=== PATIENT | female | born 1955 | race Caucasian/White ===

== ENCOUNTER 2020-08-16 12:58 | Inpatient (IN) | payer MEDICARE, OTHER ==
[2020-08-16] VITALS (11 sets, daily range): BP systolic 84–94; BP diastolic 47–60
[~2020-08-16] VITALS: Ht 170.2 cm; Wt 53.1 kg
[2020-08-16 13:50] LABS: MEAN CORPUSCULAR HEMOGLOBIN 15.7 pg (27.0-33.0); MEAN CORPUSCULAR HGB CONC 26.4 g/dl (32.0-36.5); MEAN CORPUSCULAR VOLUME 59.7 fl (80.0-96.0); PLATELET COUNT, AUTOMATED 729 10^3/uL (150-450); RED BLOOD COUNT 2.48 10^6/uL (4.00-5.40)
[2020-08-16 14:02] LABS: INR 1.55; PROTHROMBIN TIME 18.9 SECONDS (12.5-14.3)
[2020-08-16 14:03] LABS: PARTIAL THROMBOPLASTIN TIME 38.5 SECONDS (24.2-38.5)
[2020-08-16 14:12] LABS: HEMATOCRIT 14.8 % (36.0-47.0); HEMOGLOBIN 3.9 g/dl (12.0-15.5); WHITE BLOOD COUNT 47.7 10^3/uL (4.0-10.0)
[2020-08-16 14:22] LABS: ABG BASE EXCESS 8.8 (-2.0-2.0); ABG HCO3 31.6 MEQ/L (22.0-26.0); ABG O2 SATURATION 89.9 % (95.0-99.0); ABG PARTIAL PRESSURE CO2 33.9 mmHg (35.0-45.0); ABG PARTIAL PRESSURE O2 55.1 mmHg (75.0-100.0); ABG STANDARD HCO3 32.5 MEQ/L (22.0-26.0); ABG TOTAL CO2 32.7 MEQ/L (23.0-31.0); ABG pH (ARTERIAL) 7.588 UNITS (7.350-7.450)
[2020-08-16 14:27] LABS: ALBUMIN 1.5 GM/DL (3.2-5.2); ALT/SGPT 6 U/L (12-78); BILIRUBIN,DIRECT 0.4 MG/DL (0.0-0.2); BILIRUBIN,TOTAL 0.6 MG/DL (0.2-1.0); BLOOD UREA NITROGEN 11 MG/DL (7-18); CALCIUM LEVEL 7.6 MG/DL (8.8-10.2); CARBON DIOXIDE LEVEL 29 MEQ/L (21-32); CHLORIDE LEVEL 92 MEQ/L (98-107); CPK CREATINE PHOSPHOKINASE 38 U/L (26-192); CREATININE FOR GFR 0.88 MG/DL (0.55-1.30); GLOMERULAR FILTRATION RATE > 60.0 (>45); GLUCOSE, FASTING 90 MG/DL (70-100); MB/CK RELATIVE INDEX 5.26 (< OR =4); NT-PRO BNP 6956 PG/ML (<125); POTASSIUM SERUM 2.5 MEQ/L (3.5-5.1); SODIUM LEVEL 134 MEQ/L (136-145); TROPONIN I 0.16 NG/ML (< 0.10)
[2020-08-16] MEDS ORDERED: POTASSIUM CHLORIDE 10 MEQ SR TABLET PO ONE ×2 (14:30→21:00)
[2020-08-16] MEDS ORDERED: KCL 10MEQ/100ML SWI (KRUN) 10 MEQ in IV 1 EA IV ONE ×2 (14:30→19:00)
[2020-08-16] MEDS ORDERED: ISOVUE-370 76% 100ML VIAL As Ordered ONE (14:36)
[2020-08-16 14:42] LABS: D-DIMER QUANT > 4000 ng/ml (<500)
[2020-08-16 14:47] LABS: LYMPHOCYTES 2 % (16-44); MONOCYTES 1 % (0-5); NEUTROPHILS 95 % (28-66); PLATELET ESTIMATE INCREASED (NORMAL)
[2020-08-16 14:48] LABS: HYPOCHROMASIA 4+
[2020-08-16 14:49] LABS: TARGET CELLS 2+
[2020-08-16 14:50] LABS: ANISOCYTOSIS 3+; POLYCHROMASIA 2+
[2020-08-16 14:51] LABS: MICROCYTOSIS 3+; PLATELET CLUMPS SMALL AMT
[2020-08-16 14:52] LABS: POIKILOCYTOSIS 2+
--- NOTE | 2020-08-16 14:53 | REPVR ---
PROCEDURE INFORMATION: Exam: XR Chest, 1 View Exam date and time: 08/16/2020 2:04 PM Age: 65 years old Clinical indication: Other: Cough; Additional info: Dyspnea/cough TECHNIQUE: Imaging protocol: XR of the chest Views: 1 view. COMPARISON: No relevant prior studies available. FINDINGS: Lungs: There is a large amount of infiltrate and consolidation involving the inferior 2/3 of the right lung. The left lung is clear. Pleural space: Unremarkable. No pleural effusion. No pneumothorax. Heart/Mediastinum: Unremarkable. No cardiomegaly. Bones/joints: Unremarkable. Other findings: There is a small to moderate right effusion. IMPRESSION: Right infiltrate and effusion. Electronically signed by: Fei Abrams On 08/16/2020 14:52:45 PM
--- NOTE | 2020-08-16 15:26 | REPVR ---
PROCEDURE INFORMATION: Exam: CT Angiography Chest With Contrast Exam date and time: 08/16/2020 2:53 PM Age: 65 years old Clinical indication: Shortness of breath; Additional info: SOB, hypoxia TECHNIQUE: Imaging protocol: Computed tomographic angiography of the chest with intravenous contrast. 3D rendering (Not supervised by radiologist): MIP and/or 3D reconstructed images were created by the technologist. Radiation optimization: All CT scans at this facility use at least one of these dose optimization techniques: automated exposure control; mA and/or kV adjustment per patient size (includes targeted exams where dose is matched to clinical indication); or iterative reconstruction. Contrast material: ISOVUE 370; Contrast volume: 75 ml; Contrast route: INTRAVENOUS (IV); COMPARISON: CR PORTABLE CHEST X-RAY 08/16/2020 2:00 PM FINDINGS: Pulmonary arteries: Normal. No pulmonary emboli. Aorta: There is an ectatic ascending aorta 35 mm. Lungs: There is extensive infiltrate noted with atelectasis involving the right lung. There is a suspected mass lesion noted measuring 92 x 67 involving the middle lobe and right upper lobe extending to the hilum. This does have low-density in could be a large loculated area of fluid or partially cystic mass. There is moderate right effusion with basilar atelectasis. Pleural space: Unremarkable. No pneumothorax. No pleural effusion. Heart: Unremarkable. No cardiomegaly. No pericardial effusion. Lymph nodes: There is a 20 x 18 mm right hilar lymph node. There is an enlarged 13 x 12 mm pretracheal lymph node. Bones/joints: Unremarkable. No acute fracture. Soft tissues: Unremarkable. Other findings: There is artifact from the patient's arms scanned by her side. IMPRESSION: 1. Atelectasis involving the right upper lobe as well as the right base with a pleural effusion but there is suspected large right lung mass extending from the chest wall to the hilum. There is abnormal adenopathy. 2. No PE. 3. Patient's arms gives rise to artifact. Electronically signed by: Fei Abrams On 08/16/2020 15:26:09 PM
--- NOTE | 2020-08-16 18:01 | HPEPDOC ---
General Date of Admission 08/16/20 Date of Service: Aug 16, 2020 Chief Complaint The patient is a 65-year-old female admitted with a reason for visit of Medical Complaint. Source: Patient Exam Limitations: No limitations Timing/Duration: Week(s) Severity: Severe History of Present Illness Patient is 65 years old female with past medical history of chronic neck pain, active smoker presented to the hospital with increased shortness of breath. Patient stated that she haven't seen doctors for years. Patient stated that for past 4-5 weeks she has been having increased shortness of breath, cough, lack of appetite and low energy. She states that she lost many pounds, but she doesn't know exactly how many. In ER patient was found to have on CTA Atelectasis involving the right upper lobe as well as the right base with a pleural effusion but there is suspected large right lung mass extending from the chest wall to the hilum. There is abnormal adenopathy. Also patient has elevated white blood count of 47.7, hemoglobin 3.9, lactic acid 3.8, potassium 2.5, BNP 6956, troponin 0.1 Home Medications No Active Prescriptions or Reported Meds Allergies Coded Allergies: No Known Allergies (Unverified , 08/16/20) Past Medical History Medical History Chronic neck pain Family History I personally reviewed family history and found not pertinent Social History * Smoker: current smoker Alcohol: Denies Drugs: denies A-FIB/CHADSVASC A-FIB History Current/History of A-Fib/PAF?: No Current PO Anticoag Therapy: No Review of Systems Constitutional: Reports: Malaise, Weakness, Fatigue, Weight Loss Eyes: Denies: Pain, Vision change Skin: Denies: Rash, Lesions Pulmonary: Reports: Dyspnea, Cough Cardiovascular: Denies: Chest Pain, Palpitations Gastrointestinal: Denies: Nausea, Vomiting Genitourinary: Denies: Dysuria, Frequency Hematologic: Denies: Bruising Endocrine: Denies: Polydipsia, Polyphagia Musculoskeletal: Reports: Neck Pain Neurological: Denies: Weakness, Numbness Psych: Reports: Mood Normal Physical Examination General Exam: Positive: Alert, Cooperative Eye Exam: Positive: PERRLA ENT Exam: Positive: Atraumatic Neck Exam: Positive: Supple, JVD Chest Exam: Positive: Rales, Rhonchi, Diminished (right base); Negative: Clear to auscultation Heart Exam: Positive: Rate Normal Telemetry: Positive: No significant arrhythmia Abdomen Exam: Positive: Normal bowel sounds Extremity Exam: Positive: Clubbing; Negative: Cyanosis Skin Exam: Positive: Nl turgor and temperature Neuro Exam: Positive: Strength at 5/5 X4 ext, Cranial Nerves 3-12 NL Psych Exam: Positive: Mental status NL, Oriented x 3 Vital Signs Vital Signs Date Time Temp Pulse Resp B/P (MAP) Pulse Ox O2 Delivery O2 Flow Rate FiO2 08/16/20 17:30 84 88/51 (63) 94 Nasal Cannula 2.0 08/16/20 16:55 98.0 16 Laboratory Data Labs 24H Laboratory Tests 2 08/16/20 13:24: Neutrophils (%) (Auto) , Nucleated Red Blood Cells % (auto) 0.1H, Neutrophils 95H, Band Neutrophils 2, Lymphocytes (Manual) 2L, Monocytes (Manual) 1, Polychromasia 2+, Hypochromasia 4+, Poikilocytosis 2+, Anisocytosis 3+, Microcytosis 3+, Macrocytosis 1+, Target Cells 2+, Platelet Estimate INCREASED, Clumped Platelets SMALL AMT, Prothrombin Time 18.9H, Prothromb Time International Ratio 1.55, Activated Partial Thromboplast Time 38.5H, D-Dimer, Quantitative > 4000H, Anion Gap 13, Glomerular Filtration Rate > 60.0, Calcium Level 7.6L, Total Bilirubin 0.6, Direct Bilirubin 0.4H, Aspartate Amino Transf (AST/SGOT) 16, Alanine Aminotransferase (ALT/SGPT) 6L, Alkaline Phosphatase 164H, Total Creatine Kinase 38, Creatine Kinase MB 2.0, Creatine Kinase MB Relative Index 5.26H, Troponin I 0.16H, PA-Kbw-O-Type Natriuretic Peptide 6956H, Total Protein 6.0L, Albumin 1.5L, Albumin/Globulin Ratio 0.3L, Thyroid Stimulating Hormone (TSH) 3.940H 08/16/20 14:05: Blood Gas Bicarbonate Standard 32.5H, Arterial Blood pH 7.588H, Arterial Blood Partial Pressure CO2 33.9L, Arterial Blood Partial Pressure O2 55.1L, Arterial Blood Total CO2 32.7H, Arterial Blood HCO3 31.6H, Arterial Blood Base Excess 8.8H, Arterial Blood Oxygen Saturation 89.9L 08/16/20 14:46: Lactic Acid Level 3.8*H CBC/BMP Laboratory Tests 08/16/20 13:24 Microbiology Microbiology 08/16/20 Blood Culture, Received Pending 08/16/20 Respiratory Virus Panel (PCR) (JEFRY) - Final, Complete Assessment/Plan Patient is 65 years old female with past medical history of chronic neck pain, active smoker presented to the hospital with increased shortness of breath. Ale ent stated that she haven't seen doctors for years. Patient stated that for past 4-5 weeks she has been having increased shortness of breath, cough, lack of appetite and low energy. She states that she lost many pounds, but she doesn't know exactly how many. In ER patient was found to have on CTA Atelectasis involving the right upper lobe as well as the right base with a pleural effusion but there is suspected large right lung mass extending from the chest wall to the hilum. There is abnormal adenopathy. Also patient has elevated white blood count of 47.7, hemoglobin 3.9, lactic acid 3.8, potassium 2.5, BNP 6956, troponin 0.1 Problems (1) Sepsis Status: Acute Problem Text: Most likely secondary to obstructive pneumonia due to advanced lung malignancy Await blood culture, await sputum culture Ceftriaxone IV, doxycycline IV Patient has significantly elevated BNP, I will hold fluid for now (2) Lung mass Status: Acute Problem Text: Patient is active smoker CT scan showed Atelectasis involving the right upper lobe as well as the right base with a pleural effusion but there is suspected large right lung mass extending from the chest wall to the hilum. There is abnormal adenopathy. Most likely patient developed lung malignancy Placed order for IR for lung biopsy Appreciate/agree with enrollment manager consult (3) Leukocytosis Status: Acute Problem Text: Most likely associated with advanced malignancy secondary to lung cancer However there is possibility for obstructive pneumonia Ceftriaxone IV, doxycycline IV (4) Anemia Status: Acute Problem Text: Patient has microcytic anemia There is concern for GI loss anemia, patient has never had colonoscopy Stool for occult blood Blood transfusion 2 units H&H every [address] scan of abdomen and pelvis (5) Hypokalemia Status: Acute Problem Text: Replaced BMP every 6 hours (6) Acute hypoxemic respiratory failure Problem Text: Secondary to advanced lung malignancy, postobstructive pneumonia and pleural effusion Continue oxygen therapy Inhalers Continue antibiotics (7) Congestive heart failure (CHF) Status: Acute Problem Text: BNP significantly elevated Plus JVD, orthopnea Echo Cardiac diet I's and O's Lasix Plan / VTE VTE Prophylaxis Ordered?: Yes ELIE SCHMITZ DO Aug 16, 2020 18:01
[2020-08-16] MEDS: ACETAMINOPHEN TAB 650MG DOSE (2X325MG) PO PRN (18:23)
--- NOTE | 2020-08-16 18:59 | REPVR ---
PROCEDURE INFORMATION: Exam: CT Abdomen And Pelvis Without Contrast Exam date and time: 08/16/2020 6:16 PM Age: 65 years old Clinical indication: Other: Gi bleed TECHNIQUE: Imaging protocol: Computed tomography of the abdomen and pelvis without contrast. Radiation optimization: All CT scans at this facility use at least one of these dose optimization techniques: automated exposure control; mA and/or kV adjustment per patient size (includes targeted exams where dose is matched to clinical indication); or iterative reconstruction. COMPARISON: No relevant prior studies available. FINDINGS: Lungs: Lung base abnormalities were described on the CT angiogram chest report earlier today. Liver: Noncontrast liver shows no obvious lesion. Gallbladder and bile ducts: Gallbladder is present and shows no evidence of gallstone. Pancreas: Noncontrast pancreas shows no obvious mass or adjacent fluid. Spleen: Noncontrast spleen shows no obvious focal deformity. Adrenals: Adrenal glands are normal in appearance. Kidneys and ureters: Kidneys show no stone or hydronephrosis. Stomach and bowel: No evidence of small bowel obstruction. No evidence of acute diverticulitis. Hyperdense material within small bowel lumen in the midline pelvis which could be ingested material. It could potentially be intraluminal blood since the patient recently had IV contrast. This is seen on axial image [id number] Appendix: Normal caliber appendix is identified, with no adjacent inflammation. Intraperitoneal space: No pneumoperitoneum. Vasculature: Atherosclerotic change present in the aorta, without aneurysm. Lymph nodes: No enlarged lymph nodes. Bladder: Urinary bladder appears normal. Reproductive: Female reproductive organs appear unremarkable. Bones/joints: Bony structures show no acute fracture or destructive process. Soft tissues: Unremarkable. IMPRESSION: 1. Hyperdense intraluminal material within lower abdominal small bowel. This could be intraluminal hemorrhage with recent IV contrast administration, or could represent ingested material. 2. No other acute or concerning focal abnormality on noncontrast CT. Electronically signed by: Triston Garrison On 08/16/2020 18:59:42 PM
[2020-08-16 19:54] LABS: HEMATOCRIT 19.1 % (36.0-47.0); HEMOGLOBIN 5.4 g/dl (12.0-15.5)
[2020-08-16] MEDS: IPRATROPIUM 0.5MG/ALBUTEROL 2.5MG INH SOL UD 3ML (DUONEB) INH SCH (20:04)
[2020-08-16 20:13] LABS: INR 1.45; PROTHROMBIN TIME 17.9 SECONDS (12.5-14.3)
[2020-08-16 20:18] LABS: BLOOD UREA NITROGEN 10 MG/DL (7-18); CALCIUM LEVEL 7.6 MG/DL (8.8-10.2); CARBON DIOXIDE LEVEL 32 MEQ/L (21-32); CHLORIDE LEVEL 94 MEQ/L (98-107); CREATININE FOR GFR 0.62 MG/DL (0.55-1.30); GLOMERULAR FILTRATION RATE > 60.0 (>45); GLUCOSE, FASTING 99 MG/DL (70-100); MAGNESIUM LEVEL 1.6 MG/DL (1.8-2.4); POTASSIUM SERUM 2.2 MEQ/L (3.5-5.1); SODIUM LEVEL 134 MEQ/L (136-145)
[2020-08-16] MEDS: FUROSEMIDE 40MG/4ML VIAL (J1940) IV SCH (22:23)
[2020-08-16] MEDS: cefTRIAXone SOD 1 GM in D5W MINI-BAG PLUS 50 ML IV SCH (23:06)
[2020-08-16] MEDS: DOXYCYCLINE HYCLATE 100 MG in D5W MINI-BAG PLUS 100 ML IV SCH (23:53)
[2020-08-17] VITALS (9 sets, daily range): BP systolic 94–109; BP diastolic 52–62
[2020-08-17] MEDS: ACETAMINOPHEN TAB 650MG DOSE (2X325MG) PO PRN (00:02)
[2020-08-17] MEDS: IPRATROPIUM 0.5MG/ALBUTEROL 2.5MG INH SOL UD 3ML (DUONEB) INH SCH ×7 (01:49→23:58)
[2020-08-17 05:15] LABS: HEMATOCRIT 32.4 % (36.0-47.0); HEMOGLOBIN 10.1 g/dl (12.0-15.5); MEAN CORPUSCULAR HEMOGLOBIN 23.3 pg (27.0-33.0); MEAN CORPUSCULAR HGB CONC 31.2 g/dl (32.0-36.5); MEAN CORPUSCULAR VOLUME 74.7 fl (80.0-96.0); RED BLOOD COUNT 4.34 10^6/uL (4.00-5.40)
[2020-08-17 05:17] LABS: WHITE BLOOD COUNT 45.4 10^3/uL (4.0-10.0)
[2020-08-17 05:18] LABS: PLATELET COUNT, AUTOMATED 508 10^3/uL (150-450)
[2020-08-17 05:44] LABS: ALBUMIN 1.4 GM/DL (3.2-5.2); ALT/SGPT 7 U/L (12-78); BILIRUBIN,TOTAL 2.3 MG/DL (0.2-1.0); BLOOD UREA NITROGEN 10 MG/DL (7-18); CALCIUM LEVEL 7.8 MG/DL (8.8-10.2); CARBON DIOXIDE LEVEL 30 MEQ/L (21-32); CHLORIDE LEVEL 98 MEQ/L (98-107); CREATININE FOR GFR 0.57 MG/DL (0.55-1.30); GLOMERULAR FILTRATION RATE > 60.0 (>45); GLUCOSE, FASTING 119 MG/DL (70-100); MAGNESIUM LEVEL 1.5 MG/DL (1.8-2.4); SODIUM LEVEL 134 MEQ/L (136-145); TOTAL PROTEIN 5.5 GM/DL (6.4-8.2)
[2020-08-17] MEDS ORDERED: MAG SULF 1GM/100ML (MAG RUN) 1 GM in IV 1 EA IV ONE (07:00)
[2020-08-17] MEDS: KCL 10MEQ/100ML SWI (KRUN) 10 MEQ in IV 1 EA IV SCH ×4 (07:34→11:53)
[2020-08-17] MEDS: FUROSEMIDE 40MG/4ML VIAL (J1940) IV SCH (08:41)
[2020-08-17] MEDS: ENOXAPARIN 40MG/0.4ML SYRINGE (J1650 PER 10MG) SC SCH (08:42)
[2020-08-17] MEDS: DOXYCYCLINE HYCLATE 100 MG in D5W MINI-BAG PLUS 100 ML IV SCH (08:42)
[2020-08-17] MEDS ORDERED: FLUBLOK(EGG FREE)(QUAD)INFLUENZA VACC 0.5ML SYRINGE 18YRS & OLDER IM ONE (09:00)
[2020-08-17] MEDS: PERCOCET 5MG/325MG TAB PO PRN ×2 (09:08→20:49)
--- NOTE | 2020-08-17 10:11 | REPVR ---
PROCEDURE INFORMATION: Exam: CT Cervical Spine Without Contrast Exam date and time: 08/17/2020 9:41 AM Age: 65 years old Clinical indication: Neck pain and other: Mets? TECHNIQUE: Imaging protocol: Computed tomography images of the cervical spine without contrast. Radiation optimization: All CT scans at this facility use at least one of these dose optimization techniques: automated exposure control; mA and/or kV adjustment per patient size (includes targeted exams where dose is matched to clinical indication); or iterative reconstruction. COMPARISON: No relevant prior studies available. FINDINGS: Vertebrae: No acute fracture. Normal alignment. Mild posterior articular facet joint degenerative arthropathy is present at levels C3 through C7. Discs/Spinal canal/Neural foramina: No significant disc protrusion. No severe spinal canal stenosis. No significant neural foraminal narrowing. Soft tissues: Unremarkable prevertebral and posterior paraspinal soft tissues. Lungs: A layering pleural effusion is seen posterior to the right lung apex. IMPRESSION: 1. Normal cervical spine, except for mild posterior facet joint degenerative arthropathy at levels C3 through C7. No significant spinal canal or neuroforaminal stenosis. 2. A layering pleural effusion is seen posterior to the right lung apex. Electronically signed by: Artemio Mulligan On 08/17/2020 10:10:42 AM
[2020-08-17] MEDS: VANCOMYCIN HCL 1,000 MG, VIAL MATE ADAPTER 1 EACH in D5W 250 ML IV SCH ×2 (10:29→20:39)
--- NOTE | 2020-08-17 10:46 | IPNPDOC ---
Text Note Date of Service The patient was seen on 08/17/20. NOTE Subjective: Patient stated that her breathing improved. She complaints of cough and poor appetite. She denies fever, chills, chest pain, palpitations, diarrhea or dysuria Objective: GENERAL APPEARANCE: Cachectic female HEENT: no scleral icterus, no JVD, EOMI CARDIOVASCULAR: S1S2 LUNGS: Bilateral rhonchi, diminished lung sounds at the right base ABDOMEN: soft & not tender w palpitation MUSCULOSKELETAL: no cyanosis, no swelling INTEGUMENT: no generalized palor NEUROLOGICAL: cranial nerve function from 2-12 intact intact, follows commands, speech not dysarthric Assessment/Plan Patient is 65 years old female with past medical history of chronic neck pain, active smoker presented to the hospital with increased shortness of breath. Patient stated that she haven't seen doctors for years. Patient stated that for past 4-5 weeks she has been having increased shortness of breath, cough, lack of appetite and low energy. She states that she lost many pounds, but she doesn't know exactly how many. In ER patient was found to have on CTA Atelectasis involving the right upper lobe as well as the right base with a pleural effusion but there is suspected large right lung mass extending from the chest wall to the hilum. There is abnormal adenopathy. Also patient has elevated white blood count of 47.7, hemoglobin 3.9, lactic acid 3.8, potassium 2.5, BNP 6956, t roponin 0.1 Problems (1) Sepsis Most likely secondary to obstructive pneumonia due to advanced lung malignancy blood culture gram-positive cocci in clusters, await sputum culture Ceftriaxone IV, DC doxycycline IV, added vancomycin (2) Lung mass Patient is active smoker CT scan showed Atelectasis involving the right upper lobe as well as the right base with a pleural effusion but there is suspected large right lung mass extending from the chest wall to the hilum. There is abnormal adenopathy. Most likely patient developed lung malignancy Placed order for IR for lung biopsy Appreciate/agree with technical solutions engineer consult (3) Leukocytosis Most likely associated with advanced malignancy secondary to lung cancer However there is possibility for obstructive pneumonia Continue antibiotic therapy (4) Anemia Patient has microcytic anemia There is concern for GI loss anemia, patient has never had colonoscopy Stool for occult blood Blood transfusion 2 units H&H every 6 hours On 08/17/20 in stable (5) Hypokalemia Replaced BMP every 6 hours (6) Acute hypoxemic respiratory failure Secondary to advanced lung malignancy, postobstructive pneumonia and pleural effusion Continue oxygen therapy Inhalers Continue antibiotics (7) Congestive heart failure (CHF) Improved BNP significantly elevated Plus JVD, orthopnea Echo Cardiac diet I's and O's DC Lasix due to sepsis Postobstructive pneumonia Secondary to malignancy See above VS,Fishbone, I+O VS, Fishbone, I+O Laboratory Tests 08/16/20 13:24 08/16/20 19:26 08/17/20 04:37 Vital Signs Date Time Temp Pulse Resp B/P (MAP) Pulse Ox O2 Delivery O2 Flow Rate FiO2 08/17/20 09:38 20 Room Air 08/17/20 03:45 98.2 81 101/55 91 08/17/20 01:35 2.0 I&O- Last 24 Hours up to 6 AM 08/17/20 05:59 Intake Total 2060 ml Output Total 200 ml Balance 1860 ml ELIE SCHMITZ DO Aug 17, 2020 10:46
[2020-08-17 12:26] LABS: HEMOGLOBIN 10.1 g/dl (12.0-15.5)
[2020-08-17 12:50] LABS: BLOOD UREA NITROGEN 9 MG/DL (7-18); CALCIUM LEVEL 7.8 MG/DL (8.8-10.2); CARBON DIOXIDE LEVEL 31 MEQ/L (21-32); CHLORIDE LEVEL 96 MEQ/L (98-107); CREATININE FOR GFR 0.68 MG/DL (0.55-1.30); GLOMERULAR FILTRATION RATE > 60.0 (>45); GLUCOSE, FASTING 189 MG/DL (70-100); POTASSIUM SERUM 3.2 MEQ/L (3.5-5.1); SODIUM LEVEL 132 MEQ/L (136-145)
--- NOTE | 2020-08-17 13:18 | ECGEPIP ---
[facility] - ED Test Date: 2020-08-16 Pat Name: CHON ZUÑIGA Department: Room: - Gender: Female Cloud Systems Architect: MICHELE : 1955 Requested By: TIGRE Erickson Order Number: [id number] Reading MD: Yesy Thompson Measurements Intervals [place] Rate: 96 P: 52 TX: 152 QRS: -35 QRSD: 87 T: 62 QT: 368 QTc: 466 Interpretive Statements SINUS RHYTHM WITH OCCASIONAL VENTRICULAR PREMATURE COMPLEXES WITH OCCASIONAL SUP SUPRAVENTRICULAR PREMATURE COMPLEXES MARKED LEFT AXIS DEVIATION MODERATE ST DEPRESSION NSTTW abnormalities POSSIBLE PRIOR INFERIOR INFARCT NO PRIOR Electronically Signed on 08-17-2020 13:18:20 EDT by Yesy Thompson
[2020-08-17] MEDS: cefTRIAXone SOD 1 GM in D5W MINI-BAG PLUS 50 ML IV SCH (17:20)
[2020-08-17 18:04] LABS: HEMOGLOBIN 10.3 g/dl (12.0-15.5)
[2020-08-17 18:31] LABS: BLOOD UREA NITROGEN 9 MG/DL (7-18); CALCIUM LEVEL 7.7 MG/DL (8.8-10.2); CARBON DIOXIDE LEVEL 32 MEQ/L (21-32); CHLORIDE LEVEL 95 MEQ/L (98-107); CREATININE FOR GFR 0.54 MG/DL (0.55-1.30); GLOMERULAR FILTRATION RATE > 60.0 (>45); GLUCOSE, FASTING 100 MG/DL (70-100); POTASSIUM SERUM 3.2 MEQ/L (3.5-5.1); SODIUM LEVEL 133 MEQ/L (136-145)
[2020-08-17] MEDS ORDERED: KCL 10MEQ/100ML SWI (KRUN) 10 MEQ in IV 1 EA IV ONE (19:00)
[2020-08-17] MEDS ORDERED: POTASSIUM CHLORIDE 10 MEQ SR TABLET PO ONE (19:00)
[2020-08-18] VITALS: BP 114/55
[2020-08-18 00:45] LABS: BLOOD UREA NITROGEN 8 MG/DL (7-18); CALCIUM LEVEL 8.1 MG/DL (8.8-10.2); CARBON DIOXIDE LEVEL 32 MEQ/L (21-32); CHLORIDE LEVEL 95 MEQ/L (98-107); CREATININE FOR GFR 0.53 MG/DL (0.55-1.30); GLOMERULAR FILTRATION RATE > 60.0 (>45); GLUCOSE, FASTING 88 MG/DL (70-100); POTASSIUM SERUM 3.5 MEQ/L (3.5-5.1); SODIUM LEVEL 131 MEQ/L (136-145)
[2020-08-18 00:56] LABS: HEMATOCRIT 34.4 % (36.0-47.0); HEMOGLOBIN 10.6 g/dl (12.0-15.5)
[2020-08-18] MEDS: IPRATROPIUM 0.5MG/ALBUTEROL 2.5MG INH SOL UD 3ML (DUONEB) INH SCH ×5 (03:54→20:12)
[2020-08-18 04:00] VITALS: BP 115/59
[2020-08-18] MEDS: PERCOCET 5MG/325MG TAB PO PRN ×3 (04:11→17:44)
[2020-08-18 04:16] LABS: HEMATOCRIT 34.1 % (36.0-47.0); HEMOGLOBIN 10.6 g/dl (12.0-15.5)
[2020-08-18 04:41] LABS: BLOOD UREA NITROGEN 8 MG/DL (7-18); CARBON DIOXIDE LEVEL 32 MEQ/L (21-32); CHLORIDE LEVEL 97 MEQ/L (98-107); CREATININE FOR GFR 0.46 MG/DL (0.55-1.30); GLOMERULAR FILTRATION RATE > 60.0 (>45); GLUCOSE, FASTING 73 MG/DL (70-100); POTASSIUM SERUM 3.4 MEQ/L (3.5-5.1); SODIUM LEVEL 132 MEQ/L (136-145)
[2020-08-18 07:26] LABS: MAGNESIUM LEVEL 1.6 MG/DL (1.8-2.4)
[2020-08-18] MEDS ORDERED: MAG SULF 1GM/100ML (MAG RUN) 1 GM in IV 1 EA IV ONE (07:45)
[2020-08-18] MEDS ORDERED: POTASSIUM CHLORIDE 10 MEQ SR TABLET PO ONE (07:45)
[2020-08-18] MEDS: ENOXAPARIN 40MG/0.4ML SYRINGE (J1650 PER 10MG) SC SCH (07:47)
[2020-08-18 08:00] VITALS: BP 97/51
[2020-08-18] MEDS: VANCOMYCIN HCL 1,000 MG, VIAL MATE ADAPTER 1 EACH in D5W 250 ML IV SCH ×2 (09:21→21:38)
--- NOTE | 2020-08-18 09:57 | IPNPDOC ---
Text Note Date of Service The patient was seen on 08/18/20. NOTE Subjective: Pt continue to complaint of cough, neck pain and poor appetite. She denies fever, chills, chest pain, palpitations, diarrhea or dysuria Objective: GENERAL APPEARANCE: Cachectic female HEENT: no scleral icterus, no JVD, EOMI CARDIOVASCULAR: S1S2 LUNGS: Bilateral rhonchi, diminished lung sounds at the right base ABDOMEN: soft & not tender w palpitation MUSCULOSKELETAL: no cyanosis, no swelling INTEGUMENT: no generalized palor NEUROLOGICAL: cranial nerve function from 2-12 intact intact, follows commands, speech not dysarthric Assessment/Plan Patient is 65 years old female with past medical history of chronic neck pain, active smoker presented to the hospital with increased shortness of breath. Patient stated that she haven't seen doctors for years. Patient stated that for past 4-5 weeks she has been having increased shortness of breath, cough, lack of appetite and low energy. She states that she lost many pounds, but she doesn't know exactly how many. In ER patient was found to have on CTA Atelectasis involving the right upper lobe as well as the right base with a pleural effusion but there is suspected large right lung mass extending from the chest wall to the hilum. There is abnormal adenopathy. Also patient has elevated white blood count of 47.7, hemoglobin 3.9, lactic acid 3.8, potassium 2.5, BNP 6956, troponin 0.1 Problems (1) Sepsis Most likely secondary to obstructive pneumonia due to advanced lung malignancy blood culture Staphylococcus aureus, await sputum culture Ceftriaxone IV, vancomycin IV Appreciate/agree with ID consult (2) Lung mass Patient is active smoker CT scan showed Atelectasis involving the right upper lobe as well as the right base with a pleural effusion but there is suspected large right lung mass extending from the chest wall to the hilum. There is abnormal adenopathy. Most likely patient developed lung malignancy Placed order for IR for lung biopsy (3) Leukocytosis Most likely associated with advanced malignancy secondary to lung cancer However there is possibility for obstructive pneumonia Continue antibiotic therapy (4) Anemia Patient has microcytic anemia There is concern for GI loss anemia, patient has never had colonoscopy Stool for occult blood s/p blood transfusion 2 units H&H every 6 hours Hb stable (5) Hypokalemia Replaced BMP every 6 hours (6) Acute hypoxemic respiratory failure resolved Secondary to advanced lung malignancy, postobstructive pneumonia and pleural effusion Continue oxygen therapy Inhalers Continue antibiotics (7) Congestive heart failure (CHF) Improved BNP significantly elevated Plus JVD, orthopnea Echo Cardiac diet I's and O's DC Lasix due to sepsis Postobstructive pneumonia Secondary to malignancy See above Neck pain CT shows Normal cervical spine, except for mild posterior facet joint degenerative arthropathy at levels C3 through C7. No significant spinal canal or neuroforaminal stenosis. Pain management Severe protein calorie malnutrition BMI 16.9 Recent significant loss of weight Albumin 1.5 Muscle wasting VS,Fishbone, I+O VS, Fishbone, I+O Laboratory Tests 08/17/20 12:15 08/17/20 17:56 08/18/20 00:10 08/18/20 03:53 Vital Signs Date Time Temp Pulse Resp B/P (MAP) Pulse Ox O2 Delivery O2 Flow Rate FiO2 08/18/20 08:52 18 Room Air 08/18/20 08:00 98.2 86 97/51 (66) 90 08/17/20 01:35 2.0 I&O- Last 24 Hours up to 6 AM 08/18/20 05:59 Intake Total 1540 ml Output Total 1550 ml Balance -10 ml ELIE SCHMITZ DO Aug 18, 2020 09:57
[2020-08-18 12:00] VITALS: BP 106/54
[2020-08-18 13:14] LABS: HEMATOCRIT 34.5 % (36.0-47.0); HEMOGLOBIN 10.6 g/dl (12.0-15.5); MEAN CORPUSCULAR HEMOGLOBIN 23.3 pg (27.0-33.0); MEAN CORPUSCULAR HGB CONC 30.7 g/dl (32.0-36.5); PLATELET COUNT, AUTOMATED 373 10^3/uL (150-450); RED BLOOD COUNT 4.54 10^6/uL (4.00-5.40)
[2020-08-18 13:20] LABS: WHITE BLOOD COUNT 34.5 10^3/uL (4.0-10.0)
[2020-08-18 13:48] LABS: BLOOD UREA NITROGEN 8 MG/DL (7-18); CARBON DIOXIDE LEVEL 30 MEQ/L (21-32); CHLORIDE LEVEL 96 MEQ/L (98-107); CREATININE FOR GFR 0.45 MG/DL (0.55-1.30); GLOMERULAR FILTRATION RATE > 60.0 (>45); GLUCOSE, FASTING 85 MG/DL (70-100); POTASSIUM SERUM 4.2 MEQ/L (3.5-5.1); SODIUM LEVEL 131 MEQ/L (136-145)
[2020-08-18 13:49] LABS: CALCIUM LEVEL 8.1 MG/DL (8.8-10.2)
[2020-08-18 13:53] LABS: HYPOCHROMASIA 2+; LYMPHOCYTES 5 % (16-44); MONOCYTES 1 % (0-5); NEUTROPHILS 89 % (28-66)
[2020-08-18 13:55] LABS: ANISOCYTOSIS 1+; MICROCYTOSIS 1+; PLATELET ESTIMATE NORMAL (NORMAL); POIKILOCYTOSIS 1+
[2020-08-18 14:00] VITALS: BP 102/60
[2020-08-18] MEDS: NAFCILLIN SOD 2 GM in D5W MINI-BAG PLUS 50 ML IV SCH ×2 (17:44→22:50)
[2020-08-18 20:00] VITALS: BP 94/53
[2020-08-19] VITALS (8 sets, daily range): BP systolic 96–113; BP diastolic 48–56
[2020-08-19] MEDS: PERCOCET 5MG/325MG TAB PO PRN ×3 (00:15→20:50)
[2020-08-19] MEDS: NAFCILLIN SOD 2 GM in D5W MINI-BAG PLUS 50 ML IV SCH ×2 (01:27→06:01)
[2020-08-19] MEDS: IPRATROPIUM 0.5MG/ALBUTEROL 2.5MG INH SOL UD 3ML (DUONEB) INH SCH ×6 (04:00→19:39)
[2020-08-19 08:18] LABS: BASO # 0.1 10^3/uL (0.0-0.2); BASO % 0.2 % (0.0-1.0); EOS # 0.1 10^3/uL (0.0-0.5); EOS % 0.3 % (0.0-3.0); HEMATOCRIT 36.4 % (36.0-47.0); HEMOGLOBIN 11.1 g/dl (12.0-15.5); LYMPH # 3.3 10^3/uL (1.5-5.0); LYMPH % 10.8 % (24.0-44.0); MEAN CORPUSCULAR HEMOGLOBIN 23.2 pg (27.0-33.0); MEAN CORPUSCULAR HGB CONC 30.5 g/dl (32.0-36.5); MONO % 6.5 % (0.0-5.0); NEUTROPHILS # 24.4 10^3/uL (1.5-8.5); PLATELET COUNT, AUTOMATED 355 10^3/uL (150-450); RED BLOOD COUNT 4.79 10^6/uL (4.00-5.40)
[2020-08-19 08:21] LABS: WHITE BLOOD COUNT 30.1 10^3/uL (4.0-10.0)
[2020-08-19 08:40] LABS: ABG BASE EXCESS 5.1 (-2.0-2.0); ABG O2 SATURATION 86.6 % (95.0-99.0); ABG PARTIAL PRESSURE CO2 39.8 mmHg (35.0-45.0); ABG STANDARD HCO3 28.9 MEQ/L (22.0-26.0); ABG TOTAL CO2 30.2 MEQ/L (23.0-31.0)
[2020-08-19 08:45] LABS: ABG PARTIAL PRESSURE O2 47.5 mmHg (75.0-100.0)
[2020-08-19] MEDS ORDERED: cefTRIAXone SOD 1 GM in D5W MINI-BAG PLUS 50 ML IV SCH (08:45)
[2020-08-19] MEDS: ENOXAPARIN 40MG/0.4ML SYRINGE (J1650 PER 10MG) SC SCH (08:51)
[2020-08-19 09:08] LABS: ALBUMIN 1.3 GM/DL (3.2-5.2); ALT/SGPT 38 U/L (12-78); BILIRUBIN,TOTAL 4.4 MG/DL (0.2-1.0); BLOOD UREA NITROGEN 9 MG/DL (7-18); CALCIUM LEVEL 8.1 MG/DL (8.8-10.2); CARBON DIOXIDE LEVEL 29 MEQ/L (21-32); CHLORIDE LEVEL 97 MEQ/L (98-107); CREATININE FOR GFR 0.56 MG/DL (0.55-1.30); GLOMERULAR FILTRATION RATE > 60.0 (>45); GLUCOSE, FASTING 67 MG/DL (70-100); MAGNESIUM LEVEL 1.9 MG/DL (1.8-2.4); POTASSIUM SERUM 4.7 MEQ/L (3.5-5.1); SODIUM LEVEL 133 MEQ/L (136-145); TOTAL PROTEIN 5.8 GM/DL (6.4-8.2); VANCOMYCIN LEVEL TROUGH 15.7 UG/ML (10.0-20.0)
[2020-08-19] MEDS: ceFAZolin SOD 2 GM in IV 1 EA IV SCH ×2 (10:15→18:02)
--- NOTE | 2020-08-19 11:06 | IPNPDOC ---
Text Note Date of Service The patient was seen on 08/19/20. NOTE Subjective Patient was seen and examined this morning. Feeling better, sitting up in bed. Trying to eat more. Has some itching. Plan for biopsy today. Objective Constitutional: Awake and alert, in no apparent distress ENT: Sclera are clear. Mucosa is moist. Respiratory: Lungs CTA bilaterally. No respiratory distress. No use of accessory muscles. Cardiovascular: RRR S1 and S2 are normal, no murmur Gastrointestinal: Abdomen is soft, non distended, non tender, BS present. Musculoskeletal: Trace pedal edema. RUE 5/5, LUE 5/5, BLE 5/5 Neurologic: No focal neurological deficit. Mental Status: A&O x3, normal affect Skin: Warm, dry A/p 65 yo F presents with worsening SOB, cough, weight loss, fatigue. CT showing large right lung mass from chest wall to helium. Found to have postobstructive PNA. Also patient has on admission elevated white blood count of 47.7, hemoglobin 3.9, lactic acid 3.8, potassium 2.5, BNP 6956, troponin 0.1. # Sepsis: likely 2/2 post obstructive PNA. BCx+ S. Aureus (08/07). Repeat BCx 08/18 pending. UCx. Sputum Cx. IV Cefazolin. ID consult for length of tx. [place] criteria low suspicion for endocarditis. No clincial signs. Source likely PNA. If second BCx negative will not pursue echo at this time. # Lung mass: CT shows large right lung mass extending from the chest wall to the hilum. High likelihood of malignancy. Pulm recs. IR prefers bronchoscopy for biopsy. Dr Jarvis aware. Can be discahrged home after biopsy, does not need to wait for results which can take 4-5 days. OP followup with PCP and pulm for results. # PNA: post obstructive 2/2 lung mass. IV Cefazolin. ID recs. # Leukocytosis: PNA, sepsis. Can also be significantly elevated due to lung mass. IV abx. Downtrending. # Microcytic anemia: s/p 4U pRBC. Trend HH q8h. Hgb 3.9 on admit now improved and stable. FOBT negative. No active bleeding. Colonoscopy OP. # Hypokalemia: replace. Monitor BMP. Check mag replace. # Dyspnea on exertion: suspect CHF. BNP elevated. JVD, orthopnea. Echo f/u. fluid restriction. I&Os. Lasix on hold currently due to sepsis. Repeat CXR. Rep eat BNP. # Neck pain: CT shows joint degenerative arthropathy. Tylenol PRN. # Severe protein calorie malnutrition: BMI 16.9. likely due to underlying malignancy. Nutrition consult. # Acute hypoxemix respiratory failure: resolved. Pulm on board. O2 as needed. Repeat ABG. # Likely underlying COPD: deunebs PRN. Active smoker. # DVT prophylaxis: Lovenox A [facility] Hospitalist VS,Fishbone, I+O VS, Fishbone, I+O Laboratory Tests 08/18/20 12:38 Vital Signs Date Time Temp Pulse Resp B/P (MAP) Pulse Ox O2 Delivery O2 Flow Rate FiO2 08/19/20 04:00 98.5 80 18 97/48 (64) 93 Room Air 08/17/20 01:35 2.0 I&O- Last 24 Hours up to 6 AM 08/19/20 06:00 Intake Total 420 ml Output Total 200 ml Balance 220 ml ONEAL JOINER MD Aug 19, 2020 07:21
[2020-08-19] MEDS: SENOKOT S TAB PO SCH (12:28)
[2020-08-19] MEDS ORDERED: LIDOCAINE 1% MDV 20ML VIAL As Ordered ONE (12:57)
[2020-08-19 15:23] LABS: BILIRUBIN,DIRECT 3.2 MG/DL (0.0-0.2)
--- NOTE | 2020-08-19 18:05 | REPVR ---
PROCEDURE INFORMATION: Exam: US Abdomen, Limited; Right Upper Quadrant Exam date and time: 08/19/2020 5:24 PM Age: 65 years old Clinical indication: Abdominal pain; Acute; Additional info: Increasing bilirubin TECHNIQUE: Imaging protocol: US abdomen. Real time ultrasound with image documentation. Limited exam focused on the right upper quadrant. COMPARISON: No relevant prior studies available. FINDINGS: Pleural space: There is a right pleural effusion. Liver: Normal. No masses. Gallbladder: There is sludge within the gallbladder. Gallbladder wall thickness is 3 mm. No echogenic shadowing gallstones Common bile duct: The common bile duct is minimally dilated at 7 mm. Pancreas: Pancreas is poorly visualized because of shadowing bowel gas. Right kidney: The right kidney measures 11.5 by 4.7 x 5.3 cm. There is no hydronephrosis. Intraperitoneal space: No free fluid. IMPRESSION: 1. Gallbladder sludge. No cholelithiasis or definite findings to indicate cholecystitis. 2. Right pleural effusion. 3. Minimally dilated common bile duct at 7 mm. Electronically signed by: Esther Horn On 08/19/2020 18:05:35 PM
[2020-08-19] MEDS: MORPHINE 2 MG/ML 1ML VIAL (J2270) IV PRN (23:46)
[2020-08-19] MEDS: hydrOXYzine 10MG/5ML SYRUP PO PRN (23:51)
[2020-08-20] VITALS: BP 96/50
[2020-08-20] MEDS: ceFAZolin SOD 2 GM in IV 1 EA IV SCH ×3 (02:58→17:28)
[2020-08-20 04:00] VITALS: BP 101/54
[2020-08-20] MEDS: IPRATROPIUM 0.5MG/ALBUTEROL 2.5MG INH SOL UD 3ML (DUONEB) INH SCH ×6 (04:00→20:41)
[2020-08-20 05:41] LABS: BASO % 0.2 % (0.0-1.0); EOS # 0.1 10^3/uL (0.0-0.5); EOS % 0.4 % (0.0-3.0); HEMOGLOBIN 9.2 g/dl (12.0-15.5); LYMPH # 2.5 10^3/uL (1.5-5.0); MEAN CORPUSCULAR HEMOGLOBIN 23.2 pg (27.0-33.0); MEAN CORPUSCULAR HGB CONC 30.7 g/dl (32.0-36.5); MEAN CORPUSCULAR VOLUME 75.8 fl (80.0-96.0); MONO # 1.4 10^3/uL (0.0-0.8); NEUTROPHILS # 15.2 10^3/uL (1.5-8.5); NEUTROPHILS % 78.4 % (36.0-66.0); PLATELET COUNT, AUTOMATED 266 10^3/uL (150-450); RED BLOOD COUNT 3.96 10^6/uL (4.00-5.40); WHITE BLOOD COUNT 19.3 10^3/uL (4.0-10.0)
[2020-08-20 05:54] LABS: ALBUMIN 1.2 GM/DL (3.2-5.2); ALT/SGPT 18 U/L (12-78); BILIRUBIN,DIRECT 1.1 MG/DL (0.0-0.2); BILIRUBIN,TOTAL 1.5 MG/DL (0.2-1.0); BLOOD UREA NITROGEN 10 MG/DL (7-18); CALCIUM LEVEL 7.9 MG/DL (8.8-10.2); CARBON DIOXIDE LEVEL 32 MEQ/L (21-32); CHLORIDE LEVEL 96 MEQ/L (98-107); CREATININE FOR GFR 0.47 MG/DL (0.55-1.30); GLOMERULAR FILTRATION RATE > 60.0 (>45); GLUCOSE, FASTING 80 MG/DL (70-100); MAGNESIUM LEVEL 1.9 MG/DL (1.8-2.4); POTASSIUM SERUM 3.5 MEQ/L (3.5-5.1); SODIUM LEVEL 133 MEQ/L (136-145); TOTAL PROTEIN 5.5 GM/DL (6.4-8.2)
--- NOTE | 2020-08-20 07:43 | ECHO ---
DATE OF PROCEDURE: 08/16/2020 Height: 168 cm Weight: 50 kg REFERRING PHYSICIAN: Amol Newman INDICATION: Sepsis MEASUREMENTS: IV 0.9 LV 4.8 LVPW 0.9 LA 3.3 Aorta 2.8 IVC 2.2 Mitral E wave velocity 97, a wave 112 E prime septal 7.6 E prime lateral 13.5 FINDINGS: The study is of adequate technical quality. The patient is in sinus rhythm. Left ventricle is normal size and systolic function, estimated left ventricular ejection fraction (LVEF) 55 to 60%. No segmental wall motion abnormalities are appreciated. Right ventricle does not appear grossly enlarged and is normally contractile. Both atria appear normal. Aortic, mitral and tricuspid valves appear normal. Pulmonic valve was poorly visualized. No pericardial effusion is noted. Inferior vena cava is mildly dilated, but appropriately collapses in inspiration indicative of likely mildly elevated central venous pressure. Aortic root, aortic arch and abdominal aorta appear normal. Doppler interrogation of aortic valve reveals no aortic stenosis or insufficiency. Same applies for mitral valve. There is trace tricuspid insufficiency. Calculated pulmonary artery pressure is in high 30s corresponding to mild pulmonary hypertension. Mitral inflow pattern and tissue Doppler imaging of mitral annulus reveals grade 1 diastolic dysfunction. CONCLUSIONS: 1. Study is of acceptable technical quality. The patient is in sinus rhythm. 2. Normal Left ventricle (LV) with preserved LV systolic function and grade 1 diastolic dysfunction. 3. No hemodynamically significant valvular disease. 4. Likely mildly elevated central venous pressure and mild pulmonary hypertension. COMMENTS: No vegetations were visualized. [facility]
--- NOTE | 2020-08-20 07:49 | ECHO ---
DATE OF PROCEDURE: 08/18/2020 Age: 65 Gender: Female Height: 67 inches Weight: 108 pounds Body surface area: 1.56 m2 PATIENT LOCATION: Inpatient progressive care unit (PCU), Room 3211. REFERRING PHYSICIAN: Amol Newman DO INDICATION: Sepsis. MEASUREMENTS: 2D Measurements: RV 4.2 cm LV 4.6 cm Septum 0.9 cm Posterior wall 0.9 cm Aortic Root 3.0 cm LA 3.2 cm LVEF 60% Doppler Measurements: AV 1.65 m/s LVOT 1.2 m/s LVOT diameter 1.9 cm MV-E 64, A 84, E/A ratio 0.8 Early mitral deceleration time 270 m/s E prime medial 4.8, A prime medial 11, E prime lateral 10 Average E/E prime ratio 8.6/PCWP 12.6 mmHg PV 0.875 m/s Pulmonary artery acceleration time 100 m/s RVSP 37 mmHg IVC 1.2 cm COMMENTS: Normal sinus rhythm without intraventricular conduction disturbance. M-mode and two-dimensional echocardiography was performed with pulsed, continuous wave, color flow, and tissue Doppler studies. Normal left ventricular size, wall thickness, and wall motion. Normal left atrial size with Doppler evidence of grade 1 left ventricular (LV) diastolic dysfunction, but currently normal estimated mean left atrial pressure. Mildly dilated right heart chambers with normal wall motion and Doppler evidence of mild pulmonary hypertension. Normal inferior vena cava (IVC) size and collapse against an elevated central venous pressure. Normal aortic dimensions. Normal appearing aortic valve with trace to very mild aortic insufficiency. Normal appearing mitral valve and leaflet motion with no posterior systolic buckling and only trace insufficiency. Normal appearing tricuspid valve with very mild insufficiency. No apparent intracardiac mass. Meniscal posterior pericardial effusion measuring 0.45 cm. A previous echocardiographic study was apparently performed, but not currently available. MTDD
[2020-08-20 08:00] VITALS: BP 117/53
[2020-08-20 08:18] LABS: PLATELET ESTIMATE NORMAL (NORMAL)
[2020-08-20] MEDS: SENOKOT S TAB PO SCH (09:00)
[2020-08-20] MEDS: ENOXAPARIN 40MG/0.4ML SYRINGE (J1650 PER 10MG) SC SCH (09:08)
[2020-08-20] MEDS: MORPHINE 2 MG/ML 1ML VIAL (J2270) IV PRN ×2 (09:09→20:28)
[2020-08-20 11:36] VITALS: BP 114/56
[2020-08-20] MEDS ORDERED: POTASSIUM CHLORIDE 10 MEQ SR TABLET PO ONE (15:00)
[2020-08-20 15:41] VITALS: BP 98/55
--- NOTE | 2020-08-20 16:55 | IPNPDOC ---
Text Note Date of Service The patient was seen on 08/20/20. NOTE S Patient seen and examined this morning sitting at bedside doing well. No ov ernight events. O Constitutional: Awake and alert, in no apparent distress ENT: Sclera are clear. Mucosa is moist. Respiratory: Lungs CTA bilaterally. No respiratory distress. No use of accessory muscles. Cardiovascular: RRR S1 and S2 are normal, no murmur Gastrointestinal: Abdomen is soft, non distended, non tender, BS present. Musculoskeletal: Trace pedal edema Neurologic: No focal neurological deficit. Mental Status: A&O x3, normal affect Skin: Warm, dry Vital Signs Date Time Temp Pulse Resp B/P (MAP) Pulse Ox O2 Delivery O2 Flow Rate FiO2 08/20/20 15:41 99.0 80 18 98/55 (69) 95 Room Air 08/20/20 11:51 100.4 08/20/20 11:36 99.1 89 18 114/56 (75) 92 Room Air 08/20/20 09:35 17 08/20/20 09:09 18 Room Air 08/20/20 08:00 99.2 88 18 117/53 (74) 90 Room Air 08/20/20 04:00 98.7 78 18 101/54 (70) 94 Room Air 08/20/20 00:00 98.8 84 16 96/50 (65) 94 Room Air 08/19/20 23:56 18 94 Room Air 08/19/20 23:46 18 94 Room Air 08/19/20 21:20 18 95 Room Air 08/19/20 20:50 18 95 Room Air 08/19/20 20:00 98.2 101 18 96/52 (67) 93 Room Air Intake & Output 08/20/20 06:00 Intake Total 400 ml Output Total 0 ml Balance 400 ml Laboratory Tests 08/19/20 23:53: Bedside Glucose (Misc Panel) 168H 08/20/20 04:37: White Blood Count 19.3H, Red Blood Count 3.96L, Hemoglobin 9.2L, Hematocrit 30.0L, Mean Corpuscular Volume 75.8L, Mean Corpuscular Hemoglobin 23.2L, Mean Corpuscular Hemoglobin Concent 30.7L, Red Cell Distribution Width , Platelet Count 266, Immature Granulocyte % (Auto) 1.0, Neutrophils (%) (Auto) 78.4H, Lymphocytes (%) (Auto) 13.0L, Monocytes (%) (Auto) 7.0H, Eosinophils (%) (Auto) 0.4, Basophils (%) (Auto) 0.2, Neutrophils # (Auto) 15.2H, Lymphocytes # (Auto) 2.5, Monocytes # (Auto) 1.4H, Eosinophils # (Auto) 0.1, Basophils # (Auto) 0.0, Nucleated Red Blood Cells % (auto) 0.1H, Platelet Estimate NORMAL, Red Blood Cell Morphology NORMAL, Sodium Level 133L, Potassium Level 3.5#, Chloride Level 96L, Carbon Dioxide Level 32, Anion Gap 5L, Blood Urea Nitrogen 10, Creatinine 0.47L, Glomerular Filtration Rate > 60.0, Fasting Glucose 80, Calcium Level 7.9L, Magnesium Level 1.9, Total Bilirubin 1.5#H, Direct Bilirubin 1.1H, Aspartate Amino Transf (AST/SGOT) 51H, Alanine Aminotransferase (ALT/SGPT) 18, Alkaline Phosphatase 182H, Total Protein 5.5L, Albumin 1.2L, Albumin/Globulin Ra martha 0.3L Microbiology 08/16/20 Gram Stain - Final, Complete 08/16/20 Sputum Culture - Final, Complete Klebsiella Oxytoca 08/16/20 Stool Occult Blood (JEFRY) - Final, Complete 08/16/20 Blood Culture - Final, Complete Staphylococcus Aureus 08/16/20 Blood Culture - Final, Complete Staphylococcus Aureus 08/16/20 Blood Culture - Final, Complete Staphylococcus Aureus 08/16/20 Respiratory Virus Panel (PCR) (JEFRY) - Final, Complete Current Medications Medications (Trade) Dose Ordered Sig/Chanelle Route PRN Reason Start Time Stop Time Status Last Admin Dose Admin Acetaminophen (Tylenol Tab) 650 mg Q4H PRN PO PAIN OR FEVER 08/16/20 17:45 08/17/20 00:02 650 MG Albuterol/ Ipratropium (Duoneb (Ipr 0.5mg/Alb 2.5mg)) 3 ml RQ4H INH 08/16/20 20:00 08/20/20 15:39 3 ML Cefazolin Sodium/ Dextrose 2 gm/IV Miscellaneous Supplies 50 ml @ 75 mls/hr Q8H IV 08/19/20 10:00 08/20/20 09:07 75 MLS/HR Enoxaparin Sodium (Lovenox) 40 mg DAILY SC 08/17/20 09:00 08/20/20 09:08 40 MG Hydroxyzine HCl (Atarax Syrup) 10 mg QHS PRN PO ITCHING 08/19/20 21:00 08/19/20 23:51 10 MG Morphine Sulfate (Morphine Sulfate Inj) 2 mg Q6H PRN IV MODERATE PAIN (PS 5-7) 08/19/20 23:30 08/20/20 09:09 2 MG Senna/Docusate Sodium (Senokot S) 1 tab DAILY PO 08/19/20 09:00 08/19/20 12:28 1 TAB A/P 65 yo F presents with worsening SOB, cough, weight loss, fatigue. CT showing large right lung mass from chest wall to helium. Found to have postobstructive PNA. Also patient has on admission elevated white blood count of 47.7, hemoglobin 3.9, lactic acid 3.8, potassium 2.5, BNP 6956, troponin 0.1. # Sepsis: likely 2/2 post obstructive PNA. BCx+ S. Aureus (08/07). Repeat BCx 08/18 negative. UCx. Sputum Cx. IV Cefazolin. ID consult. 14 days length of treatment from last negative BCx if no vegetations. TTE negative for vegetations. Will obtain PHOEBE. # Lung mass: CT shows large right lung mass extending from the chest wall to the hilum. High likelihood of malignancy. Pulm recs. Biopsy done 08/19. Pathology pending. # PNA: post obstructive 2/2 lung mass. IV Cefazolin. ID recs. # Leukocytosis: PNA, sepsis. Can also be significantly elevated due to lung mass. IV abx. Downtrending. # Microcytic anemia: s/p 4U pRBC. Trend HH q8h. Hgb 3.9 on admit now improved and stable. FOBT negative. No active bleeding. Colonoscopy OP. # Transaminitis: live US. Trend CMP # Hypokalemia: replace. Monitor BMP. Check mag replace. # Acute diastolic CHF: BNP elevated, downtrended. JVD, orthopnea. Echo grade 1 DD 60% EF 07/2020. fluid restriction. I&Os. Lasix 20 PO daily. # Neck pain: CT shows joint degenerative arthropathy. Tylenol PRN. # Severe protein calorie malnutrition: BMI 16.9. likely due to underlying malignancy. Nutrition consult. # Acute hypoxemix respiratory failure: resolved. Pulm on board. O2 as needed. # Likely underlying COPD: deunebs PRN. Active smoker. # DVT prophylaxis: Lovenox A Sharron Hospitalist VS,Shaynebonmercedes, I+O VS, Fishbone, I+O Laboratory Tests 08/20/20 04:37 Vital Signs Date Time Temp Pulse Resp B/P (MAP) Pulse Ox O2 Delivery O2 Flow Rate FiO2 08/20/20 15:41 99.0 80 18 98/55 (69) 95 Room Air 08/17/20 01:35 2.0 I&O- Last 24 Hours up to 6 AM 08/20/20 06:00 Intake Total 400 ml Output Total 0 ml Balance 400 ml ONEAL JOINER MD Aug 20, 2020 16:55
[2020-08-20] MEDS: LIDOCAINE 5% (LIDODERM) PATCH TD SCH (17:29)
[2020-08-20 20:00] VITALS: BP 102/51
[2020-08-20] MEDS: **NOTE PATIENT COMMENT** MISC XX SCH (20:29)
[2020-08-21] VITALS (12 sets, daily range): BP systolic 88–130; BP diastolic 50–63
[2020-08-21] MEDS: ceFAZolin SOD 2 GM in IV 1 EA IV SCH ×3 (01:06→18:00)
[2020-08-21] MEDS: SIMETHICONE 80 MG CHEW TAB PO PRN (05:17)
[2020-08-21] MEDS: MORPHINE 2 MG/ML 1ML VIAL (J2270) IV PRN ×2 (05:17→21:34)
[2020-08-21 05:45] LABS: BASO % 0.2 % (0.0-1.0); EOS % 0.2 % (0.0-3.0); HEMATOCRIT 31.4 % (36.0-47.0); HEMOGLOBIN 9.5 g/dl (12.0-15.5); LYMPH # 1.9 10^3/uL (1.5-5.0); LYMPH % 11.9 % (24.0-44.0); MEAN CORPUSCULAR HEMOGLOBIN 23.1 pg (27.0-33.0); MEAN CORPUSCULAR HGB CONC 30.3 g/dl (32.0-36.5); MEAN CORPUSCULAR VOLUME 76.4 fl (80.0-96.0); MONO # 1.3 10^3/uL (0.0-0.8); MONO % 8.2 % (0.0-5.0); NEUTROPHILS # 12.8 10^3/uL (1.5-8.5); NEUTROPHILS % 78.5 % (36.0-66.0); PLATELET COUNT, AUTOMATED 241 10^3/uL (150-450); RED BLOOD COUNT 4.11 10^6/uL (4.00-5.40); WHITE BLOOD COUNT 16.3 10^3/uL (4.0-10.0)
[2020-08-21 06:07] LABS: POLYCHROMASIA 1+
[2020-08-21 06:08] LABS: ALBUMIN 1.2 GM/DL (3.2-5.2); ALT/SGPT 10 U/L (12-78); ANISOCYTOSIS 1+; BILIRUBIN,TOTAL 1.2 MG/DL (0.2-1.0); BLOOD UREA NITROGEN 7 MG/DL (7-18); CALCIUM LEVEL 7.2 MG/DL (8.8-10.2); CARBON DIOXIDE LEVEL 32 MEQ/L (21-32); CHLORIDE LEVEL 97 MEQ/L (98-107); CREATININE FOR GFR 0.36 MG/DL (0.55-1.30); GLOMERULAR FILTRATION RATE > 60.0 (>45); GLUCOSE, FASTING 87 MG/DL (70-100); HYPOCHROMASIA 2+; MAGNESIUM LEVEL 1.7 MG/DL (1.8-2.4); MICROCYTOSIS 1+; PLATELET ESTIMATE NORMAL (NORMAL); POIKILOCYTOSIS 1+; POTASSIUM SERUM 3.1 MEQ/L (3.5-5.1); SODIUM LEVEL 134 MEQ/L (136-145); TOTAL PROTEIN 5.4 GM/DL (6.4-8.2)
[2020-08-21] MEDS: IPRATROPIUM 0.5MG/ALBUTEROL 2.5MG INH SOL UD 3ML (DUONEB) INH SCH ×5 (07:11→20:00)
[2020-08-21] MEDS ORDERED: POTASSIUM CHLORIDE 10% LIQ 20 MEQ/15 ML UDC PO ONE ×2 (08:00→13:00)
[2020-08-21] MEDS: KCL 10MEQ/100ML SWI (KRUN) 10 MEQ in IV 1 EA IV SCH ×4 (08:42→11:00)
[2020-08-21] MEDS: ENOXAPARIN 40MG/0.4ML SYRINGE (J1650 PER 10MG) SC SCH (10:22)
[2020-08-21] MEDS: FUROSEMIDE 20 MG TAB PO SCH (10:23)
[2020-08-21] MEDS: SENOKOT S TAB PO SCH (10:23)
[2020-08-21] MEDS: ACETAMINOPHEN TAB 650MG DOSE (2X325MG) PO PRN (10:23)
[2020-08-21] MEDS: LIDOCAINE 5% (LIDODERM) PATCH TD SCH (10:24)
[2020-08-21] MEDS ORDERED: MAG SULF 1GM/100ML (MAG RUN) 1 GM in IV 1 EA IV ONE (12:00)
--- NOTE | 2020-08-21 13:41 | REPVR ---
PROCEDURE INFORMATION: Exam: XR Bilateral Hips with Pelvis when Performed Exam date and time: 08/21/2020 1:36 PM Age: 65 years old Clinical indication: Hip pain; Bilateral; Additional info: Possible fall/ C/O hip pain TECHNIQUE: Imaging protocol: XR bilateral hips with pelvis when performed. Views: 2 views. COMPARISON: No relevant prior studies available. FINDINGS: Bones/joints: No acute fracture or dislocation is identified. The femoral head articular contours are maintained, and the femoral heads appear to be of normal density. There are minor productive changes along the greater trochanters. Soft tissues: The soft tissues appear grossly unremarkable. Vasculature: Atherosclerotic vascular calcifications are noted. IMPRESSION: No acute fracture or dislocation identified. MRI would be more sensitive to hip fracture as clinically appropriate. Electronically signed by: Cade Ackerman On 08/21/2020 13:41:01 PM
[2020-08-21] MEDS: NYSTATIN 500,000 U/5 ML SUSP UDC SS SCH ×3 (15:41→19:53)
[2020-08-21] MEDS ORDERED: CETACAINE SPRAY 5GM As Ordered ONE (17:26)
[2020-08-21] MEDS ORDERED: LIDOCAINE VISCOUS 2% SOLN 15ML UDC As Ordered ONE (17:26)
--- NOTE | 2020-08-21 18:12 | IPNPDOC ---
Text Note Date of Service The patient was seen on 08/21/20. NOTE S Patient seen and examined this morning sitting at bedside doing well. No ov ernight events. Getting PHOEBE today evening. Tells me she might have fell on her buttocks in the early hours of the morning. Difficult to know if this is true or she is confused however she does point to her left hip and so I will get a hip x-ray. O Constitutional: Awake and alert, in no apparent distress ENT: Sclera are clear. Mucosa is moist. Respiratory: Lungs CTA bilaterally. No respiratory distress. No use of accessory muscles. Cardiovascular: RRR S1 and S2 are normal, no murmur Gastrointestinal: Abdomen is soft, non distended, non tender, BS present. Musculoskeletal: Trace pedal edema. Examination of hip shows mild tenderness on the left buttocks but no bony tenderness. Good range of motion of her lower extremities at the hip joint with no discomfort. Neurologic: No focal neurological deficit. Mental Status: A&O x3, normal affect Skin: Warm, dry 65 yo F presents with worsening SOB, cough, weight loss, fatigue. CT showing large right lung mass from chest wall to helium. Found to have postobstructive PNA. Below minus appears to be a large abscess which was biopsied and grew Bacillus. She was also found to have staph aureus bacteremia for which she is getting IV antibiotics. TTE showed no vegetations a follow-up PHOEBE was done. For her lung abscess pulmonology was consulted and she will require 4-6 weeks of IV antibiotics. PICC line was placed to receive antibiotic to home. For the presumed endocarditis she will receive 4 weeks of IV antibiotics. # Sepsis: likely 2/2 post obstructive PNA. BCx+ S. Aureus (08/07). Repeat BCx 08/18 S. Aures. Repeat 08/21 pending. UCx. Sputum Cx. IV Cefazolin. ID consult. 4 weeks length of treatment from last negative BCx TTE shows no vegetations. PHOEBE today. # Lung mass: CT shows large right lung mass extending from the chest wall to the hilum. Biopsy done 08/19 found to be an abscess which grew Bacillus. Pulmonology consulted, patient will require 46 weeks of IV antibiotics. PICC line. # PNA: post obstructive 2/2 lung abscess. IV Cefazolin. ID agrees with plan for 4-6 weeks of IV antibiotics. No need for anaerobic coverage at this time it is suspected all to be due to S. aureus. Leukocytosis downtrending patient a febrile. # Microcytic anemia: s/p 4U pRBC. Trend HH q8h. Hgb 3.9 on admit now improved and stable. FOBT negative. No active bleeding. Colonoscopy OP. # Transaminitis: live US. Trend CMP # Hypokalemia: replace. Monitor BMP. Check mag replace. # Acute diastolic CHF: BNP elevated, downtrended. JVD, orthopnea. Echo grade 1 DD 60% EF 07/2020. fluid restriction. I&Os. Lasix 20 PO daily. # Neck pain: CT shows joint degenerative arthropathy. Tylenol PRN. Lidocaine patch. # Severe protein calorie malnutrition: BMI 16.9. likely due to underlying malignancy. Nutrition consult. # Acute hypoxemix respiratory failure: resolved. Pulm on board. O2 as needed. # Likely underlying COPD: deunebs PRN. Active smoker. # DVT prophylaxis: Ayaka Joiner Hospitalist VSEleonora, I+O VSEleonora I+O Laboratory Tests 08/21/20 05:15 Vital Signs Date Time Temp Pulse Resp B/P (MAP) Pulse Ox O2 Delivery O2 Flow Rate FiO2 08/21/20 05:17 16 08/21/20 04:00 99.3 75 130/61 (84) 93 Room Air 08/17/20 01:35 2.0 I&O- Last 24 Hours up to 6 AM 08/21/20 06:00 Intake Total 860 ml Output Total 600 ml Balance 260 ml ONEAL JOINER MD Aug 21, 2020 07:35
[2020-08-21] MEDS ORDERED: MIDAZOLAM INJ 2MG/2ML VIAL (J2250 PER 1MG) As Ordered ONE (18:35)
[2020-08-21] MEDS ORDERED: propofoL 200 MG/20 ML VIAL As Ordered ONE (18:35)
[2020-08-21] MEDS ORDERED: LIDOCAINE 2% 100MG/5ML SDV (FOR ANES.) As Ordered ONE (18:35)
[2020-08-21] MEDS ORDERED: fentaNYL 100 MCG/2 ML INJECTION (J3010) As Ordered ONE (18:35)
[2020-08-21] MEDS ORDERED: ONDANSETRON 4MG/2ML VIAL IV PRN (19:45)
[2020-08-21] MEDS ORDERED: LR 1,000 ML IV SCH (19:45)
[2020-08-21] MEDS: **NOTE PATIENT COMMENT** MISC XX SCH (20:37)
[2020-08-22 00:50] VITALS: BP 113/56
[2020-08-22] MEDS: ceFAZolin SOD 2 GM in IV 1 EA IV SCH ×3 (01:37→18:00)
[2020-08-22] MEDS: MORPHINE 2 MG/ML 1ML VIAL (J2270) IV PRN (03:39)
[2020-08-22 04:00] VITALS: BP 119/55
[2020-08-22] MEDS: IPRATROPIUM 0.5MG/ALBUTEROL 2.5MG INH SOL UD 3ML (DUONEB) INH SCH ×6 (04:00→17:57)
[2020-08-22 05:47] LABS: BASO % 0.1 % (0.0-1.0); EOS # 0.1 10^3/uL (0.0-0.5); EOS % 0.3 % (0.0-3.0); HEMATOCRIT 28.9 % (36.0-47.0); HEMOGLOBIN 8.6 g/dl (12.0-15.5); LYMPH # 2.1 10^3/uL (1.5-5.0); LYMPH % 14.3 % (24.0-44.0); MEAN CORPUSCULAR HEMOGLOBIN 23.1 pg (27.0-33.0); MEAN CORPUSCULAR HGB CONC 29.8 g/dl (32.0-36.5); MEAN CORPUSCULAR VOLUME 77.7 fl (80.0-96.0); MONO # 1.2 10^3/uL (0.0-0.8); NEUTROPHILS % 76.5 % (36.0-66.0); PLATELET COUNT, AUTOMATED 281 10^3/uL (150-450); RED BLOOD COUNT 3.72 10^6/uL (4.00-5.40); WHITE BLOOD COUNT 14.5 10^3/uL (4.0-10.0)
[2020-08-22 06:14] LABS: ERYTHROCYTE SEDIMENTATION RATE 52 mm/hr (0-30)
[2020-08-22 06:19] LABS: HYPOCHROMASIA 2+
[2020-08-22 06:20] LABS: ANISOCYTOSIS 1+; MICROCYTOSIS 1+; PLATELET ESTIMATE NORMAL (NORMAL); POIKILOCYTOSIS 1+; TARGET CELLS 1+
[2020-08-22 06:26] LABS: ALBUMIN 1.2 GM/DL (3.2-5.2); ALT/SGPT 12 U/L (12-78); BILIRUBIN,DIRECT 0.8 MG/DL (0.0-0.2); BILIRUBIN,TOTAL 1.1 MG/DL (0.2-1.0); BLOOD UREA NITROGEN 8 MG/DL (7-18); CALCIUM LEVEL 7.5 MG/DL (8.8-10.2); CARBON DIOXIDE LEVEL 31 MEQ/L (21-32); CHLORIDE LEVEL 100 MEQ/L (98-107); CREATININE FOR GFR 0.29 MG/DL (0.55-1.30); GLOMERULAR FILTRATION RATE > 60.0 (>45); GLUCOSE, FASTING 79 MG/DL (70-100); MAGNESIUM LEVEL 1.8 MG/DL (1.8-2.4); POTASSIUM SERUM 3.6 MEQ/L (3.5-5.1); SODIUM LEVEL 138 MEQ/L (136-145); TOTAL PROTEIN 5.4 GM/DL (6.4-8.2)
[2020-08-22] MEDS: ACETAMINOPHEN TAB 650MG DOSE (2X325MG) PO PRN ×2 (07:52→18:01)
[2020-08-22 08:00] VITALS: BP 124/80
[2020-08-22 08:29] LABS: TROPONIN I 0.03 NG/ML (< 0.10)
[2020-08-22] MEDS: LIDOCAINE 5% (LIDODERM) PATCH TD SCH (09:42)
[2020-08-22] MEDS: NYSTATIN 500,000 U/5 ML SUSP UDC SS SCH ×4 (09:42→20:53)
[2020-08-22] MEDS: FUROSEMIDE 20 MG TAB PO SCH (09:42)
[2020-08-22] MEDS: ENOXAPARIN 40MG/0.4ML SYRINGE (J1650 PER 10MG) SC SCH (09:42)
[2020-08-22] MEDS: SENOKOT S TAB PO SCH (09:42)
[2020-08-22 12:00] VITALS: BP 114/56
--- NOTE | 2020-08-22 13:09 | IPNPDOC ---
Text Note Date of Service The patient was seen on 08/22/20. NOTE S Patient seen and examined this morning sitting at bedside doing well. No ov ernight events. Neck Pain a little better with lidocaine patch. Febrile overnight. O Constitutional: Awake and alert, in no apparent distress ENT: Sclera are clear. Mucosa is moist. Respiratory: Lungs CTA bilaterally. No respiratory distress. No use of accessory muscles. Cardiovascular: RRR S1 and S2 are normal, no murmur Gastrointestinal: Abdomen is soft, non distended, non tender, BS present. Musculoskeletal: Trace pedal edema. Examination of hip shows no tenderness on the left buttocks from yesterday resolved. Neurologic: No focal neurological deficit. Mental Status: A&O x3, normal affect Skin: Warm, dry 65 yo F presents with worsening SOB, cough, weight loss, fatigue. CT showing large right lung mass from chest wall to helium. Found to have postobstructive PNA. Below minus appears to be a large abscess which was biopsied and grew Bacillus. She was also found to have staph aureus bacteremia for which she is getting IV antibiotics. TTE showed no vegetations a follow-up PHOEBE was done. For her lung abscess pulmonology was consulted and she will require 4-6 weeks of IV antibiotics. PICC line was placed to receive antibiotic to home. For the staph aureus bacteremia she will receive 4 weeks of IV antibiotics. # Sepsis: likely 2/2 post obstructive PNA. BCx+ S. Aureus (08/07). Repeat BCx 08/18 S. Aures. Repeat 08/21 pending. UCx. Sputum Cx. IV Cefazolin. ID consult. 4 weeks length of treatment from last negative BCx TTE shows no vegetations. PHOEBE 08/21 shows no vegetations # Right lung abscess: Biopsy done 08/19 found to be an abscess which grew Bacillus. Pulmonology consulted, patient will require 4-6 weeks of IV antibiotics. PICC line 08/22. # PNA: post obstructive 2/2 lung abscess. IV Cefazolin. ID agrees with plan for 4-6 weeks of IV antibiotics. No need for anaerobic coverage at this time it is suspected all to be due to S. aureus. Leukocytosis downtrending patient afebrile. # Microcytic anemia: s/p 4U pRBC. Trend HH q8h. Hgb 3.9 on admit now improved and stable. FOBT negative. No active bleeding. Colonoscopy OP. # Transaminitis: live US. Trend CMP # Hypokalemia: replace. Monitor BMP. Check mag replace. # Acute diastolic CHF: BNP elevated, downtrended. JVD, orthopnea. Echo grade 1 DD 60% EF 07/2020. fluid restriction. I&Os. Lasix 20 PO daily. # Neck pain: CT shows joint degenerative arthropathy. Tylenol PRN. Lidocaine patch. # Severe protein calorie malnutrition: BMI 16.9. likely due to underlying malignancy. Nutrition consult. # Acute hypoxemix respiratory failure: resolved. Pulm on board. O2 as needed. # Likely underlying COPD: deunebs PRN. Active smoker. # DVT prophylaxis: Ayaka Joiner Hospitalist VS,Eleonora, I+O VS, Eleonora, I+O Laboratory Tests 08/22/20 05:00 Vital Signs Date Time Temp Pulse Resp B/P (MAP) Pulse Ox O2 Delivery O2 Flow Rate FiO2 08/22/20 04:00 99.1 87 18 119/55 (76) 92 Room Air 08/21/20 19:15 12 I&O- Last 24 Hours up to 6 AM 08/22/20 05:59 Intake Total 250 ml Output Total 1100 ml Balance -850 ml ONEAL JOINER MD Aug 22, 2020 07:18
[2020-08-22] MEDS: D5W/0.9% SODIUM CHLORIDE 1,000 ML IV SCH (15:45)
[2020-08-22] MEDS ORDERED: NS 1,000 ML IV ONE (16:00)
[2020-08-22] MEDS: metroNIDAZOLE (FLAGYL) 500MG TABLET PO SCH ×2 (17:00→20:53)
[2020-08-22 20:00] VITALS: BP 108/53
[2020-08-22] MEDS: **NOTE PATIENT COMMENT** MISC XX SCH (20:56)
[2020-08-22] MEDS: hydrOXYzine 10MG/5ML SYRUP PO PRN (23:46)
[2020-08-23] VITALS (8 sets, daily range): BP systolic 100–129; BP diastolic 50–67
[2020-08-23] MEDS: ACETAMINOPHEN TAB 650MG DOSE (2X325MG) PO PRN ×4 (00:27→22:51)
[2020-08-23] MEDS: ceFAZolin SOD 2 GM in IV 1 EA IV SCH ×3 (02:45→16:56)
[2020-08-23] MEDS: IPRATROPIUM 0.5MG/ALBUTEROL 2.5MG INH SOL UD 3ML (DUONEB) INH SCH ×7 (04:00→23:33)
[2020-08-23] MEDS: D5W/0.9% SODIUM CHLORIDE 1,000 ML IV SCH ×3 (04:15→22:59)
[2020-08-23 05:06] LABS: BASO % 0.1 % (0.0-1.0); EOS # 0.2 10^3/uL (0.0-0.5); EOS % 1.6 % (0.0-3.0); HEMATOCRIT 26.8 % (36.0-47.0); LYMPH # 1.5 10^3/uL (1.5-5.0); LYMPH % 13.5 % (24.0-44.0); MEAN CORPUSCULAR HEMOGLOBIN 23.3 pg (27.0-33.0); MEAN CORPUSCULAR HGB CONC 29.9 g/dl (32.0-36.5); MEAN CORPUSCULAR VOLUME 78.1 fl (80.0-96.0); MONO # 0.8 10^3/uL (0.0-0.8); MONO % 7.4 % (0.0-5.0); NEUTROPHILS # 8.4 10^3/uL (1.5-8.5); NEUTROPHILS % 76.7 % (36.0-66.0); PLATELET COUNT, AUTOMATED 333 10^3/uL (150-450); RED BLOOD COUNT 3.43 10^6/uL (4.00-5.40); WHITE BLOOD COUNT 10.9 10^3/uL (4.0-10.0)
[2020-08-23 05:28] LABS: HYPOCHROMASIA 2+
[2020-08-23 05:29] LABS: PLATELET ESTIMATE NORMAL (NORMAL); TARGET CELLS 1+
[2020-08-23 05:30] LABS: ANISOCYTOSIS 2+
[2020-08-23 05:57] LABS: ALT/SGPT 11 U/L (12-78); BILIRUBIN,DIRECT 0.3 MG/DL (0.0-0.2); BILIRUBIN,TOTAL 0.5 MG/DL (0.2-1.0); BLOOD UREA NITROGEN 8 MG/DL (7-18); CALCIUM LEVEL 7.1 MG/DL (8.8-10.2); CARBON DIOXIDE LEVEL 31 MEQ/L (21-32); CHLORIDE LEVEL 102 MEQ/L (98-107); CREATININE FOR GFR 0.33 MG/DL (0.55-1.30); GLOMERULAR FILTRATION RATE > 60.0 (>45); GLUCOSE, FASTING 89 MG/DL (70-100); MAGNESIUM LEVEL 1.7 MG/DL (1.8-2.4); POTASSIUM SERUM 2.8 MEQ/L (3.5-5.1); SODIUM LEVEL 138 MEQ/L (136-145); TOTAL PROTEIN 5.3 GM/DL (6.4-8.2)
[2020-08-23] MEDS ORDERED: POTASSIUM CHLORIDE 10 MEQ SR TABLET PO ONE (06:15)
[2020-08-23] MEDS: KCL 10MEQ/100ML SWI (KRUN) 10 MEQ in IV 1 EA IV SCH ×4 (06:18→09:15)
[2020-08-23] MEDS ORDERED: POTASSIUM CHLORIDE 10% LIQ 20 MEQ/15 ML UDC PO ONE (08:00)
[2020-08-23] MEDS: metroNIDAZOLE (FLAGYL) 500MG TABLET PO SCH ×4 (08:13→20:08)
[2020-08-23] MEDS: SENOKOT S TAB PO SCH (08:13)
[2020-08-23] MEDS: ENOXAPARIN 40MG/0.4ML SYRINGE (J1650 PER 10MG) SC SCH (08:14)
[2020-08-23] MEDS: NYSTATIN 500,000 U/5 ML SUSP UDC SS SCH ×4 (08:14→20:08)
[2020-08-23] MEDS: LIDOCAINE 5% (LIDODERM) PATCH TD SCH (08:14)
[2020-08-23] MEDS: FUROSEMIDE 20 MG TAB PO SCH (08:15)
[2020-08-23] MEDS ORDERED: KCL 10MEQ/100ML SWI (KRUN) 10 MEQ in IV 1 EA IV SCH (10:15)
[2020-08-23 13:02] LABS: BLOOD UREA NITROGEN 8 MG/DL (7-18); CALCIUM LEVEL 7.1 MG/DL (8.8-10.2); CARBON DIOXIDE LEVEL 30 MEQ/L (21-32); CHLORIDE LEVEL 102 MEQ/L (98-107); CREATININE FOR GFR 0.28 MG/DL (0.55-1.30); GLOMERULAR FILTRATION RATE > 60.0 (>45); GLUCOSE, FASTING 82 MG/DL (70-100); POTASSIUM SERUM 4.3 MEQ/L (3.5-5.1); SODIUM LEVEL 138 MEQ/L (136-145)
--- NOTE | 2020-08-23 16:37 | IPNPDOC ---
Text Note Date of Service The patient was seen on 08/23/20. NOTE S Patient seen and examined this morning sitting at bedside doing well. No ov ernight events. Not febrile past 24 hours. We'll be getting PICC line on Tuesday. O Constitutional: Awake and alert, in no apparent distress ENT: Sclera are clear. Mucosa is moist. Respiratory: Lungs CTA bilaterally. No respiratory distress. No use of accessory muscles. Cardiovascular: RRR S1 and S2 are normal, no murmur Gastrointestinal: Abdomen is soft, non distended, non tender, BS present. Musculoskeletal: Trace pedal edema. Neurologic: No focal neurological deficit. Mental Status: A&O x3, normal affect Skin: Warm, dry 65 yo F presents with worsening SOB, cough, weight loss, fatigue. CT showing large right lung mass from chest wall to helium. Found to have postobstructive PNA. Below minus appears to be a large abscess which was biopsied and grew Bacillus. She was also found to have staph aureus bacteremia for which she is getting IV antibiotics. TTE showed no vegetations a follow-up PHOEBE was done. For her lung abscess pulmonology was consulted and she will require 4-6 weeks of IV antibiotics. PICC line for antibiotic to home. For the staph aureus bacteremia she will receive 4 weeks of IV antibiotics. # Sepsis: likely 2/2 post obstructive PNA. BCx+ S. Aureus (08/07). Repeat BCx 08/18 S. Aures. Repeat 08/21 pending. UCx. Sputum Cx. IV Cefazolin. ID consult. 4 weeks length of treatment from last negative BCx TTE shows no vegetations. PHOEBE 08/21 shows no vegetations # Right lung abscess: Biopsy done 08/19 found to be an abscess which grew Bacillus. Pulmonology consulted, patient will require 4-6 weeks of IV antibiotics. PICC line 08/25. # PNA: post obstructive 2/2 lung abscess. IV Cefazolin. ID and pulmonary agree with plan for 4-6 weeks of IV antibiotics. Added anaerobic coverage. Leukocytosis downtrending patient afebrile. # Microcytic anemia: s/p 4U pRBC. Trend HH q8h. Hgb 3.9 on admit initially improved, downtrendingcould be due to acute illness. Monitor. FOBT negative. No active bleeding. Colonoscopy OP. Transfuse for hemoglobin less than 7. # Transaminitis: live US. Trend CMP # Hypokalemia: replace. Monitor BMP. Check mag replace. # Acute diastolic CHF: BNP elevated, downtrended. JVD, orthopnea. Echo grade 1 DD 60% EF 07/2020. fluid restriction. I&Os. Lasix 20 PO daily. # Neck pain: CT shows joint degenerative arthropathy. Tylenol PRN. Lidocaine patch. # Severe protein calorie malnutrition: BMI 16.9. likely due to underlying malignancy. Nutrition consult. # Acute hypoxemix respiratory failure: resolved. Pulm on board. O2 as needed. # Likely underlying COPD: deunebs PRN. Active smoker. # DVT prophylaxis: Taylorx David Joiner Hospitalist VSEleonora, I+O VSEleonora I+O Laboratory Tests 08/23/20 04:39 08/23/20 11:47 Vital Signs Date Time Temp Pulse Resp B/P (MAP) Pulse Ox O2 Delivery O2 Flow Rate FiO2 08/23/20 16:00 98.4 87 20 100/50 (67) 93 Room Air 08/21/20 19:15 12 I&O- Last 24 Hours up to 6 AM 08/23/20 06:00 Intake Total 1510 ml Output Total 206 ml Balance 1304 ml ONEAL JOINER MD Aug 23, 2020 16:37
[2020-08-23] MEDS: **NOTE PATIENT COMMENT** MISC XX SCH (20:04)
[2020-08-23] MEDS: SIMETHICONE 80 MG CHEW TAB PO PRN (20:08)
[2020-08-23] MEDS ORDERED: PANTOPRAZOLE 40MG VIAL (C9113 PER 1) IV ONE (22:45)
[2020-08-23 23:09] LABS: CK-MB VALUE MASS < 1.0 NG/ML (<3.6); CPK CREATINE PHOSPHOKINASE 15 U/L (26-192); MB/CK RELATIVE INDEX 6.67 (< OR =4); TROPONIN I 0.02 NG/ML (< 0.10)
[2020-08-24] MEDS: ceFAZolin SOD 2 GM in IV 1 EA IV SCH ×3 (01:16→18:32)
[2020-08-24] MEDS: IPRATROPIUM 0.5MG/ALBUTEROL 2.5MG INH SOL UD 3ML (DUONEB) INH SCH ×5 (04:00→19:36)
[2020-08-24] MEDS: SIMETHICONE 80 MG CHEW TAB PO PRN ×2 (05:37→23:02)
[2020-08-24] MEDS: ACETAMINOPHEN TAB 650MG DOSE (2X325MG) PO PRN ×4 (05:39→23:02)
[2020-08-24 06:16] VITALS: BP 122/63
[2020-08-24 06:52] LABS: BASO % 0.2 % (0.0-1.0); EOS # 0.2 10^3/uL (0.0-0.5); EOS % 1.3 % (0.0-3.0); HEMATOCRIT 26.8 % (36.0-47.0); HEMOGLOBIN 7.9 g/dl (12.0-15.5); LYMPH # 1.5 10^3/uL (1.5-5.0); LYMPH % 12.4 % (24.0-44.0); MEAN CORPUSCULAR HEMOGLOBIN 23.2 pg (27.0-33.0); MEAN CORPUSCULAR HGB CONC 29.5 g/dl (32.0-36.5); MEAN CORPUSCULAR VOLUME 78.8 fl (80.0-96.0); MONO # 0.8 10^3/uL (0.0-0.8); MONO % 6.6 % (0.0-5.0); NEUTROPHILS # 9.4 10^3/uL (1.5-8.5); NEUTROPHILS % 78.8 % (36.0-66.0); PLATELET COUNT, AUTOMATED 434 10^3/uL (150-450)
[2020-08-24 07:11] LABS: ALT/SGPT < 6 U/L (12-78); BILIRUBIN,DIRECT 0.4 MG/DL (0.0-0.2); BILIRUBIN,TOTAL 0.5 MG/DL (0.2-1.0); BLOOD UREA NITROGEN 7 MG/DL (7-18); CALCIUM LEVEL 6.8 MG/DL (8.8-10.2); CARBON DIOXIDE LEVEL 28 MEQ/L (21-32); CHLORIDE LEVEL 105 MEQ/L (98-107); CK-MB VALUE MASS < 1.0 NG/ML (<3.6); CPK CREATINE PHOSPHOKINASE 20 U/L (26-192); CREATININE FOR GFR 0.26 MG/DL (0.55-1.30); GLOMERULAR FILTRATION RATE > 60.0 (>45); GLUCOSE, FASTING 90 MG/DL (70-100); MAGNESIUM LEVEL 1.6 MG/DL (1.8-2.4); POTASSIUM SERUM 3.4 MEQ/L (3.5-5.1); SODIUM LEVEL 139 MEQ/L (136-145); TOTAL PROTEIN 4.9 GM/DL (6.4-8.2); TROPONIN I < 0.02 NG/ML (< 0.10)
[2020-08-24 07:46] LABS: HYPOCHROMASIA 2+; PLATELET ESTIMATE NORMAL (NORMAL)
[2020-08-24 07:47] LABS: MICROCYTOSIS 1+; TARGET CELLS 2+
[2020-08-24 07:48] LABS: ANISOCYTOSIS 1+
[2020-08-24] MEDS: SENOKOT S TAB PO SCH (08:18)
[2020-08-24] MEDS: metroNIDAZOLE (FLAGYL) 500MG TABLET PO SCH ×4 (08:18→22:29)
[2020-08-24] MEDS: FUROSEMIDE 20 MG TAB PO SCH (08:18)
[2020-08-24] MEDS: NYSTATIN 500,000 U/5 ML SUSP UDC SS SCH ×4 (08:18→22:29)
[2020-08-24] MEDS: LIDOCAINE 5% (LIDODERM) PATCH TD SCH (08:19)
[2020-08-24] MEDS: ENOXAPARIN 40MG/0.4ML SYRINGE (J1650 PER 10MG) SC SCH (08:19)
[2020-08-24] MEDS ORDERED: POTASSIUM CHLORIDE 10 MEQ SR TABLET PO SCH (09:00)
[2020-08-24] MEDS: POTASSIUM CHLORIDE 10 MEQ SR TABLET PO SCH (09:26)
[2020-08-24] MEDS: KCL 10MEQ/100ML SWI (KRUN) 10 MEQ in IV 1 EA IV SCH ×4 (09:27→16:57)
[2020-08-24] MEDS ORDERED: POTASSIUM CHLORIDE 10% LIQ 20 MEQ/15 ML UDC PO ONE (09:30)
--- NOTE | 2020-08-24 11:52 | IPNPDOC ---
Text Note Date of Service The patient was seen on 08/24/20. NOTE S Patient seen and examined this morning sitting at bedside doing well. No ov ernight events. Not febrile past 48 hours. Will be getting PICC line on Tuesday. Seems in a good mood today motivated to PT once with a shower. Complaining of GERD symptoms after meals. He tells me after eating something she feels burning sensation in her throat. Denies any chest pain or shortness of breath. O Constitutional: Awake and alert, in no apparent distress ENT: Sclera are clear. Mucosa is moist. Respiratory: Lungs CTA bilaterally. No respiratory distress. No use of acces wilbert muscles. Cardiovascular: RRR S1 and S2 are normal, no murmur Gastrointestinal: Abdomen is soft, non distended, non tender, BS present. Musculoskeletal: Trace pedal edema. Neurologic: No focal neurological deficit. Mental Status: A&O x3, normal affect Skin: Warm, dry 65 yo F presents with worsening SOB, cough, weight loss, fatigue. CT showing large right lung mass from chest wall to helium. Found to have postobstructive PNA. Below minus appears to be a large abscess which was biopsied and grew Bacillus. She was also found to have staph aureus bacteremia for which she is getting IV antibiotics. TTE showed no vegetations a follow-up PHOEBE was done. For her lung abscess pulmonology was consulted and she will require 4-6 weeks of IV antibiotics. PICC line for antibiotic to home. For the staph aureus bacteremia she will receive 4 weeks of IV antibiotics. # Sepsis: likely 2/2 post obstructive PNA. BCx+ S. Aureus (08/07). Repeat BCx 08/18 S. Aures. Repeat 08/21 pending. UCx. Sputum Cx. IV Cefazolin. ID consult. 4 weeks length of treatment from last negative BCx TTE shows no vegetations. PHOEBE 08/21 shows no vegetations # Right lung abscess: Biopsy done 08/19 found to be an abscess which grew Bacillus. Pulmonology consulted, patient will require 4-6 weeks of IV antibiotics. PICC line 08/25. # PNA: post obstructive 2/2 lung abscess. IV Cefazolin. ID and pulmonary agree with plan for 4-6 weeks of IV antibiotics. Added anaerobic coverage. Leukocytosis downtrending patient afebrile. # Microcytic anemia: s/p 4U pRBC. Trend HH q8h. Hgb 3.9 on admit initially improved, downtrendingcould be due to acute illness. Monitor. FOBT negative. No obvious source of bleeding. Colonoscopy OP, FOBT negative. Transfuse for hemoglobin <7. Her hemoglobin has continued to drop and although I think this is most likely due to acute illness given the constant daily drop will consult hematology. In the meantime ordered haptoglobin, LDH, TSH and free T4, reticulocyte site count, iron studies, coags, urinalysis. # Transaminitis: live US. Trend CMP # Hypokalemia: replace. Monitor BMP. Check mag replace. K PO daily. # Acute diastolic CHF: BNP elevated, downtrended. JVD, orthopnea. Echo grade 1 D D 60% EF 07/2020. fluid restriction. I&Os. Lasix 20 PO daily. # Neck pain: CT shows joint degenerative arthropathy. Tylenol PRN. Lidocaine patch. # Severe protein calorie malnutrition: BMI 16.9. likely due to underlying malignancy. Nutrition consult. # Acute hypoxemix respiratory failure: resolved. Pulm on board. O2 as needed. # GERD: famotidine # Likely underlying COPD: deunebs PRN. Active smoker. # DVT prophylaxis: Ayaka Joiner Hospitalist Eleonora LARA, I+O VSEleonora I+O Laboratory Tests 08/23/20 11:47 08/24/20 06:08 Vital Signs Date Time Temp Pulse Resp B/P (MAP) Pulse Ox O2 Delivery O2 Flow Rate FiO2 08/24/20 06:16 97.3 78 16 122/63 (82) 96 Room Air 08/21/20 19:15 12 I&O- Last 24 Hours up to 6 AM 08/24/20 06:00 Intake Total 2000 ml Output Total 650 ml Balance 1350 ml ONEAL JOINER MD Aug 24, 2020 11:31
[2020-08-24] MEDS ORDERED: MAG SULF 1GM/100ML (MAG RUN) 1 GM in IV 1 EA IV ONE (12:00)
[2020-08-24] MEDS: FAMOTIDINE 20 MG TAB PO SCH ×2 (12:31→22:29)
[2020-08-24 12:50] LABS: INR 1.27; PROTHROMBIN TIME 16.1 SECONDS (12.5-14.3)
[2020-08-24 13:09] LABS: BLOOD UREA NITROGEN 6 MG/DL (7-18); CALCIUM LEVEL 7.3 MG/DL (8.8-10.2); CARBON DIOXIDE LEVEL 30 MEQ/L (21-32); CHLORIDE LEVEL 103 MEQ/L (98-107); CREATININE FOR GFR 0.39 MG/DL (0.55-1.30); FERRITIN 121 NG/ML (8-252); FREE T4 0.81 NG/DL (0.76-1.46); GLOMERULAR FILTRATION RATE > 60.0 (>45); GLUCOSE, FASTING 71 MG/DL (70-100); IRON (FE) 17 UG/DL (50-170); PERCENT SATURATION 11.6 % (13.2-45.0); POTASSIUM SERUM 3.7 MEQ/L (3.5-5.1); SODIUM LEVEL 139 MEQ/L (136-145); TOTAL IRON BINDING CAPACITY 146 UG/DL (250-450)
[2020-08-24 14:00] VITALS: BP 104/53
[2020-08-24] MEDS: D5W/0.9% SODIUM CHLORIDE 1,000 ML IV SCH (17:45)
--- NOTE | 2020-08-24 19:48 | ECGEPIP ---
[facility] Test Date: 2020-08-23 Pat Name: CHON GREEN Department: Room: [place] [address] Gender: Female Twister Operator: ROBBIE : 1955 Requested By: CED GROSSMAN Order Number: [id number] Reading MD: Elie Aguilar Measurements Intervals [place] Rate: 75 P: 13 LA: 125 QRS: -24 QRSD: 77 T: 3 QT: 382 QTc: 429 Interpretive Statements Normal sinus rhythm Low QRS complex voltage in the limb leads Left axis deviation Delayed anterior R wave progression Nonspecific T wave abnormality When compared to prior tracing of 08/16/2020, there is now anterior T wave i inversion in V3 Electronically Signed on 08-24-2020 19:48:22 EDT by Elie Aguilar
--- NOTE | 2020-08-24 19:52 | ECGEPIP ---
[facility] Test Date: 2020-08-24 Pat Name: CHON GREEN Department: Room: [place] [address] Gender: Female Banking Pin Adjuster: : 1955 Requested By: CED GROSSMAN Order Number: [id number] Reading MD: Elie Aguilar Measurements Intervals [place] Rate: 81 P: 44 DC: 140 QRS: -25 QRSD: 80 T: 3 QT: 391 QTc: 455 Interpretive Statements Normal sinus rhythm Low QRS complex voltage in the limb leads Left axis deviation Delayed anterior R wave progression Nonspecific T wave abnormality No significant change when compared to prior tracing of 08/23/2020 Electronically Signed on 08-24-2020 19:52:05 EDT by Elie Aguilar
[2020-08-24 22:00] VITALS: BP 106/54
[2020-08-24] MEDS: **NOTE PATIENT COMMENT** MISC XX SCH (22:26)
[2020-08-25] MEDS: ceFAZolin SOD 2 GM in IV 1 EA IV SCH ×3 (02:08→17:51)
[2020-08-25] MEDS: ACETAMINOPHEN TAB 650MG DOSE (2X325MG) PO PRN ×2 (03:22→11:16)
[2020-08-25] MEDS: IPRATROPIUM 0.5MG/ALBUTEROL 2.5MG INH SOL UD 3ML (DUONEB) INH SCH ×7 (05:24→23:09)
[2020-08-25] MEDS: D5W/0.9% SODIUM CHLORIDE 1,000 ML IV SCH ×2 (05:26→11:15)
[2020-08-25 06:00] VITALS: BP 105/53
[2020-08-25 06:08] LABS: BASO % 0.3 % (0.0-1.0); EOS # 0.2 10^3/uL (0.0-0.5); EOS % 1.3 % (0.0-3.0); HEMATOCRIT 25.4 % (36.0-47.0); HEMOGLOBIN 7.7 g/dl (12.0-15.5); LYMPH # 1.8 10^3/uL (1.5-5.0); LYMPH % 14.2 % (24.0-44.0); MEAN CORPUSCULAR HEMOGLOBIN 23.6 pg (27.0-33.0); MEAN CORPUSCULAR HGB CONC 30.3 g/dl (32.0-36.5); MEAN CORPUSCULAR VOLUME 77.9 fl (80.0-96.0); MONO # 0.8 10^3/uL (0.0-0.8); MONO % 6.3 % (0.0-5.0); NEUTROPHILS # 9.6 10^3/uL (1.5-8.5); NEUTROPHILS % 77.3 % (36.0-66.0); PLATELET COUNT, AUTOMATED 521 10^3/uL (150-450); RED BLOOD COUNT 3.26 10^6/uL (4.00-5.40); WHITE BLOOD COUNT 12.4 10^3/uL (4.0-10.0)
[2020-08-25 06:39] LABS: ALT/SGPT < 6 U/L (12-78); BILIRUBIN,DIRECT 0.4 MG/DL (0.0-0.2); BILIRUBIN,TOTAL 0.6 MG/DL (0.2-1.0); BLOOD UREA NITROGEN 6 MG/DL (7-18); CALCIUM LEVEL 6.8 MG/DL (8.8-10.2); CARBON DIOXIDE LEVEL 26 MEQ/L (21-32); CHLORIDE LEVEL 105 MEQ/L (98-107); CREATININE FOR GFR 0.23 MG/DL (0.55-1.30); GLOMERULAR FILTRATION RATE > 60.0 (>45); GLUCOSE, FASTING 79 MG/DL (70-100); MAGNESIUM LEVEL 1.8 MG/DL (1.8-2.4); POTASSIUM SERUM 3.3 MEQ/L (3.5-5.1); SODIUM LEVEL 137 MEQ/L (136-145); TOTAL PROTEIN 4.9 GM/DL (6.4-8.2)
[2020-08-25 06:44] LABS: ANISOCYTOSIS 1+; HYPOCHROMASIA 2+; MICROCYTOSIS 1+; PLATELET ESTIMATE NORMAL (NORMAL)
[2020-08-25 06:45] LABS: TARGET CELLS 1+
[2020-08-25] MEDS ORDERED: LIDOCAINE 1% MDV 20ML VIAL As Ordered ONE (08:54)
[2020-08-25] MEDS: LIDOCAINE 5% (LIDODERM) PATCH TD SCH (11:15)
[2020-08-25] MEDS: NYSTATIN 500,000 U/5 ML SUSP UDC SS SCH ×4 (11:15→20:25)
[2020-08-25] MEDS: FAMOTIDINE 20 MG TAB PO SCH ×2 (11:15→20:25)
[2020-08-25] MEDS: metroNIDAZOLE (FLAGYL) 500MG TABLET PO SCH ×4 (11:16→20:25)
[2020-08-25] MEDS: FUROSEMIDE 20 MG TAB PO SCH (11:17)
[2020-08-25] MEDS: SENOKOT S TAB PO SCH (11:17)
[2020-08-25] MEDS: POTASSIUM CHLORIDE 10 MEQ SR TABLET PO SCH (11:18)
[2020-08-25] MEDS: ENOXAPARIN 40MG/0.4ML SYRINGE (J1650 PER 10MG) SC SCH (11:19)
[2020-08-25 11:20] VITALS: BP 107/54
--- NOTE | 2020-08-25 13:55 | IPNPDOC ---
Text Note Date of Service The patient was seen on 08/25/20. NOTE S Patient seen and examined this morning sitting at bedside doing well. No ov ernight events. Not febrile since 08/22. Will be getting PICC today. Took a shower this morning. Sees her GERD symptoms have improved. Denies any chest pain or shortness of breath. O Constitutional: Awake and alert, in no apparent distress ENT: Sclera are clear. Mucosa is moist. Respiratory: Lungs CTA bilaterally. No respiratory distress. No use of accessory muscles. Cardiovascular: RRR S1 and S2 are normal, no murmur Gastrointestinal: Abdomen is soft, non distended, non tender, BS present. Musculoskeletal: Trace pedal edema. Neurologic: No focal neurological deficit. Mental Status: A&O x3, normal affect Skin: Warm, dry 65 yo F presents with worsening SOB, cough, weight loss, fatigue. CT showing large right lung mass from chest wall to helium. Found to have postobstructive PNA. Below minus appears to be a large abscess which was biopsied and grew Bacillus. She was also found to have staph aureus bacteremia for which she is getting IV antibiotics. TTE showed no vegetations a follow-up PHOEBE was done. For her lung abscess pulmonology was consulted and she will require 4-6 weeks of IV antibiotics. PICC line for antibiotic to home. For the staph aureus bacteremia she will receive 4 weeks of IV antibiotics. # Sepsis: likely 2/2 post obstructive PNA. BCx+ S. Aureus (08/07). Repeat BCx 08/18 S. Aures. Repeat 08/21 negative after 72hrs. UCx. Sputum Cx. IV Cefazolin. I D consult. 4 weeks length of treatment from last negative BCx TTE shows no vegetations. PHOEBE 08/21 shows no vegetations # Right lung abscess: Biopsy done 08/19 found to be an abscess which grew Bacillus. Pulmonology consulted, patient will require 4-6 weeks of IV antibiotics. PICC line 08/25. # PNA: post obstructive 2/2 lung abscess. IV Cefazolin. ID and pulmonary agree with plan for 4-6 weeks of IV antibiotics. Added anaerobic coverage PO Flagyl on 08/22. Leukocytosis downtrending patient afebrile since 08/22. # Microcytic anemia: s/p 4U pRBC. Trend CBC. Hgb 3.9 on admit initially improved, downtrendingcould be due to acute illness. Monitor. FOBT negative. No obvious source of bleeding. Colonoscopy OP, FOBT negative. Transfuse for hemoglobin <7. Her hemoglobin has continued to drop and although I think this is most likely due to acute illness given the constant daily drop will consult barby tology. In the meantime ordered haptoglobin, LDH, TSH and free T4, reticulocyte site count, iron studies, coags, urinalysis. I consulted Dr. Arvizu hematology 08/25 for the persistently dropping hemoglobin. # Transaminitis: live US. Trend CMP # persistent Hypokalemia: replace. Monitor BMP. Check mag replace. K PO 20 meq daily. # Acute diastolic CHF: BNP elevated, downtrended. JVD, orthopnea. Echo grade 1 DD 60% EF 07/2020. fluid restriction. I&Os. Lasix 20 PO daily. # Neck pain: CT shows joint degenerative arthropathy. Tylenol PRN. Lidocaine patch. # Severe protein calorie malnutrition: BMI 16.9. likely due to underlying malignancy. Nutrition consult. # Hypoalbuminemia: 2/2 protein calorie malnutirtion above. # Elevated TSH: normal T4. follow up with PCP for repeat TSH 4-6 weeks. # Acute hypoxemix respiratory failure: resolved. Pulm on board. O2 as needed. # GERD: famotidine # Likely underlying COPD: deunebs PRN. Active smoker. # DVT prophylaxis: Lovenox Disposition: Physical therapy recommends working with her for one to 2 more days after which she should be clear for discharge to home with rolling walker which she really has a home. She has a PICC line in place now and we'll needs social work to help with arranging for IV antibiotics at home. She will need to follow up with pulmonology outpatient as well as infectious disease. A Yousef Hospitalist Eleonora LARA, I+O Eleonora LARA I+O Laboratory Tests 08/25/20 05:35 Vital Signs Date Time Temp Pulse Resp B/P (MAP) Pulse Ox O2 Delivery O2 Flow Rate FiO2 08/25/20 10:04 85 18 97 Room Air 08/25/20 09:05 98.5 08/25/20 06:00 105/53 (70) 08/21/20 19:15 12 I&O- Last 24 Hours up to 6 AM 08/25/20 06:00 Intake Total 3793 ml Output Total 1150 ml Balance 2643 ml ONEAL JOINER MD Aug 25, 2020 13:55
[2020-08-25 14:16] VITALS: BP 104/54
[2020-08-25] MEDS ORDERED: hydrOXYzine 10MG/5ML SYRUP PO PRN (16:00)
[2020-08-25] MEDS ORDERED: VANICREAM MOISTURIZING SKIN CREAM 113GM TUBE TOP PRN (17:00)
--- NOTE | 2020-08-25 17:33 | CR.PDOC ---
General Date of Consultation: Aug 25, 2020 Referring Provider: ONEAL JOINER MD Primary Care Physician: Ashely Myers Attending Physician: ONEAL JOINER MD Consultation REASON FOR CONSULTATION/CHIEF COMPLAINT: Microcytic Anemia. HISTORY OF PRESENT ILLNESS: Ms. Ivett Xavier is a 65-year-old woman admitted for increasing shortness of breath and is currently on treatment for sepsis, right lung abscess, pneumonia. On admission noted to have significantly low hemoglobin level of 3.9, G/DL. She has so for received a total of 4 units packed red cells. Hemoglobin level went up to as high as 11.1 G/DL and now trending downwards. Iron indices obtained yesterday showed findings consistent with anemia of chronic disease. However, ferritin level only 121 NG/ML despite recent blood transfusion. Patient reports no bleeding problems aside from mild easy bruising. Peripheral smear review showed increased poikilocytosis as per pathology. Hematology consulted for anemia. ALLERGIES: Please see below. HOME MEDICATIONS: Please see below. PAST MEDICAL HISTORY: Neck arthritis. FAMILY HISTORY: No history of cancer or blood problems SOCIAL HISTORY: Smoking since her teens. Stopped smoking 9 months ago. Denies drinking alcohol. REVIEW OF SYSTEMS: CONSTITUTIONAL: Reports weakness, fatigue, weight loss, poor appetite. HEENT: Denies changes in eyesight. CARDIOVASCULAR: Denies chest pain, palpitations. RESPIRATORY: Reports cough, shortness of breath. GENITOURINARY: No urinary problems. MUSCULOSKELETAL: Reports Neck pain and back pain. GASTROINTESTINAL: Reports constipation. SKIN: Reports mild bruising. NEUROLOGICAL: Reports mild headache. PSYCHIATRIC: Denies anxiety. HEMATOLOGIC/LYMPHATIC: No bleeding issues aside from mild easy bruising PHYSICAL EXAMINATION: VITAL SIGNS: Please see below. GENERAL APPEARANCE: Alert, lying in bed, comfortable, not in distress. Communicative. HEENT: Pinkish conjunctiva, anicteric sclerae, moist oral mucosa. RESPIRATORY: Fair air entry. Positive rales, rhonchi, and decreased breath sounds right base. CARDIOVASCULAR: S1, S2 regular. No murmur. No gallop ABDOMEN: Soft, positive bowel sounds, nontender, no guarding. EXTREMITIES: No clubbing, no cyanosis, no pedal edema. NEUROLOGICAL: Alert, oriented 3. Moves all extremities spontaneously. PSYCHIATRIC: No anxiety. LABORATORY DATA: Please see below. ASSESSMENT/PLAN: Anemia with iron indices consistent with anemia of chronic disease likely related to inflammation/infection. Also suspect iron deficiency anemia as ferritin level only 121 NG/ML, and iron saturation decreased at 11.6% despite recent blood transfusion of 4 units. Reticulocyte count also increased and MCV decreased. The patient is to have a GI workup for anemia as an outpatient as per hospitalist notes. Will check soluble transferrin receptor. We will also check hemoglobin electrophoresis, as patient has microcytic anemia. Haptoglobin level and LDH pending at this time. In the meantime, packed red cell transfusion for hemoglobin less than or equal to 7. May use higher cut off for symptomatic anemia. Will arrange follow-up appointment with me once patient is discharged. Thank you for referring . Ivett Xavier. Vital Signs/I&O Vital Signs Date Time Temp Pulse Resp B/P (MAP) Pulse Ox O2 Delivery O2 Flow Rate FiO2 08/25/20 14:16 98.5 76 18 104/54 (71) 96 Room Air 08/21/20 19:15 12 I&O- Last 24 Hours up to 6 AM 08/25/20 06:00 Intake Total 3793 ml Output Total 1150 ml Balance 2643 ml Laboratory Data Labs 24H Laboratory Tests 2 08/24/20 18:54: Urine Color YELLOW, Urine Appearance CLEAR, Urine pH 6.0, Urine Specific [place] 1.010, Urine Protein NEGATIVE, Urine Glucose (UA) NEGATIVE, Urine Ketones NEGATIVE, Urine Blood NEGATIVE, Urine Nitrite NEGATIVE, Urine Bilirubin NEGATIVE, Urine Urobilinogen 0.2, Urine Leukocyte Esterase NEGATIVE, Urine WBC (Auto) 1, Urine RBC (Auto) 2, Urine Hyaline Casts (Auto) 0, Urine Bacteria (Au to) NEGATIVE, Urine Squamous Epithelial Cells 1, Urine Sperm (Auto) 08/25/20 05:35: Immature Granulocyte % (Auto) 0.6, Neutrophils (%) (Auto) 77.3H, Lymphocytes (%) (Auto) 14.2L, Monocytes (%) (Auto) 6.3H, Eosinophils (%) (Auto) 1.3, Basophils (%) (Auto) 0.3, Neutrophils # (Auto) 9.6H, Lymphocytes # (Auto) 1.8, Monocytes # (Auto) 0.8, Eosinophils # (Auto) 0.2, Basophils # (Auto) 0.0, Nucleated Red Blood Cells % (auto) 0.0, Platelet Estimate NORMAL, Hypochromasia 2+, Anisocy tosis 1+, Microcytosis 1+, Target Cells 1+, Anion Gap 6L, Glomerular Filtration Rate > 60.0, Calcium Level 6.8L, Magnesium Level 1.8, Total Bilirubin 0.6, Direct Bilirubin 0.4H, Aspartate Amino Transf (AST/SGOT) 16, Alanine Aminotransferase (ALT/SGPT) < 6L, Alkaline Phosphatase 138H, Total Protein 4.9L, Albumin 1.0L, Albumin/Globulin Ratio 0.3L CBC/BMP Laboratory Tests 08/25/20 05:35 Microbiology Microbiology 08/22/20 Blood Culture - Preliminary, Resulted No Growth after 72 hours. All specime... 08/21/20 Blood Culture - Preliminary, Resulted No Growth after 72 hours. All specime... 08/19/20 Gram Stain - Final, Complete 08/19/20 Body Fluid Culture - Final, Complete Bacillus Sp., Not Anthracis 08/19/20 Anaerobic Culture - Final, Complete 08/18/20 Blood Culture - Final, Complete Streptococcus Intermedius 08/18/20 Blood Culture - Final, Complete NO GROWTH AFTER 5 DAYS 08/16/20 Gram Stain - Final, Complete 08/16/20 Sputum Culture - Final, Complete Klebsiella Oxytoca 08/16/20 Stool Occult Blood (JEFRY) - Final, Complete 08/16/20 Blood Culture - Final, Complete Staphylococcus Aureus 08/16/20 Blood Culture - Final, Complete Staphylococcus Aureus 08/16/20 Blood Culture - Final, Complete Staphylococcus Aureus 08/16/20 Respiratory Virus Panel (PCR) (JEFRY) - Final, Complete Allergies Coded Allergies: No Known Allergies (Unverified , 08/16/20) Home Medications No Active Prescriptions or Reported Meds WILTON BRIDGES MD Aug 25, 2020 17:33
[2020-08-25] MEDS: SODIUM CHLORIDE 0.9% INJ 10 ML SYR IV SCH (17:51)
[2020-08-25] MEDS: **NOTE PATIENT COMMENT** MISC XX SCH (20:25)
[2020-08-25] MEDS: guaiFENesin SYRUP 200 MG/10 ML UDC PO PRN (20:30)
[2020-08-25 22:00] VITALS: BP 127/61
[2020-08-26] MEDS: ceFAZolin SOD 2 GM in IV 1 EA IV SCH ×3 (01:03→18:07)
[2020-08-26] MEDS: D5W/0.9% SODIUM CHLORIDE 1,000 ML IV SCH (01:04)
[2020-08-26] MEDS: guaiFENesin SYRUP 200 MG/10 ML UDC PO PRN ×2 (03:21→13:10)
[2020-08-26] MEDS: CEPACOL LOZENGE PO PRN ×2 (03:30→16:31)
[2020-08-26] MEDS: IPRATROPIUM 0.5MG/ALBUTEROL 2.5MG INH SOL UD 3ML (DUONEB) INH SCH ×6 (03:52→23:12)
[2020-08-26] MEDS: SODIUM CHLORIDE 0.9% INJ 10 ML SYR IV SCH ×2 (05:39→18:07)
[2020-08-26 06:00] VITALS: BP 124/62
[2020-08-26 06:43] LABS: HEMATOCRIT 24.3 % (36.0-47.0); HEMOGLOBIN 7.4 g/dl (12.0-15.5); MEAN CORPUSCULAR HEMOGLOBIN 23.6 pg (27.0-33.0); MEAN CORPUSCULAR HGB CONC 30.5 g/dl (32.0-36.5); MEAN CORPUSCULAR VOLUME 77.4 fl (80.0-96.0); PLATELET COUNT, AUTOMATED 565 10^3/uL (150-450); RED BLOOD COUNT 3.14 10^6/uL (4.00-5.40); WHITE BLOOD COUNT 12.3 10^3/uL (4.0-10.0)
[2020-08-26 07:04] LABS: BLOOD UREA NITROGEN 6 MG/DL (7-18); CALCIUM LEVEL 6.8 MG/DL (8.8-10.2); CARBON DIOXIDE LEVEL 28 MEQ/L (21-32); CHLORIDE LEVEL 106 MEQ/L (98-107); CREATININE FOR GFR 0.32 MG/DL (0.55-1.30); GLOMERULAR FILTRATION RATE > 60.0 (>45); GLUCOSE, FASTING 84 MG/DL (70-100); MAGNESIUM LEVEL 1.5 MG/DL (1.8-2.4); POTASSIUM SERUM 3.3 MEQ/L (3.5-5.1); SODIUM LEVEL 139 MEQ/L (136-145)
[2020-08-26] MEDS ORDERED: POTASSIUM CHLORIDE 10 MEQ SR TABLET PO ONE (07:15)
[2020-08-26] MEDS: NYSTATIN 500,000 U/5 ML SUSP UDC SS SCH ×6 (09:00→20:06)
[2020-08-26] MEDS: LIDOCAINE 5% (LIDODERM) PATCH TD SCH (09:37)
[2020-08-26] MEDS: ENOXAPARIN 40MG/0.4ML SYRINGE (J1650 PER 10MG) SC SCH (09:38)
[2020-08-26] MEDS: SENOKOT S TAB PO SCH (09:39)
[2020-08-26] MEDS: FAMOTIDINE 20 MG TAB PO SCH ×2 (09:39→20:02)
[2020-08-26] MEDS: FUROSEMIDE 20 MG TAB PO SCH (09:39)
[2020-08-26] MEDS: metroNIDAZOLE (FLAGYL) 500MG TABLET PO SCH ×4 (09:39→20:02)
[2020-08-26] MEDS: POTASSIUM CHLORIDE 10% LIQ 20 MEQ/15 ML UDC PO SCH (09:40)
--- NOTE | 2020-08-26 10:27 | T-ECHO ---
DATE OF PROCEDURE: 08/21/2020 REFERRING PHYSICIAN: Dangelo Mcdermott M.D. PREPROCEDURE DIAGNOSIS: Staphylococcus aureus bacteremia. POSTOPERATIVE DIAGNOSIS: Staphylococcus aureus bacteremia. FINDINGS: No vegetations. See conclusions below. PROCEDURE PERFORMED: Transesophageal echocardiogram with saline bubble study x2. PROCEDURE PERFORMED BY: Ebenezer Arnold M.D. PROFESSOR OF ARCHITECTURE: None. IV SEDATION: Propofol IV per AUTO MECHANIC SUPERVISOR. COMPLICATIONS: None. PROCEDURE DESCRIPTION: The patient received topical Cetacaine spray to the back of the pharynx. A bite block was placed in the mouth. After receiving adequate IV sedation, esophageal intubation was accomplished by Dr. Arnold without difficulty using a Kemp 3-dimensional transesophageal echocardiogram probe. Rhythm was sinus. The atrial septum was intact anatomically and by color flow Doppler. The right and left ventricles appeared normal in size and systolic function. No regional wall motion abnormalities of the left ventricle. LVF was 65% by visual estimate. No pericardial effusion. The distal aortic arch and descending thoracic aorta appeared normal. The aortic valve was 3-cuspid with very mild aortic valve sclerosis. Mild central aortic regurgitation was present. No vegetations were seen on any of the cardiac valves. The mitral valve was structurally and functionally normal with very mild mitral regurgitation within normal limits. Trace pulmonic regurgitation was present. Very mild tricuspid regurgitation was present. CONCLUSIONS: 1. No vegetations. 2. Very mild aortic valve sclerosis of the 3-cuspid aortic valve. Mild aortic regurgitation. 3. Normal left ventricle size and systolic function. LVF 65% by visual estimate. 4. Otherwise normal-appearing transesophageal echocardiogram findings. [facility]
--- NOTE | 2020-08-26 10:37 | IPN ---
INFECTIOUS DISEASE PROGRESS NOTE This is in conjunction with Dr. Joss Carrera DATE: 08/22/2020 SUBJECTIVE: No acute events overnight. The patient is overall doing well. She continues to cough up productive sputum. Her main complaint today is a pruritus that she continues to experience on a nearly daily basis on her arms that has caused areas of ecchymosis along her forearms. She otherwise denies any further fevers, chills, chest pain, shortness of breath, difficulty breathing, abdominal pain, nausea, vomiting, constipation or diarrhea. OBJECTIVE: PHYSICAL EXAMINATION: VITAL SIGNS: I.s and O.s 3,643 mL in and 1,200 mL out. Afebrile overnight. Temperature 98.5, pulse 76 and regular, respiratory rate of 18, blood pressure 104/54, sating 96% on room air. GENERAL APPEARANCE: A well appearing female sitting upright in bed in no acute distress. HEENT: Head is normocephalic and atraumatic. EOMI. No scleral icterus. Mucous membranes are moist. Poor dentition. CARDIOVASCULAR: Regular rate and rhythm, normal S1 and S2. No murmurs, rubs or gallops. RESPIRATORY: Lungs are clear to auscultation bilaterally with diminished breath sounds and decreased expiratory phase, however no wheezes, crackles, rhonchi. GI: Abdomen is soft, nontender, nondistended. Bowel sounds present. NEUROLOGICAL: The patient is alert and oriented x3. SKIN: Warm, dry, focal areas of ecchymosis overlying right medial elbow and dorsal surface of the left forearm. Skin does not have a jaundiced appearance. LABORATORY STUDIES: White blood cell count of 12.4, hemoglobin of 7.7, hematocrit 25.4, platelet count of 521. Sodium 137, potassium 3.3, chloride 105, bicarbonate 26, BUN 6, creatinine 0.23, glucose 79, calcium 6.8, magnesium 1.8, total bilirubin 0.6, direct bilirubin 0.4, AST 16, ALT less than 6, alkaline phosphatase 138, total protein 4.9, albumin of 1.0. ASSESSMENT AND PLAN: 1. Postobstructive pneumonia secondary to lung abscess - continue with IV Cefazolin. The patient has had a PICC line put in today. Will require IV Cefazolin for 4 weeks with a stop date of 09/15/2020. The patient should continue oral Flagyl for at least the next 2 weeks until she is reevaluated by Infectious Disease on an outpatient basis. She should follow up with me outpatient in the next 2 weeks at a minimum, and we can decide then whether to continue the Flagyl and follow the patient clinically. 2. Pruritus - The patient has a history of transaminitis, elevated bilirubin, pruritic skin, and fairly severe anemia with an elevated INR on admission. While some of this could be due to the sepsis picture she presented with, we will also be checking a DU fibrosure score to see if she has any elements of underlying cirrhosis. This should be followed up on an outpatient basis. SHYANNE
[2020-08-26] MEDS ORDERED: hydrOXYzine 10 MG TAB PO PRN (10:45)
[2020-08-26 14:00] VITALS: BP 109/58
--- NOTE | 2020-08-26 18:41 | IPNPDOC ---
Date Seen The patient was seen on 08/26/20. Progress Note SUBJECTIVE: Patient seen and examined at bedside this morning. Received PICC line on 08/25. Complaining of mild neck pain. Denies chest pain, shortness of breath, nausea, vomiting, diarrhea. Otherwise doing well. OBJECTIVE PHYSICAL EXAMINATION: VITAL SIGNS: please see below General: NAD, comfortable HEENT: PERRLA, EOMI, sclerae clear Neck: supple, normal ROM, no JVD Respiratory: lungs CTAB, no wheeze, no rales, no crackles CVS: RRR, normal S1, S2, no murmurs Abdo: soft, no masses, no hepatosplenomegaly, BS+, no rebound tenderness Extremities: no edema, pulses 2+ MSK: no joint deformities, normal ROM Neuro: no focal neuro deficits, moving all 4 extremities, CN2-12 intact. Strength 5/5 in all 4 extremities. No nystagmus. Psych: calm, cooperative, AAO x 3 LABORATORY DATA, IMAGING STUDIES, MICROBIOLOGY: Please see below. DVT prophylaxis ordered?: Y 65 yo F presents with worsening SOB, cough, weight loss, fatigue. CT showing large right lung mass from chest wall to helium. Found to have postobstructive PNA. Below minus appears to be a large abscess which was biopsied and grew Baci llus. She was also found to have staph aureus bacteremia for which she is getting IV antibiotics. TTE showed no vegetations a follow-up PHOEBE was done. For her lung abscess pulmonology was consulted and she will require 4-6 weeks of IV antibiotics. PICC line for antibiotic to home. For the staph aureus bacteremia she will receive 4 weeks of IV antibiotics. # Sepsis: likely 2/2 post obstructive PNA. BCx+ S. Aureus (08/07). Repeat BCx 08/18 S. Aures. Repeat 08/21 negative after 72hrs. UCx. Sputum Cx. IV Cefazolin. ID consult. 4 weeks length of treatment from last negative BCx TTE shows no vegetations. PHOEBE 08/21 shows no vegetations # Right lung abscess: Biopsy done 08/19 found to be an abscess which grew Bacillus. Pulmonology consulted, patient will require 4-6 weeks of IV antibiotics. PICC line 08/25. # PNA: post obstructive 2/2 lung abscess. IV Cefazolin. ID and pulmonary agree with plan for 4-6 weeks of IV antibiotics. Added anaerobic coverage PO Flagyl on 08/22. Leukocytosis downtrending patient afebrile since 08/22. # Microcytic anemia: s/p 4U pRBC. Trend CBC. Hgb 3.9 on admit initially improved, downtrendingcould be due to acute illness. Monitor. FOBT negative. No obvious source of bleeding. Colonoscopy OP, FOBT negative. Transfuse for hemoglobin <7. Dr. Arvizu consulted. Suspects AOCD 2/2 inflammation/infection. Pending soluble transferring receptor, hgb electophoresis. Will f/u outpatient. Stopped IVF. # Transaminitis: resolved. Liver US CBD 7 mm. Sludge. # persistent Hypokalemia: replace. Monitor BMP. Check mag replace. K PO 20 meq daily. # Acute diastolic CHF: BNP elevated, downtrended. JVD, orthopnea. Echo grade 1 DD 60% EF 07/2020. fluid restriction. I&Os. Lasix 20 PO daily. # Neck pain: CT shows joint degenerative arthropathy. Tylenol PRN. Lidocaine patch. # Severe protein calorie malnutrition: BMI 16.9. likely due to underlying malignancy. Nutrition consult. # Hypoalbuminemia: 2/2 protein calorie malnutirtion above. # Elevated TSH: normal T4. follow up with PCP for repeat TSH 4-6 weeks. # Acute hypoxemix respiratory failure: resolved. Pulm on board. O2 as needed. # GERD: famotidine # Likely underlying COPD: deunebs PRN. Active smoker. # DVT prophylaxis: Lovenox Disposition: Physical therapy recommends working with her for one to 2 more days after which she should be clear for discharge to home with rolling walker which she really has a home. She has a PICC line in place now and we'll needs social work to help with arranging for IV antibiotics at home. She will need to follow up with pulmonology outpatient as well as infectious disease. VS, I&O, 24H, Fishbone Vital Signs/I&O Vital Signs Date Time Temp Pulse Resp B/P (MAP) Pulse Ox O2 Delivery O2 Flow Rate FiO2 08/26/20 14:00 99.3 78 18 109/58 (75) 96 Room Air 08/21/20 19:15 12 I&O- Last 24 Hours up to 6 AM 08/26/20 06:00 Intake Total 2890 ml Output Total 2600 ml Balance 290 ml Laboratory Data 24H LABS Laboratory Tests 2 08/26/20 05:57: Nucleated Red Blood Cells % (auto) 0.0, Anion Gap 5L, Glomerular Filtration Rate > 60.0, Calcium Level 6.8L, Magnesium Level 1.5L CBC/BMP Laboratory Tests 08/26/20 05:57 Microbiology Microbiology 08/22/20 Blood Culture - Preliminary, Resulted No Growth after 72 hours. All specime... 08/21/20 Blood Culture - Final, Complete NO GROWTH AFTER 5 DAYS 08/19/20 Gram Stain - Final, Complete 08/19/20 Body Fluid Culture - Final, Complete Bacillus Sp., Not Anthracis 08/19/20 Anaerobic Culture - Final, Complete 08/18/20 Blood Culture - Final, Complete Streptococcus Intermedius 08/18/20 Blood Culture - Final, Complete NO GROWTH AFTER 5 DAYS 08/16/20 Gram Stain - Final, Complete 08/16/20 Sputum Culture - Final, Complete Klebsiella Oxytoca 08/16/20 Stool Occult Blood (JEFRY) - Final, Complete 08/16/20 Blood Culture - Final, Complete Staphylococcus Aureus 08/16/20 Blood Culture - Final, Complete Staphylococcus Aureus 08/16/20 Blood Culture - Final, Complete Staphylococcus Aureus 08/16/20 Respiratory Virus Panel (PCR) (JEFRY) - Final, Complete HANNAH CABELLO MD Aug 26, 2020 18:41
[2020-08-26] MEDS: SODIUM CHLORIDE 0.9% INJ 10 ML SYR IV PRN (20:03)
[2020-08-26] MEDS: **NOTE PATIENT COMMENT** MISC XX SCH (20:03)
[2020-08-26 22:00] VITALS: BP 112/61
[2020-08-27] MEDS: ceFAZolin SOD 2 GM in IV 1 EA IV SCH ×2 (01:57→11:01)
[2020-08-27] MEDS: SODIUM CHLORIDE 0.9% INJ 10 ML SYR IV PRN ×2 (03:09→12:16)
[2020-08-27] MEDS: SIMETHICONE 80 MG CHEW TAB PO PRN (03:17)
[2020-08-27] MEDS: IPRATROPIUM 0.5MG/ALBUTEROL 2.5MG INH SOL UD 3ML (DUONEB) INH SCH ×4 (03:32→15:34)
[2020-08-27] MEDS: SODIUM CHLORIDE 0.9% INJ 10 ML SYR IV SCH (05:17)
[2020-08-27] MEDS: ACETAMINOPHEN TAB 650MG DOSE (2X325MG) PO PRN (05:32)
[2020-08-27 06:00] VITALS: BP 114/64
[2020-08-27] MEDS: ENOXAPARIN 40MG/0.4ML SYRINGE (J1650 PER 10MG) SC SCH (08:46)
[2020-08-27] MEDS: FAMOTIDINE 20 MG TAB PO SCH (08:47)
[2020-08-27] MEDS: FUROSEMIDE 20 MG TAB PO SCH (08:47)
[2020-08-27] MEDS: SENOKOT S TAB PO SCH (08:47)
[2020-08-27] MEDS: metroNIDAZOLE (FLAGYL) 500MG TABLET PO SCH ×2 (08:47→12:58)
[2020-08-27] MEDS: POTASSIUM CHLORIDE 10% LIQ 20 MEQ/15 ML UDC PO SCH (08:48)
[2020-08-27] MEDS: guaiFENesin SYRUP 200 MG/10 ML UDC PO PRN (08:48)
[2020-08-27] MEDS: LIDOCAINE 5% (LIDODERM) PATCH TD SCH (08:49)
[2020-08-27] MEDS: NYSTATIN 500,000 U/5 ML SUSP UDC SS SCH ×2 (08:49→12:55)
--- NOTE | 2020-08-27 09:33 | CR ---
DATE OF CONSULTATION: 08/17/2020 CHIEF COMPLAINT: Shortness of breath. HISTORY OF PRESENT ILLNESS: Ms. Xavier is a 65-year-old female with a past medical history of chronic neck pain and nicotine dependence who presented with complaints of worsening shortness of breath. The patient does not follow with a physician and has not for many years and she states she has never been seen by a physician and she states she has never been seen by a steam conditioning operator as well. The patient reported worsening shortness of breath for the past three or four weeks. She was also noted to have an increasing cough and mucus production with yellow sputum. She also reported decreased appetite and some fatigue and had some unintentional weight loss noted of almost ten pounds in the past four weeks. The patient denied having any chest pain. She denied noticing any fevers or chills and no night sweats. She did notice some wheezing which she states had also been worsening in the past few weeks. In the past she does have occasional coughing and wheezing she states when she has episodes of bronchitis or from her seasonal allergies. She will usually have these episodes in the fall and winter time. She is not on any inhalers at home and has never been on any inhalers. The patient denies noticing any abdominal pain, denies any nausea. She did have some episodes of vomiting she states with very heavy coughing fits. She has not noticed any diarrhea and no blood in her stool. She has had some increased ankle edema although that has improved since her hospitalization. Since being admitted she does feel her breathing has improved in terms of her dyspnea. PAST MEDICAL AND SURGICAL HISTORY: 1. Chronic neck pain. 2. Nicotine dependence. HOME MEDICATIONS: No reported home medications. ALLERGIES: No known drug allergies. SOCIAL HISTORY: The patient recently quit smoking about four weeks ago. States she was half a pack a day since her teens. Denies any history of alcohol use and denies any other illicit drug use. 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 Does not have any pets at home and denies any other toxin exposure. FAMILY HISTORY: No reported history of lung disease and no family history of cancer. PHYSICAL EXAM: Vital signs: Temperature 98.2, pulse 81, respirations 18, blood pressure 101/55, O2 saturation 91-94% on room air. Input 1.2 liters, output 200 mL. General: The patient is a thin female sitting in bed. Does not appear to be in acute distress. She is able to converse and complete sentences and is not using any accessory muscles for respiration. HEENT is normocephalic, atraumatic. Pupils are reactive to light bilaterally. There are somewhat dry mucous membranes noted. Mallampati class IV. Neck is supple. No palpable cervical adenopathy. Cardiovascular: Regular rate and rhythm, normal S1, S2. Questionable faint murmur auscultated on the left sternal border. Pulmonary: Generalized diminished breath sounds bilaterally with decreased breath sounds at the right base. No wheezes noted or rhonchi. Abdomen is soft, nontender, nondistended, no palpable mass. Extremities: There is +1 pitting ankle edema in the bilateral lower extremities although reportedly improved as per the patient. Peripheral pulses are palpable. LABORATORY DATA: WBC 45.4, hemoglobin 10.1 from an initial 3.9 on admission, platelets 508. Chemistry: Sodium 134, potassium 3.0, chloride 98, bicarb 30, BUN 10, creatinine 0.57, glucose 119, lactic acid was 1.9, magnesium is 1.5, calcium is 7.8, albumin 1.4, AST and ALT 25 and 7. T bilirubin 2.3, alkaline phosphatase is 223. BNP yesterday 6956. ABG yesterday: A pH 7.588, pCO2 33.9, pO2 55.1. Microbiology: Respiratory virus panel negative including negative for COVID-19. One blood culture preliminary gram-positive cocci in clusters. Repeat blood culture is pending. Sputum gram stain was positive for gram-positive cocci and gram-positive rods. Final results pending. IMAGING DATA: CT angio 08/16/2020: There is no evidence of pulmonary emboli. There is a suspected mass in the right middle lobe extending into the hilar region and into the right upper lobe with some heterogeneity within the mass with some low density areas. There is a consolidation in the right upper lobe with air bronchograms likely post-obstructive. There is a small to moderate right pleural effusion with some associated compressive atelectasis in the right lower lobe. There is mild left pleural thickening posteriorly. There is right hilar and peritracheal adenopathy. ASSESSMENT AND PLAN: Ms. Xavier is a 65-year-old female with a past medical history of nicotine dependence who presented with complaints of worsening shortness of breath and dyspnea on exertion as well as with cough and fatigue and unintentional weight loss for the past three to four weeks. The patient was found to have anemia on admission with a hemoglobin of 3.9. The patient's shortness of breath in part was likely due to her symptomatic anemia as after 4 units of packed red blood cells (PRBCs) she has had improvement in her dyspnea with appropriate response in her hemoglobin. The patient was also noted to have evidence of an infiltrate in the right lung with likely a mass in the right middle lobe extending to the right upper lobe. There is likely postobstructive consolidation, particularly in the right upper lobe and with her leukocytosis, it is suspicious for pneumonia. Given the findings and the adenopathy, there is also suspicion for malignancy as well, particularly given her smoking history. The patient was started on broad spectrum antibiotics in the ED. - Continue broad spectrum antibiotics with Ceftriaxone and Vancomycin. Her preliminary blood cultures have grown gram-positive cocci so we will keep the Vancomycin on for now pending the results of her blood cultures. Would discontinue doxycycline as she is less likely to have an atypical infection and more likely to have a post-obstructive process. - The patient was initially given Lasix for her elevated BNP with some evidence of lower extremity edema likely secondary to third spacing with her hypoalbuminemia. The patient's blood pressures are borderline and she does have significant hypokalemia so would hold her Lasix for now. She also likely has a component of sepsis so would hold off on diuretics for now. - Can follow up results of her echo which was ordered. - We will continue repletion of her potassium and magnesium as per primary team. - The patient has been ordered for a CT-guided lung biopsy of the suspected lung mass. We will follow up results of the biopsy. - Continue with nebulized bronchodilators. - The patient was initially hypoxemic prior to her transfusion. She has since been weaned off nasal cannula oxygen and is satting above 90% on room air. We will continue to monitor and would give oxygen supplementation as needed to maintain O2 saturation above 90%. - The patients right pleural effusion may be in the setting of a possible malignancy as well as possibly from a peripneumonic process. She does not appear to be in acute distress at this time so would continue to monitor. She also is afebrile. Her leukocytosis partially is likely in the setting of her malignancy as well as likely an acute component possibly from her pneumonia. - DVT prophylaxis, Lovenox. - Code status: Full code. MTDD
--- NOTE | 2020-08-27 09:37 | CR ---
DATE OF CONSULTATION: 08/18/2020 REASON FOR CONSULTATION: Staph aureus bacteremia. HISTORY OF PRESENT ILLNESS: The patient is a 65-year-old female presenting with 5 week history of cough productive of yellow sputum, progressively worsening shortness of breath, poor appetite and worsening dyspnea on exertion to the point that she is unable to take a couple of steps without becoming short of breath. She was found in the emergency department to have a right-sided pneumonia as well as suspected mass lesion involving the right middle and right upper lobe extending all the way to the hilum. The patient states she was in her usual state of health prior to this occurring and her , who is present in the room, notes no abnormalities or symptoms prior to the past 5 weeks. She states that she is not followed for any medical conditions by a physician as she states she has never been sick. MEDICAL HISTORY: 1. Nicotine use disorder. 2. Possible congestive heart failure. 3. Acute blood loss anemia. 4. Chronic neck pain. SURGICAL HISTORY: As a child she was bit by a dog on her left cheek requiring plastic surgery. FAMILY HISTORY: Her mother apparently in a coma. Her father of prostate cancer. She has two children who are alive and healthy. SOCIAL HISTORY: She is a current smoker with 50 pack year history; drinks two beers a day. Denies any illicit drug use and lives with her . REVIEW OF SYSTEMS: Constitutional: Denies any constitutional symptoms including fevers, chills, night sweats, recent in the last 2-3 months denied any unintentional weight loss, admits to poor appetite. HEENT: Denies any headache, dizziness, vision changes, yellowing of her eyes, blood nose, stuffy nose, runny nose, ear problems, difficulty swallowing, dry mouth, mouth lesions. Cardiovascular: Denies any chest pain, palpitations, admits to recent dyspnea on exertion. Respiratory: Admits to productive cough and shortness of breath. Denies any wheezing or hemoptysis. Abdomen: Denies nausea, vomiting, abdominal pain, constipation, diarrhea, hematochezia, melena. : Denies any difficulty urinating, blood in her urine, urinary frequency. Extremities: Denies any swelling in her arms or legs. Skin: Denies any new rashes or skin lesions. Neurologic: Denies any numbness or tingling in her arms or legs or sudden onset weakness. OBJECTIVE: VITALS: Temperature 99.1, pulse 90, respiratory rate 16, blood pressure 102/60, satting 91% on room air without the use of accessory muscles of respiration. GENERAL: The patient is a slightly cachectic appearing female who appears older than stated age, laying comfortable in bed in no acute distress, coughing productive sputum occasionally. HEENT: Head is normocephalic, atraumatic. EOMI. No scleral icterus. Mucous membranes moist. Poor dentition. Nares patent. NECK: Trachea midline, no cervical or supraclavicular lymphadenopathy. No thyromegaly. No cervical tenderness or tenderness to palpation along cervical, thoracic or lumbar spine. CARDIOVASCULAR: Regular rate and rhythm, normal S1, S2. Soft systolic murmur best heard left upper sternal border, no gallops or rubs. RESPIRATORY: Clear to auscultation on the left, severely diminished to auscultation on the right with no wheezes, crackles or rhonchi. Dullness to percussion on the right, more pronounced in right upper lobe. ABDOMEN: Bowel sounds present, soft, nontender, non-distended, no hepatosplenomegaly. No masses or ecchymosis. EXTREMITIES: No swelling or edema. Nailbeds showing clubbing but no splinter hemorrhages. There is an area of ecchymosis along her right elbow, left forearm and plaque-like lesion on the dorsal surface of her left 1st index finger. NEUROLOGIC: AAO x3, cranial nerves II-XII grossly intact. Good strength in bilateral upper extremities. MEDICATONS: * Tylenol. * DuoNeb. * Simethicone. * Percocet. * IV Vancomycin. * Prophylactic Lovenox. LABS: White blood cell count of 34.5, hemoglobin 10.6, hematocrit 34.5, platelet count 373. Sodium 131, potassium 4.2, chloride 96, bicarb 30, BUN 8, creatinine 0.45, glucose 85, calcium 8.1. 08/16/2020 MRSA not detected. Three blood cultures on 08/16/2020 were positive for Staph aureus gram positive cocci in clusters. Stool occult blood negative. Sputum culture and gram stain showing good quality, many white blood cells, few epithelial cells, few gram positive cocci in chains, few gram positive rods. Two blood cultures from 08/18 are currently pending. Initial viral PCR negative on 08/16. IMAGING: Chest x-ray from 08/16/2020 showing a right infiltrate and effusion. CT angiogram of the chest on 08/16/2020 showin. Atelectasis involving the right upper lobe as well as the right base with a pleural effusion but there is suspected large right lung mass extending from the chest wall of the hilum. There is abnormal adenopathy. 2. No PE. 3. The patients arm gives rise to artifact. CT abdomen and pelvis on 08/16/2020 shows hyperdense intraluminal material within lower abdominal small bowel, this could be intraluminal hemorrhage with recent IV contrast administration or could represent ingested material. No other acute or concerning focal abnormality on noncontrast CT. Cervical spine CT on 08/17/2020 showin. Normal cervical spine except for mild posterior facet joint degenerative arthropathy levels C3 through C7, no significant spinal canal or neuroforaminal stenosis. 2. Layering pleural effusion is seen posterior to the right lung apex. ASSESSMENT: The patient is a 65-year-old female with a limited medical history due to never seeing any healthcare providers, who presents with 5 week history of worsening upper respiratory symptoms and dyspnea on exertion, found to have a right-sided lung mass as well as right-sided pneumonia with gram positive bacteremia. PLAN: The patient was initially treated with IV Rocephin and IV Vancomycin. We have discontinued the Rocephin and will start the patient on IV Nafcillin which should appropriately cover for the Staph aureus. We will continue the Vancomycin for the time being pending culture, sensitivities from the initial cultures and discontinue the Vancomycin if it is MRSA negative. To determine duration of her treatment we still need to await results of the pending cultures to see if the infection is cleared prior to 72 hours. She has no evidence of indwelling devices and we have no current evidence of metastatic Staphylococcal infection on physical examination. An echocardiogram has been ordered. However, this would not rule out infectious endocarditis as it is not a PHOEBE. However, she is not showing any signs or symptoms on physical exam or by history consistent with endocarditis. In the event that the patient does not have complicated gram positive bacteremia we will treat the patient for 2 weeks with IV antibiotics. In the event that the patient has complicated gram positive bacteremia she will require 4 weeks of IV antibiotics from the date of the first negative blood culture. We will continue to await the results of the echocardiogram ordered by the primary team. Eduardo Law, DO performing dictation in conjunction with Dr. Joss Carrera. SHYANNE
[2020-08-27 10:46] LABS: BASO # 0.1 10^3/uL (0.0-0.2); BASO % 0.5 % (0.0-1.0); EOS % 0.4 % (0.0-3.0); HEMOGLOBIN 7.9 g/dl (12.0-15.5); LYMPH # 1.9 10^3/uL (1.5-5.0); LYMPH % 17.6 % (24.0-44.0); MEAN CORPUSCULAR HEMOGLOBIN 23.7 pg (27.0-33.0); MEAN CORPUSCULAR HGB CONC 30.4 g/dl (32.0-36.5); MEAN CORPUSCULAR VOLUME 78.1 fl (80.0-96.0); MONO # 0.8 10^3/uL (0.0-0.8); MONO % 7.5 % (0.0-5.0); NEUTROPHILS # 7.7 10^3/uL (1.5-8.5); NEUTROPHILS % 73.5 % (36.0-66.0); PLATELET COUNT, AUTOMATED 664 10^3/uL (150-450); RED BLOOD COUNT 3.33 10^6/uL (4.00-5.40); WHITE BLOOD COUNT 10.5 10^3/uL (4.0-10.0)
[2020-08-27 11:17] LABS: ALBUMIN 1.2 GM/DL (3.2-5.2); ALT/SGPT < 6 U/L (12-78); BILIRUBIN,TOTAL 0.4 MG/DL (0.2-1.0); BLOOD UREA NITROGEN 5 MG/DL (7-18); CALCIUM LEVEL 7.6 MG/DL (8.8-10.2); CARBON DIOXIDE LEVEL 27 MEQ/L (21-32); CHLORIDE LEVEL 104 MEQ/L (98-107); CREATININE FOR GFR 0.48 MG/DL (0.55-1.30); GLOMERULAR FILTRATION RATE > 60.0 (>45); GLUCOSE, FASTING 117 MG/DL (70-100); POTASSIUM SERUM 3.8 MEQ/L (3.5-5.1); SODIUM LEVEL 137 MEQ/L (136-145)
[2020-08-27 11:18] LABS: MAGNESIUM LEVEL 1.5 MG/DL (1.8-2.4)
[2020-08-27] MEDS: CEPACOL LOZENGE PO PRN (13:28)
[2020-08-27 14:00] VITALS: BP 109/84
[2020-08-27] MEDS ORDERED: GUAI100S51 PO (15:51)
[2020-08-27] MEDS ORDERED: ACET1TAB55 PO (15:51)
[2020-08-27] MEDS ORDERED: SENN-52 PO (15:51)
[2020-08-27] MEDS ORDERED: POTA20EL PO (15:51)
[2020-08-27] MEDS ORDERED: CEFA2PLA3 IV (15:51)
[2020-08-27] MEDS ORDERED: FLAG500T PO (15:51)
[2020-08-27] MEDS ORDERED: HYDR-643 PO (15:51)
[2020-08-27] MEDS ORDERED: FURO20TA2 PO (15:51)
[2020-08-27] MEDS ORDERED: FAMO20TA PO (15:51)
--- NOTE | 2020-08-27 16:08 | DS.PDOC ---
Discharge Summary General Date of Admission Aug 16, 2020 at 17:44 Date of Discharge 08/27/20 Attending Physician: HANNAH CABELLO MD Discharge Summary PROCEDURES PERFORMED DURING STAY: Transesophageal echo with saline bubble study (08/21/20) 1. No vegetations. 2. Very mild aortic valve sclerosis of the 3-cuspid aortic valve. Mild aortic regurgitation. 3. Normal left ventricle size and systolic function. LVF 65% by visual estimate. 4. Otherwise normal-appearing transesophageal echocardiogram findings. ADMITTING DIAGNOSES: Sepsis Acute hypoxemic respiratory failure Lung mass Leukocytosis Anemia Hypokalemia DISCHARGE DIAGNOSES: Sepsis Right Lung Abscess Pneumonia Staph aureus Bacteremia Microcytic Anemia Transaminitis Hypokalemia Acute Diastolic CHF exacerbation Severe protein calorie malnutrition Hypoalbuminemia Acute hypoxemic respiratory failure GERD COPD COMPLICATIONS/CHIEF COMPLAINT: Anemia,Hypokalemia,Leukocytosis,Lung Mass. HISTORY OF PRESENT ILLNESS: Patient is 65 years old female with past medical history of chronic neck pain, active smoker presented to the hospital with increased shortness of breath. Patient stated that she haven't seen doctors for years. Patient stated that for past 4-5 weeks she has been having increased shortness of breath, cough, lack of appetite and low energy. She states that she lost many pounds, but she doesn't know exactly how many. In ER patient was found to have on CTA Atelectasis involving the right upper lobe as well as the right base with a pleural effusion but there is suspected large right lung mass ex tending from the chest wall to the hilum. There is abnormal adenopathy. Also patient has elevated white blood count of 47.7, hemoglobin 3.9, lactic acid 3.8, potassium 2.5, BNP 6956, troponin 0.1 HOSPITAL COURSE: # Sepsis: likely 2/2 post obstructive PNA. BCx+ S. Aureus (08/07). Repeat BCx 08/18 S. Aures. Repeat 08/21 negative after 72hrs. UCx. Sputum Cx. IV Cefazolin. ID consult. 4 weeks length of treatment from last negative BCx TTE shows no vegetations. PHOEBE 08/21 shows no vegetations # Right lung abscess: Biopsy done 08/19 found to be an abscess which grew Bacillus. No malignant cells identified. Pulmonology consulted, patient will require 4-6 weeks of IV antibiotics. PICC line 08/25. Follow up in Pulm clinic. # PNA: post obstructive 2/2 lung abscess. IV Cefazolin. ID and pulmonary agree with plan for 4-6 weeks of IV antibiotics. Added anaerobic coverage PO Flagyl on 08/22. Leukocytosis downtrending patient afebrile since 08/22. # Microcytic anemia: s/p 4U pRBC. Trend CBC. Hgb 3.9 on admit initially improved, downtrendingcould be due to acute illness. Monitor. FOBT negative. No obvious source of bleeding. Colonoscopy OP, FOBT negative. Transfuse for hemoglobin <7. Dr. Bridges consulted. Suspects AOCD 2/2 inflammation/infection. Pending soluble transferring receptor, hgb electophoresis. Will f/u outpatient. Stopped IVF. #Elevated PLTs: likely acute reaction, Dr. Bridges aware. Will follow up in clinic in 1 weeks # Transaminitis: resolved. Liver US CBD 7 mm. Sludge. # persistent Hypokalemia:K PO 20 meq daily. # Acute diastolic CHF: BNP elevated, downtrended. JVD, orthopnea. Echo grade 1 DD 60% EF 07/2020. fluid restriction. I&Os. Lasix 20 PO daily. # Neck pain: CT shows joint degenerative arthropathy. Tylenol PRN. Lidocaine patch. # Severe protein calorie malnutrition: BMI 16.9.. Nutrition consult. # Hypoalbuminemia: 2/2 protein calorie malnutirtion above. # Elevated TSH: normal T4. follow up with PCP for repeat TSH 4-6 weeks. # Acute hypoxemic respiratory failure: resolved. Pulm on board. O2 as needed. # GERD: famotidine # Likely underlying COPD: duonebs PRN. Active smoker. DISCHARGE MEDICATIONS: Please see below. ALLERGIES: Please see below. PHYSICAL EXAMINATION ON DISCHARGE: VITAL SIGNS: please see below General: NAD, comfortable HEENT: PERRLA, EOMI, sclerae clear Neck: supple, normal ROM, no JVD Respiratory: lungs CTAB, no wheeze, no rales, no crackles CVS: RRR, normal S1, S2, no murmurs Abdo: soft, no masses, no hepatosplenomegaly, BS+, no rebound tenderness Extremities: no edema, pulses 2+ MSK: no joint deformities, normal ROM Neuro: no focal neuro deficits, moving all 4 extremities, CN2-12 intact. Strength 5/5 in all 4 extremities. No nystagmus. Psych: calm, cooperative, AAO x 3 LABORATORY DATA: Please see below. IMAGING: CT chest (08/16/20) FINDINGS: Pulmonary arteries: Normal. No pulmonary emboli. Aorta: There is an ectatic ascending aorta 35 mm. Lungs: There is extensive infiltrate noted with atelectasis involving the right lung. There is a suspected mass lesion noted measuring 92 x 67 involving the middle lobe and right upper lobe extending to the hilum. This does have low-density in could be a large loculated area of fluid or partially cystic mass. There is moderate right effusion with basilar atelectasis. Pleural space: Unremarkable. No pneumothorax. No pleural effusion. Heart: Unremarkable. No cardiomegaly. No pericardial effusion. Lymph nodes: There is a 20 x 18 mm right hilar lymph node. There is an enlarged 13 x 12 mm pretracheal lymph node. Bones/joints: Unremarkable. No acute fracture. Soft tissues: Unremarkable. Other findings: There is artifact from the patient's arms scanned by her side. IMPRESSION: 1. Atelectasis involving the right upper lobe as well as the right base with a pleural effusion but there is suspected large right lung mass extending from the chest wall to the hilum. There is abnormal adenopathy. 2. No PE. 3. Patient's arms gives rise to artifact. CT abdo pelvis (08/16/20) FINDINGS: Lungs: Lung base abnormalities were described on the CT angiogram chest report earlier today. Liver: Noncontrast liver shows no obvious lesion. Gallbladder and bile ducts: Gallbladder is present and shows no evidence of gallstone. Pancreas: Noncontrast pancreas shows no obvious mass or adjacent fluid. Spleen: Noncontrast spleen shows no obvious focal deformity. Adrenals: Adrenal glands are normal in appearance. Kidneys and ureters: Kidneys show no stone or hydronephrosis. Stomach and bowel: No evidence of small bowel obstruction. No evidence of acute diverticulitis. Hyperdense material within small bowel lumen in the midline pelvis which could be ingested material. It could potentially be intraluminal blood since the patient recently had IV contrast. This is seen on axial image [id number] Appendix: Normal caliber appendix is identified, with no adjacent inflammation. Intraperitoneal space: No pneumoperitoneum. Vasculature: Atherosclerotic change present in the aorta, without aneurysm. Lymph nodes: No enlarged lymph nodes. Bladder: Urinary bladder appears normal. Reproductive: Female reproductive organs appear unremarkable. Bones/joints: Bony structures show no acute fracture or destructive process. Soft tissues: Unremarkable. IMPRESSION: 1. Hyperdense intraluminal material within lower abdominal small bowel. This could be intraluminal hemorrhage with recent IV contrast administration, or could represent ingested material. 2. No other acute or concerning focal abnormality on noncontrast CT. Liver US (08/19/20) FINDINGS: Pleural space: There is a right pleural effusion. Liver: Normal. No masses. Gallbladder: There is sludge within the gallbladder. Gallbladder wall thickness is 3 mm. No echogenic shadowing gallstones Common bile duct: The common bile duct is minimally dilated at 7 mm. Pancreas: Pancreas is poorly visualized because of shadowing bowel gas. Right kidney: The right kidney measures 11.5 by 4.7 x 5.3 cm. There is no hydronephrosis. Intraperitoneal space: No free fluid. IMPRESSION: 1. Gallbladder sludge. No cholelithiasis or definite findings to indicate cholecystitis. 2. Right pleural effusion. 3. Minimally dilated common bile duct at 7 mm Hip XR 08/21/20: FINDINGS: Bones/joints: No acute fracture or dislocation is identified. The femoral head articular contours are maintained, and the femoral heads appear to be of normal density. There are minor productive changes along the greater trochanters. Soft tissues: The soft tissues appear grossly unremarkable. Vasculature: Atherosclerotic vascular calcifications are noted. CT cspine (08/17/20) 1. Normal cervical spine, except for mild posterior facet joint degenerative arthropathy at levels C3 through C7. No significant spinal canal or neuroforaminal stenosis. 2. A layering pleural effusion is seen posterior to the right lung apex. TTE 08/19/20: INDICATION: Sepsis. MEASUREMENTS: 2D Measurements: RV 4.2 cm LV 4.6 cm Septum 0.9 cm Posterior wall 0.9 cm Aortic Root 3.0 cm LA 3.2 cm LVEF 60% Doppler Measurements: AV 1.65 m/s LVOT 1.2 m/s LVOT diameter 1.9 cm MV-E 64, A 84, E/A ratio 0.8 Early mitral deceleration time 270 m/s E prime medial 4.8, A prime medial 11, E prime lateral 10 Average E/E prime ratio 8.6/PCWP 12.6 mmHg PV 0.875 m/s Pulmonary artery acceleration time 100 m/s RVSP 37 mmHg IVC 1.2 cm COMMENTS: Normal sinus rhythm without intraventricular conduction disturbance. M-mode and two-dimensional echocardiography was performed with pulsed, continuou s wave, color flow, and tissue Doppler studies. Normal left ventricular size, wall thickness, and wall motion. Normal left atrial size with Doppler evidence of grade 1 left ventricular (LV) diastolic dysfunction, but currently normal estimated mean left atrial pressure. Mildly dilated right heart chambers with normal wall motion and Doppler evidenceof mild pulmonary hypertension. Normal inferior vena cava (IVC) size and collapse against an elevated central venous pressure. Normal aortic dimensions. Normal appearing aortic valve with trace to very mild aortic insufficiency. Normal appearing mitral valve and leaflet motion with no posterior systolic buckling and only trace insufficiency. Normal appearing tricuspid valve with very mild insufficiency. No apparent intracardiac mass. Meniscal posterior pericardial effusion measuring 0.45 cm. TTE 08/16/20: MEASUREMENTS: IV 0.9 LV 4.8 LVPW 0.9 LA 3.3 Aorta 2.8 IVC 2.2 Mitral E wave velocity 97, a wave 112 E prime septal 7.6 E prime lateral 13.5 FINDINGS: The study is of adequate technical quality. The patient is in sinus rhythm. Left ventricle is normal size and systolic function, estimated left ventricular ejection fraction (LVEF) 55 to 60%. No segmental wall motion abnormalities are appreciated. Right ventricle does not appear grossly enlarged and is normally contractile. Both atria appear normal. Aortic, mitral and tricuspid valves appear normal. Pulmonic valve was poorly visualized. No pericardial effusion is noted. Inferior vena cava is mildly dilated, but appropriately collapses in inspiration indicative of likely mildly elevated central venous pressure. Aorticroot, aortic arch and abdominal aorta appear normal. Doppler interrogation of aortic valve reveals no aortic stenosis or insufficien cy. Same applies for mitral valve. There is trace tricuspid insufficiency. Calculated pulmonary artery pressure is in high 30s correspondingto mild pulmonary hypertension. Mitral inflow pattern and tissue Doppler imaging of mitral annulus reveals grade1 diastolic dysfunction. CONCLUSIONS: 1. Study is of acceptable technical quality. The patient is in sinus rhythm. 2. Normal Left ventricle (LV) with preserved LV systolic function and grade 1 diastolic dysfunction. 3. No hemodynamically significant valvular disease. 4. Likely mildly elevated central venous pressure and mild pulmonary hypertension. PROGNOSIS: good ACTIVITY: As tolerated DIET: high protein, 2G sodium DISCHARGE PLAN: home with services, including 4 weeks of IV cefazolin and 4 weeks of PO flagyl (500 mg QID). End of therapy date 09/15/20. Cefazolin delivered to house on day of DC. Patient was provided with necessary training for IV abx admin via PICC. DISPOSITION: . DISCHARGE INSTRUCTIONS: PLEASE FOLLOW UP WITH YOUR PRIMARY CARE DOCTOR WITHIN 2-3 DAYS. PLEASE FOLLOW UP WITH HEMATOLOGY (DR. BRIDGES) WITHIN 1 WEEK. PLEASE FOLLOW UP IN PULMONARY CLINIC IN 1 WEEK. PLEASE TAKE YOUR MEDICATIONS PRESCRIBED. ADMINISTER IV ANTIBIOTICS AND TAKE ORAL ANTIBIOTICS PRESCRIBED UNTIL 08/2019. IF YOU DEVELOP CHEST PAIN, SHORTNESS OF BREATH, FEVERS, CHILLS, BLEEDING OR OTHERWISE WORSENING FO YOUR SYMPTOMS, CALL 911 OR RETURN TO THE EMERGENCY DEPARTMENT. ITEMS TO FOLLOWUP ON ON OUTPATIENT: 1. Check CMP, to assess for electrolytes, albumin 2. Check CBC, assess for anemia. Patient has follow up with hematology arranged. 2. Home services have been arranged for IV abx DISCHARGE CONDITION: Stable TIME SPENT ON DISCHARGE: Greater than 30 minutes. Vital Signs/I&Os Vital Signs Date Time Temp Pulse Resp B/P (MAP) Pulse Ox O2 Delivery O2 Flow Rate FiO2 08/27/20 14:00 98.1 87 18 109/84 (92) 96 Room Air 08/21/20 19:15 12 I&O- Last 24 Hours up to 6 AM 08/27/20 06:00 Intake Total 1810 ml Output Total 3925 ml Balance -2115 ml Laboratory Data Labs 24H Laboratory Tests 2 08/27/20 10:35: Immature Granulocyte % (Auto) 0.5, Neutrophils (%) (Auto) 73.5H, Lymphocytes (%) (Auto) 17.6L, Monocytes (%) (Auto) 7.5H, Eosinophils (%) (Auto) 0.4, Basophils (%) (Auto) 0.5, Neutrophils # (Auto) 7.7, Lymphocytes # (Auto) 1.9, Monocytes # (Auto) 0.8, Eosinophils # (Auto) 0.0, Basophils # (Auto) 0.1, Nucleated Red Blood Cells % (auto) 0.0, Anion Gap 6L, Glomerular Filtration Rate > 60.0, Calcium Level 7.6L, Magnesium Level 1.5L, Total Bilirubin 0.4, Aspartate Amino Transf (AST/SGOT) 27, Alanine Aminotransferase (ALT/SGPT) < 6L, Alkaline Phosphatase 201H, Total Protein 6.0#L, Albumin 1.2L, Albumin/Globulin Ratio 0.3L CBC/BMP Laboratory Tests 08/27/20 10:35 Microbiology Microbiology 08/22/20 Blood Culture - Final, Complete NO GROWTH AFTER 5 DAYS 08/21/20 Blood Culture - Final, Complete NO GROWTH AFTER 5 DAYS 08/19/20 Gram Stain - Final, Complete 08/19/20 Body Fluid Culture - Final, Complete Bacillus Sp., Not Anthracis 08/19/20 Anaerobic Culture - Final, Complete 08/18/20 Blood Culture - Final, Complete Streptococcus Intermedius 08/18/20 Blood Culture - Final, Complete NO GROWTH AFTER 5 DAYS Discharge Medications Scheduled Cefazolin Sodium in 0.9 % NaCl (Cefazolin 2 G/100 ml-0.9% NaCl) 2 Gm/100 Ml Plast..bag, 1 INJ IV Q8H Famotidine (Famotidine) 20 Mg Tablet, 20 MG PO BID Furosemide (Furosemide) 20 Mg Tablet, 20 MG PO DAILY Metronidazole (Flagyl) 500 Mg Tablet, 500 MG PO QID Potassium Chloride (Potassium Chloride) 20 Meq/15 Ml Liquid, 20 MEQ PO DAILY Sennosides/Docusate Sodium (Senna Plus Tablet) 1 Each Tablet, 1 TAB PO DAILY Scheduled PRN Acetaminophen (Acetaminophen) 325 Mg Tablet, 650 MG PO Q4H PRN for PAIN OR FEVER Guaifenesin (Guaifenesin) 100 Mg/5 Ml Liquid, 5 ML PO Q6HP PRN for COUGH Hydroxyzine HCl (Hydroxyzine HCl) 10 Mg Tablet, 10 MG PO Q12HP PRN for ITCHING Allergies Coded Allergies: No Known Allergies (Unverified , 08/16/20) HANNAH CABELLO MD Aug 27, 2020 16:08
[2020-08-27 18:08] LABS: HAPTOGLOBIN 197 mg/dL (37-355)
--- NOTE | 2020-08-28 11:58 | IPN ---
DATE: 08/19/2020 SUBJECTIVE: Ivett is feeling better. She is sitting up trying to eat more. She complains of some itching. She denies any nausea, vomiting or diarrhea. No abdominal pain. PHYSICAL EXAMINATION: VITALS: Afebrile, temperature 98.8, pulse 88, respirations 16, blood pressure 110/50, O2 sat 95% on room air HEART: Normal S1, S2, with no murmurs. LUNGS: Diminished breath sounds at the right base with expiratory rhonchi. No wheezes. ABDOMEN: Soft, nontender. No hepatosplenomegaly. EXTREMITIES: No cyanosis, clubbing or edema. SKIN: With ecchymosis on the upper extremity and a skin lesion on the finger that is suggestive of possible malignancy. OROPHARYNX: Clear with no thrush, with poor dentition. LABORATORY DATA: White count 30.1 down from 47.7, hemoglobin 11.1, hematocrit 36.4, platelets 355,000, 81% neutrophils, 10% lymphocytes, 6% monocytes. Sodium 133, potassium 4.7, chloride 97, bicarb 29, BUN 9, creatinine 0.56, glucose 67, calcium 8.1, magnesium 1.9. Bilirubin 4.4 which has increased from 0.6 on admission with a direct bilirubin of 3.2. AST 117, ALT 38. BNP 2,291. Total protein 5.8. Albumin 1.3. CULTURES: Blood cultures are positive for MSSA in three different sets on 08/16/2020 and blood cultures from 08/18/2020 48 hours later with no growth. After 24 hours, sputum culture had only Klebsiella oxytoca few. Stool hemoccult was negative. IMAGING STUDIES: Patient had a CT guided biopsy done at 2:45 p.m. this afternoon, sent for pathology as well as gram stain cultures and anaerobic cultures. MEDICATIONS: Cefazolin 2 grams I.V. every 8 hours started on 08/19/2020 after results of blood cultures. IMPRESSION: 1. Necrotizing Staph Aureus MSSA bacterial pneumonia with secondary bacteremia and severe leukocytosis with abscess formation. Patient on I.V. Cefazolin which will cover Staph Aureus in blood cultures and Klebsiella, although I suspect the Klebsiella is just a colonization, it was just few. Repeat blood cultures have been negative. Patient was scheduled for an echocardiogram today; the results are still pending. 2. Tobacco abuse with an abnormal lung CT concerning for a mass: Biopsy is pending to rule out malignancy. 3. Severe leukocytosis related to lung abscess: Improving. 4. Abnormal liver function test with hyperbilirubinemia and hypoalbuminemia: Concerning for infectious process versus liver cirrhosis. Patient does not report heavy alcohol use. PLAN: Will review results of transthoracic echocardiogram and probably obtain a PHOEBE to rule out endocarditis if TTE is not revealing. Patient will need two weeks of I.V. antibiotics for Staph Aureus bacteremia. When patient gets ready for discharge, we will discuss with her home I.V. antibiotics and see if she has help at home to be able to do home I.V. antibiotics. Length of therapy will depend on echo findings. Case has been discussed with Dr. Dangelo Mcdermott and Dr. Zoila Jarvis. [facility] SYSTEMK[facility]
--- NOTE | 2020-08-28 11:59 | IPN ---
DATE: 08/21/2020 SUBJECTIVE: Ivett continues to have low-grade fever of 100.4. No nausea, vomiting or diarrhea. No abdominal pain. Labs have improved. White count is 16.3, hemoglobin is 9.5, hematocrit is 31.5, platelets are 241,000, 78% neutrophils, 11% lymphocytes, 8% monocytes. Sodium 134, potassium is 3.1, chloride 97, bicarbonate is 32, BUN 7, creatinine 0.36, glucose 87, calcium 7.2, magnesium 1.7. Bilirubin 1.2. AST 42, ALT 10, alkaline phosphatase 312. BNP 2291. Total protein 5.4, albumin 1.2. Body fluid culture had few __, few white cells, no organism seen, anaerobic right lung culture is still pending. Blood culture 1 out of 2 on the 08/18 was still positive for gram positive cocci in chains and clusters. Not identified yet. Blood cultures on 08/16, three sets were positive MSSA. Patient is scheduled to have a PHOEBE today. She is complaining of being hungry. Her appetite has improved. She has a cough productive of yellow phlegm. No hemoptysis and no pleurisy. PHYSICAL EXAMINATION: GENERAL: Frail female in no acute distress. VITAL SIGNS: Temperature is 97.8, pulse is 76, respirations are 20, blood pressure is 109/59, O2 sat is 94% on room air. HEENT: Oropharynx is clear with very poor dentition. LUNGS: Diminished breath sounds throughout the whole right lung. The left lung is clear. HEART: Normal S1 and S2, systolic ejection murmur 2/6 at the left upper sternal border appreciated. No rubs or gallops. ABDOMEN: Soft, nontender. No hepatosplenomegaly. EXTREMITIES: +1 pitting edema bilaterally. BACK: No CVA or lumbosacral tenderness. IMPRESSION: 1. MSSA lung abscess with secondary bacteremia. Biopsy was done which was only positive for bacillus species, anaerobic culture is pending. Patient is currently on IV Cefazolin to cover for MSSA as well as Klebsiella in the sputum culture. Medication day #3 of IV Cefazolin. 2. Abnormal liver function tests with hyperbilirubinemia, hypoalbuminemia with lower extremity edema concerning for liver cirrhosis. This needs to be further worked up as an outpatient. Liver ultrasound done on 08/19 shows gallbladder sludge, no cholelithiasis or signs of cholecystitis, right pleural effusion and minimally dilated bile duct at 7 mm. 3. Tobacco abuse, patient is doing well with abstinence. PLAN: Continue IV Cefazolin at a dose of 2 grams q. 8 hours. The patient will need home IV antibiotics for the lung mass with abscess. PHOEBE is scheduled for today to rule out endocarditis. Per discussion with Dr. Patel and Dr. Jarvis the recommendation due to severe necrotizing pneumonia with abscess would be to continue with IV antibiotics for at least four weeks for the abscess. Unless the patient has anaerobe growing on the culture I do not see the need for anaerobic coverage at this time. The patient has persistent bacteremia and needs to have repeat blood cultures done which were ordered. Patient will need a PICC line for home IV antibiotics but first need to make sure that bacteremia has resolved. MTDD
--- NOTE | 2020-08-28 12:00 | IPN ---
DATE: 08/22/2020 Ivett seems to be doing well. She wanted to go the bathroom to have a bowel movement. No nausea, vomiting, or diarrhea. No abdominal pain. She still has a cough productive of light yellow phlegm. Minimal shortness of breath. No pleurisy, no hemoptysis. Her appetite is improving. She had a transesophageal echocardiogram yesterday, which was negative. Vital signs: Temperature this morning was 101.1, currently 98.6, pulse 80, respirations 18, blood pressure 114/56, oxygen saturation 96% rheumatoid arthritis. LABORATORY DATA: August 16: Blood cultures were methicillin-sensitive Staphylococcus aureus (MSSA). On August 18, one out of two blood cultures is positive. I did call microbiology lab, which looks like it may be a streptococcus. Anaerobic culture is still being worked up from the pus cavity, and there may be also an anaerobe. Blood cultures from August 21 and August 22 are pending. White count is 14.5, hemoglobin 8.6, hematocrit 28.9, platelets 281, 76% neutrophils, 14% lymphocytes, 8% monocytes. Sodium 138, potassium 3.6, chloride 100, bicarbonate 31, BUN 8, creatinine 0.29, glucose 79, calcium 7.5, magnesium 1.8. Bilirubin 1.1, AST 52, ALT 12, alkaline phosphatase 232. CRP 12.7. IMAGING: Hip x-rays were done on August 21, which showed no evidence of fracture, dislocation, infection. Minor osteoarthritic changes. PHYSICAL EXAMINATION: HEART: Normal S1, S2. No murmurs appreciated. LUNGS: Diminished breath sounds at the right base intermediate down with expiratory rhonchi. ABDOMEN: Soft, nontender. No hepatosplenomegaly. BACK: No costovertebral angle (CVA) or lumbosacral tenderness EXTREMITIES: Trace edema, both ankles. She has some clubbing or her fingers. No cyanosis. NEUROLOGIC: Normal. She moves all extremities. Able to get up from a lying down and sitting position to the commode without assist. IMPRESSION: Methicillin-sensitive Staphylococcus aureus (MSSA) bacteremia with Right lung abscess, on intravenous (IV) cefazolin. Sputum cultures have not grown any MSSA, but Klebsiella oxytoca. There is concern of some anaerobe as well on the cultures, still; pending, and repeat blood culture has possibly a streptococcus. Would continue with cefazolin. That should cover Staphylococcus aureus, klebsiella, and streptococcus, and add Flagyl 500 mg by mouth four times a day. for possibility of an anaerobe. 2. Recurrent fevers. Should rule out empyema. Chest x-ray PA and lateral will be obtained today and may need aspiration of pleural fluid if patient has persistent fever, as she is at high risk of an empyema. 3. Tobacco abuse. PLAN: Continue IV cefazolin 2 grams every 8 hours. Patient will need at least 4-6 weeks of IV antibiotics based on large cavitary lung abscess. Add Flagyl 500 mg by mouth four times a day and repeat chest x-ray PA and lateral today. If fever persists or there is an effusion, consider thoracentesis. MTDD
[2020-08-28 12:08] LABS: HEMOGLOBIN A 98.4 % (96.4-98.8); HEMOGLOBIN A2 1.6 % (1.8-3.2); HGB SOLUBILITY Negative (Negative)
--- NOTE | 2020-08-29 13:05 | REP ---
CT-GUIDED RIGHT LOBE LUNG BIOPSY This procedure is performed by LISETH Sierra, under the direct supervision of Dr. Brar. The risks and benefits of the procedure were explained to the patient and informed consent was obtained both verbally and written. Directly prior to the start of the procedure, a formal time-out was completed in the procedure room. The right lobe lung mass was localized using CT guidance. The skin was prepped and draped in a sterile fashion. Approximately 4 mL of 1% Lidocaine was used as a local anesthetic. Using CT guidance, a 19\20 gauge coaxial needle biopsy system was inserted and advanced into the nodule. Four core biopsy samples were obtained and were placed in formalin. It appeared as if most of these samples dissolved within the formalin. Three more core biopsy samples were taken and put in a sterile cup with saline. Before the last biopsy, pus was visualized within the introducer needle. That fluid was aspirated and sent to the lab as well. All samples that were obtained were sent to the lab for further analysis. CT images obtained directly after the biopsy showed no evidence of a pneumothorax. The patient was discharged back to the floor with postprocedural instructions. This exam was dictated by LISETH Sierra and Dr. Brar. DD: SHYANNE
--- NOTE | 2020-08-29 13:06 | REP ---
SINGLE VIEW CHEST HISTORY: Right lung biopsy. TECHNIQUE: Single view of the chest is performed following right lung biopsy. FINDINGS: There is no pneumothorax. Heterogeneous consolidative opacity is again visualized inferiorly on the right, unchanged since the prior exam of the same day. Left lung is unchanged in appearance. The remainder of the study is unchanged. IMPRESSION: No pneumothorax status post right lung biopsy MTDD
--- NOTE | 2020-08-29 13:07 | REP ---
CHEST X-RAY: 2-VIEWS HISTORY: Fever, lung abscess. COMPARISON STUDY: 08/19/2020. FINDINGS: Considerable pleural parenchymal opacification persists in the right lung with some modeled parenchymal gas density in the consolidated areas. This is similar to the 08/19/2020 study. No new infiltrate is appreciated. There is a very slight blunting of the posterior pleural angle on the left indicating a small quantity of left pleural fluid. IMPRESSION: Considerable pleural parenchymal opacity persists on the right. No new infiltrate. MTDD
--- NOTE | 2020-09-03 09:14 | REP ---
PROCEDURE: PICC line insertion. PROVIDER: LISETH Sierra under direct supervision of Dr. Brar. PROCEDURE NOTE: The risks and benefits of the procedure were explained to the patient and an informed consent was obtained, both verbally and written. Directly prior to the start of the procedure, a formal time-out was done in the procedure room. The left lateral brachial vein was localized using ultrasound guidance. The skin was prepped and draped in a sterile fashion. Two mL of 1% lidocaine 10 mg/mL were used as a local anesthetic. Using ultrasound guidance, the left lateral brachial vein was cannulated and a 0.018 guidewire was inserted and advanced to the SVC using fluoroscopic guidance. The needle was removed and a 5.5 Malagasy dilator and Peel-Away sheath was inserted over the guidewire. A 5.5 Malagasy double-lumen catheter was cut to the length of 35 cm. The dilator was removed and the catheter was inserted over the guidewire with the tip ending at the SVC. The Peel-Away sheath was removed and the catheter was flushed with heparinized saline as per hospital protocol. The catheter was affixed to the skin and a sterile dressing was applied. The patient tolerated the procedure well and there were no immediate complications. 0.2 minutes of fluoroscopy was utilized for this procedure, some images were obtained using last-image hold technology. SHYANNE
== END 2020-08-27 16:45 | disposition home or self-care (01) | DRG 871 ==
LOC: M ED 12:58 → M ED INP 17:44 → M PCU 19:06 → M MSPAV 08-23 17:05
PROVIDERS: ADMIT Internal Medicine; ATTEND Family Medicine
PROC: 30233N1 Transfusion of Nonautologous Red Blood Cells into Peripheral Vein, Percutaneous Approach (ICD-10-PCS; principal; 2020-08-16)
PROC: 0BBC3ZX Excision of Right Upper Lung Lobe, Percutaneous Approach, Diagnostic (ICD-10-PCS; 2020-08-19)
PROC: B246ZZ4 Ultrasonography of Right and Left Heart, Transesophageal (ICD-10-PCS; 2020-08-21)
PROC: 02HV33Z Insertion of Infusion Device into Superior Vena Cava, Percutaneous Approach (ICD-10-PCS; 2020-08-25)
DX: A41.01 Sepsis due to Methicillin susceptible Staphylococcus aureus (principal); J96.01 Acute respiratory failure with hypoxia; E43 Unspecified severe protein-calorie malnutrition; I50.31 Acute diastolic (congestive) heart failure; J85.2 Abscess of lung without pneumonia; J18.9 Pneumonia, unspecified organism; J98.11 Atelectasis; J90 Pleural effusion, not elsewhere classified; Z68.1 Body mass index [BMI] 19.9 or less, adult; E87.6 Hypokalemia; R91.8 Other nonspecific abnormal finding of lung field; D50.9 Iron deficiency anemia, unspecified; Z87.891 Personal history of nicotine dependence; M54.2 Cervicalgia; Z20.828 Contact with and (suspected) exposure to other viral communicable diseases; K21.9 Gastro-esophageal reflux disease without esophagitis; J44.9 Chronic obstructive pulmonary disease, unspecified

== ENCOUNTER → 2020-08-28 | Outpatient (REF) | payer MEDICARE, OTHER ==
[~2020-08-28] MED LIST: ACET1TAB55 PO; APAP325T4 PO; AUGM875T28 PO; BACI1CAP PO; CEFA2PLA3 IV; FAMO20TA PO; FLAG500T PO; FURO20TA2 PO; GUAI100S51 PO; HYDR-643 PO; METR-265 PO; POTA20EL PO; SENN-52 PO; VALA500T5 PO
[2020-08-28 18:07] LABS: HEMATOCRIT 23.7 % (36.0-47.0); HEMOGLOBIN 7.2 g/dl (12.0-15.5); MEAN CORPUSCULAR HGB CONC 30.4 g/dl (32.0-36.5); PLATELET COUNT, AUTOMATED 704 10^3/uL (150-450); WHITE BLOOD COUNT 9.3 10^3/uL (4.0-10.0)
[2020-08-28 18:17] LABS: ALBUMIN 1.2 GM/DL (3.2-5.2); ALT/SGPT < 6 U/L (12-78); BILIRUBIN,TOTAL 0.5 MG/DL (0.2-1.0); BLOOD UREA NITROGEN 6 MG/DL (7-18); C REACTIVE PROTEIN QUANTITATIV 3.99 MG/DL (0.00-0.30); CALCIUM LEVEL 7.3 MG/DL (8.8-10.2); CARBON DIOXIDE LEVEL 31 MEQ/L (21-32); CHLORIDE LEVEL 104 MEQ/L (98-107); CREATININE FOR GFR 0.45 MG/DL (0.55-1.30); GLOMERULAR FILTRATION RATE > 60.0 (>45); GLUCOSE, FASTING 100 MG/DL (70-100); POTASSIUM SERUM 3.9 MEQ/L (3.5-5.1); SODIUM LEVEL 138 MEQ/L (136-145); TOTAL PROTEIN 5.7 GM/DL (6.4-8.2)
[2020-08-28 18:33] LABS: ERYTHROCYTE SEDIMENTATION RATE 68 mm/hr (0-30)
== END ==
LOC: M SHH 16:50
PROVIDERS: ATTEND Internal Medicine Infectious Disease
DX: J85.1 Abscess of lung with pneumonia (principal); R78.81 Bacteremia; J90 Pleural effusion, not elsewhere classified; C34.91 Malignant neoplasm of unspecified part of right bronchus or lung

== ENCOUNTER 2020-09-01 15:01 | Inpatient (IN) | payer MEDICARE, OTHER ==
[~2020-09-01] VITALS: Ht 170.2 cm; Wt 54.7 kg
[~2020-09-01 15:01] MED LIST changes: -ACET-683 PO; -APAP325T4 PO; -AUGM875T28 PO; -BACI1CAP PO; -METR-265 PO; -POTA20TA6 PO; -PROBCAP14 PO; -VALA500T5 PO
[2020-09-01 16:33] LABS: BASO # 0.1 10^3/uL (0.0-0.2); BASO % 0.9 % (0.0-1.0); EOS # 0.1 10^3/uL (0.0-0.5); EOS % 0.6 % (0.0-3.0); LYMPH # 2.3 10^3/uL (1.5-5.0); LYMPH % 29.2 % (24.0-44.0); MEAN CORPUSCULAR HEMOGLOBIN 24.5 pg (27.0-33.0); MEAN CORPUSCULAR HGB CONC 30.3 g/dl (32.0-36.5); MEAN CORPUSCULAR VOLUME 80.8 fl (80.0-96.0); MONO # 0.9 10^3/uL (0.0-0.8); MONO % 10.9 % (0.0-5.0); NEUTROPHILS # 4.5 10^3/uL (1.5-8.5); PLATELET COUNT, AUTOMATED 632 10^3/uL (150-450); RED BLOOD COUNT 2.45 10^6/uL (4.00-5.40); WHITE BLOOD COUNT 7.8 10^3/uL (4.0-10.0)
[2020-09-01 16:36] LABS: HEMATOCRIT 19.8 % (36.0-47.0)
[2020-09-01 16:48] LABS: INR 1.3; PROTHROMBIN TIME 16.5 SECONDS (12.5-14.3)
[2020-09-01 16:49] LABS: PARTIAL THROMBOPLASTIN TIME 40.5 SECONDS (24.2-38.5)
[2020-09-01 16:54] LABS: ALBUMIN 1.4 GM/DL (3.2-5.2); ALT/SGPT < 6 U/L (12-78); BILIRUBIN,DIRECT 0.3 MG/DL (0.0-0.2); BILIRUBIN,TOTAL 0.4 MG/DL (0.2-1.0); LIPASE 110 U/L (73-393); TOTAL PROTEIN 5.9 GM/DL (6.4-8.2)
[2020-09-01 17:02] LABS: ANISOCYTOSIS 1+; HYPOCHROMASIA 2+
[2020-09-01 17:03] LABS: CRENATED RBC 1+; PLATELET ESTIMATE INCREASED (NORMAL)
--- NOTE | 2020-09-01 17:19 | REPVR ---
PROCEDURE INFORMATION: Exam: XR Chest, 1 View Exam date and time: 09/01/2020 4:55 PM Age: 65 years old Clinical indication: Abnormal findings; Abnormal diagnostic tests; Other: Anemia TECHNIQUE: Imaging protocol: XR of the chest Views: 1 view. COMPARISON: MD Chest, 1 view 08/19/2020 4:58 PM FINDINGS: Tubes, catheters and devices: A left subclavian PICC line is present with the distal tip of the line in the proximal SVC. Lungs: Comparison to the previous chest radiograph from 08/19/2020 shows marked interval improvement in aeration in the right lung with a decrease in size and extent of airspace consolidation/pneumonia/pneumonitis in the right upper and right lower lobes. The left lung is well-aerated. Pleural space: A pleural effusion is seen at the right lung base and questionably partially loculated in the right minor fissure. Heart/Mediastinum: Unremarkable. No cardiomegaly. Bones/joints: Unremarkable. IMPRESSION: 1. Comparison to the previous chest radiograph from 08/19/2020 shows marked interval improvement in aeration in the right lung with a decrease in size and extent of airspace consolidation/pneumonia/pneumonitis in the right upper and right lower lobes. 2. A pleural effusion is seen at the right lung base and questionably partially loculated in the right minor fissure. The left lung is well-aerated. 3. A left subclavian PICC line is present with the distal tip of the line in the proximal SVC. Electronically signed by: Artemio Mulligan On 09/01/2020 17:19:15 PM
[2020-09-01] MEDS ORDERED: CEFA2PLA3 IV (18:08)
[2020-09-01] MEDS ORDERED: METR-265 PO (18:08)
[2020-09-01] MEDS ORDERED: HYDR-643 PO (18:08)
[2020-09-01] MEDS ORDERED: FURO20TA2 PO (18:08)
[2020-09-01] MEDS ORDERED: APAP325T4 PO (18:08)
[2020-09-01] MEDS ORDERED: POTA20EL PO (18:08)
[2020-09-01] MEDS ORDERED: SENN-52 PO (18:08)
[2020-09-01] MEDS ORDERED: FAMO20TA PO (18:08)
--- NOTE | 2020-09-01 18:28 | HPEPDOC ---
General Date of Admission Sep 01, 2020 at 18:06 Date of Service: Sep 01, 2020 Chief Complaint The patient is a 65-year-old female admitted with a reason for visit of Anemia. Source: Patient Exam Limitations: No limitations Timing/Duration: 24 hours Severity: Moderate History of Present Illness Patient is 65 years old female past medical history of chronic neck pain, lung abscess active smoker presented to the hospital with increased dizziness and lightheadedness. Patient stated that for past few days she's been having increased lightheadedness with dizziness. In ER patient was found to have h emoglobin of 6.0. Patient was recently discharged from the hospital with diagnosis of right lung Methicillin-sensitive Staphylococcus aureus (MSSA) bacteremia with Right lung abscess, on intravenous (IV) cefazolin. Sputum cultures have not grown any MSSA,but Klebsiella oxytoca. There is concern of s ome anaerobe as well on the cultures. Patient received Flagyl and cefazolin in the outpatient settings. Patient denied fever, chills, nausea, vomiting, diarrhea or dysuria. Also patient denied black stool or blood in the stool Home Medications Scheduled Cefazolin Sodium in 0.9 % NaCl (Cefazolin 2 G/100 ml-0.9% NaCl) 2 Gm/100 Ml Plast..bag, 1 INJ IV Q8H, (Reported) Famotidine (Famotidine) 20 Mg Tablet, 20 MG PO BID, (Reported) Furosemide (Furosemide) 20 Mg Tablet, 20 MG PO DAILY, (Reported) Metronidazole (Metronidazole) 500 Mg Tablet, 500 MG PO QID, (Reported) Potassium Chloride (Potassium Chloride) 20 Meq/15 Ml Liquid, 15 ML PO DAILY, (Reported) Sennosides/Docusate Sodium (Senna Plus Tablet) 1 Each Tablet, 1 TAB PO DAILY, (Reported) Scheduled PRN Acetaminophen (Acetaminophen) 325 Mg Tablet, 650 MG PO Q4H PRN for PAIN / FEVER, (Reported) Hydroxyzine HCl (Hydroxyzine HCl) 10 Mg Tablet, 10 MG PO BID PRN for ITCHING, (Reported) Allergies Coded Allergies: No Known Allergies (Unverified , 08/16/20) Past Medical History Medical History Anemia of chronic diseases, right lung abscess, CHF, chronic neck pain Family History I personally reviewed family history and found not pertinent Social History * Smoker: quit less than 1 year Alcohol: Denies Drugs: denies A-FIB/CHADSVASC A-FIB History Current/History of A-Fib/PAF?: No Current PO Anticoag Therapy: No Review of Systems Constitutional: Reports: Malaise, Weakness; Denies: Chills, Fever Eyes: Denies: Pain ENT: Denies: Head Aches Skin: Denies: Rash Pulmonary: Reports: Cough; Denies: Dyspnea Cardiovascular: Denies: Chest Pain, Palpitations Gastrointestinal: Denies: Nausea, Vomiting Genitourinary: Denies: Dysuria Hematologic: Denies: Bruising Endocrine: Denies: Polydipsia, Polyphagia Musculoskeletal: Reports: Neck Pain Neurological: Denies: Weakness Psych: Reports: Mood Normal Physical Examination General Exam: Positive: Alert, Cooperative Eye Exam: Positive: PERRLA ENT Exam: Positive: Atraumatic Neck Exam: Positive: Supple; Negative: JVD Chest Exam: Positive: Diminished Heart Exam: Positive: Rate Normal Telemetry: Positive: No significant arrhythmia Abdomen Exam: Positive: Normal bowel sounds Extremity Exam: Negative: Clubbing Skin Exam: Positive: Nl turgor and temperature Neuro Exam: Positive: Normal Tone, Sensation Intact Psych Exam: Positive: Mental status NL Vital Signs Vital Signs Date Time Temp Pulse Resp B/P (MAP) Pulse Ox O2 Delivery O2 Flow Rate FiO2 09/01/20 17:16 74 98 09/01/20 16:38 09/01/20 15:02 99.5 18 Room Air Laboratory Data Labs 24H Laboratory Tests 2 09/01/20 16:15: Immature Granulocyte % (Auto) 0.4, Neutrophils (%) (Auto) 58.0, Lymphocytes (%) (Auto) 29.2, Monocytes (%) (Auto) 10.9H, Eosinophils (%) (Auto) 0.6, Basophils (%) (Auto) 0.9, Neutrophils # (Auto) 4.5, Lymphocytes # (Auto) 2.3, Monocytes # (Auto) 0.9H, Eosinophils # (Auto) 0.1, Basophils # (Auto) 0.1, Nucleated Red Blood Cells % (auto) 0.0, Platelet Estimate INCREASED, Hypochromasia 2+, An isocytosis 1+, Macrocytosis 1+, Crenated Cell 1+, Prothrombin Time 16.5H, Prothromb Time International Ratio 1.30, Activated Partial Thromboplast Time 40.5H, Total Bilirubin 0.4, Direct Bilirubin 0.3H, Aspartate Amino Transf (AST/SGOT) 26, Alanine Aminotransferase (ALT/SGPT) < 6L, Alkaline Phosphatase 160H, Total Protein 5.9L, Albumin 1.4L, Albumin/Globulin Ratio 0.3L, Lipase 110 CBC/BMP Laboratory Tests 09/01/20 16:15 Assessment/Plan Patient is 65 years old female past medical history of chronic neck pain, lung abscess active smoker presented to the hospital with increased dizziness and lightheadedness. Patient stated that for past few days she's been having increased lightheadedness with dizziness. In ER patient was found to have hemoglobin of 6.0. Patient was recently discharged from the hospital with diagnosis of right lung Methicillin-sensitive Staphylococcus aureus (MSSA) bacteremia with Right lung abscess, on intravenous (IV) cefazolin. Sputum cultures have not grown any MSSA,but Klebsiella oxytoca. There is concern of some anaerobe as well on the cultures. Patient received Flagyl and cefazolin in the outpatient settings. Patient denied fever, chills, nausea, vomiting, diarrhea or dysuria. Also patient denied black stool or blood in the stool Problems (1) Abscess of right lung without pneumonia Problem Text: Continue current antibiotic therapy On 08/21/20 PHOEBE was done and it was negative for vegetation (2) Anemia Status: Acute Problem Text: Microcytic anemia superimposed with anemia of chronic diseases No obvious source of bleeding We'll check iron study Stool for occult blood Blood transfusion 2 units (3) CHF (congestive heart failure) Status: Chronic Problem Text: Diastolic CHF Not in acute exacerbation (4) Cachexia Status: Chronic Problem Text: Loss of muscle mass BMI 20.2 IV 1.4 Plan / VTE VTE Prophylaxis Ordered?: Yes ELIE SCHMITZ DO Sep 01, 2020 18:28
[2020-09-01 19:07] LABS: IRON (FE) 19 UG/DL (50-170); PERCENT SATURATION 15.2 % (13.2-45.0); TOTAL IRON BINDING CAPACITY 125 UG/DL (250-450)
--- NOTE | 2020-09-01 19:58 | ECGEPIP ---
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
[2020-09-01] MEDS ORDERED: ceFAZolin SOD 2 GM in IV 1 EA IV SCH (20:00)
[2020-09-01 21:15] VITALS: BP 115/58
[2020-09-01 21:43] VITALS: BP 146/72
[2020-09-01 22:15] VITALS: BP 120/50
[2020-09-01 23:15] VITALS: BP 118/58
[2020-09-01] MEDS ORDERED: SLF 3 ML SYR IV PRN (23:15)
[2020-09-01] MEDS: metroNIDAZOLE (FLAGYL) 500MG TABLET PO SCH (23:23)
[2020-09-01] MEDS: FAMOTIDINE 20 MG TAB PO SCH (23:23)
[2020-09-01] MEDS: HEPARIN SOD (PORCINE) 5000UNITS/ML 1ML VIAL/SYRINGE SQ SCH (23:24)
[2020-09-01] MEDS: ACETAMINOPHEN TAB 650MG DOSE (2X325MG) PO PRN (23:38)
[2020-09-02] VITALS (11 sets, daily range): BP systolic 111–134; BP diastolic 54–66
[2020-09-02 05:45] LABS: HEMATOCRIT 26.7 % (36.0-47.0); MEAN CORPUSCULAR HGB CONC 32.6 g/dl (32.0-36.5); MEAN CORPUSCULAR VOLUME 79.7 fl (80.0-96.0); PLATELET COUNT, AUTOMATED 627 10^3/uL (150-450); RED BLOOD COUNT 3.35 10^6/uL (4.00-5.40); WHITE BLOOD COUNT 7.4 10^3/uL (4.0-10.0)
[2020-09-02 05:46] LABS: HEMOGLOBIN 8.7 g/dl (12.0-15.5)
[2020-09-02 06:07] LABS: ALBUMIN 1.2 GM/DL (3.2-5.2); ALT/SGPT < 6 U/L (12-78); BILIRUBIN,TOTAL 0.8 MG/DL (0.2-1.0); BLOOD UREA NITROGEN 6 MG/DL (7-18); CALCIUM LEVEL 7.2 MG/DL (8.8-10.2); CARBON DIOXIDE LEVEL 32 MEQ/L (21-32); CHLORIDE LEVEL 100 MEQ/L (98-107); CREATININE FOR GFR 0.36 MG/DL (0.55-1.30); GLOMERULAR FILTRATION RATE > 60.0 (>45); GLUCOSE, FASTING 73 MG/DL (70-100); MAGNESIUM LEVEL 1.5 MG/DL (1.8-2.4); POTASSIUM SERUM 3.1 MEQ/L (3.5-5.1); SODIUM LEVEL 138 MEQ/L (136-145); TOTAL PROTEIN 5.5 GM/DL (6.4-8.2)
[2020-09-02] MEDS ORDERED: POTASSIUM CHLORIDE 10 MEQ SR TABLET PO ONE (08:00)
[2020-09-02] MEDS: ceFAZolin SOD 2 GM in IV 1 EA IV SCH ×3 (08:10→23:39)
[2020-09-02] MEDS: metroNIDAZOLE (FLAGYL) 500MG TABLET PO SCH ×4 (08:12→21:56)
[2020-09-02] MEDS: SENOKOT S TAB PO SCH (08:12)
[2020-09-02] MEDS: HEPARIN SOD (PORCINE) 5000UNITS/ML 1ML VIAL/SYRINGE SQ SCH ×2 (08:12→21:56)
[2020-09-02] MEDS: FAMOTIDINE 20 MG TAB PO SCH ×2 (08:12→21:56)
[2020-09-02] MEDS: FUROSEMIDE 20 MG TAB PO SCH (08:12)
[2020-09-02] MEDS: ACETAMINOPHEN TAB 650MG DOSE (2X325MG) PO PRN ×2 (08:27→21:57)
[2020-09-02] MEDS ORDERED: PREVNAR 13 VACCINE SYRINGE IM SCH (09:00)
[2020-09-02] MEDS: MAG SULF 1GM/100ML (MAG RUN) 1 GM in IV 1 EA IV SCH ×3 (10:07→13:02)
[2020-09-02 10:59] LABS: HEMATOCRIT 28.6 % (36.0-47.0)
[2020-09-02] MEDS: LIDOCAINE 5% (LIDODERM) PATCH TD SCH (13:02)
[2020-09-02] MEDS: SLF 3 ML SYR IV SCH ×2 (14:00→23:39)
[2020-09-02] MEDS: atenoloL 25 MG TAB PO SCH (16:03)
[2020-09-02 16:27] LABS: HEMATOCRIT 28.4 % (36.0-47.0); HEMOGLOBIN 9.1 g/dl (12.0-15.5)
[2020-09-02] MEDS: SODIUM CHLORIDE 0.9% INJ 10 ML SYR IV SCH (18:17)
--- NOTE | 2020-09-02 19:13 | IPNPDOC ---
Subjective Date Seen The patient was seen on 09/02/20. Subjective Chief Complaint/HPI Mrs. Xavier is a 65 year old female with chronic neck pain, MSSA bacteremia, and Bacillus lung abscess here with lightheadedness secondary to acute anemia. Last night she was transfused 2u of pRBC. She responded appropriately from 6 to 8.7. She sustained at hgb 9. Otherwise, this morning, she was complaining of neck pain. No fever/chills, chest pain, abdominal pain or dysuria. She reported to have insomnia. Then this morning, while walking to the bathroom she had SVT in 180s which continued for 3 minutes. Returned to NSR in the 70s afterwards. No lightheadedness, just neck pain. Reached out to Cardiology, Dr. Serra. Recommended Atenolol and he will see after discharge. Patient may need ablation, but will have to be after infection resolves. Constitutional: Denies: Chills, Fever Pulmonary: Reports: Dyspnea (on exertion) Cardiovascular: Denies: Chest Pain Gastrointestinal: Denies: Abdominal Pain Genitourinary: Denies: Dysuria Objective Physical Examination General Exam: Positive: Alert, Cooperative Eye Exam: Positive: PERRLA ENT Exam: Positive: Atraumatic Neck Exam: Positive: Supple; Negative: JVD Chest Exam: Positive: Diminished Heart Exam: Positive: Rate Normal, Regular Rhythm Abdomen Exam: Positive: Normal bowel sounds Extremity Exam: Negative: Clubbing Skin Exam: Positive: Nl turgor and temperature Neuro Exam: Positive: Normal Tone, Sensation Intact Psych Exam: Positive: Mental status NL Assessment /Plan Assessment Mrs. Xavier is a 65 year old female with chronic neck pain, MSSA bacteremia, and Bacillus lung abscess here with lightheadedness secondary to acute anemia. Last night she was transfused 2u of pRBC. She responded appropriately from 6 to 8.7 and has sustained since then. Her reticulocyte index was 0.06 and iron 19 on admission. Otherwise, she has MSSA bacteremia of which she is on cefazolin. She has a lung abscess with sputum culture growing klebsiella of which she is on metronidazole and cefazolin. Morning of 09/02/2020, she had SVT for [address] Serra was contacted. Recommended Atenolol at this time with outpatient follow up. Plan/VTE VTE Prophylaxis Ordered?: Yes Plan 1. Acute anemia -Required 2upRBC. Responded appropriately -Reticulocyte index 0.06. Low iron. -Check FOBT -Start iron supplementation -Follow hemoglobin 2. Abscess of the right lung without pneumonia -Continue current antibiotic therapy (Cefazolin and metronidazole) 3. MSSA bacteremia -Continue current antibiotic therapy 4. Hypokalemia -May be secondary to hypomagnesemia -Replete and follow 5. Hypomagnesemia -Replete and recheck levels tomorrow 6. DVT ppx -Heparin BID VS, I&O, 24H, Fishbone Vital Signs/I&O Vital Signs Date Time Temp Pulse Resp B/P (MAP) Pulse Ox O2 Delivery O2 Flow Rate FiO2 09/02/20 16:03 73 131/58 09/02/20 16:00 98.5 20 97 Room Air I&O- Last 24 Hours up to 6 AM 09/02/20 06:00 Intake Total 700 ml Output Total 400 ml Balance 300 ml Laboratory Data 24H LABS Laboratory Tests 2 09/02/20 04:48: Nucleated Red Blood Cells % (auto) 0.0, Anion Gap 6L, Glomerular Filtration Rate > 60.0, Calcium Level 7.2L, Magnesium Level 1.5L, Total Bilirubin 0.8#, Aspartate Amino Transf (AST/SGOT) 23, Alanine Aminotransferase (ALT/SGPT) < 6L, Alkaline Phosphatase 156H, Total Protein 5.5L, Albumin 1.2L, Albumin/Globulin Ratio 0.3L CBC/BMP Laboratory Tests 09/02/20 04:48 09/02/20 10:36 09/02/20 15:50 GUANAKO IVEY DO Sep 02, 2020 19:13
[2020-09-02] MEDS: traZODone 25MG PER 1/2 TABLET PO SCH (21:56)
[2020-09-02] MEDS: **NOTE PATIENT COMMENT** MISC XX SCH (21:58)
[2020-09-03] VITALS: BP 113/54
[2020-09-03] MEDS: SODIUM CHLORIDE 0.9% INJ 10 ML SYR IV PRN (00:29)
[2020-09-03] MEDS: ACETAMINOPHEN TAB 650MG DOSE (2X325MG) PO PRN ×2 (02:03→20:23)
[2020-09-03 04:00] VITALS: BP 118/58
[2020-09-03 04:17] LABS: HEMATOCRIT 24.7 % (36.0-47.0); HEMOGLOBIN 7.7 g/dl (12.0-15.5); MEAN CORPUSCULAR HEMOGLOBIN 25.4 pg (27.0-33.0); MEAN CORPUSCULAR HGB CONC 31.2 g/dl (32.0-36.5); MEAN CORPUSCULAR VOLUME 81.5 fl (80.0-96.0); PLATELET COUNT, AUTOMATED 534 10^3/uL (150-450); RED BLOOD COUNT 3.03 10^6/uL (4.00-5.40); WHITE BLOOD COUNT 7.1 10^3/uL (4.0-10.0)
[2020-09-03 04:52] LABS: BLOOD UREA NITROGEN 5 MG/DL (7-18); CALCIUM LEVEL 7.2 MG/DL (8.8-10.2); CARBON DIOXIDE LEVEL 35 MEQ/L (21-32); CHLORIDE LEVEL 102 MEQ/L (98-107); CREATININE FOR GFR 0.37 MG/DL (0.55-1.30); GLOMERULAR FILTRATION RATE > 60.0 (>45); GLUCOSE, FASTING 75 MG/DL (70-100); POTASSIUM SERUM 2.8 MEQ/L (3.5-5.1); SODIUM LEVEL 140 MEQ/L (136-145)
[2020-09-03] MEDS: POTASSIUM CHLORIDE 10 MEQ SR TABLET PO SCH ×2 (06:38→07:36)
[2020-09-03] MEDS: SODIUM CHLORIDE 0.9% INJ 10 ML SYR IV SCH ×2 (06:39→18:18)
[2020-09-03 08:00] VITALS: BP 114/60
[2020-09-03] MEDS: LIDOCAINE 5% (LIDODERM) PATCH TD SCH (08:57)
[2020-09-03] MEDS: ceFAZolin SOD 2 GM in IV 1 EA IV SCH ×2 (08:57→16:22)
[2020-09-03] MEDS: metroNIDAZOLE (FLAGYL) 500MG TABLET PO SCH ×4 (08:57→20:22)
[2020-09-03] MEDS: POTASSIUM CHLORIDE 10% LIQ 20 MEQ/15 ML UDC PO SCH (08:58)
[2020-09-03] MEDS: FUROSEMIDE 20 MG TAB PO SCH (08:58)
[2020-09-03] MEDS: FAMOTIDINE 20 MG TAB PO SCH ×2 (08:58→20:22)
[2020-09-03] MEDS: SENOKOT S TAB PO SCH (08:58)
[2020-09-03] MEDS: FERROUS GLUCONATE 324 MG TAB PO SCH (08:58)
[2020-09-03] MEDS ORDERED: ALBUTEROL 90 MCG/ACT 8GM HFA INHALER INH PRN (10:30)
[2020-09-03 11:15] LABS: HEMATOCRIT 31.4 % (36.0-47.0); MEAN CORPUSCULAR HEMOGLOBIN 25.7 pg (27.0-33.0); MEAN CORPUSCULAR HGB CONC 31.2 g/dl (32.0-36.5); MEAN CORPUSCULAR VOLUME 82.2 fl (80.0-96.0); RED BLOOD COUNT 3.82 10^6/uL (4.00-5.40); WHITE BLOOD COUNT 7.3 10^3/uL (4.0-10.0)
[2020-09-03 11:22] LABS: HEMOGLOBIN 9.8 g/dl (12.0-15.5); PLATELET COUNT, AUTOMATED 653 10^3/uL (150-450)
[2020-09-03 11:57] VITALS: BP 137/63
--- NOTE | 2020-09-03 12:53 | IPNPDOC ---
Subjective Date Seen The patient was seen on 09/03/20. Subjective Chief Complaint/HPI Mrs. Xavier is a 65 year old female with chronic neck pain, MSSA bacteremia, and Bacillus lung abscess here with lightheadedness secondary to acute anemia. This morning, her hemoglobin had dropped from 9.1, and potassium was low at 2.8. She was given potassium and labs recheck. Potassium improved with supplementation and hemoglobin went up to 9.8. The low hemoglobin may have been an error. Otherwise this morning, she has denied fever/chills, chest pain, dyspnea, abdominal pain, or dysuria. Constitutional: Denies: Chills, Fever Pulmonary: Denies: Dyspnea Cardiovascular: Denies: Chest Pain Gastrointestinal: Denies: Abdominal Pain Genitourinary: Denies: Dysuria Objective Physical Examination General Exam: Positive: Alert, Cooperative Eye Exam: Positive: PERRLA ENT Exam: Positive: Atraumatic Neck Exam: Positive: Supple; Negative: JVD Chest Exam: Positive: Diminished Heart Exam: Positive: Rate Normal, Regular Rhythm Abdomen Exam: Positive: Normal bowel sounds Extremity Exam: Negative: Clubbing Skin Exam: Positive: Nl turgor and temperature Neuro Exam: Positive: Normal Tone, Sensation Intact Psych Exam: Positive: Mental status NL Assessment /Plan Assessment Mrs. Xavier is a 65 year old female with chronic neck pain, MSSA bacteremia, and Bacillus lung abscess here with lightheadedness secondary to acute anemia. Last night, she was transfused 2u of pRBC. She responded appropriately from 6 to 8.7 and has sustained since then. Her reticulocyte index was 0.06 and iron 19 on admission. Otherwise, she has MSSA bacteremia of which she is on cefazolin. She has a lung abscess with sputum culture growing klebsiella of which she is on metronidazole and cefazolin. Morning of 09/02/2020, she had SVT for [address] Serra was contacted. Recommended Atenolol at this time with outpatient follow up. Plan/VTE VTE Prophylaxis Ordered?: Yes Plan 1. Acute anemia -Required 2upRBC on 09/01/2020. Responded appropriately -Reticulocyte index 0.06. Low iron. -Check FOBT -Start iron supplementation -Follow hemoglobin 2. Abscess of the right lung without pneumonia -Continue current antibiotic therapy (Cefazolin and metronidazole) 3. MSSA bacteremia -Continue current antibiotic therapy 4. Hypokalemia -May be secondary to hypomagnesemia -Replete and follow 5. Hypomagnesemia -Replete -Magnesium within normal limits now 6. DVT ppx -Heparin BID VS, I&O, 24H, Fishbone Vital Signs/I&O Vital Signs Date Time Temp Pulse Resp B/P (MAP) Pulse Ox O2 Delivery O2 Flow Rate FiO2 09/03/20 11:57 98.8 70 20 137/63 (87) 97 Room Air I&O- Last 24 Hours up to 6 AM 09/03/20 06:00 Intake Total 1130 ml Output Total 950 ml Balance 180 ml Laboratory Data 24H LABS Laboratory Tests 2 09/03/20 04:06: Nucleated Red Blood Cells % (auto) 0.0, Anion Gap 3L, Glomerular Filtration Rate > 60.0, Calcium Level 7.2L, Magnesium Level 2.0 09/03/20 10:54: Nucleated Red Blood Cells % (auto) 0.0 CBC/BMP Laboratory Tests 09/02/20 15:50 09/03/20 04:06 09/03/20 10:54 GUANAKO IVEY DO Sep 03, 2020 12:53
[2020-09-03 16:23] VITALS: BP 105/77
[2020-09-03] MEDS: **NOTE PATIENT COMMENT** MISC XX SCH (20:09)
[2020-09-03] MEDS: HEPARIN SOD (PORCINE) 5000UNITS/ML 1ML VIAL/SYRINGE SQ SCH (20:22)
[2020-09-03] MEDS: traZODone 25MG PER 1/2 TABLET PO SCH (20:23)
[2020-09-03 22:00] VITALS: BP 121/57
[2020-09-04] MEDS: SODIUM CHLORIDE 0.9% INJ 10 ML SYR IV PRN ×4 (00:10→12:24)
[2020-09-04] MEDS: ceFAZolin SOD 2 GM in IV 1 EA IV SCH ×3 (00:10→16:00)
[2020-09-04] MEDS: ACETAMINOPHEN TAB 650MG DOSE (2X325MG) PO PRN ×3 (01:29→12:24)
[2020-09-04] MEDS: hydrOXYzine 10 MG TAB PO PRN ×2 (02:20→17:30)
--- NOTE | 2020-09-04 03:29 | IPNPDOC ---
Subjective Date Seen The patient was seen on 09/04/20. Subjective Chief Complaint/HPI notified by nurse that she's noticed a rash that's been bothering patient. I assessed the patient and the rash is mostly located in the truncal region. The rash is diffuse with different stages of healing. Some have central region of darker discoloration with surrounding redness. Some look like a blister is forming. Pt states it's very itchy. Pt may benefit from a dermatology consult by the am team. Objective Physical Examination General Exam: Positive: Alert, Cooperative Eye Exam: Positive: PERRLA ENT Exam: Positive: Atraumatic Neck Exam: Positive: Supple; Negative: JVD Chest Exam: Positive: Diminished Heart Exam: Positive: Rate Normal, Regular Rhythm Abdomen Exam: Positive: Normal bowel sounds Extremity Exam: Negative: Clubbing Skin Exam: Positive: Nl turgor and temperature Neuro Exam: Positive: Normal Tone, Sensation Intact Psych Exam: Positive: Mental status NL Assessment /Plan Plan/VTE VTE Prophylaxis Ordered?: Yes VS, I&O, 24H, Fishbone Vital Signs/I&O Vital Signs Date Time Temp Pulse Resp B/P (MAP) Pulse Ox O2 Delivery O2 Flow Rate FiO2 09/03/20 22:00 99.2 85 18 121/57 (78) 97 Room Air I&O- Last 24 Hours up to 6 AM 09/04/20 06:00 Intake Total 470 ml Output Total 650 ml Balance -180 ml Laboratory Data 24H LABS Laboratory Tests 2 09/03/20 04:06: Nucleated Red Blood Cells % (auto) 0.0, Anion Gap 3L, Glomerular Filtration Rate > 60.0, Calcium Level 7.2L, Magnesium Level 2.0 09/03/20 10:54: Nucleated Red Blood Cells % (auto) 0.0 CBC/BMP Laboratory Tests 09/03/20 04:06 09/03/20 10:54 Microbiology Microbiology 09/03/20 Stool Occult Blood (JEFRY) - Final, Complete Ananth Moya DO Sep 04, 2020 03:29
[2020-09-04 06:00] VITALS: BP 110/56
[2020-09-04] MEDS: SODIUM CHLORIDE 0.9% INJ 10 ML SYR IV SCH ×2 (06:42→17:31)
[2020-09-04 06:43] LABS: HEMATOCRIT 28.7 % (36.0-47.0); HEMOGLOBIN 8.9 g/dl (12.0-15.5); MEAN CORPUSCULAR HEMOGLOBIN 25.9 pg (27.0-33.0); MEAN CORPUSCULAR VOLUME 83.4 fl (80.0-96.0); PLATELET COUNT, AUTOMATED 618 10^3/uL (150-450); RED BLOOD COUNT 3.44 10^6/uL (4.00-5.40); WHITE BLOOD COUNT 6.8 10^3/uL (4.0-10.0)
[2020-09-04 07:10] LABS: BLOOD UREA NITROGEN 7 MG/DL (7-18); CARBON DIOXIDE LEVEL 34 MEQ/L (21-32); CHLORIDE LEVEL 101 MEQ/L (98-107); CREATININE FOR GFR 0.43 MG/DL (0.55-1.30); GLOMERULAR FILTRATION RATE > 60.0 (>45); GLUCOSE, FASTING 115 MG/DL (70-100); POTASSIUM SERUM 3.5 MEQ/L (3.5-5.1); SODIUM LEVEL 137 MEQ/L (136-145)
[2020-09-04 07:11] LABS: CALCIUM LEVEL 7.8 MG/DL (8.8-10.2)
[2020-09-04] MEDS: FUROSEMIDE 20 MG TAB PO SCH (08:52)
[2020-09-04] MEDS: SENOKOT S TAB PO SCH (08:52)
[2020-09-04] MEDS: metroNIDAZOLE (FLAGYL) 500MG TABLET PO SCH ×3 (08:52→17:00)
[2020-09-04] MEDS: FERROUS GLUCONATE 324 MG TAB PO SCH (08:52)
[2020-09-04] MEDS: FAMOTIDINE 20 MG TAB PO SCH ×2 (08:52→22:18)
[2020-09-04] MEDS: LIDOCAINE 5% (LIDODERM) PATCH TD SCH (08:59)
[2020-09-04] MEDS: HEPARIN SOD (PORCINE) 5000UNITS/ML 1ML VIAL/SYRINGE SQ SCH ×2 (08:59→22:18)
[2020-09-04] MEDS: atenoloL 25 MG TAB PO SCH (08:59)
[2020-09-04] MEDS: POTASSIUM CHLORIDE 10% LIQ 20 MEQ/15 ML UDC PO SCH (09:00)
[2020-09-04 13:21] VITALS: BP 122/70
[2020-09-04] MEDS ORDERED: VANCOMYCIN HCL 1,000 MG, VIAL MATE ADAPTER 1 EACH in D5W 250 ML IV ONE (17:30)
[2020-09-04] MEDS: valACYclovir HCL 500 MG TAB PO SCH ×2 (17:56→22:18)
--- NOTE | 2020-09-04 17:59 | IPNPDOC ---
Subjective Date Seen The patient was seen on 09/04/20. Subjective Chief Complaint/HPI Mrs. Xavier is a 65 year old female with chronic neck pain, MSSA bacteremia, and Bacillus lung abscess here with lightheadedness secondary to acute anemia and now found to have a diffuse rash over the trunk and back. 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 Carrera for consultation. Recommendations appreciated. Patient tells me that she lives near the [facility]. She has not found a tick on her. In the past, she has had chicken pox as a child. Skin: Reports: Rash, Itching Pulmonary: Denies: Dyspnea Cardiovascular: Denies: Chest Pain Gastrointestinal: Denies: Abdominal Pain Genitourinary: Denies: Dysuria Objective Physical Examination General Exam: Positive: Alert, Cooperative Eye Exam: Positive: PERRLA ENT Exam: Positive: Atraumatic Neck Exam: Positive: Supple; Negative: JVD Chest Exam: Positive: Diminished Heart Exam: Positive: Rate Normal, Regular Rhythm Abdomen Exam: Positive: Normal bowel sounds Extremity Exam: Negative: Clubbing Skin Exam: Positive: Rash (Small circular red lesions, about 0.5 cm in size), Pruritus Neuro Exam: Positive: Normal Tone, Sensation Intact Psych Exam: Positive: Mental status NL Assessment /Plan Assessment Mrs. Xavier is a 65 year old female with chronic neck pain, MSSA bacteremia, and Bacillus lung abscess here with lightheadedness secondary to acute anemia. Last night, she was transfused 2u of pRBC. She responded appropriately from 6 to 8.7 and has sustained since then. Her reticulocyte index was 0.06 and iron 19 on admission. Otherwise, she has MSSA bacteremia of which she is on cefazolin. She has a lung abscess with sputum culture growing klebsiella of which she is on metronidazole and cefazolin. Morning of 09/02/2020, she had SVT for [address] Serra was contacted. Recommended Atenolol at this time with outpatient follow up. Overnight, she had developed a diffuse itchy rash. ID was consulted. Recommendations appreciated. Plan/VTE VTE Prophylaxis Ordered?: Yes Plan 1. Diffuse rash -Concern for chicken pox, ID consulted. Recommendations appreciated. Now on valacyclovir -Derm consulted. Recommendations appreciated 2. Acute anemia -Required 2upRBC on 09/01/2020. Responded appropriately -Reticulocyte index 0.06. Low iron. -FOBT positive. -Start iron supplementation -Follow hemoglobin 3. Abscess of the right lung without pneumonia -ID following, recommendations appreciated -Antibiotics switched to vancomycin 4. MSSA bacteremia -ID following, recommendations appreciated 5. Hypokalemia -Resolved, continue to follow 6. Hypomagnesemia -Magnesium within normal limits now 7. SVT -On 09/02/2020, 3mins with HR at 180. Cardiology, Dr. Serra recommended atenolol and outpatient follow up 8. DVT ppx -Heparin BID VS, I&O, 24H, Fishbone Vital Signs/I&O Vital Signs Date Time Temp Pulse Resp B/P (MAP) Pulse Ox O2 Delivery O2 Flow Rate FiO2 09/04/20 13:21 98.7 70 20 122/70 (87) 95 Room Air I&O- Last 24 Hours up to 6 AM 09/04/20 06:00 Intake Total 770 ml Output Total 950 ml Balance -180 ml Laboratory Data 24H LABS Laboratory Tests 2 09/04/20 06:23: Nucleated Red Blood Cells % (auto) 0.0, Anion Gap 2L, Glomerular Filtration Rate > 60.0, Calcium Level 7.8L CBC/BMP Laboratory Tests 09/04/20 06:23 Microbiology Microbiology 09/03/20 Stool Occult Blood (JEFRY) - Final, Complete GUANAKO IVEY DO Sep 04, 2020 17:58
[2020-09-04] MEDS ORDERED: POTASSIUM CHLORIDE 10 MEQ SR TABLET PO ONE (18:00)
--- NOTE | 2020-09-04 20:47 | CR.PDOC ---
General Date of Consultation: Sep 04, 2020 Referring Provider: Joss Carrera MD Consultation Subjective Chief Complaint/HPI Mrs. Xavier is a 65-year-old female with chronic neck pain, MSSA bacteremia, and Bacillus lung abscess here with lightheadedness secondary to acute anemia and found to have a diffuse rash over the trunk and back. Dr. Carrera from ID reached out to dermatology for a consult on the new onset skin rash. The patient reports pruritus with a prodrome phase of tingling and itching before actual lesions appeared on her skin. Patient reports the rash started on her arms and then spread to her trunk. + history of chicken pox as a child noted. Objective Physical Examination General: WDWN, No acute distress, Alert and oriented ENT: anicteric, no conjunctival injection Skin: A focused skin examination was performed to include the face, eyelids, nose, cutaneous lip, ears, neck, and specific requested sites of examination listed below: 1. Hemorrhagic and pustular vesicles noted diffusely on the trunk and extremities. Mild focal palmar erythema with a slight vesicle on the left hand. No oral involvement noted. Patient denies vaginal or perianal involvement to her best knowledge (no itching at these locations, no dysuria or pain with defecation. 2. On oral exam for the rash, pedunculated verrucous papule originating from the upper midline gingiva. Assessment /Plan Assessment 65yo F with new onset hemorrhagic bullae in the setting of acute on chronic illness to include neck pain, MSSA bacteremia, bacillus lung abscess, and anemia. Consult placed to dermatology for new onset rash. Plan 1. Disseminated hemorrhagic and pustular vesicles a. Differential diagnosis includes: disseminated herpes zoster, acute drug reaction, bullous impetigo, scabies, wzom-siam-jutox disease 2/2 coxsackie virus or enterovirus, cutaneous candidiasis, and bullous impetigo, tick borne illness. Low suspicion for primary VZV given reported history of VZV as child. Rash does not appear as consistent with tick borne disease but would defer to ID for consideration of testing. b. Leading that differential is disseminated herpes zoster given morphology and history. PCR currently pending from primary team and patient has been started on oral valacyclovir. Given high clinical suspicion, would recommend transition to IV acyclovir 10mg/kg/dose every 8 hours until new lesions stop and then switch back to oral Valacyclovir at current dose to finish a total course of 10-14 days. c. Punch biopsy performed to evaluate for viral cytopathic change. Also performed in the event PCR is negative and we need additional datapoints in making correct diagnosis. d. VILMA- negative. Low suspicion for bullous dermatophyte confirmed. e. Wound culture given history of MSSA, bullous impetigo is a concern however should be addressed by current abx. Speciation would determinate susceptibility. f. If this is disseminated zoster, would need to consider any causes of immunosuppression. HIV pending. Recommend CBC w/ diff to look for clear signs of myeloproliferative disease given high white count at previous admission. Chronic illness and lung disease may also account for the condition. 2. Neoplasm uncertain behavior, oral cavity a. Recommend biopsy to r/o malignancy vs. verruca. We would be happy to pe rform in the dermatology clinic at discharge where we have the ability to achieve adequate hemostasis. Please refer when her inpatient clinical course is complete. Vital Signs/I&O Vital Signs Date Time Temp Pulse Resp B/P (MAP) Pulse Ox O2 Delivery O2 Flow Rate FiO2 09/04/20 13:21 98.7 70 20 122/70 (87) 95 Room Air I&O- Last 24 Hours up to 6 AM 09/04/20 06:00 Intake Total 770 ml Output Total 950 ml Balance -180 ml Laboratory Data Labs 24H Laboratory Tests 2 09/04/20 06:23: Nucleated Red Blood Cells % (auto) 0.0, Anion Gap 2L, Glomerular Filtration Rate > 60.0, Calcium Level 7.8L 09/04/20 17:59: CBC/BMP Laboratory Tests 09/04/20 06:23 Microbiology Microbiology 09/04/20 Gram Stain, Received Pending 09/04/20 Wound Culture, Received Pending 09/04/20 Gram Stain, Received Pending 09/04/20 Wound Culture, Received Pending 09/03/20 Stool Occult Blood (JEFRY) - Final, Complete Allergies Coded Allergies: No Known Allergies (Unverified , 08/16/20) Home Medications Scheduled Cefazolin Sodium in 0.9 % NaCl (Cefazolin 2 G/100 ml-0.9% NaCl) 2 Gm/100 Ml Plast..bag, 1 INJ IV Q8H, (Reported) Famotidine (Famotidine) 20 Mg Tablet, 20 MG PO BID, (Reported) Furosemide (Furosemide) 20 Mg Tablet, 20 MG PO DAILY, (Reported) Metronidazole (Metronidazole) 500 Mg Tablet, 500 MG PO QID, (Reported) Potassium Chloride (Potassium Chloride) 20 Meq/15 Ml Liquid, 15 ML PO DAILY, (Reported) Sennosides/Docusate Sodium (Senna Plus Tablet) 1 Each Tablet, 1 TAB PO DAILY, (Reported) Scheduled PRN Acetaminophen (Acetaminophen) 325 Mg Tablet, 650 MG PO Q4H PRN for PAIN / FEVER, (Reported) Hydroxyzine HCl (Hydroxyzine HCl) 10 Mg Tablet, 10 MG PO BID PRN for ITCHING, (Reported) IKER DEL CID MD Sep 04, 2020 20:47
[2020-09-04 22:00] VITALS: BP 134/69
[2020-09-04] MEDS: traZODone 25MG PER 1/2 TABLET PO SCH (22:18)
[2020-09-05] MEDS: ACYCLOVIR 500 MG in D5W MINI-BAG PLUS 100 ML IV SCH ×3 (04:17→20:38)
[2020-09-05] MEDS: **NOTE PATIENT COMMENT** MISC XX SCH ×2 (04:18→20:24)
[2020-09-05 05:58] LABS: HEMATOCRIT 30.4 % (36.0-47.0); HEMOGLOBIN 9.7 g/dl (12.0-15.5); MEAN CORPUSCULAR HEMOGLOBIN 26.2 pg (27.0-33.0); MEAN CORPUSCULAR HGB CONC 31.9 g/dl (32.0-36.5); MEAN CORPUSCULAR VOLUME 82.2 fl (80.0-96.0); PLATELET COUNT, AUTOMATED 573 10^3/uL (150-450); WHITE BLOOD COUNT 8.9 10^3/uL (4.0-10.0)
[2020-09-05 06:00] VITALS: BP 128/68
[2020-09-05 06:16] LABS: BLOOD UREA NITROGEN 5 MG/DL (7-18); CALCIUM LEVEL 7.8 MG/DL (8.8-10.2); CARBON DIOXIDE LEVEL 31 MEQ/L (21-32); CHLORIDE LEVEL 99 MEQ/L (98-107); CREATININE FOR GFR 0.36 MG/DL (0.55-1.30); GLOMERULAR FILTRATION RATE > 60.0 (>45); GLUCOSE, FASTING 90 MG/DL (70-100); POTASSIUM SERUM 3.6 MEQ/L (3.5-5.1); SODIUM LEVEL 135 MEQ/L (136-145)
[2020-09-05] MEDS: SODIUM CHLORIDE 0.9% INJ 10 ML SYR IV SCH ×2 (06:24→18:20)
[2020-09-05] MEDS ORDERED: VANCOMYCIN HCL 750 MG, VIAL MATE ADAPTER 1 EACH in D5W 250 ML IV SCH (06:30)
--- NOTE | 2020-09-05 07:49 | CR ---
DATE OF CONSULTATION: 09/04/2020 Asked to consult by the hospitalist for evaluation of diffuse vesicular rash in a patient with a history of methicillin-sensitive Staphylococcus aureus (MSSA) bacteria and lung abscess. HISTORY OF PRESENT ILLNESS: Mrs. Xavier is a 65-year-old female, admitted to [facility] on August 16 with Staphylococcus aureus bacteremia and lung abscess. The patient had severe anemia with a hemoglobin of 3.9 on admission and severe leukocytosis with a white count of 47,000. She slowly improved and was discharged home on intravenous (IV) cefazolin 2 grams every 8 hours and oral Flagyl for a necrotic lung abscess. Patient had a transesophageal echocardiogram, which was negative. Fine needle aspiration done on 08/19/2020 by interventional radiology showed no viable tumor cells, few viable inflammatory cells in a background of extensive necrotic tissue. Patient was readmitted with recurrent anemia with a hemoglobin of 7 and requiring blood transfusion. She continued on IV cefazolin and oral Flagyl. Last night patient developed a diffuse rash, which was vesicular in nature, pruritic. She denied any fever or chills. No nausea, vomiting, or diarrhea. She has no appetite. Her cough has improved. She feels better than her previous hospitalization. She has had no fever. MEDICATIONS: - albuterol two puffs every 6 as needed - trazodone 25 mg by mouth every night - Lasix 20 mg by mouth daily - potassium 20 mEq by mouth daily - Senokot one tablet by mouth daily - Lidoderm patch to the neck - atenolol 25 mg by mouth daily - heparin subcutaneous 5000 units twice a day - Tylenol as needed - Atarax 10 mg by mouth twice a day as needed for itching ALLERGIES: No known drug allergies. LABORATORY DATA: White count 6.8, hemoglobin 8.9, hematocrit 28.7, platelets 618. Sodium 137, potassium 3.5, chloride 101, bicarbonate 34, BUN 7, creatinine 0.43, glucose 115, calcium 7.8. AST 23, ALT 6, alkaline phosphatase 156, albumin 1.2. Procalcitonin 0.27. Free T4 of 0.81. Microbiology: Blood cultures done on August 21 and August 22 were no growth after 5 days. Stool Hemoccult was positive on September 03. On August 16, stool Hemoccult was negative. IMAGING: Chest x-ray 09/01/2020 compared to previously done August 19 shows marked interval improvement in aeration of the right lung with a decrease in size and extent of airspace consolidation and pneumonia in the right upper and lower lobe. A pleural effusion is seen ini the right lung base with possibility of loculation in the right minor fissure. The left lung is well aerated. A peripherally inserted central catheter (PICC) line in the left arm is noted as well. REVIEW OF SYSTEMS: Patient denies any nausea, vomiting, or diarrhea. She has soft stools. She denies any rectal bleeding. She has a cough, which has improved. Shortness of breath has improved. She has a rash, diffuse, mostly abdomen, back, and upper thighs. She complains of generalized weakness but improving. PHYSICAL EXAMINATION: Temperature is 98.7, pulse 70, respirations 20, blood pressure 122/70, oxygen saturation 95% on room air. EYES: Pupils equal and reactive, anicteric. No lesions. No erythema of the conjunctivae. Oropharynx is clear with no thrush. Poor dentition. HEART: Normal S1, S2 with a systolic ejection murmur, best heard at the right upper sternal border. LUNGS: Right breath sounds diminished long-term lung with few crackles and few expiratory rhonchi. Left lung is clear. ABDOMEN: Soft, nontender. No hepatosplenomegaly. BACK: No costovertebral angle (CVA) or lumbosacral tenderness. EXTREMITIES: No clubbing, cyanosis, or edema. SKIN: Vesiculopustular rash involving the abdomen as well as the back. Some lesions are pustular. A few others are hemorrhagic, especially around the abdomen, and some have scabs. Lesions measure less than 1 cm with an erythematous base. NECK: Limited range of motion due to arthritis. She has a patch of Lidoderm at the neck area, but patient is able to flex about [address] spine had been done previously, which showed cervical spondylosis. IMPRESSION: This is a 65-year-old female with a history of Staphylococcus aureus bacteremia and lung abscess diagnosed on 08/16/2020. She has been on antibiotics with broad spectrum followed by cefazolin until today. She has developed this diffuse rash, which is vesiculopustular and pruritic.Differential diagnosis for Rash: it is not typical for antibiotic allergy, although that could be in the differential. Disseminated zoster, usually more in immunocompromised patients, but this patient has had severe anemia of unclear source. Also in differential would include bullous impetigo and viral infections. PLAN: 1. Discontinue IV cefazolin and oral Flagyl. She will be switched to vancomycin 1 gram IV every 12 hours. 2.She will be treated for presumptive zoster, although less likely, but will start Valtrex 1 gram by mouth every [address] Grant, who has been consulted, will see her and possibly do a biopsy and a [place] smear. 3. HIV and hepatitis C testing were ordered. 4. Gastrointestinal (GI) workup needs to be done. She has a guaiac-positive stool with severe anemia. Underlying malignancy needs to be ruled out. 5.A viral swab for herpes simplex virus (HSV) and varicella zoster virus (VZV) PCR was sent as well as a wound Gram stain and culture were ordered. 6.Continue airborne isolation for possible disseminated VZV until seen by Dr. Grant. [facility]
[2020-09-05] MEDS: SENOKOT S TAB PO SCH (08:26)
[2020-09-05] MEDS: POTASSIUM CHLORIDE 10% LIQ 20 MEQ/15 ML UDC PO SCH (08:26)
[2020-09-05] MEDS: FUROSEMIDE 20 MG TAB PO SCH (08:26)
[2020-09-05] MEDS: FERROUS GLUCONATE 324 MG TAB PO SCH (08:26)
[2020-09-05] MEDS: FAMOTIDINE 20 MG TAB PO SCH ×2 (08:26→20:38)
[2020-09-05] MEDS: atenoloL 25 MG TAB PO SCH (08:26)
[2020-09-05] MEDS: HEPARIN SOD (PORCINE) 5000UNITS/ML 1ML VIAL/SYRINGE SQ SCH (08:27)
[2020-09-05] MEDS: LIDOCAINE 5% (LIDODERM) PATCH TD SCH (08:27)
[2020-09-05 09:02] LABS: HEPATITIS C VIRUS ABY INDEX 0.2 INDEX (<0.8); HIV 1&2 SCREEN CENTAUR NEGATIVE (NEGATIVE)
[2020-09-05 11:30] VITALS: BP 124/65
[2020-09-05 14:00] VITALS: BP 129/65
[2020-09-05] MEDS: VANCOMYCIN HCL 750 MG, VIAL MATE ADAPTER 1 EACH in D5W 250 ML IV SCH ×2 (15:26→23:16)
[2020-09-05 18:00] VITALS: BP 126/65
--- NOTE | 2020-09-05 18:51 | IPNPDOC ---
Subjective Date Seen The patient was seen on 09/05/20. Subjective Chief Complaint/HPI Mrs. Xavier is a 65 year old female with chronic neck pain, MSSA bacteremia, and Bacillus lung abscess here with lightheadedness secondary to acute anemia and now found to have a diffuse rash over the trunk and back. Patient was seen in the isolation room. Denies fever/chills, chest pain, dyspnea, abdominal pain, or dysuria. She feels a little better today with the new treatment regimen. Lesions still present throughout trunk. Around 1800, was notified by nurse that patient had a mechanical fall. I went down to evaluate the patient. She was trying to walk to the sink when she tripped and fell over the folding chair. She did not know it was there. Denies lightheadedness/dizziness or LOC. She reports a headstrike. CN 3-12 grossly intact. Finger to nose intact. No pronator drift. Left pupil reactive to light. Right pupil was not reactive to light, but appeared to have a cataract. Muscle strength equal. Ordered for CT head without contract, neurochecks, and fall risk. Discontinued heparin subq BID and switched to SCD and TEDs for DVT ppx. Constitutional: Denies: Fever Pulmonary: Denies: Dyspnea Cardiovascular: Denies: Chest Pain Gastrointestinal: Denies: Abdominal Pain Genitourinary: Denies: Dysuria Objective Physical Examination General Exam: Positive: Alert, Cooperative Eye Exam: Positive: EOMI; Negative: Sclera icteric ENT Exam: Positive: Atraumatic Neck Exam: Positive: Supple; Negative: JVD Chest Exam: Positive: Diminished Heart Exam: Positive: Rate Normal, Regular Rhythm Abdomen Exam: Positive: Normal bowel sounds Extremity Exam: Negative: Clubbing Skin Exam: Positive: Rash (Small circular red lesions, about 0.5 cm in size), Pruritus Neuro Exam: Positive: Normal Tone, Sensation Intact Psych Exam: Positive: Mental status NL Assessment /Plan Assessment Mrs. Xavier is a 65 year old female with chronic neck pain, MSSA bacteremia, and Bacillus lung abscess here with lightheadedness secondary to acute anemia. Last night, she was transfused 2u of pRBC. She responded appropriately from 6 to 8.7 and has sustained since then. Her reticulocyte index was 0.06 and iron 19 on admission. Otherwise, she has MSSA bacteremia of which she is on cefazolin. She has a lung abscess with sputum culture growing klebsiella of which she is on metronidazole and cefazolin. Morning of 09/02/2020, she had SVT for [address] Serra was contacted. Recommended Atenolol at this time with outpatient follow up. On 09/03/2020-09/04/2020, she had developed a diffuse itchy rash. ID and dermatology was consulted. Recommendations appreciated. Around 1800 today, she had a mechanical fall. She tripped over the folding chair. Right superior head tender and swollen. Right pupil not reactive, but looks like has cataract. Left eye reactive. Muscle strength equal, CN 3-12 grossly intact, no problems with proprioception. Ordered for CT head, neurochecks, and fall risk. Discontinue subq Heparin BID and switch to SCD and TEDs. Pending CT head results Plan/VTE VTE Prophylaxis Ordered?: Yes Plan 1. Diffuse rash -Concern for chicken pox, ID and Derm consulted. Recommendations appreciated. Now on acyclovir 2. Acute anemia -Required 2upRBC on 09/01/2020. Responded appropriately -Reticulocyte index 0.06. Low iron. -FOBT positive. Will need GI work up for malignancy -Start iron supplementation -Follow hemoglobin, stable today 3. Abscess of the right lung without pneumonia -ID following, recommendations appreciated -Antibiotics switched to vancomycin 4. MSSA bacteremia -ID following, recommendations appreciated 5. Hypokalemia -Resolved, continue to follow 6. Hypomagnesemia -Magnesium within normal limits now 7. SVT -On 09/02/2020, 3mins with HR at 180. Cardiology, Dr. Serra recommended atenolol and outpatient follow up 8. Mechanical fall -Occurred on 09/05/2020. I was notified around 1800. She got up to empty the water and tripped over the metal folding chair. Denies lightheadedness/dizziness or LOC. Reports headstrike. -Ordered CT head without contrast, neurochecks, and fall risk. Discontinued heparin subq BID -Except for right pupil not responding to light, appears to be neurologically intact. Right pupil appears to have cataract 9. DVT ppx -SCD and TEDs VS, I&O, 24H, Fishbone Vital Signs/I&O Vital Signs Date Time Temp Pulse Resp B/P (MAP) Pulse Ox O2 Delivery O2 Flow Rate FiO2 09/05/20 14:00 99.1 75 19 129/65 (86) 98 Room Air I&O- Last 24 Hours up to 6 AM 09/05/20 06:00 Intake Total 1080 ml Output Total 1600 ml Balance -520 ml Laboratory Data 24H LABS Laboratory Tests 2 09/05/20 05:27: Nucleated Red Blood Cells % (auto) 0.0, Anion Gap 5L, Glomerular Filtration Rate > 60.0, Calcium Level 7.8L, Hepatitis C Antibody Index 0.2, HIV Antigen/Antibody Combo Qual NEGATIVE 09/05/20 13:30: Random Vancomycin Level 11.0 CBC/BMP Laboratory Tests 09/05/20 05:27 Microbiology Microbiology 09/04/20 Gram Stain - Final, Resulted 09/04/20 Wound Culture, Resulted Pending 09/04/20 Gram Stain - Final, Resulted 09/04/20 Wound Culture, Resulted Pending 09/03/20 Stool Occult Blood (JEFRY) - Final, Complete GUANAKO IVEY DO Sep 05, 2020 18:04
--- NOTE | 2020-09-05 19:58 | REPVR ---
PROCEDURE INFORMATION: Exam: CT Head Without Contrast Exam date and time: 09/05/2020 7:06 PM Age: 65 years old Clinical indication: Injury or trauma; Fall; Blunt trauma (contusions or hematomas); Additional info: Mechanical fall TECHNIQUE: Imaging protocol: Computed tomography of the head without contrast. Radiation optimization: All CT scans at this facility use at least one of these dose optimization techniques: automated exposure control; mA and/or kV adjustment per patient size (includes targeted exams where dose is matched to clinical indication); or iterative reconstruction. COMPARISON: No relevant prior studies available. FINDINGS: Brain: No acute intracerebral abnormality or injury. No acute infarct or intracerebral bleed. Moderate generalized cerebral atrophy is present. Otherwise, normal brain. [place] Stroke Program Early CT Score (ASPECTS score) = 10. Cerebral ventricles: No ventriculomegaly. Bones/joints: There is a small 7.8 mm AP diameter calcified nodule projecting off the inner table of the right paramedian frontal calvarium. This is seen on image 24 of series 201 and may be a small benign osteoma or a calcified meningioma. No significant mass effect upon the underlying brain, however. Paranasal sinuses: Moderate mucosal thickening is present in the sphenoid sinuses bilaterally. There is a defect in the bony nasal septum anteriorly on image 11 of series 203 and image 2 of series 202. Mastoid air cells: Visualized mastoid air cells are well aerated. Soft tissues: Unremarkable. IMPRESSION: 1. No acute intracerebral abnormality or injury. No acute infarct or intracerebral bleed. 2. Moderate generalized cerebral atrophy is present. Otherwise, normal brain. 3. [place] Stroke Program Early CT Score (ASPECTS score) = 10. 4. There is a small 7.8 mm AP diameter calcified nodule projecting off the inner table of the right paramedian frontal calvarium. This is seen on image 24 of series 201 and may be a small benign osteoma or a calcified meningioma. No significant mass effect upon the underlying brain, however. 5. Moderate mucosal thickening is present in the sphenoid sinuses bilaterally. There is a defect in the bony nasal septum anteriorly on image 11 of series 203 and image 2 of series 202. Electronically signed by: Artemio Mulligan On 09/05/2020 19:58:11 PM
[2020-09-05] MEDS: traZODone 25MG PER 1/2 TABLET PO SCH (20:38)
[2020-09-05] MEDS: SANTYL OINT 30GM TOP SCH (20:38)
[2020-09-05] MEDS: ACETAMINOPHEN TAB 650MG DOSE (2X325MG) PO PRN (20:38)
[2020-09-05] MEDS: SODIUM CHLORIDE 0.9% INJ 10 ML SYR IV PRN (21:57)
[2020-09-05 22:00] VITALS: BP 124/65
[2020-09-06] MEDS: ACYCLOVIR 500 MG in D5W MINI-BAG PLUS 100 ML IV SCH ×3 (04:20→22:02)
[2020-09-06] MEDS: ACETAMINOPHEN TAB 650MG DOSE (2X325MG) PO PRN ×2 (04:23→22:02)
[2020-09-06 06:00] VITALS: BP 122/65
[2020-09-06] MEDS: VANCOMYCIN HCL 750 MG, VIAL MATE ADAPTER 1 EACH in D5W 250 ML IV SCH ×3 (06:45→23:26)
[2020-09-06] MEDS: SODIUM CHLORIDE 0.9% INJ 10 ML SYR IV SCH ×2 (06:45→16:54)
[2020-09-06 07:18] LABS: HEMATOCRIT 29.1 % (36.0-47.0); HEMOGLOBIN 8.9 g/dl (12.0-15.5); MEAN CORPUSCULAR HEMOGLOBIN 26.2 pg (27.0-33.0); MEAN CORPUSCULAR HGB CONC 30.6 g/dl (32.0-36.5); MEAN CORPUSCULAR VOLUME 85.6 fl (80.0-96.0); PLATELET COUNT, AUTOMATED 519 10^3/uL (150-450); WHITE BLOOD COUNT 7.8 10^3/uL (4.0-10.0)
[2020-09-06 07:26] LABS: BLOOD UREA NITROGEN 7 MG/DL (7-18); CALCIUM LEVEL 7.5 MG/DL (8.8-10.2); CARBON DIOXIDE LEVEL 32 MEQ/L (21-32); CHLORIDE LEVEL 101 MEQ/L (98-107); CREATININE FOR GFR 0.31 MG/DL (0.55-1.30); GLOMERULAR FILTRATION RATE > 60.0 (>45); GLUCOSE, FASTING 80 MG/DL (70-100); POTASSIUM SERUM 4.2 MEQ/L (3.5-5.1); SODIUM LEVEL 137 MEQ/L (136-145)
[2020-09-06 07:44] LABS: ATYPICAL LYMPH 6 % (0-5); BASOPHILS 2 % (0-1); EOSINOPHILS 1 % (0-3); LYMPHOCYTES 33 % (16-44); MONOCYTES 11 % (0-5); NEUTROPHILS 47 % (28-66); PLATELET ESTIMATE INCREASED (NORMAL)
[2020-09-06 07:45] LABS: ANISOCYTOSIS 4+; HYPOCHROMASIA 1+
[2020-09-06] MEDS: FAMOTIDINE 20 MG TAB PO SCH ×2 (08:48→22:01)
[2020-09-06] MEDS: POTASSIUM CHLORIDE 10% LIQ 20 MEQ/15 ML UDC PO SCH (08:48)
[2020-09-06] MEDS: SENOKOT S TAB PO SCH (08:48)
[2020-09-06] MEDS: atenoloL 25 MG TAB PO SCH (08:49)
[2020-09-06] MEDS: FERROUS GLUCONATE 324 MG TAB PO SCH (08:50)
[2020-09-06] MEDS: LIDOCAINE 5% (LIDODERM) PATCH TD SCH (08:51)
[2020-09-06] MEDS: FUROSEMIDE 20 MG TAB PO SCH (08:51)
[2020-09-06] MEDS: SANTYL OINT 30GM TOP SCH (08:52)
[2020-09-06 10:27] VITALS: BP 108/62
[2020-09-06] MEDS ORDERED: SENOKOT S TAB PO PRN (12:30)
[2020-09-06 14:00] VITALS: BP 107/63
--- NOTE | 2020-09-06 20:36 | IPNPDOC ---
Subjective Date Seen The patient was seen on 09/06/20. Subjective Chief Complaint/HPI Mrs. Xavier is a 65 year old female with chronic neck pain, MSSA bacteremia, and Bacillus lung abscess here with lightheadedness secondary to acute anemia and now found to have a diffuse rash over the trunk and back. Patient was seen in the isolation room. No events overnight. Denies fever/chills, chest pain, dyspnea, abdominal pain, or dysuria. She's been having diarrhea, we'll make her laxatives PRN. Lesions still present throughout trunk. Constitutional: Denies: Chills, Fever Skin: Reports: Rash Pulmonary: Denies: Dyspnea Cardiovascular: Denies: Chest Pain Gastrointestinal: Reports: Diarrhea; Denies: Abdominal Pain Genitourinary: Denies: Dysuria Objective Physical Examination General Exam: Positive: Alert, Cooperative Eye Exam: Positive: EOMI; Negative: Sclera icteric ENT Exam: Positive: Atraumatic Neck Exam: Positive: Supple; Negative: JVD Chest Exam: Positive: Diminished Heart Exam: Positive: Rate Normal, Regular Rhythm Abdomen Exam: Positive: Normal bowel sounds Extremity Exam: Negative: Clubbing Skin Exam: Positive: Rash (Small circular red lesions, about 0.5 cm in size), Pruritus Neuro Exam: Positive: Normal Tone, Sensation Intact Psych Exam: Positive: Mental status NL Assessment /Plan Assessment Mrs. Xavier is a 65 year old female with chronic neck pain, MSSA bacteremia, and Bacillus lung abscess here with lightheadedness secondary to acute anemia. Last night, she was transfused 2u of pRBC. She responded appropriately from 6 to 8.7 and has sustained since then. Her reticulocyte index was 0.06 and iron 19 on admission. Otherwise, she has MSSA bacteremia of which she is on cefazolin. She has a lung abscess with sputum culture growing klebsiella of which she is on metronidazole and cefazolin. Morning of 09/02/2020, she had SVT for [address] Serra was contacted. Recommended Atenolol at this time with outpatient follow up. On 09/03/2020-09/04/2020, she had developed a diffuse itchy rash. ID and dermatology was consulted. Recommendations appreciated. Pending results of pathology and cultures Plan/VTE VTE Prophylaxis Ordered?: Yes Plan 1. Diffuse rash -Concern for chicken pox, ID and Derm consulted. Recommendations appreciated. Now on acyclovir 2. Acute anemia -Required 2upRBC on 09/01/2020. Responded appropriately -Reticulocyte index 0.06. Low iron. -FOBT positive. Will need GI work up for malignancy -Start iron supplementation -Follow hemoglobin, stable today 3. Abscess of the right lung without pneumonia -ID following, recommendations appreciated -Antibiotics switched to vancomycin 4. MSSA bacteremia -ID following, recommendations appreciated 5. Hypokalemia -Resolved, continue to follow 6. Hypomagnesemia -Magnesium within normal limits now 7. SVT -On 09/02/2020, 3mins with HR at 180. Cardiology, Dr. Serra recommended atenolol and outpatient follow up 8. Mechanical fall -Occurred on 09/05/2020. I was notified around 1800. She got up to empty the water and tripped over the metal folding chair. Denies lightheadedness/dizziness or LOC. Reports headstrike. -Ordered CT head without contrast, neurochecks, and fall risk. Discontinued heparin subq BID -Except for right pupil not responding to light, appears to be neurologically intact. Right pupil appears to have cataract CT head negative for intracranial hemorrhage. No change in neurologic status 9. DVT ppx -SCD and TEDs Dispo: Pending results of pathology and cultures VS, I&O, 24H, Fishbone Vital Signs/I&O Vital Signs Date Time Temp Pulse Resp B/P (MAP) Pulse Ox O2 Delivery O2 Flow Rate FiO2 09/06/20 14:00 99.4 80 18 107/63 (78) 94 Room Air I&O- Last 24 Hours up to 6 AM 09/06/20 06:00 Intake Total 1960 ml Output Total 575 ml Balance 1385 ml Laboratory Data 24H LABS Laboratory Tests 2 09/06/20 06:46: Neutrophils (%) (Auto) , Nucleated Red Blood Cells % (auto) 0.0, Neutrophils 47, Lymphocytes (Manual) 33, Monocytes (Manual) 11H, Eosinophils (Manual) 1, Basophils (Manual) 2H, Atypical Lymphocytes 6H, Hypochromasia 1+, Anisocytosis 4+, Platelet Estimate INCREASED, Anion Gap 4L, Glomerular Filtration Rate > 60.0, Calcium Level 7.5L CBC/BMP Laboratory Tests 09/06/20 06:46 Microbiology Microbiology 09/04/20 Gram Stain - Final, Resulted 09/04/20 Wound Culture, Resulted Pending 09/04/20 Gram Stain - Final, Complete 09/04/20 Wound Culture - Final, Complete 09/03/20 Stool Occult Blood (JEFRY) - Final, Complete GUANAKO IVEY DO Sep 06, 2020 20:36
--- NOTE | 2020-09-06 21:11 | ECGEPIP ---
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
[2020-09-06 22:00] VITALS: BP 111/62
[2020-09-06] MEDS: traZODone 25MG PER 1/2 TABLET PO SCH (22:01)
[2020-09-06] MEDS: **NOTE PATIENT COMMENT** MISC XX SCH (22:03)
[2020-09-06] MEDS: SODIUM CHLORIDE 0.9% INJ 10 ML SYR IV PRN (23:26)
[2020-09-07] MEDS: SODIUM CHLORIDE 0.9% INJ 10 ML SYR IV PRN ×4 (00:42→23:16)
[2020-09-07] MEDS: ACYCLOVIR 500 MG in D5W MINI-BAG PLUS 100 ML IV SCH ×3 (04:29→20:22)
[2020-09-07] MEDS: ACETAMINOPHEN TAB 650MG DOSE (2X325MG) PO PRN ×2 (04:30→20:24)
[2020-09-07] MEDS: SODIUM CHLORIDE 0.9% INJ 10 ML SYR IV SCH ×2 (06:02→13:37)
[2020-09-07 06:14] VITALS: BP 104/56
[2020-09-07 06:25] LABS: BASO # 0.1 10^3/uL (0.0-0.2); BASO % 1.3 % (0.0-1.0); EOS # 0.2 10^3/uL (0.0-0.5); EOS % 2.3 % (0.0-3.0); HEMATOCRIT 30.1 % (36.0-47.0); LYMPH # 3.6 10^3/uL (1.5-5.0); LYMPH % 43.1 % (24.0-44.0); MEAN CORPUSCULAR HEMOGLOBIN 25.7 pg (27.0-33.0); MEAN CORPUSCULAR HGB CONC 29.9 g/dl (32.0-36.5); MONO # 0.9 10^3/uL (0.0-0.8); MONO % 10.5 % (0.0-5.0); NEUTROPHILS # 3.5 10^3/uL (1.5-8.5); NEUTROPHILS % 42.4 % (36.0-66.0); PLATELET COUNT, AUTOMATED 501 10^3/uL (150-450); WHITE BLOOD COUNT 8.3 10^3/uL (4.0-10.0)
[2020-09-07 06:47] LABS: BLOOD UREA NITROGEN 7 MG/DL (7-18); CALCIUM LEVEL 7.7 MG/DL (8.8-10.2); CARBON DIOXIDE LEVEL 33 MEQ/L (21-32); CHLORIDE LEVEL 101 MEQ/L (98-107); GLOMERULAR FILTRATION RATE > 60.0 (>45); GLUCOSE, FASTING 79 MG/DL (70-100); POTASSIUM SERUM 3.8 MEQ/L (3.5-5.1); SODIUM LEVEL 138 MEQ/L (136-145)
[2020-09-07] MEDS: SANTYL OINT 30GM TOP SCH (07:56)
[2020-09-07] MEDS: FAMOTIDINE 20 MG TAB PO SCH ×2 (08:00→20:22)
[2020-09-07] MEDS: FERROUS GLUCONATE 324 MG TAB PO SCH (08:00)
[2020-09-07] MEDS: POTASSIUM CHLORIDE 10% LIQ 20 MEQ/15 ML UDC PO SCH (08:00)
[2020-09-07] MEDS: LIDOCAINE 5% (LIDODERM) PATCH TD SCH (08:01)
[2020-09-07] MEDS: atenoloL 25 MG TAB PO SCH (08:01)
[2020-09-07] MEDS: VANCOMYCIN HCL 750 MG, VIAL MATE ADAPTER 1 EACH in D5W 250 ML IV SCH ×2 (10:38→23:16)
[2020-09-07 14:00] VITALS: BP 105/50
--- NOTE | 2020-09-07 15:29 | IPN ---
DATE: 09/05/2020 SUBJECTIVE: Ivett seems to be doing better today. She states that she does not think she has shingles. Said she thinks her rash is allergic to the medication she was on. She has had no fever or chills. No nausea, vomiting or diarrhea. Her appetite is poor. VITALS: T-max 99.6, pulse 102, respiratory rate 18, blood pressure 128/68, O2 sat 97% on room air. Her cough is improving. She has mild shortness of breath. No hemoptysis. Phlegm is mostly clear. No pleuritic chest pain. LABORATORY DATA: Sodium 135, potassium 3.6, chloride 99, bicarb 31, BUN 5, creatinine 0.36, glucose 90, calcium 7.8. White count 8.9, hemoglobin 9.7, hematocrit 30.4, platelets 573,000. Random Vanco level 11. HIV antigen antibody test was negative. Hepatitis C negative. HSV 1 and 2, VZV PCR are pending. Wound culture is pending. PHYSICAL EXAMINATION: HEART: Normal S1, S2, systolic ejection murmur 2/6 at left upper sternal border unchanged. LUNGS: Decreased breath sounds at the right base with history of crackles. No wheezes or rhonchi. Good air entry on the left side. ABDOMEN: Soft, nontender. No hepatosplenomegaly. BACK: No CVA or lumbosacral tenderness. EXTREMITIES: No cyanosis, clubbing or edema. SKIN: Vesicular pustular and some hemorrhagic lesions mostly on the abdomen; there is at least 30 lesions on her back, a few on her upper thighs and the right leg has a few erythematous papules. IMPRESSION: 1. Diffuse vesicular pustular rash, rule out disseminated Herpes Zoster versus acute drug reaction; less likely other viral illnesses. Patient is afebrile and doing well. VZV and HSV PCR have been sent, although I am not sure if they were sent on the viral specimen I did versus blood, I will call the lab about that. 2. Staph Aureus bacteremia with lung abscess: On treatment since August 16, currently on I.V. Vancomycin. Cefazolin and Flagyl were discontinued in case this was an allergic rash. 3. Lung abscess with cultures from the lungs: Fine needle aspirate has bacillus and blood cultures had Streptococcus intermedius as well as Staph Aureus. PLAN: Continue I.V. Acyclovir 500 mg every 8 hours. Continue Vancomycin for Staph Aureus bacteremia and lung abscess. Will call the lab regarding results of HSV and VZV. MTDD
--- NOTE | 2020-09-07 19:09 | IPNPDOC ---
Subjective Date Seen The patient was seen on 09/07/20. Subjective Chief Complaint/HPI Mrs. Xavier is a 65 year old female with chronic neck pain, MSSA bacteremia, and Bacillus lung abscess here with lightheadedness secondary to acute anemia and now found to have a diffuse rash over the trunk and back. Patient was seen in the isolation room. No events overnight. Nurse noted today that there were skin lesions extending to her thighs. Otherwise, patient feels better. Denies pruritus. Denies fever/chills, chest pain, dyspnea, abdominal pain, or dysuria. Constitutional: Denies: Chills, Fever Skin: Reports: Rash Pulmonary: Denies: Dyspnea Cardiovascular: Denies: Chest Pain Gastrointestinal: Denies: Abdominal Pain Genitourinary: Denies: Dysuria Objective Physical Examination General Exam: Positive: Alert, Cooperative Eye Exam: Positive: EOMI; Negative: Sclera icteric ENT Exam: Positive: Atraumatic Neck Exam: Positive: Supple; Negative: JVD Chest Exam: Positive: Diminished Heart Exam: Positive: Rate Normal, Regular Rhythm Abdomen Exam: Positive: Normal bowel sounds Extremity Exam: Negative: Clubbing Skin Exam: Positive: Rash (Small circular red lesions, about 0.5 cm in size. On trunck and thighs), Pruritus Neuro Exam: Positive: Normal Tone, Sensation Intact Psych Exam: Positive: Mental status NL Assessment /Plan Assessment Mrs. Xavier is a 65 year old female with chronic neck pain, MSSA bacteremia, and Bacillus lung abscess here with lightheadedness secondary to acute anemia. Last night, she was transfused 2u of pRBC. She responded appropriately from 6 to 8.7 and has sustained since then. Her reticulocyte index was 0.06 and iron 19 on admission. Otherwise, she has MSSA bacteremia of which she is on cefazolin. She has a lung abscess with sputum culture growing klebsiella of which she is on metronidazole and cefazolin. Morning of 09/02/2020, she had SVT for 3 mins of i ch Dr. Serra was contacted. Recommended Atenolol at this time with outpatient follow up. On 09/03/2020-09/04/2020, she had developed a diffuse itchy rash. ID and dermatology was consulted. Recommendations appreciated. Pending results of pathology and cultures Plan/VTE VTE Prophylaxis Ordered?: Yes Plan 1. Diffuse rash -Concern for chicken pox, ID and Derm consulted. Recommendations appreciated. Now on acyclovir 2. Acute anemia -Required 2upRBC on 09/01/2020. Responded appropriately -Reticulocyte index 0.06. Low iron. -FOBT positive. Will need GI work up for malignancy -Start iron supplementation -Follow hemoglobin, stable today 3. Abscess of the right lung without pneumonia -ID following, recommendations appreciated -Antibiotics switched to vancomycin 4. MSSA bacteremia -ID following, recommendations appreciated 5. Hypokalemia -Resolved, continue to follow 6. Hypomagnesemia -Magnesium within normal limits now 7. SVT -On 09/02/2020, 3mins with HR at 180. Cardiology, Dr. Serra recommended atenolol and outpatient follow up 8. Mechanical fall -Occurred on 09/05/2020. I was notified around 1800. She got up to empty the wate r and tripped over the metal folding chair. Denies lightheadedness/dizziness or LOC. Reports headstrike. -Ordered CT head without contrast, neurochecks, and fall risk. Discontinued heparin subq BID -Except for right pupil not responding to light, appears to be neurologically intact. Right pupil appears to have cataract CT head negative for intracranial hemorrhage. No change in neurologic status 9. DVT ppx -SCD and TEDs Dispo: Pending results of pathology and cultures VS, I&O, 24H, [facility] Vital Signs/I&O Vital Signs Date Time Temp Pulse Resp B/P (MAP) Pulse Ox O2 Delivery O2 Flow Rate FiO2 09/07/20 14:00 98.5 72 20 105/50 (68) 97 Room Air I&O- Last 24 Hours up to 6 AM 09/07/20 06:00 Intake Total 2400 ml Output Total 2320 ml Balance 80 ml Laboratory Data 24H LABS Laboratory Tests 2 09/07/20 06:09: Immature Granulocyte % (Auto) 0.4, Neutrophils (%) (Auto) 42.4, Lymphocytes (%) (Auto) 43.1, Monocytes (%) (Auto) 10.5H, Eosinophils (%) (Auto) 2.3, Basophils (%) (Auto) 1.3H, Neutrophils # (Auto) 3.5, Lymphocytes # (Auto) 3.6, Monocytes # (Auto) 0.9H, Eosinophils # (Auto) 0.2, Basophils # (Auto) 0.1, Nucleated Red Blood Cells % (auto) 0.0, Anion Gap 4L, Glomerular Filtration Rate > 60.0, Calcium Level 7.7L, Vancomycin Level Trough 23.1H CBC/BMP Laboratory Tests 09/07/20 06:09 Microbiology Microbiology 09/04/20 Gram Stain - Final, Complete 09/04/20 Wound Culture - Final, Complete 09/04/20 Gram Stain - Final, Complete 09/04/20 Wound Culture - Final, Complete 09/03/20 Stool Occult Blood (JEFRY) - Final, Complete GUANAKO IVEY DO Sep 07, 2020 19:09
[2020-09-07] MEDS: **NOTE PATIENT COMMENT** MISC XX SCH (20:23)
[2020-09-07] MEDS: traZODone 25MG PER 1/2 TABLET PO SCH (20:23)
[2020-09-07 20:30] VITALS: BP 115/63
[2020-09-08] MEDS: SODIUM CHLORIDE 0.9% INJ 10 ML SYR IV PRN ×3 (00:28→05:12)
[2020-09-08] MEDS: ACYCLOVIR 500 MG in D5W MINI-BAG PLUS 100 ML IV SCH ×2 (03:32→11:10)
[2020-09-08] MEDS: ACETAMINOPHEN TAB 650MG DOSE (2X325MG) PO PRN ×2 (03:33→11:10)
[2020-09-08] MEDS: SODIUM CHLORIDE 0.9% INJ 10 ML SYR IV SCH ×2 (05:11→17:07)
[2020-09-08 05:30] VITALS: BP 108/59
[2020-09-08 05:37] LABS: HEMATOCRIT 28.3 % (36.0-47.0); HEMOGLOBIN 8.5 g/dl (12.0-15.5); MEAN CORPUSCULAR HEMOGLOBIN 26.2 pg (27.0-33.0); MEAN CORPUSCULAR VOLUME 87.1 fl (80.0-96.0); PLATELET COUNT, AUTOMATED 468 10^3/uL (150-450); RED BLOOD COUNT 3.25 10^6/uL (4.00-5.40); WHITE BLOOD COUNT 7.8 10^3/uL (4.0-10.0)
[2020-09-08 05:57] LABS: BLOOD UREA NITROGEN 7 MG/DL (7-18); CARBON DIOXIDE LEVEL 33 MEQ/L (21-32); CHLORIDE LEVEL 102 MEQ/L (98-107); CREATININE FOR GFR 0.41 MG/DL (0.55-1.30); GLOMERULAR FILTRATION RATE > 60.0 (>45); GLUCOSE, FASTING 81 MG/DL (70-100); POTASSIUM SERUM 3.8 MEQ/L (3.5-5.1); SODIUM LEVEL 138 MEQ/L (136-145)
[2020-09-08] MEDS: FERROUS GLUCONATE 324 MG TAB PO SCH (09:19)
[2020-09-08] MEDS: FAMOTIDINE 20 MG TAB PO SCH ×2 (09:19→21:22)
[2020-09-08] MEDS: POTASSIUM CHLORIDE 10% LIQ 20 MEQ/15 ML UDC PO SCH (09:19)
[2020-09-08] MEDS: atenoloL 25 MG TAB PO SCH (09:21)
[2020-09-08] MEDS: LIDOCAINE 5% (LIDODERM) PATCH TD SCH (09:21)
[2020-09-08] MEDS: VANCOMYCIN HCL 750 MG, VIAL MATE ADAPTER 1 EACH in D5W 250 ML IV SCH (09:22)
[2020-09-08] MEDS: SANTYL OINT 30GM TOP SCH (09:22)
[2020-09-08] MEDS ORDERED: VANCOMYCIN HCL 750 MG, VIAL MATE ADAPTER 1 EACH in D5W 250 ML IV ONE (11:15)
[2020-09-08] MEDS: oxyBUTYnin *DITROPAN XL* 5 MG TABCR PO SCH (12:11)
[2020-09-08 14:00] VITALS: BP 104/55
--- NOTE | 2020-09-08 18:20 | IPNPDOC ---
Subjective Date Seen The patient was seen on 09/08/20. Subjective Chief Complaint/HPI Mrs. Xavier is a 65 year old female with chronic neck pain, MSSA bacteremia, and Bacillus lung abscess here with lightheadedness secondary to acute anemia and now found to have a diffuse rash over the trunk and back. Patient was seen in the isolation room. No events overnight. She has been having frequency. Post void residual was low. Otherwise, denies pruritus, fever/chills, chest pain, dyspnea, abdominal pain, or dysuria. Constitutional: Denies: Fever Pulmonary: Denies: Dyspnea Cardiovascular: Denies: Chest Pain Gastrointestinal: Denies: Abdominal Pain Genitourinary: Reports: Frequency; Denies: Dysuria Objective Physical Examination General Exam: Positive: Alert, Cooperative Eye Exam: Positive: EOMI; Negative: Sclera icteric ENT Exam: Positive: Atraumatic Neck Exam: Positive: Supple; Negative: JVD Chest Exam: Positive: Diminished Heart Exam: Positive: Rate Normal, Regular Rhythm Abdomen Exam: Positive: Normal bowel sounds Extremity Exam: Negative: Clubbing Skin Exam: Positive: Rash (Small circular red lesions, about 0.5 cm in size. On trunck and thighs), Pruritus Neuro Exam: Positive: Normal Tone, Sensation Intact Psych Exam: Positive: Mental status NL Assessment /Plan Assessment Mrs. Xavier is a 65 year old female with chronic neck pain, MSSA bacteremia, and Bacillus lung abscess here with lightheadedness secondary to acute anemia. Last night, she was transfused 2u of pRBC. She responded appropriately from 6 to 8.7 and has sustained since then. Her reticulocyte index was 0.06 and iron 19 on admission. Otherwise, she has MSSA bacteremia of which she is on cefazolin. She has a lung abscess with sputum culture growing klebsiella of which she is on metronidazole and cefazolin. Morning of 09/02/2020, she had SVT for [address] Serra was contacted. Recommended Atenolol at this time with ou tpatient follow up. On 09/03/2020-09/04/2020, she had developed a diffuse itchy rash. ID and dermatol ogkay was consulted. Recommendations appreciated. Pending results of pathology and cultures. Results won't return until Tuesday09/10/2020 Plan/VTE VTE Prophylaxis Ordered?: Yes Plan 1. Diffuse rash -Concern for chicken pox, ID and Derm consulted. Recommendations appreciated. Was on acyclovir. ID switched to PO valacyclovir 2. Acute anemia -Required 2upRBC on 09/01/2020. Responded appropriately -Reticulocyte index 0.06. Low iron. -FOBT positive. Will need GI work up outpatient for malignancy -Start iron supplementation -Follow hemoglobin, stable today 3. Abscess of the right lung without pneumonia -ID following, recommendations appreciated -Antibiotics switched to vancomycin 4. MSSA bacteremia -ID following, recommendations appreciated 5. Hypokalemia -Resolved, continue to follow 6. Hypomagnesemia -Magnesium within normal limits now 7. SVT -On 09/02/2020, 3mins with HR at 180. Cardiology, Dr. Serra recommended atenolol and outpatient follow up 8. Mechanical fall -Occurred on 09/05/2020. I was notified around 1800. She got up to empty the water and tripped over the metal folding chair. Denies lightheadedness/dizziness or LOC. Reports headstrike. -Ordered CT head without contrast, neurochecks, and fall risk. Discontinued heparin subq BID -Except for right pupil not responding to light, appears to be neurologically i ntact. Right pupil appears to have cataract CT head negative for intracranial hemorrhage. No change in neurologic status 9. Overactive bladder -Post void residual was low -Will do trial of oxybutynin. Patient does have concern for dementia as she has family history of dementia. Mirabegron may be an option, but it is not carried in hospital. consider switching to Mirabegron outpatient. 10. DVT ppx -SCD and TEDs Dispo: Pending results of pathology and cultures VS, I&O, 24H, [facility] Vital Signs/I&O Vital Signs Date Time Temp Pulse Resp B/P (MAP) Pulse Ox O2 Delivery O2 Flow Rate FiO2 09/08/20 14:00 98.5 57 16 104/55 (71) 100 09/08/20 05:30 Room Air I&O- Last 24 Hours up to 6 AM 09/08/20 06:00 Intake Total 1748 ml Output Total 2850 ml Balance -1102 ml Laboratory Data 24H LABS Laboratory Tests 2 09/08/20 05:27: Nucleated Red Blood Cells % (auto) 0.0, Anion Gap 3L, Glomerular Filtration Rate > 60.0, Calcium Level 8.0L 09/08/20 09:03: Vancomycin Level Trough 19.7 CBC/BMP Laboratory Tests 09/08/20 05:27 Microbiology Microbiology 09/04/20 Gram Stain - Final, Complete 09/04/20 Wound Culture - Final, Complete 09/04/20 Gram Stain - Final, Complete 09/04/20 Wound Culture - Final, Complete 09/03/20 Stool Occult Blood (JEFRY) - Final, Complete GUANAKO IVEY DO Sep 08, 2020 18:20
[2020-09-08] MEDS: **NOTE PATIENT COMMENT** MISC XX SCH (21:00)
[2020-09-08] MEDS: traZODone 25MG PER 1/2 TABLET PO SCH (21:22)
[2020-09-08] MEDS: valACYclovir HCL 500 MG TAB PO SCH (21:23)
[2020-09-08 22:00] VITALS: BP 118/61
[2020-09-09] MEDS: ACETAMINOPHEN TAB 650MG DOSE (2X325MG) PO PRN (02:12)
[2020-09-09 06:00] VITALS: BP 116/60
[2020-09-09] MEDS: valACYclovir HCL 500 MG TAB PO SCH ×2 (06:10→13:30)
[2020-09-09] MEDS: SODIUM CHLORIDE 0.9% INJ 10 ML SYR IV SCH (06:11)
--- NOTE | 2020-09-09 06:27 | IPNPDOC ---
Text Note Date of Service The patient was seen on 09/08/20. NOTE Subjective Chief Complaint/HPI Mrs. Xavier is a 65-year-old female with chronic neck pain, MSSA bacteremia and Bacillus lung abscess (patient currently on vanc) here with lightheadedness secondary to acute anemia and found to have a diffuse rash over the trunk and back. Rash was swabbed for HSV and VZV PCR and biopsy was performed by Dr. Grant last week - pending result. HIV and hep C negative. + history of chicken pox as a child noted. Patient attributing rash to allergic response to antibiotics. Rash about the same as late last week. Given concern for zoster, patient was placed on IV acyclovir last week and has been transitioned to Valtrex 1000 mg PO now, tolerating. Objective Physical Examination General: WDWN, No acute distress, Alert and oriented ENT: anicteric, no conjunctival injection Skin: A focused skin examination was performed to include the face, eyelids, nose, cutaneous lip, ears, neck, and specific requested sites of examination listed below: 1. Hemorrhagic and pustular vesicles noted diffusely on the trunk and extremities. Mild focal palmar erythema with a slight vesicle on the left hand. 2. On oral exam for the rash, pedunculated verrucous papule originating from the upper midline gingiva. Assessment /Plan Assessment 65yo F with new onset hemorrhagic bullae in the setting of acute on chronic illness to include neck pain, MSSA bacteremia, bacillus lung abscess, and anemia. Plan 1. Disseminated hemorrhagic and pustular vesicles a. Differential diagnosis includes: disseminated herpes zoster, acute drug reaction, bullous impetigo, scabies, [id number] disease 2/2 coxsackie virus or enterovirus, cutaneous candidiasis, and bullous impetigo, tick borne illness. Low suspicion for primary VZV given reported history of VZV as child. Another consideration would be leukemia or lymphoma cutis especially in the setting of the aberrant blood counts, lung abscess, and bacteremia. b. Leading that differential is disseminated herpes zoster given morphology and history. PCR currently pending from primary team and patient has been started on switched from IV acyclovir to PO Valtrex given that she had no new clinical lesions and her exam was stable. Finish 10-14 day course total of anti- viral medication. c. Punch biopsy performed to evaluate for viral cytopathic change. Also performed in the event PCR is negative and we need additional data points in making correct diagnosis. Dermatology will follow up this result 2. Neoplasm uncertain behavior, oral cavity a. Recommend biopsy to r/o malignancy vs. verruca. We would be happy to perform in the dermatology clinic at discharge where we have the ability to achieve adequate hemostasis. Please refer when her inpatient clinical course is complete. Dermatology will continue to follow this patient. Kami Mariscal MD [phone] VS,Eleonora, I+O VS, Eleonora I+O Vital Signs Date Time Temp Pulse Resp B/P (MAP) Pulse Ox O2 Delivery O2 Flow Rate FiO2 09/08/20 22:00 99.3 80 18 118/61 (80) 96 Room Air I&O- Last 24 Hours up to 6 AM 09/09/20 05:59 Intake Total 910 ml Output Total 2375 ml Balance -1465 ml KAMI MARISCAL MD Sep 09, 2020 06:26
[2020-09-09 06:35] LABS: HEMATOCRIT 27.7 % (36.0-47.0); HEMOGLOBIN 8.3 g/dl (12.0-15.5); MEAN CORPUSCULAR VOLUME 86.8 fl (80.0-96.0); PLATELET COUNT, AUTOMATED 454 10^3/uL (150-450); RED BLOOD COUNT 3.19 10^6/uL (4.00-5.40); WHITE BLOOD COUNT 8.2 10^3/uL (4.0-10.0)
[2020-09-09 06:54] LABS: BLOOD UREA NITROGEN 6 MG/DL (7-18); CALCIUM LEVEL 7.2 MG/DL (8.8-10.2); CARBON DIOXIDE LEVEL 33 MEQ/L (21-32); CHLORIDE LEVEL 103 MEQ/L (98-107); CREATININE FOR GFR 0.41 MG/DL (0.55-1.30); GLOMERULAR FILTRATION RATE > 60.0 (>45); GLUCOSE, FASTING 77 MG/DL (70-100); POTASSIUM SERUM 3.5 MEQ/L (3.5-5.1); SODIUM LEVEL 140 MEQ/L (136-145)
[2020-09-09 07:10] LABS: HSV-1 DNA Negative (Negative); HSV-2 DNA Negative (Negative); VARICELLA ZOSTER VIRUS PCR Positive (Negative)
[2020-09-09] MEDS: oxyBUTYnin *DITROPAN XL* 5 MG TABCR PO SCH (09:00)
[2020-09-09] MEDS: LIDOCAINE 5% (LIDODERM) PATCH TD SCH (09:02)
[2020-09-09] MEDS: FERROUS GLUCONATE 324 MG TAB PO SCH (09:02)
[2020-09-09] MEDS: SANTYL OINT 30GM TOP SCH (09:02)
[2020-09-09] MEDS: POTASSIUM CHLORIDE 10% LIQ 20 MEQ/15 ML UDC PO SCH (09:02)
[2020-09-09 09:03] VITALS: BP 116/60
[2020-09-09] MEDS: atenoloL 25 MG TAB PO SCH (09:03)
[2020-09-09] MEDS: FAMOTIDINE 20 MG TAB PO SCH (09:03)
[2020-09-09] MEDS ORDERED: BACI1CAP PO (09:58)
[2020-09-09] MEDS ORDERED: AUGM875T28 PO (09:58)
[2020-09-09] MEDS ORDERED: VALA500T5 PO (09:58)
[2020-09-09] MEDS ORDERED: VANCOMYCIN HCL 1,000 MG, VIAL MATE ADAPTER 1 EACH in D5W 250 ML IV SCH (10:00)
--- NOTE | 2020-09-09 10:28 | IPN ---
DATE: 09/08/2020 SUBJECTIVE: Ivett is seen and examined today at bedside. She feels like she is doing well and is ready to go home. She has not had any residual itching and is afraid she will not be able to make it home in time to see family members who are being deployed. She denies any fever, chills, chest pain, difficulty breathing, nausea, vomiting, diarrhea. OBJECTIVE: Vital signs: Temperature 98.5, pulse 57, respiratory rate of 16, blood pressure 104/55, pulse oximetry 100% on room air. General: Well-appearing female in no acute distress laying comfortably in bed. Heart: Normal S1 and S2 with systolic 2/6 ejection murmur at left upper sternal border that is unchanged. Lungs: Clear to auscultation bilaterally with no wheezes, crackles, rhonchi. Abdomen: Soft, nontender, nondistended. No hepatosplenomegaly. Back: No costovertebral angle (CVA) tenderness. Extremities: No cyanosis, clubbing, or edema. Skin: Well-healing vesicular and hemorrhagic lesions mostly on abdomen and back with a few on her upper thighs and legs. ASSESSMENT AND PLAN: 1. Diffuse vesicular rash. Still awaiting pathology results of skin biopsy, however in the meantime she seems to be doing well and at this point has been on IV acyclovir from 09/05/2020 through 09/08/2020 today. We will transition her to oral valacyclovir 1 gram three times a day for the next 7 days for a total of 10 days of therapy. 2. Staphylococcus aureus bacteremia with lung abscess. She has been on treatment since 08/16/2020. She is currently on IV vancomycin after discontinuing cefazolin and Flagyl in case the above rash was an allergy. However, currently she is doing well enough that we will discontinue the IV vancomycin and start her on Augmentin twice a day for the next 14 days. She should have a chest CT 1 week after her discharge as well as a followup with my office. 3. Lung abscess with cultures from the lungs. Fine needle aspirate has Bacillus and blood cultures had Streptococcus intermedius as well as Staphylococcus aureus. Followup with pulmonology outpatient. SHYANNE
[2020-09-09] MEDS ORDERED: VANCOMYCIN HCL 500 MG in D5W MINI-BAG PLUS 100 ML IV SCH (11:00)
--- NOTE | 2020-09-09 11:23 | CR.PDOC ---
General Date of Consultation: Sep 09, 2020 Consultation Skin, abdomen, punch biopsy: Vesicular dermatitis with full thickness acantholysis and nuclear cytopathic effects of herpes virus. 09/09/20 - 1019 Skin rash on inpatient with disseminated hemorrhagic vesicles. Please evaluate for viral Received in formalin labeled "abdomen" and consists of one deshpande-brown skin punch measuring 0.5 x 0.3 cm. All in one. -SV Pathology resulted. Patient on correct course. Vital Signs/I&O Vital Signs Date Time Temp Pulse Resp B/P (MAP) Pulse Ox O2 Delivery O2 Flow Rate FiO2 09/09/20 09:03 67 116/60 09/09/20 06:00 98.0 16 97 Room Air I&O- Last 24 Hours up to 6 AM 09/09/20 06:00 Intake Total 1030 ml Output Total 2375 ml Balance -1345 ml Laboratory Data Labs 24H Laboratory Tests 2 09/09/20 06:20: Nucleated Red Blood Cells % (auto) 0.0, Anion Gap 4L, Glomerular Filtration Rate > 60.0, Calcium Level 7.2L CBC/BMP Laboratory Tests 09/09/20 06:20 Microbiology Microbiology 09/04/20 Gram Stain - Final, Complete 09/04/20 Wound Culture - Final, Complete 09/04/20 Gram Stain - Final, Complete 09/04/20 Wound Culture - Final, Complete 09/03/20 Stool Occult Blood (JEFRY) - Final, Complete Allergies Coded Allergies: No Known Allergies (Unverified , 08/16/20) Home Medications Scheduled Amoxicillin/Potassium Clav (Augmentin 875-125 Tablet) 1 Each Tablet, 875 MG PO BID for 21 Days, #42 Bacillus Coagulans (Bacid with Lactospore) 1 Each Capsule, 1 CAP PO BIDWM for 21 Days, #42 Famotidine (Famotidine) 20 Mg Tablet, 20 MG PO BID, (Reported) Furosemide (Furosemide) 20 Mg Tablet, 20 MG PO DAILY, (Reported) Potassium Chloride (Potassium Chloride) 20 Meq/15 Ml Liquid, 15 ML PO DAILY, (Reported) Sennosides/Docusate Sodium (Senna Plus Tablet) 1 Each Tablet, 1 TAB PO DAILY, (Reported) Valacyclovir HCl (Valacyclovir) 500 Mg Tablet, 1,000 MG PO Q8H for 7 Days, #21 Scheduled PRN Acetaminophen (Acetaminophen) 325 Mg Tablet, 650 MG PO Q4H PRN for PAIN / FEVER, (Reported) Hydroxyzine HCl (Hydroxyzine HCl) 10 Mg Tablet, 10 MG PO BID PRN for ITCHING, (Reported) IKER DEL CID MD Sep 09, 2020 11:23
--- NOTE | 2020-09-09 12:52 | DS.PDOC ---
Discharge Summary General Date of Admission Sep 01, 2020 at 18:06 Date of Discharge SEP 09, 2020 Discharge Summary PROCEDURES PERFORMED DURING STAY: [facility] CONSULTANTS: SHOP TECHNICIAN: DR. DEL CID INFECTIOUS DISEASE SPECIALIST: DR GAUTAM CARRERA DISCHARGE DIAGNOSES: MSSA bacteremia with lung abscess. 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 HISTORY OF PRESENT ILLNESS: 65-year-old female with history of MSSA bacteremia with right lung abscess on chronic IV cefazolin. Klebsiella oxytoca on sputum culture and Bacillus, Streptococcus intermedius on fluid culture. Chronic neck pain, anemia of chronic disease, congestive heart failure with preserved systolic function presented to the emergency room with lightheadedness and dizziness without hematemesis, bright red blood per rectum, black tarry stools at home. She was found to have symptomatic anemia with hemoglobin of 6 and hematocrit of 19.8 and was orthostatic, and subsequently admitted for symptomatic anemia requiring 2 units RBC transfusion. Patient was found to have a diffuse vesicular dermatitis thought to be secondary to disseminated herpes zoster infection versus drug reaction. HOSPITAL COURSE: Patient was admitted for symptomatic anemia due to chronic blood loss with Hemoccult stool positive with presenting hemoglobin of 6, TransfuseD 2 units of red blood cells with discharge hemoglobin of 8.3, and resolution of her symptoms. She was restarted back on cefazolin IV every 8 and Flagyl for her chronic bacteremia, but developed an erythematous diffuse vesicular rash evaluated by infectious disease, Dr. Carrera and wood carving lathe operator, Dr. Ruiz. Patient was placed in a negative pressure room and airborne precautions for disseminated zoster. On September 04. Patient's cefazolin and Flagyl were discontinued and patient was started on intravenous vancomycin and Valtrex 1 g every 8 hourly. Patient underwent punch biopsy by wood carving lathe operator with pathology showing vesicular dermatitis with full-thickness at The lysis and nuclear cytopa thic effects of herpes virus. Per infectious disease's recommendations, patient was switched to oral Augmentin 875 mg twice a day to complete 3 weeks as outpatient, one more week of Valtrex 1 g every 8 hours, repeat CT chest in one week, follow-up with director of home health services after CT chest, and follow-up with Dr. Carrera infectious disease specialist in 2 weeks. Patient had no bloody bowel movements, but was encouraged to have her primary care physician refer her to a striping machine operator or general surgeon for a colonoscopy as outpatient within 2 weeks of hospital discharge DISCHARGE MEDICATIONS: Please see below. ALLERGIES: Please see below. PHYSICAL EXAMINATION ON DISCHARGE: VITAL SIGNS: Please see below. GENERAL: Awake, alert, oriented to person, place and time, answering questions appropriately without conversational dyspnea. Able to speak in full sentences HEENT: anicteric, no jaundice. Dry mucous membranes. Chapped lips. No JVD, thyromegaly Poor dentition, missing teeth, dental caries CARDIOVASCULAR EXAMINATION: S1, S2 sinus rhythm No murmurs RESPIRATORY: Air to auscultation. No wheezing or rales ABDOMINAL EXAMINATION: Bowel sounds, soft, nontender, nondistended 4 quadrants EXTREMITIES:No cyanosis or clubbing SKIN: Diffuse pustular vesicles and erythema on the trunk and bilateral upper and lower extremities LABORATORY DATA: Please see below. IMAGIN09/01/2020. Chest x-ray comparison to the previous chest radiograph from 08/19/2020 shows marked improvement in aeration in the right lung with a decrease in size and extent of airspace consolidation pneumonia and pneumonitis in the right upper and right lower lobe. A pleural effusion is seen at the right lung base and questionably partially loculated in the right minor fissure. The left lung is well aerated. A left subclavian PICC line is present with the distal tip of the line in the proximal SVC DISCHARGE INSTRUCTIONS: PICC line was discontinued prior to hospital discharge. oral Augmentin 875 mg twice a day to complete 3 weeks as outpatient, one more week of Valtrex 1 g every 8 hours, repeat CT chest in one week, follow-up with director of home health services after CT chest, and follow-up with Dr. Carrera infectious disease specialist in 2 weeks. Patient had no bloody bowel movements, but was encouraged to have her primary care physician refer her to a striping machine operator or general surgeon for a colonoscopy as outpatient within 2 weeks of hospital discharge DISCHARGE CONDITION: Stable TIME SPENT ON DISCHARGE: 30 minutes. Vital Signs/I&Os Vital Signs Date Time Temp Pulse Resp B/P (MAP) Pulse Ox O2 Delivery O2 Flow Rate FiO2 09/09/20 09:03 67 116/60 09/09/20 06:00 98.0 16 97 Room Air I&O- Last 24 Hours up to 6 AM 09/09/20 06:00 Intake Total 1030 ml Output Total 2375 ml Balance -1345 ml Laboratory Data Labs 24H Laboratory Tests 2 09/09/20 06:20: Nucleated Red Blood Cells % (auto) 0.0, Anion Gap 4L, Glomerular Filtration Rate > 60.0, Calcium Level 7.2L CBC/BMP Laboratory Tests 09/09/20 06:20 Microbiology Microbiology 09/04/20 Gram Stain - Final, Complete 09/04/20 Wound Culture - Final, Complete 09/04/20 Gram Stain - Final, Complete 09/04/20 Wound Culture - Final, Complete 09/03/20 Stool Occult Blood (JEFRY) - Final, Complete Discharge Medications Scheduled Amoxicillin/Potassium Clav (Augmentin 875-125 Tablet) 1 Each Tablet, 875 MG PO BID Bacillus Coagulans (Bacid with Lactospore) 1 Each Capsule, 1 CAP PO BIDWM Famotidine (Famotidine) 20 Mg Tablet, 20 MG PO BID, (Reported) Furosemide (Furosemide) 20 Mg Tablet, 20 MG PO DAILY, (Reported) Potassium Chloride (Potassium Chloride) 20 Meq/15 Ml Liquid, 15 ML PO DAILY, (Reported) Sennosides/Docusate Sodium (Senna Plus Tablet) 1 Each Tablet, 1 TAB PO DAILY, (Reported) Valacyclovir HCl (Valacyclovir) 500 Mg Tablet, 1,000 MG PO Q8H Scheduled PRN Acetaminophen (Acetaminophen) 325 Mg Tablet, 650 MG PO Q4H PRN for PAIN / FEVER, (Reported) Hydroxyzine HCl (Hydroxyzine HCl) 10 Mg Tablet, 10 MG PO BID PRN for ITCHING, ( Reported) Allergies Coded Allergies: No Known Allergies (Unverified , 08/16/20) EDUARDO EASLEY MD Sep 09, 2020 12:52
== END 2020-09-09 14:01 | disposition home health service (06) | DRG 811 ==
LOC: M ED 15:01 → M ED INP 18:06 → M PCU 21:43 → M MSPAV 09-03 14:52
PROVIDERS: ADMIT Internal Medicine; ATTEND General Practice
PROC: 30233N1 Transfusion of Nonautologous Red Blood Cells into Peripheral Vein, Percutaneous Approach (ICD-10-PCS; principal; 2020-09-01)
PROC: 0HB7XZX Excision of Abdomen Skin, External Approach, Diagnostic (ICD-10-PCS; 2020-09-04)
DX: D50.9 Iron deficiency anemia, unspecified (principal); J85.2 Abscess of lung without pneumonia; R78.81 Bacteremia; J90 Pleural effusion, not elsewhere classified; R64 Cachexia; I47.1 Supraventricular tachycardia; B02.7 Disseminated zoster; Z68.1 Body mass index [BMI] 19.9 or less, adult; M54.2 Cervicalgia; F17.200 Nicotine dependence, unspecified, uncomplicated; I50.9 Heart failure, unspecified; E87.6 Hypokalemia; E83.42 Hypomagnesemia; B95.61 Methicillin susceptible Staphylococcus aureus infection as the cause of diseases classified elsewhere; H26.9 Unspecified cataract; D37.09 Neoplasm of uncertain behavior of other specified sites of the oral cavity; L11.9 Acantholytic disorder, unspecified; Z79.899 Other long term (current) drug therapy

== ENCOUNTER → 2020-09-01 | Outpatient (REF) | payer MEDICARE, OTHER ==
[~2020-09-01] MED LIST changes: +ACET-683 PO; +POTA20TA6 PO; +PROBCAP14 PO
[2020-09-01 14:17] LABS: HEMATOCRIT 22.2 % (36.0-47.0); MEAN CORPUSCULAR HEMOGLOBIN 24.5 pg (27.0-33.0); MEAN CORPUSCULAR HGB CONC 30.2 g/dl (32.0-36.5); MEAN CORPUSCULAR VOLUME 81.3 fl (80.0-96.0); PLATELET COUNT, AUTOMATED 708 10^3/uL (150-450); RED BLOOD COUNT 2.73 10^6/uL (4.00-5.40); WHITE BLOOD COUNT 8.5 10^3/uL (4.0-10.0)
[2020-09-01 14:20] LABS: HEMOGLOBIN 6.7 g/dl (12.0-15.5)
[2020-09-01 14:45] LABS: ERYTHROCYTE SEDIMENTATION RATE 70 mm/hr (0-30)
[2020-09-01 14:55] LABS: ALBUMIN 1.3 GM/DL (3.2-5.2); ALT/SGPT 6 U/L (12-78); BILIRUBIN,TOTAL 0.4 MG/DL (0.2-1.0); BLOOD UREA NITROGEN 7 MG/DL (7-18); C REACTIVE PROTEIN QUANTITATIV 2.71 MG/DL (0.00-0.30); CALCIUM LEVEL 7.1 MG/DL (8.8-10.2); CARBON DIOXIDE LEVEL 30 MEQ/L (21-32); CHLORIDE LEVEL 102 MEQ/L (98-107); CREATININE FOR GFR 0.42 MG/DL (0.55-1.30); GLOMERULAR FILTRATION RATE > 60.0 (>45); GLUCOSE, FASTING 149 MG/DL (70-100); POTASSIUM SERUM 3.8 MEQ/L (3.5-5.1); SODIUM LEVEL 137 MEQ/L (136-145); TOTAL PROTEIN 5.8 GM/DL (6.4-8.2)
== END ==
LOC: M SHH 12:52
PROVIDERS: ATTEND Internal Medicine Infectious Disease
DX: J85.1 Abscess of lung with pneumonia (principal); R78.81 Bacteremia; J90 Pleural effusion, not elsewhere classified; C34.91 Malignant neoplasm of unspecified part of right bronchus or lung

== ENCOUNTER → 2020-09-16 | Outpatient (CLI) | payer MEDICARE, OTHER ==
[~2020-09-16] MED LIST changes: +APAP325T4 PO; +AUGM875T28 PO; +BACI1CAP PO; +METR-265 PO; +VALA500T5 PO
--- NOTE | 2020-09-16 11:23 | REP ---
INDICATION: LUNG ABSCESS. COMPARISON: 08/16/2020 TECHNIQUE: Noncontrast helical technique. FINDINGS: The lack of intravenous contrast decreases the sensitivity of the exam. The mediastinum and pulmonary tiffanie are essentially unchanged. The right pleural effusion seen previously has resolved. No pericardial effusion has developed. There is no significant change in appearance of the imaged upper abdomen or imaged osseous structures. The masslike opacity seen previously in the right upper lobe is now seen with decreased air density. The size of the mass density is essentially unchanged. There is an additional 1.3 cm sized nodular density in the right lower lobe. No other abnormal nodules, masses, or opacities have developed. IMPRESSION: 1. Right lung empyema as described above. 2. There is a new 1.3 cm size nodule in the right lower lobe. According to the revised Fleischner society criteria follow-up for this nodule is recommended in 3 months. The nodule represents a category 4A lesion. <Electronically signed by Varinder Kemp > 09/16/20 [id number]
== END ==
LOC: M RAD 09:47
PROVIDERS: ATTEND General Practice
DX: J85.2 Abscess of lung without pneumonia (principal); R91.8 Other nonspecific abnormal finding of lung field

== ENCOUNTER → 2020-09-23 | Outpatient (REF) | payer MEDICARE, OTHER ==
[~2020-09-23] MED LIST changes: +ACET-683 PO; +POTA20TA6 PO; +PROBCAP14 PO
[2020-09-23 14:08] LABS: BASO # 0.1 10^3/uL (0.0-0.2); BASO % 0.7 % (0.0-1.0); EOS # 0.5 10^3/uL (0.0-0.5); EOS % 3.9 % (0.0-3.0); HEMATOCRIT 29.4 % (36.0-47.0); HEMOGLOBIN 8.7 g/dl (12.0-15.5); LYMPH # 2.1 10^3/uL (1.5-5.0); LYMPH % 16.7 % (24.0-44.0); MEAN CORPUSCULAR HEMOGLOBIN 28.9 pg (27.0-33.0); MEAN CORPUSCULAR HGB CONC 29.6 g/dl (32.0-36.5); MEAN CORPUSCULAR VOLUME 97.7 fl (80.0-96.0); MONO # 1.1 10^3/uL (0.0-0.8); MONO % 8.7 % (0.0-5.0); NEUTROPHILS # 8.8 10^3/uL (1.5-8.5); NEUTROPHILS % 69.6 % (36.0-66.0); PLATELET COUNT, AUTOMATED 863 10^3/uL (150-450); RED BLOOD COUNT 3.01 10^6/uL (4.00-5.40); WHITE BLOOD COUNT 12.6 10^3/uL (4.0-10.0)
[2020-09-23 14:40] LABS: ERYTHROCYTE SEDIMENTATION RATE 127 mm/hr (0-30)
[2020-09-23 14:52] LABS: ALBUMIN 2.3 GM/DL (3.2-5.2); ALT/SGPT 8 U/L (12-78); BILIRUBIN,TOTAL 0.2 MG/DL (0.2-1.0); BLOOD UREA NITROGEN 16 MG/DL (7-18); C REACTIVE PROTEIN QUANTITATIV 4.48 MG/DL (0.00-0.30); CALCIUM LEVEL 9.1 MG/DL (8.8-10.2); CARBON DIOXIDE LEVEL 32 MEQ/L (21-32); CHLORIDE LEVEL 102 MEQ/L (98-107); GLOMERULAR FILTRATION RATE > 60.0 (>45); GLUCOSE, FASTING 125 MG/DL (70-100); IMMUNOGLOBULIN G 2210 MG/DL (681-1648); POTASSIUM SERUM 4.1 MEQ/L (3.5-5.1); SODIUM LEVEL 138 MEQ/L (136-145); TOTAL PROTEIN 7.6 GM/DL (6.4-8.2)
== END ==
LOC: M SFHCPLAZ 09:41
PROVIDERS: ATTEND Internal Medicine Infectious Disease
DX: J85.1 Abscess of lung with pneumonia (principal)
CPT/HCPCS: 36415; 80053; 82784; 85025; 85652; 86140; G0463

== ENCOUNTER 2020-10-10 11:12 | Inpatient (IN) | payer MEDICARE, OTHER ==
[2020-10-10] VITALS (9 sets, daily range): BP systolic 101–136; BP diastolic 53–68
[~2020-10-10] VITALS: Ht 170.2 cm; Wt 47.5 kg
[~2020-10-10 11:12] MED LIST changes: -ACET-683 PO; -POTA20TA6 PO; -PROBCAP14 PO
[2020-10-10] MEDS ORDERED: POTA20TA6 PO (11:50)
[2020-10-10] MEDS ORDERED: ISOVUE-370 76% 100ML VIAL As Ordered ONE (12:58)
[2020-10-10 13:07] LABS: BASO # 0.1 10^3/uL (0.0-0.2); BASO % 0.9 % (0.0-1.0); EOS # 0.5 10^3/uL (0.0-0.5); EOS % 3.7 % (0.0-3.0); HEMATOCRIT 22.7 % (36.0-47.0); LYMPH # 2.5 10^3/uL (1.5-5.0); MEAN CORPUSCULAR HEMOGLOBIN 27.3 pg (27.0-33.0); MEAN CORPUSCULAR VOLUME 91.2 fl (80.0-96.0); MONO # 1.4 10^3/uL (0.0-0.8); MONO % 10.3 % (0.0-5.0); NEUTROPHILS # 9.3 10^3/uL (1.5-8.5); NEUTROPHILS % 66.7 % (36.0-66.0); PLATELET COUNT, AUTOMATED 946 10^3/uL (150-450); RED BLOOD COUNT 2.49 10^6/uL (4.00-5.40); WHITE BLOOD COUNT 13.9 10^3/uL (4.0-10.0)
[2020-10-10 13:12] LABS: HEMOGLOBIN 6.8 g/dl (12.0-15.5)
--- NOTE | 2020-10-10 13:28 | REP ---
INDICATION: unequal pupil size, h/o fall wihtin past 2 weeks. COMPARISON: 09/05/2020 TECHNIQUE: Axial soft tissue and bone windows with coronal reconstructions. FINDINGS: Lateral ventricles are midline, symmetric and dilated in proportion to the diffuse cerebral atrophy. I would regard that atrophy is mild to moderate. There is no change in degree in the dilatation the 3rd and 4th ventricles are also proportionately enlarged. I see no vascular territory infarct, intracranial hemorrhage, mass or mass effect. Stable 8 x 10 mm calcified nodule in the inner table of the right para median frontal calvarium and representing either osteoma or calcified meningioma. A smaller protuberance seen in the posterior left frontal calvarium on image 23. Brainstem show no focal lesion. There is atrophy in the cerebellum but no posterior fossa bleed basal cisterns intact. Mastoids, frontal and left maxillary sinuses are clear are clear. Some ethmoid air cells, left maxillary sinus and bilateral sphenoids show some mucosal thickening. Skull base and calvarium show no fracture or destructive lesion. IMPRESSION: 1. The moderate diffuse atrophy with proportionate ventriculomegaly stable. No acute infarct, intracranial hemorrhage, mass or mass effect 2. No fracture skull base or calvarium. There is an 8 x 10 mm left posterior frontal osteoma or calcified meningioma unchanged. 3. Sinus disease as described, stable. No new or acute finding on this study <Electronically signed by Gerald Saleh > 10/10/20 [id number]
[2020-10-10] MEDS ORDERED: PROBCAP14 PO (13:35)
[2020-10-10] MEDS ORDERED: ACET-683 PO (13:35)
[2020-10-10 13:40] LABS: ALBUMIN 2.5 GM/DL (3.2-5.2); ALT/SGPT 12 U/L (12-78); BILIRUBIN,DIRECT < 0.1 MG/DL (0.0-0.2); BILIRUBIN,TOTAL 0.2 MG/DL (0.2-1.0); LIPASE 293 U/L (73-393); TOTAL PROTEIN 8.2 GM/DL (6.4-8.2)
--- NOTE | 2020-10-10 13:41 | REP ---
INDICATION: Firm, tender, immobile lymphadenopathy. COMPARISON: CT cervical 08/17/2020 TECHNIQUE: Bolus of 75 mL Isovue 370 scanning through the neck with coronal and sagittal reconstructions. FINDINGS: There are multiple enlarged lymph nodes in the right neck, deep to the sternocleidomastoid muscle and in the carotid space. The largest of these is 1.7 x 2.8 cm and has central low density. Other nodes with short axis up to 12 mm are seen on that side there are many other subcentimeter lymph nodes in the anterior and-posterior cervical chains. Do not seem to involve the parotid. In the carotid space on the left, the largest node is 10 mm in short axis. Smaller nodes deep to the sternocleidomastoid on that side and jugulodigastric nodes are also subcentimeter. The posterior cervical chain shows small subcentimeter nodes. I do not see supraclavicular mass. Thyroid lobes symmetric, airway intact. The larynx, and airway from the nasopharynx to the hypopharynx including epiglottis and its folds are unremarkable. Asymmetric slight fullness of the right compared to left tonsil with 1 zone of small questionable lucency. There is dehiscence of the floors of the sphenoid sinuses into the nasopharynx and adenoid region with confluent mucosal thickeniing/density. The visualized portion of orbits intact. Submandibular and parotid glands without intraglandular adenopathy or mass. Bony cervical spine without acute finding. Lung apices are clear. IMPRESSION: 1. Adenopathy in the right neck with central low density suggesting necrosis may be developing. Largest of these nodes 2.8 x 1.7 cm in right anterior cervical chain adjacent to the carotid space and sternocleidomastoid muscle. Other nodes 10-12 mm range short axis in that anterior cervical chain and smaller nodes on the left and posterior right cervical chain. 2. Dehiscence of the posterior floor of both sphenoid sinuses with confirm fluent density of sinus mucosal tissue with the adenoid region. 3. Slight asymmetric fullness of the right greater than left tonsil. 4. ENT referral recommended. <Electronically signed by Gerald Saleh > 10/10/20 [id number]
[2020-10-10] MEDS ORDERED: ACETAMINOPHEN 500 MG TAB PO ONE (16:00)
[2020-10-10] MEDS: PIPERACILLIN/TAZOBACTAM SOD 3.375 GM in D5W MINI-BAG PLUS 50 ML IV SCH (22:44)
[2020-10-10] MEDS ORDERED: NALOXONE INJ 0.4MG/1ML VIAL (J2310 PER 1MG) IV PRN (23:30)
[2020-10-10] MEDS ORDERED: PERCOCET 5MG/325MG TAB PO PRN (23:30)
[2020-10-11] VITALS (11 sets, daily range): BP systolic 96–122; BP diastolic 46–72
[2020-10-11] MEDS: PERCOCET 5MG/325MG TAB PO PRN ×3 (00:12→22:38)
[2020-10-11 00:19] LABS: HEMATOCRIT 27.9 % (36.0-47.0); MEAN CORPUSCULAR HEMOGLOBIN 28.9 pg (27.0-33.0); MEAN CORPUSCULAR HGB CONC 32.6 g/dl (32.0-36.5); MEAN CORPUSCULAR VOLUME 88.6 fl (80.0-96.0); RED BLOOD COUNT 3.15 10^6/uL (4.00-5.40); WHITE BLOOD COUNT 13.1 10^3/uL (4.0-10.0)
[2020-10-11 00:37] LABS: HEMOGLOBIN 9.1 g/dl (12.0-15.5); PLATELET COUNT, AUTOMATED 760 10^3/uL (150-450)
[2020-10-11] MEDS: PIPERACILLIN/TAZOBACTAM SOD 3.375 GM in D5W MINI-BAG PLUS 50 ML IV SCH ×4 (02:15→20:10)
[2020-10-11 04:41] LABS: BASO # 0.1 10^3/uL (0.0-0.2); BASO % 0.9 % (0.0-1.0); EOS # 0.7 10^3/uL (0.0-0.5); EOS % 5.9 % (0.0-3.0); HEMATOCRIT 31.1 % (36.0-47.0); HEMOGLOBIN 9.9 g/dl (12.0-15.5); LYMPH # 3.2 10^3/uL (1.5-5.0); LYMPH % 25.4 % (24.0-44.0); MEAN CORPUSCULAR HEMOGLOBIN 28.7 pg (27.0-33.0); MEAN CORPUSCULAR HGB CONC 31.8 g/dl (32.0-36.5); MEAN CORPUSCULAR VOLUME 90.1 fl (80.0-96.0); MONO # 1.3 10^3/uL (0.0-0.8); MONO % 10.4 % (0.0-5.0); NEUTROPHILS # 7.2 10^3/uL (1.5-8.5); NEUTROPHILS % 57.1 % (36.0-66.0); PLATELET COUNT, AUTOMATED 799 10^3/uL (150-450); RED BLOOD COUNT 3.45 10^6/uL (4.00-5.40); WHITE BLOOD COUNT 12.5 10^3/uL (4.0-10.0)
[2020-10-11 05:00] LABS: BLOOD UREA NITROGEN 11 MG/DL (7-18); CALCIUM LEVEL 8.9 MG/DL (8.8-10.2); CARBON DIOXIDE LEVEL 28 MEQ/L (21-32); CHLORIDE LEVEL 100 MEQ/L (98-107); CREATININE FOR GFR 0.49 MG/DL (0.55-1.30); GLOMERULAR FILTRATION RATE > 60.0 (>45); GLUCOSE, FASTING 75 MG/DL (70-100); POTASSIUM SERUM 4.2 MEQ/L (3.5-5.1); SODIUM LEVEL 136 MEQ/L (136-145)
[2020-10-11] MEDS: MORPHINE 2 MG/ML 1ML VIAL (J2270) IV PRN (05:09)
[2020-10-11] MEDS: predniSONE 20 MG TAB PO SCH (06:45)
--- NOTE | 2020-10-11 10:29 | REPVR ---
PROCEDURE INFORMATION: Exam: CT Maxillofacial Without Contrast, Sinus Exam date and time: 10/11/2020 9:29 AM Age: 65 years old Clinical indication: Sinusitis; Type not specified; Additional info: Sinus disease TECHNIQUE: Imaging protocol: CT Maxillofacial without contrast. Focus on the sinuses. Radiation optimization: All CT scans at this facility use at least one of these dose optimization techniques: automated exposure control; mA and/or kV adjustment per patient size (includes targeted exams where dose is matched to clinical indication); or iterative reconstruction. COMPARISON: No relevant prior studies available. FINDINGS: Frontal sinuses: Normal. No air-fluid levels. Ethmoid air cells: Normal. No air-fluid levels. Sphenoid sinuses: There are lobulated soft tissue masses in the left sphenoid sinus suggesting mucous retention cysts. There has been destruction of the floor of the left sphenoid sinus. There is opacification of the right sphenoid sinus with deficient floor communicating with the nasopharynx. This has developed since the examination 09/05/2020 and is associated with a subtle round hyperdense 1 cm lesion which appear to show subtle enhancement on contrast CT of the neck yesterday. This suggest presence of an aggressive malignancy as indicated by necrotic lymphadenopathy in the neck greater on the right. Maxillary sinuses: Normal. No air-fluid levels. Ostiomeatal units are patent. Nasal cavity/Septum: Unremarkable. Orbital cavity: Orbits are normal. Globes are unremarkable. Bones/joints: See "Sphenoid sinuses" finding. Soft tissues: Unremarkable. IMPRESSION: 1. There are lobulated soft tissue masses in the left sphenoid sinus suggesting mucous retention cysts. There has been destruction of the floor of the left sphenoid sinus. 2. There is opacification of the right sphenoid sinus with deficient floor communicating with the nasopharynx. This has developed since the examination 09/05/2020 and is associated with a subtle round hyperdense 1 cm lesion which appear to show subtle enhancement on contrast CT of the neck yesterday. This suggest presence of an aggressive malignancy as indicated by necrotic lymphadenopathy in the neck greater on the right. Electronically signed by: Nicholas Prater On 10/11/2020 10:29:48 AM
--- NOTE | 2020-10-11 20:09 | REPVR ---
PROCEDURE INFORMATION: Exam: CT Chest Without Contrast Exam date and time: 10/11/2020 7:41 PM Age: 65 years old Clinical indication: Other: Abcess; Additional info: Lung abscess sphenoid mass TECHNIQUE: Imaging protocol: Computed tomography of the chest without contrast. 3D rendering (Not supervised by radiologist): MIP and/or 3D reconstructed images were created by the technologist. Radiation optimization: All CT scans at this facility use at least one of these dose optimization techniques: automated exposure control; mA and/or kV adjustment per patient size (includes targeted exams where dose is matched to clinical indication); or iterative reconstruction. COMPARISON: CT Chest without contrast 09/16/2020 10:03 AM FINDINGS: Limited study without IV contrast. Fluid and air collection within the anterior inferior right upper lobe has decreased in size now measuring 3.5 x 2.7 cm, with adjacent compressive atelectasis and bronchiectasis. Adjacent consolidative changes and peripheral atelectasis are present. No new abnormal focal fluid collection. Right lung shows normal aeration and no central endobronchial lesion or infiltrate. Area of scarring in the right lower lobe is decreased in size it now measures 7 mm, compared with 14 mm on the prior. No pneumothorax. Mildly ectatic aorta. No change in small mediastinal lymph nodes. Possible right hilar mass. No pleural effusion. Bony structures show no acute fracture or destructive process. No asymmetric abnormality of the extrathoracic soft tissues. IMPRESSION: Decrease in size of lateral inferior right upper lobe fluid and air collection consistent with abscess now measuring 3.5 x 2.7 cm. On the prior exam it measured roughly 7 x 5 cm. Adjacent bronchiectasis, atelectasis and consolidation. Underlying right hilar mass cannot be excluded Electronically signed by: Triston Garrison On 10/11/2020 20:08:44 PM
[2020-10-12] MEDS: PIPERACILLIN/TAZOBACTAM SOD 3.375 GM in D5W MINI-BAG PLUS 50 ML IV SCH ×4 (02:24→20:35)
[2020-10-12] MEDS: PERCOCET 5MG/325MG TAB PO PRN ×3 (04:09→20:35)
[2020-10-12] MEDS: predniSONE 20 MG TAB PO SCH (04:56)
[2020-10-12 06:00] VITALS: BP 115/56
[2020-10-12 08:04] LABS: BASO # 0.1 10^3/uL (0.0-0.2); BASO % 0.4 % (0.0-1.0); EOS # 0.2 10^3/uL (0.0-0.5); EOS % 1.1 % (0.0-3.0); HEMATOCRIT 28.4 % (36.0-47.0); HEMOGLOBIN 8.9 g/dl (12.0-15.5); LYMPH # 1.7 10^3/uL (1.5-5.0); MEAN CORPUSCULAR HEMOGLOBIN 28.3 pg (27.0-33.0); MEAN CORPUSCULAR HGB CONC 31.3 g/dl (32.0-36.5); MEAN CORPUSCULAR VOLUME 90.4 fl (80.0-96.0); MONO # 0.9 10^3/uL (0.0-0.8); MONO % 5.6 % (0.0-5.0); NEUTROPHILS # 12.7 10^3/uL (1.5-8.5); NEUTROPHILS % 81.2 % (36.0-66.0); PLATELET COUNT, AUTOMATED 870 10^3/uL (150-450); RED BLOOD COUNT 3.14 10^6/uL (4.00-5.40); WHITE BLOOD COUNT 15.6 10^3/uL (4.0-10.0)
[2020-10-12 10:09] LABS: BLOOD UREA NITROGEN 12 MG/DL (7-18); CALCIUM LEVEL 9.6 MG/DL (8.8-10.2); CARBON DIOXIDE LEVEL 28 MEQ/L (21-32); CHLORIDE LEVEL 101 MEQ/L (98-107); CREATININE FOR GFR 0.52 MG/DL (0.55-1.30); GLOMERULAR FILTRATION RATE > 60.0 (>45); GLUCOSE, FASTING 83 MG/DL (70-100); POTASSIUM SERUM 4.3 MEQ/L (3.5-5.1); SODIUM LEVEL 136 MEQ/L (136-145)
--- NOTE | 2020-10-12 12:44 | ER ---
DATE OF CONSULTATION: 10/10/2020 HISTORY OF PRESENT ILLNESS: Ivett was seen in the emergency room. The case was discussed with Agatha Mittal PA-C and Dr. oLs Meeks of ENT. The patient presented with a tender right cervical adenopathy, continuation of unexplained weight loss that she had exhibited during her last hospitalization, generalized weakness, and epistaxis of significant degree yesterday. CT of her brain showed atrophy and no acute findings. CT of her neck showed extensive right cervical adenopathy with some necrosis developing. The largest nodes are adjacent to the carotid and the sternocleidomastoid muscle. She has dehiscence to the posterior floor of both sphenoid sinuses with confluent density of sinus tissue within the adenoid region and also some right tonsillar fullness. Her extensive past medical history was reviewed, as well as her recent office consultation with Joss Carrera of infectious disease. I spoke with Dr. Carrera as well who strongly suspects that this patient is immune suppressed from a still undiagnosed malignancy. 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 HIV test was negative. Dr. Carrera suspects the malignancy is associated to immunosuppressed state. PHYSICAL EXAMINATION: The patient looked pale and chronically ill. Her voice was normal. She had a tender firm nodularity right cervical region. The right tonsil looked more full than the left. She had a bloody postnasal drainage. Lungs clear. Heart regular. Abdomen soft and nontender. No peripheral edema. LABORATORY DATA: Reviewed. IMAGING: Reviewed. IMPRESSION/PLAN: I discussed the case with Dr. Los Meeks, he feels the patient requires a higher level of care than the critical access hospital hospital. Will recommend transfer to tertiary care center. This was discussed with KATYA Mittal and she will affect the transfer. I agree with Dr. Carreras assessment. This patient probably has a significant underlying malignancy. The location of the lymph nodes near the carotid arteries makes a biopsy or surgery higher risk. After discussion with ENT consult configuration analyst today, I agreed with his advice that we should recommend transfer. [facility]
--- NOTE | 2020-10-12 12:48 | CR ---
DATE OF CONSULTATION: 10/11/2020 REASON FOR CONSULTATION: I was asked to consult by Dr. Anderson for evaluation of right large, necrotic cervical adenopathy. HISTORY OF PRESENT ILLNESS: Mrs. Xavier is a 65-year-old female, well known to me from previous two hospitalizations. Her history dates back to August 16, 2020 when she was admitted with Staph aureus bacteremia and a lung abscess which was polymicrobial. Blood cultures were positive for MSSA. Transesophageal echocardiogram was negative. Sputum culture had Klebsiella oxytoca. Fine needle aspiration of lung abscess had bacillus species. Cytology was negative for malignancy. The patient was treated for a lung abscess with IV cefazolin and p.o. Flagyl and discharged home with a PICC line. The patient was readmitted with severe anemia at baseline. Her first admission, her hemoglobin was 3.9. Her second admission, her hemoglobin was 6.7. 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 The patient was treated with IV acyclovir for five days followed by p.o. Valtrex for another five days with resolution of that rash. For the past two weeks, the patient had noted a large, painful node on the right side of her neck. She was being scheduled for a CT scan by Ashely Myers NP, her primary care provider but she did not make it to that appointment. as there was some confusion about her date of appointment. The patient showed up to the emergency room complaining of severe pain, inability to sleep for the past two weeks. She denied any nausea, vomiting or diarrhea. She had some fever but no chills. She stated the pain was intense and that is why she came in. She continued on Augmentin 875 mg p.o. b.i.d. which was prescribed on 09/23 for a total of four weeks. She has lost about 40 lb in the past year. She quit smoking a year ago. Her appetite is fair. She stated the day prior to admission she ate [employer] with gravy and mashed potato and would like to have a regular diet. She is currently on clear liquids. MEDICATIONS: * Prednisone 60 mg p.o. daily. * Percocet one tablet p.o. q.6 p.r.n. * Morphine 2 mg IV q.3 hours p.r.n. pain. * Zosyn 3.375 gm IV q.6 hours. * Tylenol 650 mg p.o. q.6 p.r.n. ALLERGIES: No known drug allergies. PAST MEDICAL HISTORY: 1. Right lung abscess with sputum culture positive for Klebsiella, blood cultures positive for MSSA and Streptococcus intermedius. Fine needle aspiration negative for malignancy. 2. Transesophageal echocardiogram negative for vegetation, mild aortic valve sclerosis, normal left ventricular function, July,. 3. Severe anemia with a hemoglobin of 3.9, received over six units of packed red blood cells. 4. Disseminated VZV. 5. Diastolic congestive heart failure. 6. Moderate transaminitis. 7. Microcytic anemia, GI workup still pending. SOCIAL HISTORY: She quit smoking over a year ago. She lives with her . She does not drink any alcohol. She drinks coffee. REVIEW OF SYSTEMS: She has right-sided neck pain, no chills. She does have some fatigue, low grade fever yesterday but does complain of insomnia from pain her neck and a swollen lymph node. She had a mild cough but no shortness of breath, no chest pain, no excessive sputum, no nausea, vomiting or diarrhea. PHYSICAL EXAMINATION: Vital signs: Temperature is 98.8, pulse 74, respirations 18, blood pressure 110/53, O2 sat 97% on room air. T max yesterday was 98.2. Heart: Normal S-1, S-2, no murmurs, rubs or gallops. Lungs: Clear. No wheezes, rales or rhonchi. Abdomen: Soft, nontender, no hepatosplenomegaly. Face: Unremarkable. Oropharynx with poor dentition. No thrush, no lesions appreciated. Neck: With a very large, hard indurated mass in the right cervical chain measuring at least 3 x 3 cm, tender to touch. No redness overlying it. Nonmovable. Skin: With multiple ecchymotic lesions, a few scattered left from disseminated VZV, well healed, hyperpigmented, measuring less than a cm. Neurologic exam: Normal. Cranial nerves intact. Motor strength normal, moving all extremities. LABORATORY DATA: White count 12.5, hemoglobin 9.1, hematocrit 31.1, platelets 799, 57% neutrophils, 25% lymphocytes, 10% monocytes. Hemoglobin yesterday was 6.8. She has received two units of packed red blood cells. Sodium 136, potassium 4.2, chloride 100, bicarb 28, BUN 11, creatinine 0.49, glucose 75. Calcium 8.9, AST 25, ALT 12, alk phos 96, total protein 8.2, albumin 2.5. SARS-CoV-2 was negative. Blood cultures, two sets, are negative. Maxillofacial sinus CT shows lobulated soft tissue masses in the left sphenoid suggestive of mucous retention cyst with destruction of the floor of the left sphenoid, opacification of the right sphenoid with deficient floor communicating within the nasopharynx. This has developed since 09/05/2020 and is associated with a subtle round hyperdense 1 cm lesion which appeared to show enhancement on contrast CT suggestive of an aggressive malignancy. Neck CT: Asymmetric fullness of the right compared to the left tonsil with a large 2.8 x 1.7 cm lymph node, necrotic of the anterior cervical chain and other smaller lymph nodes about 1 cm along the anterior chain with dehiscence of the floor of both sphenoid sinuses with confluent density of mucosal tissue within the adenoid. IMPRESSION: This is a 65-year-old female who has been ill since July with initially a lung abscess Staph aureus bacteremia, severe anemia requiring multiple blood transfusion with a hemoglobin at [place] of 3.9, disseminated VZV and now is admitted with a large aggressive lymph node that was not present two months ago with associated sphenoid mass, very suggestive of an aggressive malignancy, possibly lymphoma versus squamous cell carcinoma. This is not an infectious etiology of this adenopathy. I would continue IV Zosyn for treatment of her lung abscess until I get a chest CT to follow up on that as she had continued on antibiotics and has been on them for the past two months, initially cefazolin followed by nafcillin and Augmentin. PLAN: Continue IV Zosyn 3.375 gm q.6 hours. I will obtain chest CT follow-up lung abscess. ENT consultation. The patient needs a lymph node biopsy Advance diet to regular until any procedure is scheduled. The patient is hungry and needs some protein and calories. The case has been discussed with Dr. Anderson who agrees with the plan. [facility]
--- NOTE | 2020-10-12 12:53 | IPN ---
DATE: 10/11/2020 SUBJECTIVE: Ivett is seen in the ICU. Unfortunately her history and physical and consults have not been transcribed yet. She was admitted with painful lymphadenopathy right side of her neck and abnormal CT scan showing dehiscence of the floor of her sphenoid sinuses. Initial attempts to transfer to [facility] were rebuffed and the patient was admitted here. The case was discussed with Dr. Fontaine of ENT, who planned a CT of the sinuses and fiberoptic nasal laryngoscopy. I do not see where the CT has been done yet, nor do I see an operative report for the nasal laryngoscopy. She is on Zosyn for presumed severe sinusitis. Dr. Carrera from Infectious Disease has been consulted. We communicated about the case yesterday and she plans to see the patient today. Overall the patient feels well. No fever or chills. No shortness of breath. PHYSICAL EXAMINATION: VITAL SIGNS: Afebrile. Vital signs stable. GENERAL APPEARANCE: She is alert and conversant. She has a bit of a nasal phonation. HEENT: Bulky, slightly tender right submandibular and anterior cervical chain adenopathy as noted previously. No warmth or redness. LUNGS: Clear. HEART: Regular rate and rhythm. ABDOMEN: Soft, nontender. EXTREMITIES: No peripheral edema. LABORATORY STUDIES: White count 12.5, hemoglobin 9.9, platelets 799. Sodium 136, potassium 4.2, BUN 11, creatinine 0.49, glucose 75. IMPRESSION: 1. Cervical adenopathy - ultrasound guided biopsy ordered. This will not be done until Tuesday. 2. Severe sphenoid sinusitis with dehiscence of the floor of the sinuses, per ENT. CT of the sinuses is pending. Fiberoptic nasal laryngoscopy is pending. 3. Presumed cancer the neck mass is presumed malignant until proven otherwise. Biopsy has been ordered. PLAN: 1. Continue Zosyn. 2. Infectious Disease consultation has been ordered. SHYANNE
[2020-10-12 14:00] VITALS: BP 103/47
--- NOTE | 2020-10-12 15:49 | IPN ---
DATE: 10/12/2020 SUBJECTIVE: Ivett was seen on [address]. She feels the same as yesterday. Unfortunately none of the consultations from either infectious disease nor ENT nor my history and physical or yesterdays progressive notes have been transcribed and none are available for rounds today. PHYSICAL EXAMINATION: VITALS: Blood pressure 150/56, pulse 60, respiratory rate 20, 98.2 degrees. GENERAL APPEARANCE: Lying in bed, chronically ill appearing. Unchanged left neck mass. LUNGS: Clear. HEART: Regular rate and rhythm. ABDOMEN: Soft, nontender. EXTREMITIES: Trace peripheral edema. LABORATORY DATA: White count15.6 (on steroids), hemoglobin 8.9. Electrolytes are pending. IMPRESSION AND PLAN: 1. Right neck mass: Suspected metastatic disease from whatever is going on in her head and neck region. She also has a possible right hilar mass. Infectious disease is consulted, that consultation is not yet transcribed. I see the patient is still on Zosyn, so I assume they want to continue that. The plan is for biopsy tomorrow. 2. Mass in sinuses per ENT: Consultation not available at this time. SHYANNE
[2020-10-12 22:00] VITALS: BP 127/61
[2020-10-13] MEDS: MORPHINE 2 MG/ML 1ML VIAL (J2270) IV PRN (00:34)
[2020-10-13] MEDS: PIPERACILLIN/TAZOBACTAM SOD 3.375 GM in D5W MINI-BAG PLUS 50 ML IV SCH ×3 (02:11→14:25)
[2020-10-13] MEDS: ACETAMINOPHEN TAB 650MG DOSE (2X325MG) PO PRN (02:11)
[2020-10-13] MEDS: PERCOCET 5MG/325MG TAB PO PRN ×2 (02:54→21:49)
[2020-10-13 06:00] VITALS: BP 133/59
[2020-10-13] MEDS: predniSONE 20 MG TAB PO SCH (06:37)
[2020-10-13 07:13] LABS: BASO # 0.1 10^3/uL (0.0-0.2); BASO % 0.5 % (0.0-1.0); EOS # 0.1 10^3/uL (0.0-0.5); EOS % 0.9 % (0.0-3.0); HEMATOCRIT 29.3 % (36.0-47.0); HEMOGLOBIN 9.2 g/dl (12.0-15.5); LYMPH # 2.1 10^3/uL (1.5-5.0); LYMPH % 13.7 % (24.0-44.0); MEAN CORPUSCULAR HEMOGLOBIN 28.8 pg (27.0-33.0); MEAN CORPUSCULAR HGB CONC 31.4 g/dl (32.0-36.5); MEAN CORPUSCULAR VOLUME 91.8 fl (80.0-96.0); MONO # 1.4 10^3/uL (0.0-0.8); MONO % 9.4 % (0.0-5.0); NEUTROPHILS # 11.3 10^3/uL (1.5-8.5); PLATELET COUNT, AUTOMATED 861 10^3/uL (150-450); RED BLOOD COUNT 3.19 10^6/uL (4.00-5.40)
[2020-10-13 07:17] LABS: BLOOD UREA NITROGEN 16 MG/DL (7-18); CARBON DIOXIDE LEVEL 32 MEQ/L (21-32); CHLORIDE LEVEL 100 MEQ/L (98-107); CREATININE FOR GFR 0.54 MG/DL (0.55-1.30); GLOMERULAR FILTRATION RATE > 60.0 (>45); GLUCOSE, FASTING 72 MG/DL (70-100); POTASSIUM SERUM 4.1 MEQ/L (3.5-5.1); SODIUM LEVEL 136 MEQ/L (136-145)
[2020-10-13] MEDS ORDERED: hydrOXYzine 25 MG TAB PO PRN (08:30)
[2020-10-13] MEDS ORDERED: hydrOXYzine 10 MG TAB PO SCH (09:00)
[2020-10-13] MEDS: valACYclovir HCL 500 MG TAB PO SCH ×2 (09:07→14:24)
[2020-10-13] MEDS ORDERED: LIDOCAINE 1% MDV 20ML VIAL As Ordered ONE (12:20)
[2020-10-13] MEDS ORDERED: SODIUM BICARBONATE 8.4% INJ 50MEQ 50 ML VIAL As Ordered ONE (12:20)
[2020-10-13 14:00] VITALS: BP 105/52
--- NOTE | 2020-10-13 14:25 | IPN ---
DATE: 10/13/2020 SUBJECTIVE: Ivett has had a bit of a pruritic rash, been concerned about this. She has disseminated herpes zoster during her last hospitalization. She is supposed to be getting her lymph node biopsy today and has quite a bit of pruritus which had preceded her zoster last time. Denies any shortness of breath, fever or chills. PHYSICAL EXAMINATION: VITAL SIGNS: Blood pressure 130/59, pulse 62, respiratory rate 20, 100% O2 saturation on room air, 98.7 degrees. GENERAL APPEARANCE: Chronically ill appearance. NECK: Left sided neck mass is as before. LUNGS: Decreased breath sounds. HEART: Regular rhythm. ABDOMEN: Soft, nontender. EXTREMITIES: Trace peripheral edema. SKIN: She has a __ confluent purpuric rash on both forearms, more right than left, a lot of excoriations. LABS: White count 15,000, hemoglobin 9.2, platelets 861, sodium 136, potassium 4.1, BUN 16, creatinine 0.5, glucose 72. ASSESSMENT: 1. Left neck mass. She is scheduled for a fine needle biopsy today for suspected metastatic disease versus lymphoma. 2. Lung abscess. She is on Zosyn. I will defer to Infectious Disease how long to continue that. 3. Mass in sinuses per CT scan, concern of squamous cell carcinoma or lymphoma. Biopsy is pending. 4. Rash, concern about recurrence of disseminated herpes zoster. Her rash does not look vesicular but we are going to restart her antiviral medication. If the rash extends, then I would ask Dr. Carrera to take a look at her again as she saw her when she had her outbreak. SHYANNE
[2020-10-13 17:51] LABS: C REACTIVE PROTEIN QUANTITATIV 5.11 MG/DL (0.00-0.30)
--- NOTE | 2020-10-13 18:30 | REP ---
INDICATION: rt neck masses. COMPARISON: None. TECHNIQUE: The procedure was performed by LISETH Sierra, under the direct supervision of Dr. Brar. The risks and benefits of the procedure were explained to the patient and an informed consent was obtained both verbally and written. Directly prior to the start of the procedure a formal time-out was completed in the procedure room. FINDINGS: Using ultrasound guidance the largest right lymph node was localized. The skin was prepped and draped in a sterile fashion. Six mL of buffered lidocaine was used as a local anesthetic. Using ultrasound guidance a 8 fine needle aspirations of the lymph node were obtained using 25 gauge needles. Four specimens were sent to our lab here, and remaining 4 were sent out in RPMI solution, for further testing The patient tolerated the procedure well and there were no immediate complications. After the appropriate amount of monitored convalescence the patient was discharged from the department. IMPRESSION: 1. Ultrasound-guided right neck lymph node fine needle aspiration. <Electronically signed by Deidra Carrero > 10/13/20 [id number] <Electronically signed by Rick Brar > 10/13/20 [id number]
[2020-10-13] MEDS: AUGMENTIN 875 MG TAB PO SCH (21:47)
[2020-10-13 22:00] VITALS: BP 113/58
[2020-10-14] MEDS: ACETAMINOPHEN TAB 650MG DOSE (2X325MG) PO PRN (01:36)
[2020-10-14] MEDS: PERCOCET 5MG/325MG TAB PO PRN ×2 (03:53→10:22)
[2020-10-14 06:00] VITALS: BP 135/70
[2020-10-14] MEDS: predniSONE 20 MG TAB PO SCH (06:00)
[2020-10-14 06:38] LABS: BASO # 0.1 10^3/uL (0.0-0.2); BASO % 0.6 % (0.0-1.0); EOS # 0.1 10^3/uL (0.0-0.5); EOS % 0.8 % (0.0-3.0); HEMOGLOBIN 9.3 g/dl (12.0-15.5); LYMPH # 3.4 10^3/uL (1.5-5.0); LYMPH % 20.7 % (24.0-44.0); MEAN CORPUSCULAR HEMOGLOBIN 28.4 pg (27.0-33.0); MEAN CORPUSCULAR VOLUME 91.5 fl (80.0-96.0); MONO # 1.8 10^3/uL (0.0-0.8); MONO % 10.7 % (0.0-5.0); NEUTROPHILS % 66.8 % (36.0-66.0); PLATELET COUNT, AUTOMATED 866 10^3/uL (150-450); RED BLOOD COUNT 3.28 10^6/uL (4.00-5.40); WHITE BLOOD COUNT 16.5 10^3/uL (4.0-10.0)
[2020-10-14 07:08] LABS: BLOOD UREA NITROGEN 17 MG/DL (7-18); CALCIUM LEVEL 9.2 MG/DL (8.8-10.2); CARBON DIOXIDE LEVEL 33 MEQ/L (21-32); CHLORIDE LEVEL 99 MEQ/L (98-107); CREATININE FOR GFR 0.45 MG/DL (0.55-1.30); GLOMERULAR FILTRATION RATE > 60.0 (>45); GLUCOSE, FASTING 69 MG/DL (70-100); POTASSIUM SERUM 4.1 MEQ/L (3.5-5.1); SODIUM LEVEL 137 MEQ/L (136-145)
[2020-10-14] MEDS: AUGMENTIN 875 MG TAB PO SCH (08:07)
[2020-10-14] MEDS ORDERED: valACYclovir HCL 500 MG TAB PO SCH (09:00)
[2020-10-14] MEDS ORDERED: AMOX875T2 PO (10:22)
--- NOTE | 2020-10-14 17:29 | DS.PDOC ---
Discharge Summary General Date of Admission Oct 10, 2020 at 17:56 Date of Discharge 10/14/20 Attending Physician: Kerri Park MD Discharge Summary PROCEDURES PERFORMED DURING STAY: LN biopsy 10/13/20 ADMITTING DIAGNOSES: Left neck mass/lymphadenopathy, r/o metastatic disease vs. lymphom Right lung abscess DISCHARGE DIAGNOSES: Left neck mass, suspected metastatic disease versus lymphoma. Right Lung abscess Mass in sinuses per CT scan, concern of squamous cell carcinoma or lymphoma. Rash COMPLICATIONS/CHIEF COMPLAINT: Mass of neck HISTORY OF PRESENT ILLNESS: Patient is a 65 y/o F with known hx of disseminated HZ, right lung abscess being followed by ID, severe anemia history, diasolic CHF, moderate transaminitis, microcytic anemia who presented with new mass/swelling of left neck. Per records mass was not present only 3 months prior, ID confirms this . She was admitted for further workup of neck swelling. HOSPITAL COURSE: Patient was seen by ID who continued on IV zosyn for right lung abscess and recommended LN biopsy of neck. This was done on 10/13/20 with pathology pending. There was some concern at first about disseminated herpes zoster returning on right side of neck ;however, valtrex was later stopped and not found to be the case. She was discharged with follow up with Infectious disease, Dr. Arvizu (hematology/oncology) and PCP. At time of discharge, she denies chest pain, shortness of breath, dysphagia, n/v/d. DISCHARGE MEDICATIONS: Please see below. ALLERGIES: Please see below. PHYSICAL EXAMINATION: VITAL SIGNS: Please see below GENERAL APPEARANCE: AAOx3, In NAD, resting comfortably in bed. NECK: neck mass, otherwise symmetrical LUNGS: CTAB, no W/R/R HEART: Regular rhythm, S1S2, no M/R/G ABDOMEN: Soft, nontender, no organomegaly, BS + in 4 quadrants. EXTREMITIES: Trace peripheral edema. SKIN: She has a confluent purpuric rash on both forearms, more right than left, a lot of excoriations. LABORATORY, MICROBIOLOGY: Please see below BCx NG to date Pathology from Left LN bx 10/13/20: pending IMAGING: See under Imaging PROGNOSIS: Good ACTIVITY: As tolerated DIET: Regular diet DISCHARGE PLAN/INSTRUCTIONS: 1. F/u with PCP, Dr. Carrera and Dr. Arvizu (heme/onc) to discuss results of pathology from lymph node biopsy 2. C/w Augmentin BID until told to stop by infectious disease. DISPOSITION: Return to prior living situation ITEMS TO FOLLOWUP ON ON OUTPATIENT: 1. Lymph node biopsy pathology pending and will be followed up with by PCP and heme/onc on next appointment DISCHARGE CONDITION: Stable TIME SPENT ON DISCHARGE: Greater than 30 minutes. Vital Signs/I&Os Vital Signs Date Time Temp Pulse Resp B/P (MAP) Pulse Ox O2 Delivery O2 Flow Rate FiO2 10/14/20 11:02 16 10/14/20 06:00 97.1 71 135/70 (91) 98 Room Air I&O- Last 24 Hours up to 6 AM 10/14/20 06:00 Intake Total 1120 ml Output Total 0 ml Balance 1120 ml Laboratory Data Labs 24H Laboratory Tests 2 10/14/20 05:21: Immature Granulocyte % (Auto) 0.4, Neutrophils (%) (Auto) 66.8H, Lymphocytes (%) (Auto) 20.7L, Monocytes (%) (Auto) 10.7H, Eosinophils (%) (Auto) 0.8, Basophils (%) (Auto) 0.6, Neutrophils # (Auto) 11.0H, Lymphocytes # (Auto) 3.4, Monocytes # (Auto) 1.8H, Eosinophils # (Auto) 0.1, Basophils # (Auto) 0.1, Nucleated Red Blood Cells % (auto) 0.0, Anion Gap 5L, Glomerular Filtration Rate > 60.0, Calcium Level 9.2 CBC/BMP Laboratory Tests 10/14/20 05:21 Microbiology Microbiology 10/10/20 Blood Culture - Preliminary, Resulted No Growth after 72 hours. All specime... 10/10/20 Blood Culture - Preliminary, Resulted No Growth after 72 hours. All specime... Discharge Medications Scheduled Amoxicillin/Potassium Clav (Amox-Clav 875-125 mg Tablet) 1 Each Tablet, 875 MG PO BID Famotidine (Famotidine) 20 Mg Tablet, 20 MG PO DAILY, (Reported) Furosemide (Furosemide) 20 Mg Tablet, 20 MG PO DAILY, (Reported) Lactobacillus Acidophilus (Probiotic) 1 Each Capsule, 1 CAP PO DAILY, (Reported) Potassium Chloride (Potassium Chloride) 20 Meq Tab.er.prt, 20 MEQ PO DAILY, (Reported) Scheduled PRN Acetaminophen (Acetaminophen) 500 Mg Tablet, 1,000 MG PO Q8H PRN for PAIN / FEVER, (Reported) Hydroxyzine HCl (Hydroxyzine HCl) 10 Mg Tablet, 10 MG PO BID PRN for ITCHING, (Reported) Allergies Coded Allergies: No Known Allergies (Unverified , 08/16/20) Kerri Park MD Oct 14, 2020 17:29
--- NOTE | 2020-10-15 09:34 | IPN ---
DATE: 10/13/2020 SUBJECTIVE: Ivett is doing much better. She states her pain in her neck is better controlled. She has had no fevers or chills. Her cough is markedly improved. LABS: White count is 15, hemoglobin is 9.2, hematocrit 29.3, platelets 861, 75% neutrophils, 13% lymphocytes, 9% monocytes. Sodium 136, potassium 4.1, chloride 100, bicarbonate 32, BUN 16, creatinine 0.54, glucose 72, calcium 9. SARS-CoV-2 was negative on 10/10. Throat cultures: Two sets no growth after [address] shows marked improvement in lung abscess which is now 3.5 x 2.7 cm with adjacent atelectasis and bronchiectasis. This mass was 7 x 5 cm so it has decreased by half its size. She had her lymph node biopsy done today and that is pending. PHYSICAL EXAMINATION: VITAL SIGNS: Blood pressure is 130/59, pulse is 62, respirations 20, O2 sat 100% on room air. Temperature is 98.7. GENERAL APPEARANCE: Ill-appearing female in no acute distress. NECK: Large right sided neck mass, indurated, hard, mobile. LUNGS: Diminished breath sounds bilaterally but no crackles or rhonchi. HEART: Normal S1 and S2. No murmurs, rubs or gallops. ABDOMEN: Soft, nontender. EXTREMITIES: Trace peripheral edema. No ecchymosis. SKIN: Multiple petechial lesions and ecchymosis on upper extremities but no vesicular rash. Her rash from zoster was disseminated and healed and they are all hyperpigmented lesions on her back and abdomen. IMPRESSION: 1. Lung abscess with a previous history of MSSA bacteremia and streptococcal bacteremia with sputum culture positive for klebsiella. Patient will be switched back to p.o. Augmentin 875 mg b.i.d. The lung abscess has decreased in size. 2. Right sided neck mass, most likely malignancy with sphenoid mass, possibly of primary origin. Biopsy is pending. 3. Rash, not consistent with disseminated VZV. The rash she has on her upper extremities is mostly petechial and ecchymotic from scratching which she has had over two months ago. PLAN: Decrease Valtrex dose to 1 gram daily for suppressive therapy as the patient may need chemotherapy and currently on prednisone. Consider discontinuing prednisone as this may reactivate her disseminated VZV and I am not sure behind the high dose prednisone, was on 40 mg and is currently is on 20 mg. This could be discontinued. Patient would like to go home while waiting for the biopsy. She has seen Dr. Nereida Arvizu on previous hospitalization in consultation for severe anemia and she will need to follow-up there for a lymph node biopsy. MTDD
[2020-10-16] MEDS ORDERED: predniSONE 20 MG TAB PO SCH (06:00)
--- NOTE | 2020-10-16 06:47 | HPE ---
DATE OF ADMISSION: 10/10/2020 ADDENDUM TO ER CONSULTATION REPORT #[id number]: Colin case was discussed with Dr. Meeks of ENT who advised transfer to [facility]. I left that to the PA in the Emergency Room to effect. Apparently after discussion between the transfer center and the Emergency Room the transfer center at [facility] did not accept the patient in transfer so she is being admitted to [facility]. I have serious reservations about this, particularly delay in biopsying the neck masses which will not occur now until Tuesday. The case was discussed with Dr. Meeks in the Emergency Room who understands that I feel the patient needs fiberoptic nasal laryngoscopy done today to evaluate whether there is any potential airway compromise from whatever process is occurring in her sinuses and upper airway. I discussed the case with Dr. Jaquez again, the radiologist, who expresses concern about the abnormal findings with dehiscence of the floor of the sphenoid sinuses and Dr. Meeks is aware of this as well. Admission orders have been placed. The patient is FULL CODE which she reaffirmed to me today. MTDD
== END 2020-10-14 11:25 | disposition home health service (06) | DRG 841 ==
LOC: M ED 11:12 → M ED INP 17:56 → ENRESERV 18:44 → M ICU 22:19 → M MS5PR 10-11 11:42
PROVIDERS: ADMIT Internal Medicine Nephrology; ATTEND Internal Medicine
PROC: 30233N1 Transfusion of Nonautologous Red Blood Cells into Peripheral Vein, Percutaneous Approach (ICD-10-PCS; 2020-10-10)
PROC: 07D13ZX Extraction of Right Neck Lymphatic, Percutaneous Approach, Diagnostic (ICD-10-PCS; principal; 2020-10-13 12:04)
DX: C77.0 Secondary and unspecified malignant neoplasm of lymph nodes of head, face and neck (principal); I50.32 Chronic diastolic (congestive) heart failure; J32.3 Chronic sphenoidal sinusitis; D50.9 Iron deficiency anemia, unspecified; R74.01 Elevation of levels of liver transaminase levels; R22.1 Localized swelling, mass and lump, neck; R23.3 Spontaneous ecchymoses; Z79.899 Other long term (current) drug therapy

== ENCOUNTER → 2020-11-03 | Outpatient (REF) | payer MEDICARE, OTHER ==
[~2020-11-03] MED LIST changes: +ACET-683 PO; +ACET300T47 PO; +AMOX875T2 PO; +DICY20TA11 PO; +HYDR-3713 PO; +ONDA8TAB10 PO; +POTA20TA6 PO; +PROBCAP14 PO; +PROC10TA4 PO; +VALA1TAB5 PO
== END ==
LOC: M SFHCPLAZ 13:15
PROVIDERS: ATTEND Internal Medicine Infectious Disease
DX: R19.8 Other specified symptoms and signs involving the digestive system and abdomen (principal)
CPT/HCPCS: 87507; G0463

== ENCOUNTER → 2020-11-04 | Outpatient (CLI) | payer MEDICARE, OTHER ==
[~2020-11-04] MED LIST changes: -HYDR-3713 PO; -ONDA8TAB10 PO; -PROC10TA4 PO; -VALA1TAB5 PO
--- NOTE | 2020-11-05 12:29 | REP ---
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 COMPARISON: Comparison is made with recent imaging including chest CT study October 11, 2020, right upper quadrant sonography August 19, 2020, and CT abdomen pelvis August 16, 2020, and maxillofacial CT study October 11, 2020.. TECHNIQUE: Sixty-one minutes following the intravenous injection of a 8.48 mCi dose of F-18 FDG, three-dimensional PET scintigraphy is acquired from the skull base to the proximal thighs. Triplanar noncontrast CT scanning is acquired through the same anatomic range for attenuation correction, and image registration with scan parameters optimized to minimize radiation exposure to the patient. PET scintigraphy and CT datasets were fused and displayed on a workstation with multiplanar and projection display capability. FINDINGS: There is a large nasopharyngeal mass is producing significant erosion of the skull base including the clivus which is deficient in the midline as well as the sphenoid sinus floor. This shows a circular pattern of peripheral soft tissue thickening and hypermetabolic uptake at the skull base and nasopharynx. Maximum standard uptake value in this extensive mass lesion is 16.08. There is bulky right neck soft tissue hypermetabolic uptake in the region of the right upper cervical lymph nodes. Maximum standard uptake value here is 16.41. This lymph node mass just beneath the right parotid gland measures 4.2 x 1.7 cm. There is left cervical lymphadenopathy as well which is hypermetabolic, maximum standard uptake value in the left cervical nodes measures up to 17.31. A right supraclavicular hypermetabolic lymph node measures metabolic activity 15.17. There is a somewhat nodular density in the right upper lobe of the lung which shows minimally hypermetabolic uptake, maximum standard uptake value of 3.63. No other intrathoracic hypermetabolic uptake is seen. In the abdomen and pelvis there are multiple hypermetabolic metastases in the right and left lobes of the liver. Activity in these metastatic nodules ranges up to 15.22. The most avid hepatic lesion is in the inferior aspect of the right lobe of the liver. These metastatic foci range in size up to 3.6 by 3.8 cm in greatest diameter.. No other abnormal hypermetabolic uptake is seen in the abdomen or pelvis. IMPRESSION: There is abnormal hypermetabolic uptake in the head and neck with bobo metastatic disease and hepatic metastatic disease. There is a mildly hypermetabolic focus in the right lung however this is considerably less avid in uptake than the remainder of the disease. 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 There is extensive invasion and destruction of the skull base including the clivus and the sphenoid sinus and the anterior aspect of the foramen magnum. <Electronically signed by Jos Ortega > 11/05/20 [id number]
== END ==
LOC: M PLARAD 14:11
PROVIDERS: ATTEND Internal Medicine Medical Oncology
DX: C78.89 Secondary malignant neoplasm of other digestive organs (principal)
CPT/HCPCS: 78815; A9552

== ENCOUNTER 2020-11-06 12:32 | Day surgery (SDC) | payer MEDICARE, OTHER ==
[~2020-11-06] VITALS: Ht 170.2 cm; Wt 45.1 kg
[~2020-11-06 12:32] MED LIST changes: +ACETAMINOPHEN 1000MG 100ML IV BTL (OFIRMEV) (J0131 PER 10MG) As Ordered ONE; +LIDOCAINE 2% 100MG/5ML SDV (FOR ANES.) As Ordered ONE; +MIDAZOLAM INJ 2MG/2ML VIAL (J2250 PER 1MG) As Ordered ONE; +ONDANSETRON 4MG/2ML VIAL As Ordered ONE; +ROCURONIUM BROMIDE 50 MG/5 ML VIAL As Ordered ONE; +SUGAMMADEX SODIUM 500 MG/5 ML VIAL (BRIDION) As Ordered ONE; +dexameTHASONE 4 MG/ML 1ML VIAL (J1100 PER 1MG) As Ordered ONE; +fentaNYL 100 MCG/2 ML INJECTION (J3010) As Ordered ONE; +propofoL 200 MG/20 ML VIAL As Ordered ONE
[2020-11-06] MEDS ORDERED: AMOX875T2 PO (12:54)
[2020-11-06] MEDS ORDERED: LIDOCAINE W/EPINEPHRINE 1% 20ML VIAL As Ordered ONE (15:10)
[2020-11-06] MEDS ORDERED: METHYLENE BLUE 0.5% (5MG/ML) 10 ML AMP (PROVAYBLUE) As Ordered ONE (15:10)
[2020-11-06] MEDS ORDERED: EPINEPHrine 1MG/ML INJ 30ML MD-VIAL As Ordered ONE ×2 (15:10→17:00)
[2020-11-06 15:12] VITALS: BP 94/59
[2020-11-06 15:27] VITALS: BP 105/55
[2020-11-06] MEDS ORDERED: fentaNYL 100 MCG/2 ML INJECTION (J3010) IV PRN (18:00)
[2020-11-06] MEDS ORDERED: ONDANSETRON 4MG/2ML VIAL IV PRN (18:00)
[2020-11-06] MEDS ORDERED: oxyCODONE 5MG TAB PO PRN (18:00)
[2020-11-06] MEDS ORDERED: LR 1,000 ML IV SCH ×2 (18:00)
[2020-11-06 18:55] VITALS: BP 109/50
--- NOTE | 2020-11-13 10:16 | RO ---
OPERATIVE NOTE DATE OF OPERATION: 11/06/2020 PREOPERATIVE DIAGNOSIS: Nasopharyngeal mass and right sphenoid mass. POSTOPERATIVE DIAGNOSIS: Nasopharyngeal mass and right sphenoid mass. PROCEDURES PERFORMED: 1. Stereotactic surgery using the BrainLAB. 2. Biopsy of nasopharynx. ANESTHESIA: General. SURGEON: Los Meeks MD CLINICAL PREAMBLE: This 65-year-old woman with multiple medical conditions including a mass in the nasopharynx as well as sphenoid sinus was initially assessed in the emergency department. She also has a right neck mass which has been biopsy-proven to contain carcinoma. Management options including surgery listed above in order to obtain tissue to identify the primary tumor site have been discussed with the patient. She understood and consented to the procedure. OR NARRATION: The patient was identified in preop holding and brought to the operating room in stable condition. In the supine position on the operating table, general anesthesia performed by orotracheal intubation without complication. The patient was prepped and draped in the usual fashion for the procedure. Both eyes were lubricated and protected using Tegaderm. The headbands for the BrainLAB System were successfully attached. Good surface matching signals were obtained. Both sides of the nasal cavity were decongested using pledgets soaked in 1:1,000 Epinephrine. After waiting period the pledgets were removed using 30-degree rigid endoscope. Both sides of the nasal cavity as well as nasopharynx were inspected. Exudates were noted along the roof of the entire nasopharyngeal fossa posterior to the right torus tubarius. Biopsies were obtained from the roof of the nasopharynx and sent for frozen section. Additional biopsies were obtained due to significant nonviable cells found. After obtaining adequate specimens satisfactory to the pathologist, the procedure was concluded. The initial impression of the specimen was of epithelial tumors in origin. Complete hemostasis was achieved in the nasopharynx. Sponge and instrument counts were correct. No complications. General anesthesia was reversed and the patient was extubated and brought to recovery in stable condition. Estimated blood loss was approximately 10 mL. MTDD
[2020-11-17] MEDS ORDERED: VALA1TAB5 PO (14:20)
[2020-11-18] MEDS ORDERED: ONDA8TAB10 PO (09:07)
[2020-11-18] MEDS ORDERED: PROC10TA4 PO (09:07)
== END 2020-11-06 18:55 | disposition home or self-care (01) ==
LOC: M SDC 12:32
PROVIDERS: ATTEND Otolaryngology
DX: C11.9 Malignant neoplasm of nasopharynx, unspecified (principal); C76.0 Malignant neoplasm of head, face and neck; B02.7 Disseminated zoster; D50.9 Iron deficiency anemia, unspecified; I50.32 Chronic diastolic (congestive) heart failure; J85.1 Abscess of lung with pneumonia; Z87.891 Personal history of nicotine dependence; F41.9 Anxiety disorder, unspecified
CPT/HCPCS: 31237; 36415; 80053; 83880; 85025; 85610; 85730; 86850; 86900; 86901; 86920; 88307; 88342; G0463; J0131; J1100; J2250; J2405; J3010; P9016; Q9968; U0002

== ENCOUNTER → 2020-11-06 | Outpatient (REF) | payer MEDICARE, OTHER ==
[2020-11-06 12:05] LABS: BASO # 0.1 10^3/uL (0.0-0.2); BASO % 0.4 % (0.0-1.0); EOS # 0.5 10^3/uL (0.0-0.5); EOS % 2.5 % (0.0-3.0); HEMATOCRIT 25.6 % (36.0-47.0); HEMOGLOBIN 7.9 g/dl (12.0-15.5); LYMPH # 2.2 10^3/uL (1.5-5.0); LYMPH % 11.8 % (24.0-44.0); MEAN CORPUSCULAR HEMOGLOBIN 26.4 pg (27.0-33.0); MEAN CORPUSCULAR HGB CONC 30.9 g/dl (32.0-36.5); MEAN CORPUSCULAR VOLUME 85.6 fl (80.0-96.0); MONO # 1.7 10^3/uL (0.0-0.8); NEUTROPHILS % 75.6 % (36.0-66.0); RED BLOOD COUNT 2.99 10^6/uL (4.00-5.40); WHITE BLOOD COUNT 18.5 10^3/uL (4.0-10.0)
[2020-11-06 12:18] LABS: INR 1.11; PROTHROMBIN TIME 14.5 SECONDS (12.5-14.3)
[2020-11-06 12:19] LABS: PARTIAL THROMBOPLASTIN TIME 44.2 SECONDS (24.2-38.5)
[2020-11-06 12:32] LABS: PLATELET COUNT, AUTOMATED 1073 10^3/uL (150-450)
[2020-11-06 12:42] LABS: ALBUMIN 2.3 GM/DL (3.2-5.2); ALT/SGPT 9 U/L (12-78); BILIRUBIN,TOTAL 0.2 MG/DL (0.2-1.0); BLOOD UREA NITROGEN 14 MG/DL (7-18); CALCIUM LEVEL 9.2 MG/DL (8.8-10.2); CARBON DIOXIDE LEVEL 29 MEQ/L (21-32); CHLORIDE LEVEL 99 MEQ/L (98-107); CREATININE FOR GFR 0.41 MG/DL (0.55-1.30); GLOMERULAR FILTRATION RATE > 60.0 (>45); GLUCOSE, FASTING 88 MG/DL (70-100); NT-PRO BNP 346 PG/ML (<125); POTASSIUM SERUM 4.8 MEQ/L (3.5-5.1); SODIUM LEVEL 134 MEQ/L (136-145); TOTAL PROTEIN 7.8 GM/DL (6.4-8.2)
== END ==
LOC: M SFHCPLAZ 11:03
PROVIDERS: ATTEND Family Medicine
DX: D50.9 Iron deficiency anemia, unspecified (principal); I50.32 Chronic diastolic (congestive) heart failure

== ENCOUNTER 2020-11-19 15:56 | Outpatient (CLI) | payer MEDICARE, OTHER ==
[~2020-11-19] VITALS: Ht 170.2 cm; Wt 45.0 kg
[~2020-11-19 15:56] MED LIST changes: -ACETAMINOPHEN 1000MG 100ML IV BTL (OFIRMEV) (J0131 PER 10MG) As Ordered ONE; -LIDOCAINE 2% 100MG/5ML SDV (FOR ANES.) As Ordered ONE; -MIDAZOLAM INJ 2MG/2ML VIAL (J2250 PER 1MG) As Ordered ONE; +ONDA8TAB10 PO; -ONDANSETRON 4MG/2ML VIAL As Ordered ONE; +PROC10TA4 PO; -ROCURONIUM BROMIDE 50 MG/5 ML VIAL As Ordered ONE; -SUGAMMADEX SODIUM 500 MG/5 ML VIAL (BRIDION) As Ordered ONE; +VALA1TAB5 PO; -dexameTHASONE 4 MG/ML 1ML VIAL (J1100 PER 1MG) As Ordered ONE; -fentaNYL 100 MCG/2 ML INJECTION (J3010) As Ordered ONE; -propofoL 200 MG/20 ML VIAL As Ordered ONE
[2020-11-19 16:00] VITALS: BP 100/49
[2020-11-19] MEDS ORDERED: BEZLOTOXUMAB in NS 100 ML OVER 1 HR IV ONE (16:15)
[2020-11-19] MEDS ORDERED: HYDR-3713 PO (16:26)
[2020-11-19 17:45] VITALS: BP 90/53
== END 2020-11-19 17:45 | disposition home or self-care (01) ==
LOC: M INFU 15:56
PROVIDERS: ATTEND Internal Medicine Infectious Disease
DX: A04.72 Enterocolitis due to Clostridium difficile, not specified as recurrent (principal)
CPT/HCPCS: 96365; J0565

== ENCOUNTER → 2020-12-04 | Outpatient (CLI) | payer MEDICARE, OTHER ==
--- NOTE | 2020-11-26 14:16 | RADENCPD ---
Date/Time of Encounter Date of Encounter: Nov 26, 2020 Time of Encounter: 14:02 Encounter Ivett is receiving her first cycle of gem/cis as well as a 2 unit blood transfusion today and tomorrow. I spoke to Ivett in the infusion center briefly. Because of her prolonged infusions and her fatigue today she wishes to defer seeing me for consult until next week. I think this is reasonable. I intend to offer her RT to the primary NPX tumor and neck, how aggressively we proceed with RT will be contingent upon her goals of treatment and whether she is averse to side effect risks or not. Rescheduled appointment given for 12/03/20 afternoon. OCTAVIO ARROYO MD Nov 26, 2020 14:16
[~2020-12-04] MED LIST changes: +CETACAINE SPRAY 5GM MT ONE; +HYDR-3713 PO; +MEGE40SU5
--- NOTE | 2020-12-04 15:59 | RADONC.CN ---
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 She has started gemcitabine/cisplatin with Dr. Bridges and is seen for consideration of RT to her primary tumor invading the base of skull. Diagnosis/Treatment History Oncologic History 2019- Presented with neck pain and weight loss over several months. 10/10/[address] showing a large nasopharyngeal mass. FNA of right neck nodes on 10/13/20 showed malignancy. 11/05/20 PET-CT showed liver metastases as only site of metastatic disease, there was concern for right lung avidity but she was previously treated for a right lung abscess corresponding to this location. The nasopharynx was biopsied on 11/06/20 showing type 2 NPC. On 11/27/20 she started Gemcitabine/cisplatin with Dr. Bridges. She also has a history of leukocytosis and anemia of uncertain type. Interval History She is here today alone. Reports she is feeling generally well. She has no dysphagia. Recently started marinol for her poor appetite which has been present for many months. Prior to the development of her neck pain over the summer she weighed 130 lbs, now weighs 99 lb. She has ongoing pain in the neck. No ZAMBRANO, no visual changes, no facial weakness or numbness. Does not several episodes of bleeding from the nose over past few months, all resolved spontaneously. She is a former smoker quit this year, never drinker. Lives with her in [place] has grandchildren. Her goal is live as long as possible from this cancer and be with her grand kids. She is completely functional at home, the only IADL she has given up recently is doing laundry (her now does this). Past Medical History: Arthritis Seasonal allergies Anemia Lung abscess (right) MSSA bacteremia Disseminated zoster Past Surgical History: Facial reconstruction as a child d/t dog bite Family History: Prostate cancer father Social History: 25 pack year former smoker quit 2019 Never drinker Allergies / Meds Allergies: Coded Allergies: No Known Allergies (Unverified , 11/04/20) Home Meds Active Scripts Prochlorperazine Maleate (Prochlorperazine Maleate) 10 Mg Tablet, 10 MG PO Q6H PRN for NAUSEA OR VOMITING, #30 TAB 2 Refills Prov:WILTON BRIDGES MD 11/18/20 Ondansetron HCl (Ondansetron HCl) 8 Mg Tablet, 8 MG PO Q12H PRN for NAUSEA OR VOMITING, #30 TAB 2 Refills Prov:WILTON BRIDGES MD 11/18/20 Valacyclovir HCl (Valacyclovir) 1,000 Mg Tablet, 1 GRAM PO DAILY for 30 Days, #30 TAB 3 Refills Prov:WILTON BRIDGES MD 11/17/20 Reported Medications Hydrocodone/Acetaminophen (Hydrocodone-Acetamin 5-325 mg) 1 Each Tablet, 1-2 TAB PO Q4-6HP PRN for pain MDD 12 Tablet(s) for 3 Days, #40 TAB 11/19/20 Acetaminophen (Acetaminophen) 500 Mg Tablet, 1000 MG PO Q8H PRN for PAIN / FEVER 10/10/20 Potassium Chloride (Potassium Chloride) 20 Meq Tab.er.prt, 20 MEQ PO DAILY 10/10/20 Furosemide (Furosemide) 20 Mg Tablet, 20 MG PO DAILY 09/01/20 Famotidine (Famotidine) 20 Mg Tablet, 20 MG PO DAILY 09/01/20 Review of Systems Constitutional: Reports: Weight Loss; Denies: Chills, Fever, Night Sweats, Fatigue Eyes: Denies: Pain, Vision change HEENT: Denies: Head Aches, Dysphagia, Sore Throat Skin: Denies: Rash, Lesions, Bruising Pulmonary: Denies: Dyspnea, Cough, Pleuritic Chest Pain, Other Symptoms Cardiovascular: Denies: Chest Pain, Palpitations, Edema Gastrointestinal: Denies: Nausea, Vomiting, Abdominal Pain, Diarrhea Genitourinary: Denies: Dysuria, Frequency, Incontinence Hematologic: Denies: Bruising, Petecchia, Enlarged Lymph Nodes Musculoskeletal: Reports: Neck pain; Denies: Back pain Neurological: Denies: Weakness, Numbness, Incoordination Psych: Reports: Mood Normal; Denies: Memory Issues, Thoughts of Self Harm Vital Signs Ht 67" Wt 99.4 lb BMI 15 T 98.5 P 73 RR 16 BP 92/46 O2 97% Pain 0 Fatigue 3 General Exam: Positive: Alert, Cooperative, No Acute Distress, Other (Ca chectic) Eye Exam: Positive: PERRLA, EOMI ENT EXAM: Positive: Mucous membr. moist/pink, Pharynx Normal, Other ENT (No palpable mucosal lesions or FOM lesions on bimanual exam. Dentition is ppor with many loose teeth, receding gums/exposed roots and dental caries. No palpable tonsillar or BOT lesions) Neck Exam: Positive: Lymphadenopathy (There is large firm immobile right level II/III adenopathy) Chest Exam: Positive: Normal air movement; Negative: Rales, Rhonchi, Wheezing Heart Exam: Positive: Rate Normal, Regular Rhythm Abdomen Exam: Positive: Soft; Negative: Tenderness, Mass Extremity Exam: Negative: Edema, Tenderness Skin Exam: Positive: Nl turgor and temperature; Negative: Rash Neuro Exam: Positive: Normal Gait, Normal Speech, Cranial Nerves 3-12 NL Psych Exam: Positive: Mental status NL, Mood NL, Memory Intact Other Physical Findings Laryngoscopy: The patient provided verbal consent to be scoped. Cetacaine was introduced in the right nare for anesthesia. The scope was intruduced and passed through the nasal cavity without difficulty. In the nasopharynx there is a pale, polypoid mass occupying the entirety of the nasopharyngeal space. There is no ulceration or bleeding noted. The mass does not appear friable. The right eustacian tube orifice was barely visible. The scope passed inferior to the mass but became stuck while entering oropharynx, the scope was withdrawn partially and another attempt was made. This time the scope passed and the posterior pharyngeal wall was visible with adherent green mucus there were no BOT or supraglottic masses, the piriform sinuses were clear and the larynx was freely mobile without lesions, the scope was withdrawn without incident and the patient tolerated the procedure well. Diagnostic and Laboratory Diagnostic Review Radiologic images, relevant labs and pathology reports were personally reviewed and discussed with Ms. Xavier. Assessment and Plan Impression Ms. 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 She has started gemcitabine/cisplatin with Dr. Bridges and is seen for consideration of RT to her primary tumor invading the base of skull. Stage Stage IVB [id number] type 2 nasopharyngeal carcinoma Performance Status ECOG 1 Plan We had an extensive discussion with Ms. Xavier regarding the diagnosis at hand and available therapeutic options. She has an extensive primary mass which is eroding through the bones of the skull base. This correlates with my laryngoscopic exam today which showed a mass enveloping the entirety of the NPX. She also has extensive right sided adenopathy in the neck. Functionally she is well, she has no significant daily limitations despite the extent of her cancer, and she has no cranial neuropathy. She has started chemo and is s/p cycle 1 of gem/cis. Her stated GOC is to live as long as she can from this diagnosis. To that end I recommend we pursue aggressive RT to her primary mass and neck disease. There is moderate quality retrospective data to support this approach (Igor et al Radiotherapy and Oncology 2017). Her nutrition status is the biggest concern I have. She has lost by her own admission 30 lbs in the setting of poor appetite and no significant dysphagia. I think she would benefit from supplemental feeding through a PEG tube independent of the decision to pursue RT or not. Adding RT to her treatment I explained that I would insist on a PEG tube. She agrees with the necessity. Once placed I will write orders for home care for the PEG and tube feeding prescription. She also has poor quality dentition and will need whole mouth extractions prior to RT. She agreed to referral for this. With the above in place, I would give her a full course of 70 Gy in 35 fractions to the primary and neck disease. Using VMAT I can relatively space her oral cavity and pharynx and minimize the amount of dysphagia she experiences. I discussed frankly that she will have some transient dysphagia and mucositis as well as risk of xerostomia, dysgeusia and fibrosis in the neck which can be long-lasting or even permanent. She wants to proceed. As she has already embarked upon chemotherapy the timing of RT is less critical, I would be inclined to wait until after cycle 2 to be delivered prior to simulation and start treatment concurrent with cycle 3, which is close to the protocol in the recent NEJM article (Griffin et al NEJM 2019). Cycle 2 is due in 3 weeks. I will discuss this with Dr. Bridges at tumor board next week as I am not sure whether she would want to restage prior to adding radiation or modify systemic therapy. As far as her liver-only metastases, If they respond I discussed that she may be appropriate for liver-directed therapies such as TACE, or RFA (to any recalcitrant lesions). Dr. Morgan to whom I have referred the patient for PEG tube placement agreed to evaluate her for this as well. We discussed the logistics of receiving radiation therapy in detail including the need for a 1-time planning session this will occur at the appropriate time, once the plan is finalized at tumor board. After discussing the risks, benefits and alternatives to radiation therapy, Ms. Xavier was amenable to pursuing radiotherapy. All questions were answered to the patient's satisfaction. We instructed the patient that if there were any questions,concerns or changes in clinical status in the interim to contact us. Recommendations RT to the NPX primary and neck timing pending tumor board discussion Favor aggressive loco-regional therapy 70 Gy in 35 fractions in this young khloe ent with liver only metastases Referral for PEG d/t malnutrition and in anticipation of RT Referral to dental for extractions OCTAVIO ARROYO MD Dec 04, 2020 15:57
--- NOTE | 2021-01-01 09:45 | RADENCPD ---
Date/Time of Encounter Date of Encounter: Jan 01, 2021 Time of Encounter: 09:34 Encounter Saw Ivett today for PEG tube assistance and instruction. She is tolerating chemo well. She feels well. No dysphagia, appetite has returned. On exam the cervical adenopathy is markedly reduced. She has gained 10 lbs with all PO intake. Eating all foods, especially protein rich. Given this, her PEG tube can merely be flushed until it is needed during HN chemoradiation. She is due for cycle 3 of gem/cis on 01/13/21. I will order a restaging CT maxillofacial/neck prior to planning RT. She also needs dental extractions which we are working on diligently (her barrier is lack of dental insurance). I anticipate her RT would start around 02/03/21 at which point single agent cisplatin would need to be started per Dr. Arvizu. Overall she is doing great, and she is very happy with her progress. OCTAVIO ARROYO MD Jan 01, 2021 09:45
== END ==
LOC: M ONCR 11-16 08:15
PROVIDERS: ATTEND General Practice
DX: C11.9 Malignant neoplasm of nasopharynx, unspecified (principal)

== ENCOUNTER → 2020-12-09 | Outpatient (POV) | payer MEDICARE, OTHER ==
[~2020-12-09] MED LIST changes: -CETACAINE SPRAY 5GM MT ONE
--- NOTE | 2020-12-11 14:53 | IRCOV ---
[facility] IR Consult Office Visit IR Consult Office Visit DATE: Dec 09, 2020 Patient agreed to this telephone consultation. I spent 30 minutes reviewing patient's records, imaging and talking to the patient. REASON FOR CONSULTATION/CHIEF COMPLAINT: Head and neck cancer. Malnourished. 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 She presented with neck pain and weight loss in [address] which showed a large nasopharyngeal mass. Diagnosis was confirmed and she is currently on chemotherapy. There are plans for possible radiation treatment. She is referred for gastrostomy placement to aid better nutrition and also in the setting of possible radiation treatment. At the moment she eats by mouth. She has no dysphagia. She does describe mild reflux for which she is on medication. Patient denies prior stomach ulcers or stomach surgery. ALLERGIES: Please see below. HOME MEDICATIONS: Please see below. PAST MEDICAL HISTORY: Arthritis Allergies Anemia Lung abscess MSSA bacteremia Disseminated zoster PAST SURGICAL HISTORY: Facial reconstruction as a child FAMILY HISTORY: Noncontributory. SOCIAL HISTORY: Former smoker quit in 2019. [id number] history. Denies alcohol or drugs. REVIEW OF SYSTEMS: Otherwise negative. PHYSICAL EXAMINATION: No video on patient side. LABORATORY DATA: 12/03/2020 hemoglobin 10.0 hematocrit 32.3 WBC 7.8 platelets 513 sodium 131 potassium 3.2 BUN 11 creatinine 0.46 GFR greater than 60 Imaging: I personally reviewed the CT abdomen and pelvis from July 2020. Unremarkable stomach position with no significant hiatal hernia. ASSESSMENT/PLAN: 65-year-old female with nasopharyngeal carcinoma, with malnourishment and also plans for possible radiation therapy, referred for gastrostomy placement. I discussed the risks and benefits of the procedure with the patient and patient would like to proceed. We have scheduled the patient for gastrostomy placement. Thank you for this referral. Cc Dr. Heller Cc Dr. Arvizu Allergies Coded Allergies: No Known Allergies (Unverified , 11/04/20) Home Medications Scheduled Famotidine (Famotidine), 20 MG PO DAILY, (Reported) Furosemide (Furosemide), 20 MG PO DAILY, (Reported) Potassium Chloride (Potassium Chloride), 20 MEQ PO DAILY, (Reported) Valacyclovir HCl (Valacyclovir), 1 GRAM PO DAILY Scheduled PRN Acetaminophen (Acetaminophen), 1,000 MG PO Q8H PRN for PAIN / FEVER, (Reported) Hydrocodone/Acetaminophen (Hydrocodone-Acetamin 5-325 mg), 1-2 TAB PO Q4-6HP PRN for pain, (Reported) Ondansetron HCl (Ondansetron HCl), 8 MG PO Q12H PRN for NAUSEA OR VOMITING Prochlorperazine Maleate (Prochlorperazine Maleate), 10 MG PO Q6H PRN for NAUSEA OR VOMITING XAVI HERNANDEZ MD Dec 11, 2020 14:53
== END ==
LOC: M IRPOV 13:24
PROVIDERS: ATTEND Radiology Diagnostic Radiology
DX: C11.9 Malignant neoplasm of nasopharynx, unspecified (principal); C78.7 Secondary malignant neoplasm of liver and intrahepatic bile duct; E46 Unspecified protein-calorie malnutrition; B02.7 Disseminated zoster; D64.9 Anemia, unspecified; J30.89 Other allergic rhinitis; M12.9 Arthropathy, unspecified; R91.8 Other nonspecific abnormal finding of lung field; Z72.0 Tobacco use; Z92.21 Personal history of antineoplastic chemotherapy

== ENCOUNTER → 2020-12-24 | Outpatient (CLI) | payer MEDICARE, OTHER ==
[~2020-12-24] MED LIST changes: +GLUCAGON INJ 1MG VIAL As Ordered ONE; +ISOVUE-300 61% 50ML VIAL As Ordered ONE; +LIDOCAINE 1% MDV 20ML VIAL As Ordered ONE; +MIDAZOLAM INJ 2MG/2ML VIAL (J2250 PER 1MG) As Ordered ONE; +PROMETHAZINE INJ 25 MG/ML VIAL (J2550) As Ordered ONE; +ceFAZolin 1GM VIAL (J0690 PER 500MG) As Ordered ONE; +diphenhydrAMINE 50MG/ML VIAL (J1200) As Ordered ONE; +fentaNYL 100 MCG/2 ML INJECTION (J3010) As Ordered ONE
--- NOTE | 2020-12-24 13:36 | IRHP ---
[facility] IR Pre-Procedure H & P General Date of Service: Dec 24, 2020 Procedure: Same Day Surgery Interval History and Physical I have seen the patient and reviewed last H & P performed within 30 days. There is no significant interval change. History of Present Illness Chief Complaint The patient is a 65-year-old female admitted with a reason for visit of Head/Neck Cancer, Malnourished. PRE-PROCEDURE DIAGNOSIS: head and neck cancer HEART: normal rate. LUNGS: normal breathing at rest ASA Classification ASA Classification: III-Severe systemic dis. Mallampati Score: II NPO: Yes Problems with prior sedation: No Obstructive Sleep Apnea: No Plan moderate sedation Allergies Coded Allergies: No Known Allergies (Unverified , 11/04/20) Home Medications Scheduled Famotidine (Famotidine), 20 MG PO DAILY, (Reported) Furosemide (Furosemide), 20 MG PO DAILY, (Reported) Megestrol Acetate (Megestrol Acetate), 10 MG DAILY, (Reported) Potassium Chloride (Potassium Chloride), 20 MEQ PO DAILY, (Reported) Valacyclovir HCl (Valacyclovir), 1 GRAM PO DAILY Scheduled PRN Acetaminophen (Acetaminophen), 1,000 MG PO Q8H PRN for PAIN / FEVER, (Reported) Hydrocodone/Acetaminophen (Hydrocodone-Acetamin 5-325 mg), 1-2 TAB PO Q4-6HP PRN for pain, (Reported) Ondansetron HCl (Ondansetron HCl), 8 MG PO Q12H PRN for NAUSEA OR VOMITING Prochlorperazine Maleate (Prochlorperazine Maleate), 10 MG PO Q6H PRN for NAUSEA OR VOMITING XAVI HERNANDEZ MD Dec 24, 2020 13:36
[2020-12-24 16:00] VITALS: BP 100/70
--- NOTE | 2020-12-25 13:38 | POST-OPPD ---
Postoperative Procedure Note Date Of Procedure: Dec 24, 2020 Time Of Procedure: 16:00 IR Gastrostomy catheter placement with fluoroscopic guidance. IR moderate sedation. Clinical Information:Head and neck cancer. Malnourished. Physician: Dr. Morgan. Procedure: The patient was advised of the benefits, risks, and alternatives of the procedure and informed consent was obtained. A time out was performed with verification of the patient's name, MRN, site of procedure, and type of procedure to be performed. The patient was positioned in the supine position on the angiographic table. The site was prepped and draped in the usual sterile fashion. Moderate sedation was performed by the physician including the presence of an independent trained RN, who assisted in monitoring the patient's level of consciousness and physiological status. Following the administration of fentanyl and Versed the physician spent 45 minutes of continuous [id number] time with the patient. A 5 Montenegrin glide cath in conjunction with a Glidewire, was inserted through the nostril, under fluoroscopy guidance, down the esophagus into the stomach. The wire was removed. One mg of glucagon was administered intravenously. The stomach was insufflated and distended with air through the nasogastric tube. The soft tissues overlying the anticipated puncture sites were anesthetized with lidocaine. A gastropexy needle was advanced into the stomach and positioning was confirmed with contrast injection. The gastropexy suture was deployed and secured in the usual fashion. A total of 2 gastropexy sutures were deployed. An 18 gauge needle was advanced into the body of the stomach. Contrast was injected documenting intra- gastric position. An Amplatz wire was advanced into the stomach. After serial dilation, a peel-away sheath was advanced over the wire, under fluoroscopy guidance, into the stomach. An 18 F JEFRY Gastrostomy catheter was then advanced over the wire, through the peel-away sheath into the stomach and the peel-away sheath was removed. The balloon was insufflated and the catheter retracted back to the the anterior stomach wall. The bumper on the catheter was positioned and secured to sandwich the anterior stomach wall. Contrast was injected to confirm catheter position. The catheter was then placed to gravity drainage. The NG tube was removed The patient tolerated the procedure well and was returned to the PRU in stable condition. EBL:Less than 5 mL. Complications:None. Conclusion: 1. Successful placement of an 18 Montenegrin JEFRY gastrostomy catheter. 2. The catheter should remain to gravity drainage for 24 hours after which feedings may begin and advanced as tolerated. The gastropexy sutures should dissolve within 6 weeks and the buttons will fall off. Thank you for this referral. Cc XAVI Dhaliwal Dr., MD Dec 25, 2020 13:38
== END ==
LOC: M IRPRO 11:30
PROVIDERS: ATTEND Radiology Diagnostic Radiology
DX: C76.0 Malignant neoplasm of head, face and neck (principal); E46 Unspecified protein-calorie malnutrition; Z79.899 Other long term (current) drug therapy
CPT/HCPCS: 49440; 99152; 99153; C1729; C1769; C1887; C1894; J0690; J1200; J1610; J2250; J3010; Q9967

== ENCOUNTER → 2020-12-29 | Outpatient (CLI) | payer MEDICARE, OTHER ==
[~2020-12-29] MED LIST changes: -GLUCAGON INJ 1MG VIAL As Ordered ONE; -ISOVUE-300 61% 50ML VIAL As Ordered ONE; -PROMETHAZINE INJ 25 MG/ML VIAL (J2550) As Ordered ONE
--- NOTE | 2020-12-29 11:56 | IRHP ---
[facility] IR Pre-Procedure H & P General Date of Service: Dec 29, 2020 Procedure: Same Day Surgery Interval History and Physical I have seen the patient and reviewed last H & P performed within 30 days. There is no significant interval change. History of Present Illness Chief Complaint The patient is a 65-year-old female admitted with a reason for visit of Metastatic Nasopharyngeal Cancer. 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 LUNGS: normal breathing at rest. ASA Classification ASA Classification: III-Severe systemic dis. Mallampati Score: II NPO: Yes Problems with prior sedation: No Obstructive Sleep Apnea: No Plan moderate sedation Allergies Coded Allergies: No Known Allergies (Unverified , 11/04/20) Home Medications Scheduled Famotidine (Famotidine), 20 MG PO DAILY, (Reported) Furosemide (Furosemide), 20 MG PO DAILY, (Reported) Megestrol Acetate (Megestrol Acetate), 10 MG DAILY, (Reported) Potassium Chloride (Potassium Chloride), 20 MEQ PO DAILY, (Reported) Valacyclovir HCl (Valacyclovir), 1 GRAM PO DAILY Scheduled PRN Acetaminophen (Acetaminophen), 1,000 MG PO Q8H PRN for PAIN / FEVER, (Reported) Hydrocodone/Acetaminophen (Hydrocodone-Acetamin 5-325 mg), 1-2 TAB PO Q4-6HP PRN for pain, (Reported) Ondansetron HCl (Ondansetron HCl), 8 MG PO Q12H PRN for NAUSEA OR VOMITING Prochlorperazine Maleate (Prochlorperazine Maleate), 10 MG PO Q6H PRN for NAUSEA OR VOMITING VS, I&O, 24H, Fishbone Vital Signs/I&O Vital Signs Date Time Temp Pulse Resp B/P (MAP) Pulse Ox O2 Delivery O2 Flow Rate FiO2 12/29/20 11:48 98.6 75 18 95 Room Air XAVI HERNANDEZ MD Dec 29, 2020 11:56
[2020-12-29 15:00] VITALS: BP 131/61
--- NOTE | 2021-01-01 10:12 | POST-OPPD ---
Postoperative Procedure Note Date Of Procedure: Dec 29, 2020 Time Of Procedure: 16:00 IR Ultrasound and fluoroscopy guided port placement. IR Ultrasound of the neck. IR Moderate sedation. Clinical indication: Head and neck cancer. Physician: Dr. Morgan. Procedure: The patient was advised of the benefits, risks, and alternatives of the procedure and informed consent was obtained. A time-out was performed with verification of the patient's name, MRN, site of procedure and type of procedure to be performed. The patient was positioned in the supine position on the angiographic table. The site was prepped and draped in the usual sterile fashion. Moderate sedation was performed by the physician including the presence of an independent trained RN who assisted and monitored the patient's level of consciousness and physiologic status. Following the administration of fentanyl and Versed , the physician spent 45 minutes of continuous face to face time with the patient. Ultrasound of the neck reveals a patent and compressible right internal jugular vein. A client liaison radiograph reveals no gross abnormality. The neck and anterior chest wall were anesthetized with lidocaine. The right internal jugular vein was accessed using a microintroducer needle under ultrasound guidance, via a lateral approach. An 018 wire was advanced into the superior vena cava, the needle was removed and a microsheath was placed. An Amplatz wire was then passed into the inferior vena cava. An incision at the internal jugular vein access site and anterior chest wall were made using a scalpel. An incision was made at the anterior chest wall. A small pocket was created using a combination of blunt and sharp dissection. A tunneling device was then used to pass the catheter from the pocket to the neck puncture site. An 8- Canadian Angio PowWowHR Smart power port was then positioned in the pocket. The catheter was then measured and cut. The introducer sheath was exchanged for a peel-away sheath. The catheter was passed through the peel-away sheath into the internal jugular vein and the peel-away sheath was removed. The port tip was positioned at the cavoatrial junction. The port was then accessed with a Peoples needle. The port flushes and aspirates well. The puncture site in the neck was closed. The chest wall incision was then closed with 2-0 Vicryl and 4-0 Monocryl. Glue and Steri- Strips were applied. A sterile dressing was then applied. The patient tolerated the procedure well and was returned to the PRU in stable condition. Estimated blood loss: <5 ml. Complications: None. Conclusion: 1. Successful placement of an 8-Canadian Angio dynamics Smart power port via the right internal jugular vein. The port is ready for immediate use. 2. Patient to follow up in IR clinic in 2 weeks. Thank you for this referral. XAVI MORGAN MD Jan 01, 2021 10:12
== END ==
LOC: M IRPRO 11:19
PROVIDERS: ATTEND Internal Medicine Medical Oncology
DX: C11.9 Malignant neoplasm of nasopharynx, unspecified (principal)
CPT/HCPCS: 36561; 99152; 99153; C1769; C1788; C1894; J0690; J1642; J1644; J2250; J3010

== ENCOUNTER → 2021-01-13 | Outpatient (POV) | payer MEDICARE, OTHER ==
[~2021-01-13] MED LIST changes: -LIDOCAINE 1% MDV 20ML VIAL As Ordered ONE; -MIDAZOLAM INJ 2MG/2ML VIAL (J2250 PER 1MG) As Ordered ONE; -ceFAZolin 1GM VIAL (J0690 PER 500MG) As Ordered ONE; -diphenhydrAMINE 50MG/ML VIAL (J1200) As Ordered ONE; -fentaNYL 100 MCG/2 ML INJECTION (J3010) As Ordered ONE
--- NOTE | 2021-01-15 11:20 | IRPN ---
[facility] IR Progress Note IR Progress Note DATE: Jan 13, 2021 Patient agreed to this telephone follow-up. I spent 10 minutes talking to the patient. FOLLOW-UP: 65-year-old female status post recent port and gastrostomy placement. Patient states she is doing well. No pain swelling or discharge at port site. Patient states she is using the G-tube every day and she uses a can of Ensure through the G-tube. She flushes with water. She states her weight has increased from 92 to 110 pounds. She feels comfortable and at ease using the G-tube. No pain at the site. ON EXAMINATION: No video on patient side. IMPRESSION: Doing well status post port and G-tube placement. No further follow- up scheduled unless initiated by patient and/or referring provider. Thank you for this referral. Cc Dr. Meyers Allergies Coded Allergies: No Known Allergies (Unverified , 11/04/20) XAVI HERNANDEZ MD Jan 15, 2021 11:20
== END ==
LOC: M TMIRPOV 08:55
PROVIDERS: ATTEND Radiology Diagnostic Radiology
DX: Z45.2 Encounter for adjustment and management of vascular access device (principal); Z93.1 Gastrostomy status

== ENCOUNTER → 2021-01-29 | Outpatient (CLI) | payer MEDICARE, OTHER ==
[~2021-01-29] MED LIST changes: +COVI100V IM; +ISOVUE-370 76% 100ML VIAL As Ordered ONE
--- NOTE | 2021-01-29 18:11 | REPVR ---
PROCEDURE INFORMATION: Exam: CT Maxillofacial With Contrast Exam date and time: 01/29/2021 2:33 PM Age: 65 years old Clinical indication: Condition or disease; Cancer; Other: Nasopharysngeal CA, restaging TECHNIQUE: Imaging protocol: Computed tomography images of the face with intravenous contrast. Radiation optimization: All CT scans at this facility use at least one of these dose optimization techniques: automated exposure control; mA and/or kV adjustment per patient size (includes targeted exams where dose is matched to clinical indication); or iterative reconstruction. Contrast material: ISOVUE 370; Contrast volume: 100 ml; Contrast route: INTRAVENOUS (IV); COMPARISON: CT BRAIN LAB SINUSES 10/11/2020 9:17 AM FINDINGS: Orbital cavity: Orbits are normal. Globes are unremarkable. Bones/joints: There are degenerative changes demonstrated in the atlantoaxial joint at C1-C2 with osteophytes and joint space narrowing. The transverse ligament is unremarkable. Paranasal sinuses: Lobular soft tissue thickening demonstrate in both sphenoid sinuses in part related to inflammatory changes. No air-fluid levels. Bony deficiencies in the floor of both the left and right sphenoid sinuses now demonstrated with soft tissue within the sphenoid sinus extending into the roof and posterolateral ibarra of the nasopharynx, findings consistent with known nasopharyngeal carcinoma. Soft tissue infiltration demonstrated in the nasopharynx is decreased in comparison to the prior study. Soft tissues: Unremarkable. IMPRESSION: 1. Findings consistent with nasopharyngeal carcinoma as described above with the amount of soft tissue mass in the nasopharynx decreased in comparison to the prior study. 2. Inflammatory changes demonstrated in the sphenoid sinuses with small retention cysts. Electronically signed by: Ervin Martin On 01/29/2021 18:11:53 PM
--- NOTE | 2021-01-29 18:16 | REPVR ---
PROCEDURE INFORMATION: Exam: CT Neck With Contrast Exam date and time: 01/29/2021 2:33 PM Age: 65 years old Clinical indication: Condition or disease; Cancer; Other: Nasopharynx; Additional info: Malignant neoplasm of overlapping of nasopharynx TECHNIQUE: Imaging protocol: Computed tomography images of the neck with intravenous contrast. Radiation optimization: All CT scans at this facility use at least one of these dose optimization techniques: automated exposure control; mA and/or kV adjustment per patient size (includes targeted exams where dose is matched to clinical indication); or iterative reconstruction. Contrast material: ISOVUE 370; Contrast volume: 100 ml; Contrast route: INTRAVENOUS (IV); COMPARISON: PT PET/CT Skull/mid thigh 11/04/2020 4:21 PM FINDINGS: Nasopharynx: Inflammatory changes in the sphenoid sinuses associated with deficiency in the floor of both the right and left sphenoid sinus with soft tissue infiltrating the roof and posterolateral ibarra of the nasopharynx consistent with nasopharyngeal carcinoma. Oropharynx: Unremarkable. No significant tonsillar enlargement. Hypopharynx: Unremarkable. Larynx: Unremarkable. Normal epiglottis. Retropharyngeal space: Unremarkable. Submandibular/Parotid glands: Normal. Glands are normal in size. Thyroid: Normal. No enlarged or calcified nodules. Lymph nodes: Ring-enhancing foci demonstrated along the anterior margin and deep to the posterior aspect of the right sternocleidomastoid muscle measuring 11 mm and 14 mm, respectively. Third ring-enhancing lesion demonstrated slightly superiorly measuring 9 mm. Findings consistent with enhancing malignant adenopathy. Trachea: Visualized trachea is unremarkable. Lungs: Parenchymal scarring right upper lobe. Bones/joints: The cervical spine demonstrates mild degenerative changes. Vasculature: Mild atherosclerotic changes demonstrated in the proximal internal carotid arteries bilaterally. Soft tissues: Otherwise unremarkable. IMPRESSION: 1. Inflammatory changes in the sphenoid sinuses associated with deficiency in the floor of both the right and left sphenoid sinus with soft tissue infiltrating the roof and posterolateral ibarra of the nasopharynx consistent with nasopharyngeal carcinoma. 2. Findings consistent with malignant lymph nodes in the right cervical chain as described above. Electronically signed by: Ervin Martin On 01/29/2021 18:17:20 PM
== END ==
LOC: M RAD 13:53
PROVIDERS: ATTEND General Practice
DX: C11.8 Malignant neoplasm of overlapping sites of nasopharynx (principal)
CPT/HCPCS: 70487; 70491; Q9967

== ENCOUNTER 2021-02-01 20:58 | Emergency (ER) | payer MEDICARE, OTHER ==
[~2021-02-01] VITALS: Ht 170.2 cm; Wt 55.0 kg
[~2021-02-01 20:58] MED LIST changes: -COVI100V IM; -ISOVUE-370 76% 100ML VIAL As Ordered ONE
[2021-02-01 20:59] VITALS: BP 116/56
== END 2021-02-01 22:46 | disposition left against medical advice (07) ==
LOC: M ED 20:58
DX: Z53.21 Procedure and treatment not carried out due to patient leaving prior to being seen by health care provider (principal)

== ENCOUNTER → 2021-02-02 | Outpatient (CLI) | payer MEDICARE, OTHER ==
[~2021-02-02] MED LIST changes: +COVI100V IM
--- NOTE | 2021-02-03 08:43 | REP ---
INDICATION: RESTAGING NASOPHARYNGEAL CANCER C11.8. 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 Treated with chemotherapy. COMPARISON: Comparison PET-CT study is from November 04, 2020.. TECHNIQUE: Sixty minutes following the intravenous injection of a 16.77 mCi dose of F-18 FDG, three-dimensional PET scintigraphy is acquired from the skull base to the proximal thighs. Triplanar noncontrast CT scanning is acquired through the same anatomic range for attenuation correction, and image registration with scan parameters optimized to minimize radiation exposure to the patient. PET scintigraphy and CT datasets were fused and displayed on a workstation with multiplanar and projection display capability. FINDINGS: There has been considerable improvement. There is no hypermetabolic uptake remaining in the circumferential nasopharyngeal skull base region. The bony defect in the clivus persists but no hypermetabolic uptake is seen at this site. There is a persistent area of mildly hypermetabolic uptake in the lateral wall the nasopharynx on the right with maximum standard uptake value here 5.54. There are 2 hypermetabolic nodes in the right neck, 1 in the posterior chain and the other anterior. The posterior lymph node is larger with maximum SUV value 8.53 and short axis dimension of 10 mm. The smaller node as an 8 mm short axis dimension and maximum standard uptake value of 5.20. The pulmonary parenchymal uptake is improved as well. There is persistent atelectasis in the right upper lobe distribution. The previously noted area of pulmonary parenchymal hypermetabolic uptake is improved morphologically and no longer hypermetabolic, maximum SUV value 1.42. No hilar or mediastinal bobo hypermetabolic uptake is seen in the chest. The liver disease is much improved. There is 1 residual hypermetabolic focus in the posterior segment of the right lobe of the liver with maximum standard uptake value 12.97. This area measures approximately 3.7 cm in greatest diameter. No other abnormal hypermetabolic uptake is seen in the liver. Previously noted upper abdominal bobo focus is no longer apparent. There is some hypermetabolic uptake associated with the feeding gastrostomy tube insertion site which is new and likely postoperative. No other abnormal hypermetabolic uptake is seen in the abdomen or pelvis. IMPRESSION: Considerable improvement noted. There is residual hypermetabolic uptake in the right side of the nasopharynx, in 2 right cervical lymph nodes, and in 1 of the previously identified metastatic liver lesions. <Electronically signed by Jos Ortega > 02/03/21 08
== END ==
LOC: M PLARAD 14:01
PROVIDERS: ATTEND Internal Medicine Medical Oncology
DX: C11.8 Malignant neoplasm of overlapping sites of nasopharynx (principal)
CPT/HCPCS: 78815; A9552

== ENCOUNTER → 2021-03-27 | Outpatient (RCR) | payer MEDICARE, OTHER | LOC: M ONCR 03-05 12:46 | PROVIDERS: ATTEND General Practice | DX: C11.8 Malignant neoplasm of overlapping sites of nasopharynx (principal) ==

== ENCOUNTER → 2021-03-30 | Outpatient (CLI) | payer MEDICARE, OTHER ==
--- NOTE | 2021-03-30 16:52 | REP ---
INDICATION: LOW BACK PAIN. COMPARISON: None. TECHNIQUE: Five views of the lumbar spine are provided. FINDINGS: There is straightening of the normal lumbar lordosis. Lumbar vertebral body heights are preserved. Alignment is normal. There is degenerative disc spurring at L4-5 and L5-S1 anteriorly. There is disc space narrowing at L3-4. Pedicles and posterior elements appear intact. A feeding tube is seen to the right of midline in the upper abdomen. Psoas margins are symmetric. Sacrum and SI joints are unremarkable. No bony destructive lesion is seen. There is mild facet joint narrowing at L4-5 and L5-S1 bilaterally. IMPRESSION: Degenerative spondylosis changes. Feeding tube in the upper abdomen. No acute bony abnormality. <Electronically signed by Jos Ortega > 03/30/21 [id number]
== END ==
LOC: M RAD 15:34
PROVIDERS: ATTEND Nurse Practitioner Adult Health
DX: M47.816 Spondylosis without myelopathy or radiculopathy, lumbar region (principal); M54.5 Low back pain; Z93.1 Gastrostomy status
CPT/HCPCS: 72110; G0463

== ENCOUNTER 2021-04-23 13:49 | Outpatient (RCR) | payer MEDICARE, OTHER ==
[2021-05-05] MEDS ORDERED: SENN1TAB41 PO (13:34)
== END 2021-04-27 ==
LOC: M ONCR 13:49
PROVIDERS: ATTEND General Practice
DX: C11.8 Malignant neoplasm of overlapping sites of nasopharynx (principal)

== ENCOUNTER → 2021-05-09 | Outpatient (CLI) | payer MEDICARE, OTHER ==
[~2021-05-09] MED LIST changes: +GASTROGRAFIN SOLUTION 30ML (Q9963) As Ordered ONE; +ISOVUE-370 76% 100ML VIAL As Ordered ONE; +SENN1TAB41 PO
--- NOTE | 2021-05-09 15:40 | REP ---
INDICATION: NASOPH CA - ASSESS FOR METS. COMPARISON: Comparison is made with images from PET-CT study February 02, 2021.. TECHNIQUE: Helical scanning is acquired and 3 mm axial images re-formatted. Coronal and sagittal MPR images are generated. The CT contrast enhancement dose is 100 mL of intravenous Isovue 370. FINDINGS: Digital preliminary solar panel technician radiograph demonstrates a large amount of formed stool throughout the left colon question constipation. A feeding gastrostomy tube is noted with retention balloon to the right of midline. Axial CT images demonstrate chronic atelectasis with air bronchograms in the right middle lobe. This is unchanged. Lung bases are otherwise clear. No pleural effusion is seen. spleen is unremarkable. No adrenal lesion is seen. There is a large peripherally enhancing mass in the inferior aspect of the right lobe of the liver measuring 6.4 x 4.3 by 5.1 cm. This corresponds to the hypermetabolic lesion seen February 02, 2021 although it is much larger than on the prior study. Anterior to this there is a smaller low-density area in the liver measuring 1 cm in diameter and in the dome of the liver in the right lobe there is a 1.4 cm hypodense nodule. These 2 smaller lesions appear to be new. Findings are compatible with progressive liver metastatic disease. There is some gallbladder wall thickening diffusely. There is a single punctate calcification in the pancreatic head. No pancreatic mass lesion or cyst is observed. No retroperitoneal mass or adenopathy is seen. There are small cortical renal cysts on the left. No renal mass lesion is observed. The retention balloon of the feeding gastrostomy tube is seen in the gastric antrum. Normal appendix is noted in the right lower quadrant. No pelvic mass or adenopathy. Urinary bladder is unremarkable. No abdominal wall defect is seen. No bony destructive lesion is seen. IMPRESSION: Findings consistent with progressive liver metastatic disease. The largest lesion in the right lobe of the liver now measures 6.4 cm in greatest diameter. <Electronically signed by Jos Ortega > 05/09/21 [id number]
== END ==
LOC: M RAD 12:16
PROVIDERS: ATTEND Internal Medicine Medical Oncology
DX: C11.8 Malignant neoplasm of overlapping sites of nasopharynx (principal); R16.0 Hepatomegaly, not elsewhere classified; N28.1 Cyst of kidney, acquired
CPT/HCPCS: 74177; Q9963; Q9967

== ENCOUNTER → 2021-05-12 | Outpatient (POV) | payer MEDICARE, OTHER ==
[~2021-05-12] VITALS: Ht 170.2 cm; Wt 47.3 kg
[~2021-05-12] MED LIST changes: +CEFD1CAP8 PO; +GABA-1171; -GASTROGRAFIN SOLUTION 30ML (Q9963) As Ordered ONE; -ISOVUE-370 76% 100ML VIAL As Ordered ONE; +SILV50CR
[2021-05-12 16:05] VITALS: BP 97/49
--- NOTE | 2021-05-14 12:25 | IRCOV ---
[facility] IR Consult Office Visit IR Consult Office Visit DATE: May 12, 2021 REASON FOR CONSULTATION/CHIEF COMPLAINT: Nasopharyngeal cancer with metastatic disease to the liver. Referred for evaluation for liver target therapy. HISTORY OF PRESENT ILLNESS: 65-year-old female, ECOG 1, with metastatic nasopharyngeal carcinoma, diagnosed in September 2020. Patient presented at that time, with right neck adenopathy. FNA showed metastatic high-grade carcinoma. PET scan showed FDG avid nasopharyngeal mass, metastatic adenopathy in the neck and hepatic metastases. Biopsy of the nasopharyngeal mass confirmed nonkeratinizing nasopharyngeal carcinoma. T She has started on cisplatin and gemcitabine in October 2020 and completed 6 cycles in February 2021. She started radiation therapy to the nasopharynx in February 2021. Patient reports she is doing well status post chemotherapy and radiation. She reports she is active all day and cleans her home, does the Laundry and stays out of bed. Patient reports she has lost her taste sensation after the radiation treatments and uses her G-tube to feed. Patient states she can swallow by mouth. She denies any recent drop in weight. ALLERGIES: Please see below. HOME MEDICATIONS: Please see below. PAST MEDICAL HISTORY: Arthritis PAST SURGICAL HISTORY: G-tube Port placement FAMILY HISTORY: Noncontributory. SOCIAL HISTORY: Ex-smoker. Quit 6 months ago. Denies alcohol or drugs. REVIEW OF SYSTEMS: Otherwise negative. PHYSICAL EXAMINATION: VITAL SIGNS: Please see below. GENERAL APPEARANCE: Appears well. Comfortable at rest. HEENT: No scleral icterus. RESPIRATORY: Normal breathing at rest. Chest port in place. CARDIOVASCULAR: Normal rate. ABDOMEN: Soft nontender. G-tube in place. EXTREMITIES: No edema. NEUROLOGICAL: Alert and oriented. PSYCHIATRIC: Appropriate to circumstance. LABORATORY DATA: 05/05/2021 hemoglobin 6.8 hematocrit 21.7 (baseline 8.4 26.2) WBC 14.4 platelets 648 sodium 128 potassium 3.6 BUN 27 creatinine 0.7 GFR g reater than 60 total bilirubin 0.4 AST 15 ALT 14 ALP 92 Imaging: I personally reviewed the patient's last CT abdomen with IV contrast performed 05/09/2021. There is a 6.4 x 4.3 x 6.0 cm irregular, elongated, hypovascular mass, in the right hepatic lobe. There is likely capsular invasion/extrusion. The remaining liver is unremarkable in contour and size. No ascites. No indication of cirrhosis or portal hypertension. Portal vein is patent. There is a second hypodense lesion in the dome of the liver measuring 1.3 cm. I reviewed patient's CT chest from July 2020. At that time, patient had a right middle lobe consolidation, associated with a right pleural effusion. This has since resolved and I see linear, pulmonary parenchymal scarring, adjacent to the right heart border, on the most recent CT abdomen. I personally reviewed the PET/CT performed in October 2020 and there were 11-12 separate hypermetabolic foci in the liver at that time. Highly FDG avid and the same uptake as in the area of primary tumor. There was mild uptake in the right lung in the region of scarring/prior pneumonia. I personally reviewed the PET/CT performed in January 2021. Marked improvement postchemotherapy, now there is only one hypermetabolic lesion in the right hepatic lobe. This correlates to the lesion seen on CT abdomen with IV contrast. The second lesion seen on the CT abdomen with IV contrast is not FDG avid on the PET. Resolution of FDG uptake in the region of the right pulmonary scarring/prior pneumonia. No focal FDG uptake in the lungs. Right neck node with FDG uptake remains but markedly diminished disease bulk in the neck. ASSESSMENT/PLAN: 65-year-old female with metastatic nasopharyngeal carcinoma, has done remarkably well status post systemic chemotherapy and radiation to the nasopharynx. There is now a solitary met remaining in the right hepatic lobe. Given the size and location, this would be best served with a radiation segmentectomy using TheraSphere. I discussed the procedure with the patient and patient is willing to proceed. I explained to the patient, that the treatment is intended to decrease disease bulk and associated morbidity, but is not curative in the setting of malignant focus remaining in the neck. We will schedule the patient for a preplanning angiogram and technetium MAA lung shunt study in the third week of May. Based on the lung shunt study, if she is eligible for Y 90 treatment, we will then follow up with Y90 treatment. I spent 45 minutes reviewing patient's records, imaging and in consultation with the patient. Thank you for this referral. Cc Dr. Nereida Arvizu CC Dr. Kem Heller Allergies Coded Allergies: No Known Allergies (Unverified , 11/04/20) Home Medications Scheduled Famotidine (Famotidine), 20 MG PO DAILY, (Reported) Furosemide (Furosemide), 20 MG PO DAILY, (Reported) Megestrol Acetate (Megestrol Acetate), 10 MG DAILY, (Reported) Potassium Chloride (Potassium Chloride), 20 MEQ PO DAILY, (Reported) Sennosides/Docusate Sodium (Senna-S Tablet), 2 TAB PO QPM Valacyclovir HCl (Valacyclovir), 1 GRAM PO DAILY Scheduled PRN Hydrocodone/Acetaminophen (Hydrocodone-Acetamin 5-325 mg), 1-2 TAB PO Q4-6HP PRN for pain, (Reported) Hydroxyzine HCl (Hydroxyzine HCl), 1 TAB PO DAILYPRN PRN for ITCHING, (Reported) Ondansetron HCl (Ondansetron HCl), 8 MG PO Q12H PRN for NAUSEA OR VOMITING Prochlorperazine Maleate (Prochlorperazine Maleate), 10 MG PO Q6H PRN for NAUSEA OR VOMITING Miscellaneous Medications Covid-19 Vacc,Mrna(Moderna)/Pf (Moderna Covid19 Vacc(Unapprov)), 100 MCG IM, (Reported) VS, I&O, 24H, Fishbone Vital Signs/I&O Vital Signs Date Time Temp Pulse Resp B/P (MAP) Pulse Ox O2 Delivery O2 Flow Rate FiO2 05/12/21 16:05 98.1 64 20 97/49 (65) 94 Room Air XAVI HERNANDEZ MD May 14, 2021 12:25
== END ==
LOC: M IRPOV 15:39
PROVIDERS: ATTEND Radiology Diagnostic Radiology
DX: C11.9 Malignant neoplasm of nasopharynx, unspecified (principal); C78.7 Secondary malignant neoplasm of liver and intrahepatic bile duct; Z72.0 Tobacco use; Z92.21 Personal history of antineoplastic chemotherapy; Z92.3 Personal history of irradiation; Z93.1 Gastrostomy status

== ENCOUNTER 2021-05-14 15:15 | Emergency (ER) | payer MEDICARE, OTHER ==
[~2021-05-14] VITALS: Ht 170.2 cm; Wt 47.3 kg
[~2021-05-14 15:15] MED LIST changes: -CEFD1CAP8 PO; -GABA-1171; -SILV50CR; +SODIUM CHLORIDE 0.9% INJ 10 ML SYR IV SCH
[2021-05-14] MEDS ORDERED: GABA-1171 (15:38)
[2021-05-14] MEDS ORDERED: SILV50CR (15:40)
--- NOTE | 2021-05-14 16:20 | REP ---
INDICATION: fever. COMPARISON: 09/01/2020 the latest prior TECHNIQUE: Portable FINDINGS: The technique utilized in obtaining the radiograph has magnified the cardiac silhouette and accentuated the interstitial markings. Cardiomediastinal silhouette is unchanged. Since the last examination a MediPort device has been placed the tip of which is in the superior vena cava. The opacities seen previously in the right lung is nearly completely resolve with a minimal residual suspected laterally. No acute patchy parenchymal opacities or pleural effusions have developed there is no change in the osseous structures. IMPRESSION: There is no evidence of acute cardiopulmonary disease. Findings as described above. <Electronically signed by Varinder Kemp > 05/14/21 [id number]
[2021-05-14 17:00] LABS: BASO % 0.3 % (0.0-1.0); EOS # 0.1 10^3/uL (0.0-0.5); HEMATOCRIT 25.7 % (36.0-47.0); HEMOGLOBIN 8.1 g/dl (12.0-15.5); LYMPH # 0.5 10^3/uL (1.5-5.0); LYMPH % 4.6 % (24.0-44.0); MEAN CORPUSCULAR HEMOGLOBIN 28.6 pg (27.0-33.0); MEAN CORPUSCULAR HGB CONC 31.5 g/dl (32.0-36.5); MEAN CORPUSCULAR VOLUME 90.8 fl (80.0-96.0); MONO # 1.1 10^3/uL (0.0-0.8); MONO % 9.8 % (2.0-8.0); NEUTROPHILS # 9.4 10^3/uL (1.5-8.5); NEUTROPHILS % 83.9 % (36.0-66.0); PLATELET COUNT, AUTOMATED 497 10^3/uL (150-450); RED BLOOD COUNT 2.83 10^6/uL (4.00-5.40); WHITE BLOOD COUNT 11.2 10^3/uL (4.0-10.0)
[2021-05-14 17:20] LABS: ALBUMIN 2.5 GM/DL (3.2-5.2); ALT/SGPT 12 U/L (12-78); BILIRUBIN,TOTAL 0.5 MG/DL (0.2-1.0); BLOOD UREA NITROGEN 15 MG/DL (7-18); CALCIUM LEVEL 9.1 MG/DL (8.8-10.2); CARBON DIOXIDE LEVEL 33 MEQ/L (21-32); CHLORIDE LEVEL 89 MEQ/L (98-107); CREATININE FOR GFR 0.42 MG/DL (0.55-1.30); GLOMERULAR FILTRATION RATE > 60.0 (>45); GLUCOSE, FASTING 86 MG/DL (70-100); POTASSIUM SERUM 3.6 MEQ/L (3.5-5.1); SODIUM LEVEL 127 MEQ/L (136-145); TOTAL PROTEIN 7.2 GM/DL (6.4-8.2)
[2021-05-14] MEDS ORDERED: cefTRIAXone SOD 1 GM in D5W MINI-BAG PLUS 50 ML IV ONE (18:10)
[2021-05-14] MEDS ORDERED: CEFD1CAP8 PO (18:23)
[2021-05-14 19:35] VITALS: BP 122/80
== END 2021-05-14 19:54 | disposition home or self-care (01) ==
LOC: M ED 15:15
DX: N39.0 Urinary tract infection, site not specified (principal); D50.9 Iron deficiency anemia, unspecified; Z79.899 Other long term (current) drug therapy; Z87.891 Personal history of nicotine dependence
CPT/HCPCS: 71045; 80053; 81001; 83605; 85025; 87040; 87086; 96374; 99283; J0696; J1642

== ENCOUNTER 2021-05-15 13:45 | Outpatient (RCR) | payer MEDICARE, OTHER ==
--- NOTE | 2021-05-14 14:56 | RADENCPD ---
Date/Time of Encounter Date of Encounter: May 14, 2021 Time of Encounter: 14:52 Encounter Ivett was febrile to 101.6 on presentation to the center today. She reports feeling fatigued, her Dada says she has been lethargic at home. She denies any shaking chills, pain, SOB, cough, or dysuria. She has been having more regular bowel movements since initiating a bowel regimen. Repeat VS were T 100.6 BP 94/64 P 73 RR 18 We were unable to get a good pulse oximeter reading On review her labs of 05/05/21, when she received a 2 unit pRBC transfusion in medical oncology showed elevated WBC as well as elevated ferritin and plts I explained to her that she would be best served by ED evaluation and possible admission for brewing sepsis, given her current cancer treatment. She agreed, handoff form completed and report called to ED. OCTAVIO ARROYO MD May 14, 2021 14:56
[~2021-05-15 13:45] MED LIST changes: +CEFD1CAP8 PO; +GABA-1171 PO; +SILV50CR; -SODIUM CHLORIDE 0.9% INJ 10 ML SYR IV SCH
[2021-05-22] MEDS ORDERED: CAPE1TAB2 PO (13:09)
[2021-05-27] MEDS ORDERED: CAPE1TAB2 PO (12:02)
== END 2021-05-27 ==
LOC: M ONCR 13:45
PROVIDERS: ATTEND General Practice
DX: C11.8 Malignant neoplasm of overlapping sites of nasopharynx (principal); R23.4 Changes in skin texture

== ENCOUNTER 2021-06-05 14:45 | Observation (INO) | payer MEDICARE, OTHER ==
[~2021-06-05] VITALS: Ht 170.2 cm; Wt 45.5 kg
[2021-06-05] VITALS (8 sets, daily range): BP systolic 96–122; BP diastolic 52–62
[~2021-06-05 14:45] MED LIST changes: +CAPE1TAB2 PO
[2021-06-05] MEDS ORDERED: KCL 10MEQ/100ML SWI (KRUN) 10 MEQ in IV 1 EA IV ONE (16:10)
[2021-06-05] MEDS ORDERED: NS 1,000 ML IV ONE (16:10)
[2021-06-05 16:50] LABS: INR 1.1; PROTHROMBIN TIME 14.4 SECONDS (12.5-14.3)
--- NOTE | 2021-06-05 16:59 | REP ---
INDICATION: trauma COMPARISON: None. TECHNIQUE: AP and lateral right tibia/fibula FINDINGS: The osseous structures and joint spaces are intact and normal. There is no evidence for acute fracture or dislocation. Surrounding soft tissues are unremarkable. No subcutaneous emphysema or radiodense foreign body. IMPRESSION: . No acute fracture or dislocation. <Electronically signed by Toro Almaraz > 06/05/21 [id number]
[2021-06-05] MEDS ORDERED: ACETAMINOPHEN TAB 650MG DOSE (2X325MG) PO PRN (17:05)
[2021-06-05] MEDS ORDERED: MAALOX 30 ML SUSP *UDC PO PRN (17:05)
[2021-06-05 17:16] LABS: ALBUMIN 2.1 GM/DL (3.2-5.2); BILIRUBIN,DIRECT 0.3 MG/DL (0.0-0.2); BILIRUBIN,TOTAL 0.5 MG/DL (0.2-1.0); TOTAL PROTEIN 6.7 GM/DL (6.4-8.2)
[2021-06-05 17:30] LABS: RSV AMPLIFICATION NEGATIVE (NEGATIVE)
--- NOTE | 2021-06-05 17:42 | HPEPDOC ---
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 Patient went to her oncology office for an appointment was found to have anemia and electrolyte abnormalities. Patient says she has been feeling weak and has been having difficulty getting around. Patient states that she fell because she was weak earlier in the day and hit her zabala. Patient was able to walk on it afterwards. Patient did not pass out nor did she hit her head. Patient states she is feels very tired at this time. Patient is otherwise doing well. PAST MEDICAL HISTORY: 1. Nasopharyngeal carcinoma. 2. Seasonal allergies. 3. Arthritis. PAST SURGICAL HISTORY: 1. Port placement. SOCIAL HISTORY: Patient quit smoking just under 1 year ago and has been smoking since she was a teenager. Patient denies alcohol or illicit drug use. 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 REVIEW OF SYSTEMS: General: Patient denies fevers, chills HEENT: Patient denies headaches Cardiovascular: Patient denies chest pain Respiratory: Patient denies shortness of breath, cough GI: Patient denies abdominal pain, nausea, vomiting, diarrhea : Patient denies increased frequency or pain with urination Extremities: Patient denies swelling or pain in extremities Neurological: Patient denies numbness or tingling in legs Skin: Patient denies any new rashes or lesions. Hematologic: Patient denies any easy bruising. Lymphatic: Patient denies any lumps lumps or bumps in neck, axilla, or groin HOME MEDICATIONS: Please see below. PHYSICAL EXAMINATION: VITAL SIGNS: Temperature 97.2, pulse 56, respiratory rate 17, blood pressure 96/53, pulse oximetry 100% on room air. General: Alert and oriented thin appearing female with temporal wasting who was laying on the stretcher when I walked in. Patient did not appear to be in any acute distress. HEENT: Normocephalic, atraumatic, moist mucous membranes. Neck: No lymphadenopathy or thyromegaly Cardiac: Regular rate and rhythm, no murmurs, normal S1, normal S2 Pulm: Clear to auscultation bilaterally. No wheezes, rhonchi, rales Abd: Nondistended, nontender to palpation, normal bowel sounds Ext: No edema bilateral lower extremities patient has some mild tenderness to palpation of the mid zabala on the right leg. Neuro: Patient was able to move all 4 extremities on command. Skin: No evidence of rash or other lesions in the skin examined of the head, neck, upper chest, abdomen, lower leg and arms LABORATORY DATA: See below. IMAGING: X-ray of the tibia and fibula on the right leg performed on 06/05/2021 was reported to show no acute fracture or dislocation MICROBIOLOGY: Please see below. 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 . PLAN: 1. Symptomatic anemia. Patient's hemoglobin is 8.0 however, according to the patient's oncologist, patient is very fatigued and she sent her over to get some blood transfusions. Patient has 2 units of blood ordered and will get 2 blood transfusions. We will recheck lab work in the morning and to see how she is doing. 2. Hypokalemia patient received a 10 mEq IV potassium run in the emergency department. Patient received 20 mEq every 2 hours for 3 doses and will recheck in the morning. 3. Hyponatremia. Patient has been mildly hyponatremic since January 2021. We will continue to monitor this. 4. Thrombocytosis. Patient's platelet count is above 600,000. I spoke with patient's oncologist about this who has worked this up and has not found any reason for this. Patient's oncologist believes this is mostly reactive. 5. Hypotension. Patient states that her blood pressure usually runs low and in reviewing the patient's chart patient rarely has a blood pressure above 120/80. Patient is receiving 1 L bolus in the emergency department and we will continue to monitor her blood pressure. 6. Underweight/failure to thrive. Patient's BMI is 14.8. Patient has bitempor al wasting. I have added Ensure to the patient's diet and will continue to monitor the patient's weight while she is hospitalized. 7. Nasopharyngeal carcinoma with metastasis to liver and possible metastasis to lungs. Patient will continue follow-up with oncology. 8. DVT prophylaxis: Lovenox 9. CODE STATUS: Full code Disposition: Patient will be admitted to medical surgical floor on observation. Patient received 2 units of blood and electrolyte repletion and if the patient is feeling well tomorrow, she can be discharged home and follow-up with oncology next week. Vital Signs Vital Signs Date Time Temp Pulse Resp B/P (MAP) Pulse Ox O2 Delivery O2 Flow Rate FiO2 06/05/21 17:15 56 17 96/53 (67) 100 Room Air 06/05/21 15:55 97.2 Laboratory Data Labs 24H Laboratory Tests 2 06/05/21 16:15: Prothrombin Time 14.4H, Prothromb Time International Ratio 1.10, Total Bilirubin 0.5, Direct Bilirubin 0.3H, Aspartate Amino Transf (AST/SGOT) 18, Alanine Aminotransferase (ALT/SGPT) 9L, Alkaline Phosphatase 108, Total Protein 6.7, Al bumin 2.1L, Albumin/Globulin Ratio 0.5L 06/05/21 16:37: Home Medications Scheduled Capecitabine (Capecitabine) 500 Mg Tablet, 3 TAB PO BID for 14 days out of 21 days Famotidine (Famotidine) 20 Mg Tablet, 20 MG PO DAILY Furosemide (Furosemide) 20 Mg Tablet, 20 MG PO DAILY Gabapentin (Gabapentin) 100 Mg Capsule, 1 TAB PO BID Megestrol Acetate (Megestrol Acetate) 400 Mg/10 Ml Oral.susp, 10 MG DAILY Potassium Chloride (Potassium Chloride) 20 Meq Tab.er.prt, 20 MEQ PO DAILY Sennosides/Docusate Sodium (Senna-S Tablet) 1 Each Tablet, 2 TAB PO QPM Silver Sulfadiazine (Ssd) 50 Gm Cream..g., ASDIRECTED Scheduled PRN Hydrocodone/Acetaminophen (Hydrocodone-Acetamin 5-325 mg) 1 Each Tablet, 1-2 TAB PO Q4-6HP PRN for pain Hydroxyzine HCl (Hydroxyzine HCl) 10 Mg Tablet, 1 TAB PO DAILYPRN PRN for ITCHING Ondansetron HCl (Ondansetron HCl) 8 Mg Tablet, 8 MG PO Q12H PRN for NAUSEA OR VOMITING Prochlorperazine Maleate (Prochlorperazine Maleate) 10 Mg Tablet, 10 MG PO Q6H PRN for NAUSEA OR VOMITING Miscellaneous Medications Covid-19 Vacc,Mrna(Moderna)/Pf (Moderna Covid19 Vacc(Unapprov)) 100 Mcg/0.5 Ml Vial, 100 MCG IM Allergies Coded Allergies: No Known Allergies (Unverified , 11/04/20) A-FIB/CHADSVASC A-FIB History Current/History of A-Fib/PAF?: No ELIUD DE LEON DO Jun 05, 2021 17:42
[2021-06-05] MEDS: POTASSIUM CHLORIDE 10 MEQ SR TABLET PO SCH ×3 (18:12→22:08)
[2021-06-05] MEDS: SENOKOT S TAB PO SCH ×2 (18:13→20:44)
[2021-06-05] MEDS ORDERED: NORCO, ANEXSIA 5/325MG TABLET (HYDROcodone/ACETAMINOPHEN) PO PRN ×2 (18:20)
[2021-06-05] MEDS ORDERED: ONDANSETRON 4 MG ORAL DISINTEGRATING TAB PO PRN (18:25)
[2021-06-05] MEDS ORDERED: ONDA-83 PO (18:36)
[2021-06-05] MEDS ORDERED: HYDR-3719 PO (18:36)
[2021-06-05] MEDS ORDERED: SILV50CR TOP (18:36)
[2021-06-05] MEDS ORDERED: GABA-282 PO (18:36)
[2021-06-05] MEDS ORDERED: SENN1TAB89 PO (18:36)
[2021-06-05] MEDS ORDERED: DOCUSATE SODIUM 100MG CAPSULE PO SCH (21:00)
[2021-06-05] MEDS ORDERED: SODIUM CHLORIDE 0.9% INJ 10 ML SYR IV PRN (22:35)
[2021-06-06 00:30] VITALS: BP 139/64
[2021-06-06] MEDS ORDERED: POTASSIUM CHLORIDE 10 MEQ SR TABLET PO SCH (01:00)
[2021-06-06] MEDS: POTASSIUM CHLORIDE 10 MEQ SR TABLET PO SCH (01:00)
[2021-06-06 01:30] VITALS: BP 106/52
[2021-06-06 06:00] VITALS: BP 104/51
[2021-06-06 06:48] LABS: HEMATOCRIT 34.1 % (36.0-47.0); MEAN CORPUSCULAR HEMOGLOBIN 28.3 pg (27.0-33.0); MEAN CORPUSCULAR HGB CONC 32.3 g/dl (32.0-36.5); MEAN CORPUSCULAR VOLUME 87.7 fl (80.0-96.0); PLATELET COUNT, AUTOMATED 547 10^3/uL (150-450); RED BLOOD COUNT 3.89 10^6/uL (4.00-5.40); WHITE BLOOD COUNT 13.7 10^3/uL (4.0-10.0)
[2021-06-06 07:08] LABS: BLOOD UREA NITROGEN 9 MG/DL (7-18); CALCIUM LEVEL 8.9 MG/DL (8.8-10.2); CARBON DIOXIDE LEVEL 31 MEQ/L (21-32); CHLORIDE LEVEL 94 MEQ/L (98-107); CREATININE FOR GFR 0.31 MG/DL (0.55-1.30); GLOMERULAR FILTRATION RATE > 60.0 (>45); GLUCOSE, FASTING 82 MG/DL (70-100); MAGNESIUM LEVEL 1.6 MG/DL (1.8-2.4); POTASSIUM SERUM 4.1 MEQ/L (3.5-5.1); SODIUM LEVEL 131 MEQ/L (136-145)
[2021-06-06] MEDS ORDERED: hydrOXYzine 10 MG TAB PO PRN (08:40)
[2021-06-06] MEDS ORDERED: SODIUM CHLORIDE 0.9% INJ 10 ML SYR IV SCH (09:00)
[2021-06-06] MEDS ORDERED: FUROSEMIDE 20 MG TAB PO SCH (09:00)
[2021-06-06] MEDS ORDERED: FAMOTIDINE 20 MG TAB PO SCH (09:00)
[2021-06-06] MEDS ORDERED: ENOXAPARIN 30MG/0.3ML SYRINGE (J1650 PER 10MG) SC SCH (09:00)
[2021-06-06] MEDS: MAG SULF 1GM/100ML (MAG RUN) 1 GM in IV 1 EA IV SCH ×2 (09:30→13:07)
[2021-06-06 14:00] VITALS: BP 96/54
[2021-06-06 14:12] VITALS: BP 108/58
--- NOTE | 2021-06-06 14:33 | DS.PDOC ---
Discharge Summary General Date of Admission Jun 05, 2021 at 14:46 Date of Discharge 06/06/2021 Primary Care Physician: Ashely Myers Attending Physician: ELIUD DE LEON DO Discharge Summary PROCEDURES PERFORMED DURING STAY: Transfusion of 2 packed red blood cells. ADMITTING DIAGNOSES: 1. Symptomatic anemia. 2. Hypokalemia 3. Hyponatremia 4. Thrombocytosis 5. Hypertension 6. Underweight/failure to thrive 7. Nasopharyngeal carcinoma with metastasis to liver and possible metastasis to lungs DISCHARGE DIAGNOSES: 1. Symptomatic anemia, improved. 2. Hypokalemia, resolved 3. Hyponatremia, improved 4. Thrombocytosis 5. Hypotension, improved 6. Underweight/failure to thrive 7. Nasopharyngeal carcinoma COMPLICATIONS/CHIEF COMPLAINT: Hypokalemia, Symptomatic Anemia. HISTORY OF PRESENT ILLNESS: Patient is a 65-year-old female who presented to the emergency department from her oncology office earlier today due to symptomatic anemia and other electrolyte abnormalities. Patient states she been feeling weak and ended up falling earlier in the day and had her zabala. Patient was able to walk on her leg afterwards. Patient did not pass out or hit her head. Patient states that she is feeling very tired at this time. Patient is otherwise doing well. HOSPITAL COURSE: Patient received 2 units of packed red blood cells and 70 mEq of potassium. Patient's hemoglobin improved and patient's potassium improved. Patient's magnesium was low on the day of discharge and was repleted. Patient states she is feeling much better. Patient worked with physical therapy who she is worked with in the past who recommended the patient go home with services and only move out her house with her 's help. Patient's is at home awaiting the patient's discharge. Patient was deemed ready for discharge and instructed to follow-up with her oncologist earlier in the week. Patient was discharged from the hospital on 06/06/2021. DISCHARGE MEDICATIONS: Please see below. ALLERGIES: Please see below. PHYSICAL EXAMINATION ON DISCHARGE: VITAL SIGNS: Please see below. General: Alert and oriented female patient who was resting comfortably in bed when I walked in the room. Patient was thin appearing and had bitemporal wasting patient did not appear to be in any acute distress. HEENT: Normocephalic, atraumatic, moist mucous membranes. Neck: No lymphadenopathy or thyromegaly Cardiac: Regular rate and rhythm, no murmurs, normal S1, normal S2 Pulm: Clear to auscultation bilaterally. No wheezes, rhonchi, rales Abd: Nondistended, nontender to palpation, normal bowel sounds Ext: No edema bilateral lower extremities LABORATORY DATA: Please see below. IMAGING: X-ray of the tibia and fibula of the lower right lower leg was performe d on 06/05/2021 which was reported to show no acute fracture dislocation. PROGNOSIS: Fair ACTIVITY: Assisted ambulation. DIET: Regular DISCHARGE PLAN: Discharge home with services DISPOSITION: Discharge home with services DISCHARGE INSTRUCTIONS: 1. Follow-up with your oncologist within the next 3 days. 2. Follow-up with your primary care provider within the next 5 to 7 days 3. Return to the emergency department if symptoms return or worsen 4. Move about your home with the assistance of your walker and your . ITEMS TO FOLLOWUP ON ON OUTPATIENT: 1. Continuing to monitor blood counts and electrolytes. DISCHARGE CONDITION: Stable. TIME SPENT ON DISCHARGE: Greater than 30 minutes. Vital Signs/I&Os Vital Signs Date Time Temp Pulse Resp B/P (MAP) Pulse Ox O2 Delivery O2 Flow Rate FiO2 06/06/21 14:12 108/58 (75) 06/06/21 14:00 98.5 16 77 06/06/21 06:00 97 Room Air I&O- Last 24 Hours up to 6 AM 06/06/21 06:00 Intake Total 2270 ml Output Total 150 ml Balance 2120 ml Laboratory Data Labs 24H Laboratory Tests 2 06/05/21 16:15: Prothrombin Time 14.4H, Prothromb Time International Ratio 1.10, Total Bilirubin 0.5, Direct Bilirubin 0.3H, Aspartate Amino Transf (AST/SGOT) 18, Alanine Aminotransferase (ALT/SGPT) 9L, Alkaline Phosphatase 108, Total Protein 6.7, Albumin 2.1L, Albumin/Globulin Ratio 0.5L 06/05/21 16:37: Coronavirus (COVID-19)(PCR) NEGATIVE, Influenza Type A (RT-PCR) NEGATIVE, I nfluenza Type B (RT-PCR) NEGATIVE, Respiratory Syncytial Virus (PCR) NEGATIVE 06/06/21 06:02: Nucleated Red Blood Cells % (auto) 0.0, Anion Gap 6L, Glomerular Filtration Rate > 60.0, Calcium Level 8.9, Magnesium Level 1.6L CBC/BMP Laboratory Tests 06/06/21 06:02 Discharge Medications Scheduled Famotidine (Famotidine) 20 Mg Tablet, 20 MG PO DAILY, (Reported) Furosemide (Furosemide) 20 Mg Tablet, 20 MG PO DAILY, (Reported) Gabapentin (Gabapentin) 300 Mg Capsule, 300 MG PO QHS, (Reported) Potassium Chloride (Potassium Chloride) 20 Meq Tab.er.prt, 20 MEQ PO DAILY, (Reported) Sennosides/Docusate Sodium (Stool Softener-Laxative Tablet) 1 Each Tablet, 2 TAB PO QHS, (Reported) Scheduled PRN Hydrocodone/Acetaminophen (Hydrocodone-Acetamin 10-325 mg) 1 Each Tablet, 1 TAB PO QID PRN for PAIN LEVEL 5-10, (Reported) Hydroxyzine HCl (Hydroxyzine HCl) 10 Mg Tablet, 10 MG PO DAILY PRN for ITCHING, (Reported) Ondansetron HCl (Ondansetron HCl) 4 Mg Tablet, 4 MG PO TID PRN for NAUSEA OR VOMITING, (Reported) Silver Sulfadiazine (Ssd) 50 Gm Cream..g., 1 APPLIC TOP TID PRN for NECK PAIN, (Reported) APPLY TO RIGHT SIDE OF NECK Allergies Coded Allergies: No Known Allergies (Unverified , 11/04/20) ELIUD DE LEON DO Jun 06, 2021 14:33
[2021-06-06] MEDS ORDERED: GABAPENTIN 300 MG CAP PO SCH (21:00)
== END 2021-06-06 15:00 | disposition home health service (06) ==
LOC: M ED 14:45 → M ED INP 14:46 → M MSPAV 20:25
PROVIDERS: ADMIT Family Medicine; ATTEND Family Medicine
DX: D64.9 Anemia, unspecified (principal); E87.6 Hypokalemia; E87.1 Hypo-osmolality and hyponatremia; D47.3 Essential (hemorrhagic) thrombocythemia; I95.9 Hypotension, unspecified; R63.6 Underweight; C11.9 Malignant neoplasm of nasopharynx, unspecified; C78.7 Secondary malignant neoplasm of liver and intrahepatic bile duct; R53.0 Neoplastic (malignant) related fatigue; R53.1 Weakness; R29.6 Repeated falls; M19.90 Unspecified osteoarthritis, unspecified site; J30.1 Allergic rhinitis due to pollen; Z79.899 Other long term (current) drug therapy; Z87.891 Personal history of nicotine dependence
CPT/HCPCS: 36415; 36430; 36591; 73590; 80048; 80053; 82728; 83520; 83550; 83735; 85025; 85027; 85610; 86850; 86900; 86901; 86920; 87631; 96365; 96372; 96375; 96376; 97116; 97161; 99285; G0378; G0463; J1642; J1650; J3475; P9016

== ENCOUNTER 2021-06-21 10:56 | Inpatient (IN) | payer MEDICARE, OTHER ==
[~2021-06-21] VITALS: Ht 170.2 cm; Wt 50.3 kg
[2021-06-21] VITALS (23 sets, daily range): BP systolic 75–125; BP diastolic 42–59
[~2021-06-21 10:56] MED LIST changes: +GABA-282 PO; +HYDR-3719 PO; +ONDA-83 PO; +SENN1TAB89 PO; +SILV50CR TOP
[2021-06-21 11:55] LABS: BASO # 0.1 10^3/uL (0.0-0.2); BASO % 0.3 % (0.0-1.0); EOS % 0.1 % (0.0-3.0); HEMATOCRIT 31.4 % (36.0-47.0); LYMPH # 0.6 10^3/uL (1.5-5.0); MEAN CORPUSCULAR HEMOGLOBIN 28.1 pg (27.0-33.0); MEAN CORPUSCULAR HGB CONC 31.8 g/dl (32.0-36.5); MEAN CORPUSCULAR VOLUME 88.2 fl (80.0-96.0); MONO # 1.5 10^3/uL (0.0-0.8); MONO % 8.3 % (2.0-8.0); NEUTROPHILS % 87.5 % (36.0-66.0); PLATELET COUNT, AUTOMATED 507 10^3/uL (150-450); RED BLOOD COUNT 3.56 10^6/uL (4.00-5.40)
[2021-06-21] MEDS ORDERED: NS 1,000 ML IV ONE ×2 (11:55→16:00)
[2021-06-21 11:59] LABS: WHITE BLOOD COUNT 18.3 10^3/uL (4.0-10.0)
--- NOTE | 2021-06-21 12:03 | REP ---
INDICATION: weakness. COMPARISON: Comparison chest x-ray May 14, 2021.. TECHNIQUE: Upright AP portable chest x-ray, single view. FINDINGS: EKG monitoring electrodes are seen. A right internal jugular is Eucpqh-V-Sqyt catheter is seen with its tip in the expected location of the superior vena cava unchanged. The lungs are symmetrically aerated and free of infiltrate. The pleural angles are sharp. Heart is mildly enlarged. The aorta is tortuous. Pulmonary vasculature is not increased. There is diffuse osteopenia. IMPRESSION: No acute disease. Purome-Q-Dwuf catheter noted in place on the right. <Electronically signed by Jos Ortega > 06/21/21 [id number]
[2021-06-21 12:25] LABS: ALT/SGPT 16 U/L (12-78); BILIRUBIN,DIRECT < 0.1 MG/DL (0.0-0.2); BILIRUBIN,TOTAL 0.9 MG/DL (0.2-1.0); CK-MB VALUE MASS < 1.0 NG/ML (<3.6); CPK CREATINE PHOSPHOKINASE 86 U/L (26-192); MB/CK RELATIVE INDEX 1.16 (< OR =4); THYROID STIMULATING HORMONE 0.102 uIU/ML (0.358-3.740); TOTAL PROTEIN 7.6 GM/DL (6.4-8.2); TROPONIN I < 0.02 NG/ML (< 0.10)
[2021-06-21] MEDS ORDERED: LIDOCAINE 2% 5ML JELLY UROJET TOP ONE (12:50)
[2021-06-21 13:09] LABS: BLOOD UREA NITROGEN 12 MG/DL (7-18); CALCIUM LEVEL 10.8 MG/DL (8.8-10.2); CARBON DIOXIDE LEVEL 30 MEQ/L (21-32); CHLORIDE LEVEL 87 MEQ/L (98-107); CREATININE FOR GFR 0.47 MG/DL (0.55-1.30); GLOMERULAR FILTRATION RATE > 60.0 (>45); GLUCOSE, FASTING 85 MG/DL (70-100); POTASSIUM SERUM 5.2 MEQ/L (3.5-5.1); SODIUM LEVEL 125 MEQ/L (136-145)
[2021-06-21] MEDS ORDERED: MAALOX 30 ML SUSP *UDC PO PRN (14:15)
[2021-06-21] MEDS ORDERED: MOM 30ML SUSPENSION UDC PO PRN (14:15)
[2021-06-21] MEDS ORDERED: HOME MED LIST COMPLETE! XX SCH (14:40)
--- NOTE | 2021-06-21 15:40 | HPEPDOC ---
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 Patient's states that the patient has been getting worse especially over the past 5 days. Patient's weakness has worsened and the patient has been having difficulty walking. Patient has fallen a few times but has not hit her head. Patient does have some bruises on her arms. Patient states that her legs are not working properly which is causing her to fall. Patient states that when she goes from a sitting to standing position, she does get lightheaded. Patient denies any other complaints at this time. PAST MEDICAL HISTORY: 1. Nasopharyngeal carcinoma. 2. Seasonal allergies. 3. Arthritis. PAST SURGICAL HISTORY: 1. Port placement. SOCIAL HISTORY: Patient lives with her and quit smoking just under a year ago but has been smoking since she was a teenager. Patient denies alcohol or illicit drug use. 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 REVIEW OF SYSTEMS: General: Patient denies fevers HEENT: Patient denies headaches Cardiovascular: Patient denies chest pain Respiratory: Patient denies shortness of breath, cough GI: Patient denies abdominal pain, nausea, vomiting, diarrhea : Patient denies increased frequency or pain with urination Extremities: Patient denies swelling or pain in extremities Neurological: Patient denies numbness or tingling in legs Skin: Patient denies any new rashes or lesions. Hematologic: Patient denies any easy bruising. Lymphatic: Patient denies any lumps lumps or bumps in neck, axilla, or groin HOME MEDICATIONS: Please see below. PHYSICAL EXAMINATION: VITAL SIGNS: Temperature 99.2, pulse 62, respiratory rate 16, blood pressure 102/58, pulse oximetry 98% on room air. General: Alert and oriented female patient who was laying in bed when I walked in. Patient was cachectic appearing with temporal wasting and small muscle wasting. Patient did not appear to be in any acute distress. HEENT: Normocephalic, atraumatic, moist mucous membranes. Neck: No lymphadenopathy or thyromegaly Cardiac: Regular rate and rhythm, no murmurs, normal S1, normal S2 Pulm: Clear to auscultation bilaterally. No wheezes, rhonchi, rales Abd: Nondistended, nontender to palpation, normal bowel sounds, PEG tube in place with some purulent drainage, from the PEG tube site. Ext: No edema bilateral lower extremities, bruising on the patient's forearms with no tenderness. Neuro: Patient is able to move all 4 extremities on command. Patient reports sensation light touch in all 4 extremities. Skin: Skin of the head, neck, upper and lower extremities, abdomen was examined not show any evidence of rash or lesion. LABORATORY DATA: See below. IMAGING: Chest x-ray was performed on 06/21/2021 is reported to show no active disease. Jmkfjj-m-Okyf catheter noted in place on the right. MICROBIOLOGY: Please see below. ASSESSMENT: Patient is a 65-year-old female presented today with weakness who was found to have possible urinary tract infection on urinary analysis. . PLAN: 1. Urinary tract infection. Patient will be admitted for urinary tract infection and treated with Zosyn. We will await the results of the patient's urine culture. Patient did have a recent urinary tract infection in April that was treated with ceftriaxone which is why we are using Zosyn. We will monitor for the culture results and monitor urine output. 2. Weakness. This may be secondary to the urinary tract infection but also deconditioning due to malnutrition or progression of her cancer. Patient work with physical therapy and we will continue to treat the patient's urinary tract infection. 3. SIRS criteria met. Patient was hypotensive and tachypneic with an elevated white count. Patient received greater than 30/cc KG bolus and will be treated with Zosyn. 4. Possible PEG tube infection. We will culture the site of the PEG tube for possible infection. 5. Nasopharyngeal carcinoma with metastasis to liver and possibly lung. Patient is not currently on chemotherapy. Patient was supposed to go to [place] to get treatment for her liver metastasis but she no longer wanted to go. 6. DVT prophylaxis: Lovenox 7. CODE STATUS: Full code. I did have an extensive conversation with the patient and her about CODE STATUS as a MOLST form has been filled out in the emergency department for DNR/DNI however, patient expressed that she would like CPR performed. When I asked the patient to explain CPR to me she was able to explain that it is pushing on the chest to pump the heart from the outside while measures are taken to restart the heart. Patient states that she would like this done. Patient's is the healthcare proxy. Disposition: Patient will be admitted to the progressive care unit. I do expect greater than 2 midnight stay. Vital Signs Vital Signs Date Time Temp Pulse Resp B/P (MAP) Pulse Ox O2 Delivery O2 Flow Rate FiO2 06/21/21 15:15 62 16 88/50 (63) 97 Room Air 06/21/21 10:58 99.2 Laboratory Data Labs 24H Laboratory Tests 2 06/21/21 11:42: Lactic Acid Level 1.0 06/21/21 11:43: Immature Granulocyte % (Auto) 0.8, Neutrophils (%) (Auto) 87.5H, Lymphocytes (%) (Auto) 3.0L, Monocytes (%) (Auto) 8.3H, Eosinophils (%) (Auto) 0.1, Basophils (%) (Auto) 0.3, Neutrophils # (Auto) 16.0H, Lymphocytes # (Auto) 0.6L, Monocytes # (Auto) 1.5H, Eosinophils # (Auto) 0.0, Basophils # (Auto) 0.1, Nucleated Red Blood Cells % (auto) 0.0, Anion Gap 8, Glomerular Filtration Rate > 60.0, Calcium Level 10.8H, Total Bilirubin 0.9, Direct Bilirubin < 0.1, Aspartate Amino Transf (AST/SGOT) 44H, Alanine Aminotransferase (ALT/SGPT) 16, Alkaline Phosphatase 179H, Total Creatine Kinase 86, Creatine Kinase MB < 1.0, Creatine Kinase MB Relative Index 1.16, Troponin I < 0.02, Total Protein 7.6, Albumin 2.0L, Albumin/Globulin Ratio 0.4L, Thyroid Stimulating Hormone (TSH) 0.102L 06/21/21 12:20: POC Glucose (Misc Panel) 91, POC Sodium (Misc Panel) 124L, POC Potassium (Misc Panel) 3.8, POC Chloride (Misc Panel) 88L, POC Total CO2 (Misc Panel) 34.0H, POC Blood Urea Nitrogen (Misc Panel 12, POC Ionized Calcium (Misc Panel) 5.9H, POC Creatinine (Misc Panel) 0.5L, POC Hematocrit (Misc Panel) 32.0L 06/21/21 13:13: Urine Color GREGORY, Urine Appearance CLOUDYH, Urine pH 6.0, Urine Specific [place] 1.015, Urine Protein 1+H, Urine Glucose (UA) NEGATIVE, Urine Ketones 1+H, Urine Blood NEGATIVE, Urine Nitrite NEGATIVE, Urine Bilirubin 1+H, Urine Urobilinogen 4.0H, Urine Leukocyte Esterase 3+H, Urine WBC (Auto) TNTCH, Urine RBC (Auto) 5H, Urine Hyaline Casts (Auto) 0, Urine Bacteria (Auto) 1+H, Urine Squamous Epithelial Cells 15, Urine Transitional Epithelial Cells 2, Urine Mucus (Auto) SMALL, Urine Sperm (Auto) 06/21/21 14:37: CBC/BMP Laboratory Tests 06/21/21 11:43 Microbiology Microbiology 06/21/21 Blood Culture, Received Pending 06/21/21 Urine Culture, Received Pending 06/21/21 Blood Culture, Received Pending Home Medications Scheduled Famotidine (Famotidine) 20 Mg Tablet, 20 MG PO DAILY Furosemide (Furosemide) 20 Mg Tablet, 20 MG PO DAILY Gabapentin (Gabapentin) 300 Mg Capsule, 300 MG PO QHS Potassium Chloride (Potassium Chloride) 20 Meq Tab.er.prt, 20 MEQ PO DAILY Sennosides/Docusate Sodium (Stool Softener-Laxative Tablet) 1 Each Tablet, 2 TAB PO QHS Scheduled PRN Hydrocodone/Acetaminophen (Hydrocodone-Acetamin 10-325 mg) 1 Each Tablet, 1 TAB PO QID PRN for PAIN LEVEL 5-10 Hydroxyzine HCl (Hydroxyzine HCl) 10 Mg Tablet, 10 MG PO DAILY PRN for ITCHING Ondansetron HCl (Ondansetron HCl) 4 Mg Tablet, 4 MG PO TID PRN for NAUSEA OR VOMITING Allergies Coded Allergies: No Known Allergies (Unverified , 11/04/20) A-FIB/CHADSVASC A-FIB History Current/History of A-Fib/PAF?: No ELIUD DE LEON DO Jun 21, 2021 15:40
[2021-06-21 15:48] LABS: RSV AMPLIFICATION NEGATIVE (NEGATIVE)
[2021-06-21] MEDS: PIPERACILLIN/TAZOBACTAM SOD 3.375 GM in D5W MINI-BAG PLUS 50 ML IV SCH (17:20)
--- NOTE | 2021-06-21 21:17 | REPVR ---
PROCEDURE INFORMATION: Exam: CT Head Without Contrast Exam date and time: 06/21/2021 8:35 PM Age: 65 years old Clinical indication: Injury or trauma; Fall; Blunt trauma (contusions or hematomas); Additional info: Head trauma S/P fall TECHNIQUE: Imaging protocol: Computed tomography of the head without contrast. Radiation optimization: All CT scans at this facility use at least one of these dose optimization techniques: automated exposure control; mA and/or kV adjustment per patient size (includes targeted exams where dose is matched to clinical indication); or iterative reconstruction. COMPARISON: CT BRAIN LAB SINUSES 10/11/2020 9:17 AM FINDINGS: Brain: There is mild diffuse cerebellar atrophy. [id number] diffuse cerebral atrophy. No significant white matter disease. Small extra-axial calcification adjacent to the right frontal lobe stable in appearance may represent a calcified meningioma. Cerebral ventricles: The degree of ventricular dilatation is normal for age and/or degree of atrophy present. Paranasal sinuses: Inflammatory changes left sphenoid sinus. Mastoid air cells: Visualized mastoid air cells are well aerated. Bones/joints: Unremarkable. No acute fracture. Soft tissues: Defect in the anterior inferior cartilaginous nasal septum. Nasal cavity: Nasal septum deviated to the left with an ipsilateral nasal spur. IMPRESSION: 1. There is mild diffuse cerebellar atrophy. 2. [id number] diffuse cerebral atrophy. 3. The degree of ventricular dilatation is normal for age and/or degree of atrophy present. 4. Inflammatory changes left sphenoid sinus. 5. Possible chronic calcified right frontal meningioma. 6. No acute intracranial findings. Electronically signed by: Ervin Martin On 06/21/2021 21:16:16 PM
[2021-06-21] MEDS: ACETAMINOPHEN TAB 650MG DOSE (2X325MG) PO PRN (23:12)
[2021-06-22] VITALS (34 sets, daily range): BP systolic 67–107; BP diastolic 37–55
[2021-06-22] MEDS: PIPERACILLIN/TAZOBACTAM SOD 3.375 GM in D5W MINI-BAG PLUS 50 ML IV SCH ×4 (00:21→22:59)
[2021-06-22 04:58] LABS: HEMATOCRIT 35.6 % (36.0-47.0); HEMOGLOBIN 11.2 g/dl (12.0-15.5); MEAN CORPUSCULAR HEMOGLOBIN 28.1 pg (27.0-33.0); MEAN CORPUSCULAR HGB CONC 31.5 g/dl (32.0-36.5); MEAN CORPUSCULAR VOLUME 89.4 fl (80.0-96.0); PLATELET COUNT, AUTOMATED 434 10^3/uL (150-450); RED BLOOD COUNT 3.98 10^6/uL (4.00-5.40); WHITE BLOOD COUNT 17.2 10^3/uL (4.0-10.0)
[2021-06-22 05:22] LABS: BLOOD UREA NITROGEN 10 MG/DL (7-18); CALCIUM LEVEL 10.6 MG/DL (8.8-10.2); CARBON DIOXIDE LEVEL 26 MEQ/L (21-32); CHLORIDE LEVEL 93 MEQ/L (98-107); CREATININE FOR GFR 0.33 MG/DL (0.55-1.30); GLOMERULAR FILTRATION RATE > 60.0 (>45); GLUCOSE, FASTING 82 MG/DL (70-100); MAGNESIUM LEVEL 1.3 MG/DL (1.8-2.4); POTASSIUM SERUM 3.1 MEQ/L (3.5-5.1); SODIUM LEVEL 127 MEQ/L (136-145)
[2021-06-22] MEDS ORDERED: POTASSIUM CHLORIDE 10 MEQ SR TABLET PO ONE (06:30)
[2021-06-22] MEDS: MAG SULF 1GM/100ML (MAG RUN) 1 GM in IV 1 EA IV SCH ×2 (06:52→07:56)
[2021-06-22] MEDS ORDERED: POTASSIUM CHLORIDE 10% LIQ 20 MEQ/15 ML UDC PO ONE ×2 (08:00→19:20)
[2021-06-22] MEDS: ENOXAPARIN 30MG/0.3ML SYRINGE (J1650 PER 10MG) SC SCH (10:05)
--- NOTE | 2021-06-22 10:42 | IPNPDOC ---
Text Note Date of Service The patient was seen on 06/22/21. NOTE SUBJECTIVE: Patient was seen and examined this morning at bedside. Patient states she feels very weak and continues to fall. Patient did have a fall last night while being assisted by the nurse to use the toilet. She currently denies any pain or injuries from that fall. Head CT was negative for any acute process. OBJECTIVE: VITAL SIGNS: See below GENERAL: Alert, comfortable, in no acute distress. Cachectic appearing with temporal wasting. HEENT: Normocephalic, atraumatic, PERRLA, EOMI, moist mucous membranes NECK: Supple, trachea midline, no lymphadenopathy CARDIOVASCULAR: Regular rate and rhythm, normal S1 and S2. No murmurs, rubs, or gallops appreciated RESPIRATORY: Clear to auscultation bilaterally with equal air entry bilaterally. No wheezing, rhonchi, or rales appreciated ABDOMEN: Soft, nontender, nondistended, bowel sounds present. PEG tube in place with some purulent drainage from the PEG tube site, no surrounding erythema, warmth, or swelling. EXTREMITIES: No cyanosis or edema. Pulses 2+/4 in bilateral upper and lower extremities. NEUROLOGIC: Able to move all four extremities. 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 # UTI - abx coverage with zosyn day #2 - recently treated for UTI with ceftriaxone, now on zosyn for broader coverage as resistance may have developed - urine culture pending, will de-escalated abx based on sensitivities # Weakness 2/2 physical deconditioning vs malnutrition vs UTI - treatment for UTI as above - PT consult to work on strengthening # PEG tube infection - culture of PEG insertion site pending - abx as above, vancomycin will be added due to the patient's hypotension and for gram-positive coverage. 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 Patient received a 1 L fluid bolus which minimally raised patient blood pressure. Patient was started on p.o. midodrine this afternoon and will be given a liter of fluid overnight. DVT prophylaxis: sc Lovenox CODE STATUS: Full code Disposition: pending clinical improvement, culture results, and PT evaluation I, Michael De Leon DO, have independently examined this patient and performed my own physical exam, as well as reviewed the documentation and edited where ne cessary. I have discussed in detail with the resident / student the findings and plan of treatment as documented by the resident / student and edited their note. I agree with their findings and treatment plan and have edited their documentation. I will continue to follow the patient during this hospital stay. VS,Fishbone, I+O VS, Fishbone, I+O Laboratory Tests 06/21/21 11:43 06/22/21 04:53 Vital Signs Date Time Temp Pulse Resp B/P (MAP) Pulse Ox O2 Delivery O2 Flow Rate FiO2 06/22/21 06:30 67 91/55 (67) 06/22/21 04:00 97.0 20 96 Room Air I&O- Last 24 Hours up to 6 AM 06/22/21 06:00 Intake Total 620 ml Output Total 800 ml Balance -180 ml DEEPAK ARAYA D.O. Jun 22, 2021 10:42 MICHAEL DE LEON DO Jun 22, 2021 18:17
[2021-06-22 14:21] LABS: OSMOLALITY URINE 430 MOSM/KG (50-1400)
[2021-06-22 14:40] LABS: SODIUM,RANDOM URINE 67 MEQ/L
[2021-06-22] MEDS ORDERED: NS 1,000 ML IV ONE (16:15)
[2021-06-22] MEDS ORDERED: NS 1,000 ML IV SCH (17:35)
[2021-06-22] MEDS: MIDODRINE 5 MG TAB PO SCH (17:52)
[2021-06-22 18:48] LABS: BLOOD UREA NITROGEN 8 MG/DL (7-18); CALCIUM LEVEL 9.1 MG/DL (8.8-10.2); CARBON DIOXIDE LEVEL 29 MEQ/L (21-32); CHLORIDE LEVEL 93 MEQ/L (98-107); CREATININE FOR GFR 0.28 MG/DL (0.55-1.30); GLOMERULAR FILTRATION RATE > 60.0 (>45); GLUCOSE, FASTING 112 MG/DL (70-100); POTASSIUM SERUM 3.2 MEQ/L (3.5-5.1); SODIUM LEVEL 127 MEQ/L (136-145)
[2021-06-22] MEDS ORDERED: VANCOMYCIN HCL 1,000 MG, VIAL MATE ADAPTER 1 EACH in NS 250 ML IV ONE (19:00)
[2021-06-22] MEDS ORDERED: MAG SULF 1GM/100ML (MAG RUN) 1 GM in IV 1 EA IV ONE (19:25)
--- NOTE | 2021-06-22 20:24 | ECGEPIP ---
[facility] - ED Test Date: 2021-06-21 Pat Name: CHON GREEN Department: Room: - Gender: Female School Secretary: GIOVANA : 1955 Requested By: Tamir Mcintyre Order Number: [id number] Reading MD: Yesy Thompson Measurements Intervals [place] Rate: 72 P: 29 CO: 138 QRS: -32 QRSD: 74 T: 61 QT: 336 QTc: 367 Interpretive Statements Sinus rhythm with premature atrial complexes Left axis deviation decreased rate 09/05/20 Electronically Signed on 06-22-2021 20:24:32 EDT by Yesy Thompson
[2021-06-22] MEDS: KCL 10MEQ/100ML SWI (KRUN) 10 MEQ in IV 1 EA IV SCH (21:39)
[2021-06-23] VITALS (67 sets, daily range): BP systolic 65–109; BP diastolic 34–55
[2021-06-23] MEDS: KCL 10MEQ/100ML SWI (KRUN) 10 MEQ in IV 1 EA IV SCH ×2 (00:02→01:21)
[2021-06-23] MEDS ORDERED: NS 1,000 ML IV ONE ×2 (01:40→23:10)
[2021-06-23] MEDS: VANCOMYCIN HCL 750 MG, VIAL MATE ADAPTER 1 EACH in NS 250 ML IV SCH ×3 (03:09→19:41)
[2021-06-23] MEDS: PIPERACILLIN/TAZOBACTAM SOD 3.375 GM in D5W MINI-BAG PLUS 50 ML IV SCH ×4 (04:37→22:15)
[2021-06-23 05:00] LABS: HEMOGLOBIN 8.7 g/dl (12.0-15.5); MEAN CORPUSCULAR HEMOGLOBIN 28.2 pg (27.0-33.0); MEAN CORPUSCULAR HGB CONC 32.2 g/dl (32.0-36.5); MEAN CORPUSCULAR VOLUME 87.7 fl (80.0-96.0); PLATELET COUNT, AUTOMATED 507 10^3/uL (150-450); RED BLOOD COUNT 3.08 10^6/uL (4.00-5.40); WHITE BLOOD COUNT 18.9 10^3/uL (4.0-10.0)
[2021-06-23 05:12] LABS: BLOOD UREA NITROGEN 5 MG/DL (7-18); CALCIUM LEVEL 8.9 MG/DL (8.8-10.2); CARBON DIOXIDE LEVEL 29 MEQ/L (21-32); CHLORIDE LEVEL 96 MEQ/L (98-107); CREATININE FOR GFR 0.22 MG/DL (0.55-1.30); GLOMERULAR FILTRATION RATE > 60.0 (>45); GLUCOSE, FASTING 89 MG/DL (70-100); MAGNESIUM LEVEL 1.7 MG/DL (1.8-2.4); POTASSIUM SERUM 3.7 MEQ/L (3.5-5.1); SODIUM LEVEL 130 MEQ/L (136-145)
[2021-06-23] MEDS: MAG SULF 1GM/100ML (MAG RUN) 1 GM in IV 1 EA IV SCH ×2 (05:38→07:42)
[2021-06-23] MEDS: MIDODRINE 5 MG TAB PO SCH ×3 (07:47→15:49)
[2021-06-23] MEDS: ENOXAPARIN 30MG/0.3ML SYRINGE (J1650 PER 10MG) SC SCH (09:28)
--- NOTE | 2021-06-23 10:22 | IPNPDOC ---
Text Note Date of Service The patient was seen on 06/23/21. NOTE SUBJECTIVE: Patient was seen and examined this morning at bedside. Patient states she is feeling very tired this morning. She had her blood pressure checked quite frequently overnight and did not get much sleep. Otherwise she states she is feeling well. She denies any dizziness or lightheadedness. She was mildly febrile overnight up to 100.6 F taken temporally, which resolved after removal of her blankets. OBJECTIVE: VITAL SIGNS: See below GENERAL: Alert, comfortable, in no acute distress. Cachectic appearing with temporal wasting. HEENT: Normocephalic, atraumatic, moist mucous membranes NECK: Supple, trachea midline, no lymphadenopathy CARDIOVASCULAR: Regular rate and rhythm, normal S1 and S2. No murmurs, rubs, or gallops appreciated RESPIRATORY: Clear to auscultation bilaterally with equal air entry bilaterally. No wheezing, rhonchi, or rales appreciated ABDOMEN: Soft, nontender, nondistended, bowel sounds present. PEG tube in place with some purulent drainage from the PEG tube site, no surrounding erythema, warmth, or swelling. EXTREMITIES: No cyanosis or edema. Pulses 2+/4 in bilateral upper and lower extremities. NEUROLOGIC: Able to move all four extremities. 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 # UTI - abx coverage with zosyn day #3 - recently treated for UTI with ceftriaxone, now on zosyn for broader coverage as resistance may have developed - urine culture did not grow single organism, does not provide clinical significance Given her mild fever overnight and hypotension will continue IV antibiotics for today #Hypotension - minimally responsive to IV fluids - check am cortisol for possible adrenal insufficiency - continue with midodrine - Will repeat lactic acid - goal MAP > 60 # Weakness 2/2 physical deconditioning vs malnutrition vs UTI - treatment for UTI as above - PT consult to work on strengthening, possible continued rehab after discharge # PEG tube with possible infection - currently no pain around site - culture of PEG insertion site pending - zosyn day #3 and vancomycin day #2 - surgery to remove PEG tube today as pt does not use it for nutrition # Nasopharyngeal carcinoma with metastasis to liver and possibly lung, s/p chemotherapy and radiation - per oncology notes she was expected to start capecitabine but she hadn't started this yet - Pt was referred for treatment of liver metastasis but is unsure if she is going to follow through with this DVT prophylaxis: sc Lovenox CODE STATUS: Full code Disposition: pending clinical improvement and culture results, possible continued rehab after discharge VS,Fishbone, I+O VS, Fishbone, I+O Laboratory Tests 06/22/21 18:02 06/23/21 04:32 Vital Signs Date Time Temp Pulse Resp B/P (MAP) Pulse Ox O2 Delivery O2 Flow Rate FiO2 06/23/21 09:30 53 94/50 (65) 98 Room Air 06/23/21 09:00 16 06/23/21 08:00 98.0 I&O- Last 24 Hours up to 6 AM 06/23/21 06:00 Intake Total 4000 ml Output Total 1650 ml Balance 2350 ml GME ATTESTATION GME ATTESTATION My faculty preceptor for this patient encounter was physically present during the encounter and was fully available. All aspects of the patient interview, examination, medical decision making process, and medical care plan development were reviewed and approved by the faculty preceptor. The faculty preceptor is aware and concurs with the plan as stated in the body of this note and will attest to such by his/her cosignature. ATTENDING NOTE I, Darlene Mahmood, have independently examined this patient and performed my own physical exam, as well as reviewed the documentation and edited where necessary. I have discussed in detail with the resident / student the findings and plan of treatment as documented by the resident / student and edited their note. I agree with their findings and treatment plan and have edited their documentation. I will continue to follow the patient during this hospital stay. DEEPAK ARAYA D.O. Jun 23, 2021 10:21 DARLENE MAHMOOD MD Jun 23, 2021 13:18
[2021-06-23] MEDS ORDERED: NS 500 ML IV ONE (12:40)
[2021-06-23] MEDS: NS 1,000 ML IV SCH (15:51)
[2021-06-23 17:36] LABS: BLOOD UREA NITROGEN 5 MG/DL (7-18); CALCIUM LEVEL 8.9 MG/DL (8.8-10.2); CARBON DIOXIDE LEVEL 29 MEQ/L (21-32); CHLORIDE LEVEL 98 MEQ/L (98-107); CREATININE FOR GFR 0.28 MG/DL (0.55-1.30); GLOMERULAR FILTRATION RATE > 60.0 (>45); GLUCOSE, FASTING 114 MG/DL (70-100); SODIUM LEVEL 133 MEQ/L (136-145)
--- NOTE | 2021-06-23 17:38 | CR.PDOC ---
General Date of Consultation: Jun 23, 2021 Referring Provider: ELIUD DE LEON DO Primary Care Physician: Ashely Myers ANP Consultation REASON FOR CONSULTATION/CHIEF COMPLAINT: clarification of goals of care HISTORY OF PRESENT ILLNESS: 65 year old female with metastatic nasopharyngeal cancer ( mets to liver and possibly lungs ) admitted to [facility] after 2 week history of increasing falls at home. Ivett stated she would feel lightheaded and then fall. She also reports she has been increasingly weak, requiring assistance to walk back and forth to the bathroom and most of the time over the pat 2 weeks she has remained in bed. She stated her G tube site is very tender and she wants her G tube out. She denies any other pain or symtom. She stated she has been eating a drinking fluids well at home prior to this admission, but admits she has continued to lose weight. She reviewed MOLST from in ED and initally wantsed DNR/DNI but then changed her mind stating she would want chest compressions of her heart stopped beating. ALLERGIES: Please see below. HOME MEDICATIONS: Please see below. PAST MEDICAL HISTORY: 1. nasopharyngeal cancer with mets to liver, lung 2. seasonal allergies 3. arthritis PAST SURGICAL HISTORY: 1. port 2. 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 started smoking in her teens ETOH: denies Illicit drug use: denies IV drug use: denies REVIEW OF SYSTEMS: CONSTITUTIONAL: weakness, falls, fatigue HEENT: denies dysphagia, oral sores CARDIOVASCULAR: denies chest pain or palpitations +hypotension RESPIRATORY: denies dyspnea GENITOURINARY: admitted with UTI MUSCULOSKELETAL: some joint stiffness GASTROINTESTINAL: g tube, denies n/v/c/d SKIN: denies rashes bruising NEUROLOGICAL: denies headaches, +weakness PSYCHIATRIC: denies depression, anxiety ENDOCRINE: no excessive thrist or hunger HEMATOLOGIC/LYMPHATIC: metastatic nasopharyngeal cancer PHYSICAL EXAMINATION: VITAL SIGNS: Please see below. GENERAL APPEARANCE: cachectic appearing female resting in bed in no distress. HEENT: glasses, EOM intact, oral cavity moist RESPIRATORY: CTA CARDIOVASCULAR: BP 88/52. RRR ABDOMEN: +BS, nontendern, no rebound or guarding. PEG site dressed EXTREMITIES: no edema clubbing or cyanosis NEUROLOGICAL: no sensory deficits, Required assistance to reposition in bed PSYCHIATRIC: euthymic, appears to have capacity LABORATORY DATA: Please see below. ASSESSMENT/PLAN: 1. metastatic nasopharyngeal cancer 2. failure to thrive I queried Ivett on her understanding of chest compressions. 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 Despite that, she conitnues to want chest compressions done. I asked her about further cancer treatment. She stated she is going "to [place] to have a procedure they won't do here because it is too expensive." She was referring to the metastatic liver lesion. She stated "no one called me to set that up" and it is her intention to seek this treatment once she is out of here "If they can get me a ride there." I am unsure of the reality of this treatment or even if she would qualify for said treatment at this point given her weakness, fatigue, weight loss. She did have an appointment in my clinic October 2020 for an inital evaluation she no showed for. She appears to have capacity at this point and although her current choice would likely result in increased suffering for her, that, at this time, is her choice. Vital Signs/I&O Vital Signs Date Time Temp Pulse Resp B/P (MAP) Pulse Ox O2 Delivery O2 Flow Rate FiO2 06/23/21 13:45 51 88/51 (63) 06/23/21 13:15 75 06/23/21 11:30 Room Air 06/23/21 11:00 16 06/23/21 08:00 98.0 I&O- Last 24 Hours up to 6 AM 06/23/21 06:00 Intake Total 4000 ml Output Total 1650 ml Balance 2350 ml Laboratory Data Labs 24H Laboratory Tests 2 06/22/21 18:01: Procalcitonin 0.29 06/22/21 18:02: Anion Gap 5L, Glomerular Filtration Rate > 60.0, Calcium Level 9.1 06/22/21 19:42: Magnesium Level 1.6L 06/23/21 04:32: Anion Gap 5L, Glomerular Filtration Rate > 60.0, Calcium Level 8.9, Magnesium Level 1.7L, Nucleated Red Blood Cells % (auto) 0.0 06/23/21 08:27: Cortisol AM Sample 26.1H 06/23/21 12:43: Lactic Acid Level 1.4 06/23/21 15:56: CBC/BMP Laboratory Tests 06/22/21 18:02 06/23/21 04:32 Microbiology Microbiology 06/22/21 Gram Stain - Final, Resulted 06/22/21 Wound Culture, Resulted Pending 06/21/21 Blood Culture - Preliminary, Resulted No Growth after 48 hours. All Specime... 06/21/21 Urine Culture - Final, Complete 06/21/21 Blood Culture - Preliminary, Resulted No Growth after 48 hours. All Specime... Allergies Coded Allergies: No Known Allergies (Unverified , 11/04/20) Home Medications Scheduled Famotidine (Famotidine) 20 Mg Tablet, 20 MG PO DAILY, (Reported) Furosemide (Furosemide) 20 Mg Tablet, 20 MG PO DAILY, (Reported) Gabapentin (Gabapentin) 300 Mg Capsule, 300 MG PO QHS, (Reported) Potassium Chloride (Potassium Chloride) 20 Meq Tab.er.prt, 20 MEQ PO DAILY, (Reported) Sennosides/Docusate Sodium (Stool Softener-Laxative Tablet) 1 Each Tablet, 2 TAB PO QHS, (Reported) Scheduled PRN Hydrocodone/Acetaminophen (Hydrocodone-Acetamin 10-325 mg) 1 Each Tablet, 1 TAB PO QID PRN for PAIN LEVEL 5-10, (Reported) Hydroxyzine HCl (Hydroxyzine HCl) 10 Mg Tablet, 10 MG PO DAILY PRN for ITCHING, (Reported) Ondansetron HCl (Ondansetron HCl) 4 Mg Tablet, 4 MG PO TID PRN for NAUSEA OR VOMITING, (Reported) Smitha BRADSHAW [employer] MANAGER Jun 23, 2021 17:38
[2021-06-24] VITALS (19 sets, daily range): BP systolic 83–113; BP diastolic 46–56
[2021-06-24] MEDS: VANCOMYCIN HCL 750 MG, VIAL MATE ADAPTER 1 EACH in NS 250 ML IV SCH ×3 (03:26→18:12)
[2021-06-24] MEDS: PIPERACILLIN/TAZOBACTAM SOD 3.375 GM in D5W MINI-BAG PLUS 50 ML IV SCH ×4 (04:22→22:18)
[2021-06-24] MEDS: ACETAMINOPHEN TAB 650MG DOSE (2X325MG) PO PRN ×3 (05:50→22:18)
[2021-06-24 05:56] LABS: HEMATOCRIT 26.6 % (36.0-47.0); HEMOGLOBIN 8.5 g/dl (12.0-15.5); MEAN CORPUSCULAR HEMOGLOBIN 28.1 pg (27.0-33.0); MEAN CORPUSCULAR VOLUME 88.1 fl (80.0-96.0); PLATELET COUNT, AUTOMATED 489 10^3/uL (150-450); RED BLOOD COUNT 3.02 10^6/uL (4.00-5.40); WHITE BLOOD COUNT 17.3 10^3/uL (4.0-10.0)
[2021-06-24 06:45] LABS: BLOOD UREA NITROGEN 4 MG/DL (7-18); CALCIUM LEVEL 8.8 MG/DL (8.8-10.2); CARBON DIOXIDE LEVEL 29 MEQ/L (21-32); CHLORIDE LEVEL 97 MEQ/L (98-107); GLOMERULAR FILTRATION RATE > 60.0 (>45); GLUCOSE, FASTING 93 MG/DL (70-100); MAGNESIUM LEVEL 1.6 MG/DL (1.8-2.4); POTASSIUM SERUM 2.9 MEQ/L (3.5-5.1); SODIUM LEVEL 131 MEQ/L (136-145)
[2021-06-24] MEDS ORDERED: KCL 10MEQ/100ML SWI (KRUN) 10 MEQ in IV 1 EA IV SCH (07:00)
[2021-06-24] MEDS ORDERED: POTASSIUM CHLORIDE 10 MEQ SR TABLET PO ONE ×2 (07:05→16:00)
[2021-06-24] MEDS: MAG SULF 1GM/100ML (MAG RUN) 1 GM in IV 1 EA IV SCH ×2 (07:26→09:32)
[2021-06-24] MEDS: KCL 20MEQ IN 100ML SWI (KRUN) 20 MEQ in IV 1 EA IV SCH ×4 (08:10→09:31)
[2021-06-24] MEDS: ENOXAPARIN 30MG/0.3ML SYRINGE (J1650 PER 10MG) SC SCH (08:10)
[2021-06-24] MEDS: MIDODRINE 5 MG TAB PO SCH ×3 (08:11→15:27)
[2021-06-24] MEDS: NS 1,000 ML IV SCH (08:20)
[2021-06-24] MEDS: FLUDROCORTISONE ACETATE 0.1 MG TAB PO SCH (09:00)
--- NOTE | 2021-06-24 10:44 | IPNPDOC ---
Text Note Date of Service The patient was seen on 06/24/21. NOTE SUBJECTIVE: Patient was seen and examined this morning at bedside. She states she is feeling well without any concerns. She does still feel somewhat weak and has not eating very well. She denies any abdominal pain, fevers, chills. OBJECTIVE: VITAL SIGNS: See below GENERAL: Alert, comfortable, in no acute distress. Cachectic appearing with temporal wasting. HEENT: Normocephalic, atraumatic, moist mucous membranes NECK: Supple, trachea midline, no lymphadenopathy CARDIOVASCULAR: Regular rate and rhythm, normal S1 and S2. No murmurs, rubs, or gallops appreciated RESPIRATORY: Clear to auscultation bilaterally with equal air entry bilaterally. No wheezing, rhonchi, or rales appreciated ABDOMEN: Soft, nontender, nondistended, bowel sounds present. EXTREMITIES: No cyanosis or edema. Pulses 2+/4 in bilateral upper and lower extremities. NEUROLOGIC: Able to move all four extremities. 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 # UTI - abx coverage with zosyn day #4 - recently treated for UTI with ceftriaxone, now on zosyn for broader coverage as resistance may have developed - urine culture did not grow single organism, does not provide clinical significance given her hypotension will continue broad spectrum abx #Hypotension - no lactic acidosis. AM cortisol normal - minimally responsive to IV fluids - will check renin and aldosterone today - will start on fludrocortisone - continue with midodrine - goal MAP > 60 # Electrolyte abnormalities - likely related to fluid resuscitation with NS - replete K and Mg this AM, recheck labs this afternoon # Weakness 2/2 physical deconditioning vs malnutrition vs UTI - treatment for UTI as above - PT consult to work on strengthening, possible continued rehab after discharge # PEG tube with possible infection - currently no pain around site - culture of PEG insertion site with staph aureus and coag negative staph, no sensitivities given given her hypotension will continue broad spectrum abx - zosyn day #4 and vancomycin day #3 - surgery to remove PEG tube # Nasopharyngeal carcinoma with metastasis to liver and possibly lung, s/p chemotherapy and radiation - per oncology notes she was expected to start capecitabine but she hadn't started this yet - Pt was referred for treatment of liver metastasis but is unsure if she is going to follow through with this DVT prophylaxis: sc Lovenox CODE STATUS: Full code Disposition: pending clinical improvement and culture results, possible continued rehab after discharge VS,Fishbone, I+O VS, Fishbone, I+O Laboratory Tests 06/23/21 15:56 06/24/21 05:46 Vital Signs Date Time Temp Pulse Resp B/P (MAP) Pulse Ox O2 Delivery O2 Flow Rate FiO2 06/24/21 09:00 47 18 93/52 (66) 99 Room Air 06/24/21 08:00 98.9 I&O- Last 24 Hours up to 6 AM 06/24/21 06:00 Intake Total 4100 ml Output Total 2095 ml Balance 2005 ml GME ATTESTATION GME ATTESTATION My faculty preceptor for this patient encounter was physically present during the encounter and was fully available. All aspects of the patient interview, examination, medical decision making process, and medical care plan development were reviewed and approved by the faculty preceptor. The faculty preceptor is aware and concurs with the plan as stated in the body of this note and will attest to such by his/her cosignature. ATTENDING NOTE I, Darlene Mahmood, have independently examined this patient and performed my own physical exam, as well as reviewed the documentation and edited where necessary. I have discussed in detail with the resident / student the findings and plan of treatment as documented by the resident / student and edited their note. I agree with their findings and treatment plan and have edited their documentation. I will continue to follow the patient during this hospital stay. DEEPAK ARAYA D.O. Jun 24, 2021 10:44 DARLENE MAHMOOD MD Jun 24, 2021 12:10
[2021-06-24 14:13] LABS: BLOOD UREA NITROGEN 4 MG/DL (7-18); CALCIUM LEVEL 9.5 MG/DL (8.8-10.2); CARBON DIOXIDE LEVEL 27 MEQ/L (21-32); CHLORIDE LEVEL 97 MEQ/L (98-107); CREATININE FOR GFR 0.22 MG/DL (0.55-1.30); GLOMERULAR FILTRATION RATE > 60.0 (>45); GLUCOSE, FASTING 93 MG/DL (70-100); MAGNESIUM LEVEL 2.1 MG/DL (1.8-2.4); POTASSIUM SERUM 3.2 MEQ/L (3.5-5.1); SODIUM LEVEL 130 MEQ/L (136-145)
[2021-06-24] MEDS ORDERED: SLF 3 ML SYR IV PRN (16:55)
[2021-06-24] MEDS ORDERED: SODIUM CHLORIDE 0.9% INJ 10 ML SYR IV PRN (16:55)
[2021-06-24] MEDS ORDERED: FLUDROCORTISONE ACETATE 0.1 MG TAB PO ONE (17:15)
[2021-06-24] MEDS: SLF 3 ML SYR IV SCH (22:18)
[2021-06-25] VITALS (12 sets, daily range): BP systolic 80–116; BP diastolic 40–56
[2021-06-25] MEDS ORDERED: NS 500 ML IV ONE (00:55)
[2021-06-25 01:34] LABS: BLOOD UREA NITROGEN 4 MG/DL (7-18); CALCIUM LEVEL 9.3 MG/DL (8.8-10.2); CARBON DIOXIDE LEVEL 29 MEQ/L (21-32); CHLORIDE LEVEL 95 MEQ/L (98-107); CREATININE FOR GFR 0.27 MG/DL (0.55-1.30); GLOMERULAR FILTRATION RATE > 60.0 (>45); GLUCOSE, FASTING 92 MG/DL (70-100); POTASSIUM SERUM 3.1 MEQ/L (3.5-5.1); SODIUM LEVEL 129 MEQ/L (136-145)
[2021-06-25] MEDS: VANCOMYCIN HCL 750 MG, VIAL MATE ADAPTER 1 EACH in NS 250 ML IV SCH ×2 (03:22→15:05)
[2021-06-25] MEDS: PIPERACILLIN/TAZOBACTAM SOD 3.375 GM in D5W MINI-BAG PLUS 50 ML IV SCH ×4 (04:35→21:28)
[2021-06-25] MEDS: SLF 3 ML SYR IV SCH ×3 (04:35→22:47)
[2021-06-25 06:39] LABS: HEMATOCRIT 25.6 % (36.0-47.0); HEMOGLOBIN 8.4 g/dl (12.0-15.5); MEAN CORPUSCULAR HEMOGLOBIN 28.4 pg (27.0-33.0); MEAN CORPUSCULAR HGB CONC 32.8 g/dl (32.0-36.5); MEAN CORPUSCULAR VOLUME 86.5 fl (80.0-96.0); PLATELET COUNT, AUTOMATED 486 10^3/uL (150-450); RED BLOOD COUNT 2.96 10^6/uL (4.00-5.40); WHITE BLOOD COUNT 20.5 10^3/uL (4.0-10.0)
[2021-06-25 07:06] LABS: BLOOD UREA NITROGEN 3 MG/DL (7-18); CALCIUM LEVEL 9.3 MG/DL (8.8-10.2); CARBON DIOXIDE LEVEL 29 MEQ/L (21-32); CHLORIDE LEVEL 93 MEQ/L (98-107); CREATININE FOR GFR 0.35 MG/DL (0.55-1.30); GLOMERULAR FILTRATION RATE > 60.0 (>45); GLUCOSE, FASTING 99 MG/DL (70-100); MAGNESIUM LEVEL 1.6 MG/DL (1.8-2.4); POTASSIUM SERUM 2.7 MEQ/L (3.5-5.1); SODIUM LEVEL 128 MEQ/L (136-145)
[2021-06-25] MEDS ORDERED: KCL 10MEQ/100ML SWI (KRUN) 10 MEQ in IV 1 EA IV SCH (08:00)
[2021-06-25] MEDS ORDERED: KCL 20MEQ IN 100ML SWI (KRUN) 20 MEQ in IV 1 EA IV ONE ×2 (08:00)
[2021-06-25] MEDS: SODIUM CHLORIDE 0.9% INJ 10 ML SYR IV SCH (09:00)
[2021-06-25] MEDS: MIDODRINE 5 MG TAB PO SCH ×3 (09:23→17:06)
[2021-06-25] MEDS: POTASSIUM CHLORIDE 10 MEQ SR TABLET PO SCH ×2 (09:25→13:00)
[2021-06-25] MEDS: ENOXAPARIN 30MG/0.3ML SYRINGE (J1650 PER 10MG) SC SCH (09:25)
[2021-06-25] MEDS: FLUDROCORTISONE ACETATE 0.1 MG TAB PO SCH (09:26)
[2021-06-25] MEDS: ACETAMINOPHEN TAB 650MG DOSE (2X325MG) PO PRN ×2 (09:26→20:13)
[2021-06-25] MEDS: HYDROCORTISONE 10 MG TAB PO SCH ×3 (09:32→21:24)
[2021-06-25] MEDS ORDERED: MAG SULF 1GM/100ML (MAG RUN) 1 GM in IV 1 EA IV ONE (10:00)
--- NOTE | 2021-06-25 14:06 | IPNPDOC ---
Text Note Date of Service The patient was seen on 06/25/21. NOTE SUBJECTIVE: Patient was seen and examined this morning at bedside. She states she is feeling tired this morning but otherwise well. She denies having any pain. No fevers overnight. OBJECTIVE: VITAL SIGNS: See below GENERAL: Alert, comfortable, in no acute distress. Cachectic appearing with temporal wasting. HEENT: Normocephalic, atraumatic, moist mucous membranes NECK: Supple, trachea midline, no lymphadenopathy CARDIOVASCULAR: Regular rate and rhythm, normal S1 and S2. No murmurs, rubs, or gallops appreciated RESPIRATORY: Clear to auscultation bilaterally with equal air entry bilaterally. No wheezing, rhonchi, or rales appreciated ABDOMEN: Soft, nontender, nondistended, bowel sounds present. PEG tube in place without surrounding erythema, warmth, or swelling. EXTREMITIES: No cyanosis or edema. Pulses 2+/4 in bilateral upper and lower extremities. NEUROLOGIC: Able to move all four extremities. 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 # UTI - abx coverage with zosyn day #5 - recently treated for UTI with ceftriaxone, now on zosyn for broader coverage as resistance may have developed - urine culture did not grow single organism, does not provide clinical significance given her hypotension will continue broad spectrum abx #Hypotension - no lactic acidosis. AM cortisol normal - minimally responsive to IV fluids - renin and aldosterone levels pending - started on hydrocortisone today - continue with midodrine and fludrocortisone - goal MAP > 60 # Electrolyte abnormalities - likely related to fluid resuscitation with NS - replete K and Mg, recheck labs # Weakness 2/2 physical deconditioning vs malnutrition vs UTI - treatment for UTI as above - PT consult to work on strengthening, possible continued rehab after discharge # PEG tube with possible infection - currently no pain around site - culture of PEG insertion site with staph aureus and coag negative staph, no sensitivities given given her hypotension will continue broad spectrum abx - zosyn day #5 and vancomycin day #4 - will keep PEG tube in for now, outpatient follow up with surgery for removal if needed # Nasopharyngeal carcinoma with metastasis to liver and possibly lung, s/p chemotherapy and radiation - per oncology notes she was expected to start capecitabine but she hadn't started this yet - Pt was referred for treatment of liver metastasis but is unsure if she is going to follow through with this DVT prophylaxis: sc Lovenox CODE STATUS: Full code Disposition: pending clinical improvement and culture results, possible c ontinued rehab after discharge VS,Fishbone, I+O VS, Fishbone, I+O Laboratory Tests 06/25/21 00:55 06/25/21 06:20 Vital Signs Date Time Temp Pulse Resp B/P (MAP) Pulse Ox O2 Delivery O2 Flow Rate FiO2 06/25/21 04:00 97.6 60 20 116/55 (75) 98 Room Air I&O- Last 24 Hours up to 6 AM 06/25/21 05:59 Intake Total 1235 ml Output Total 625 ml Balance 610 ml GME ATTESTATION GME ATTESTATION My faculty preceptor for this patient encounter was physically present during the encounter and was fully available. All aspects of the patient interview, examination, medical decision making process, and medical care plan development were reviewed and approved by the faculty preceptor. The faculty preceptor is aware and concurs with the plan as stated in the body of this note and will attest to such by his/her cosignature. ATTENDING NOTE I, Darlene Mahmood, have independently examined this patient and performed my own physical exam, as well as reviewed the documentation and edited where necessary. I have discussed in detail with the resident / student the findings and plan of treatment as documented by the resident / student and edited their note. I agree with their findings and treatment plan and have edited their documentation. I will continue to follow the patient during this hospital stay. DEEPAK ARAYA D.O. Jun 25, 2021 14:06 DARLENE MAHMOOD MD Jun 25, 2021 14:11
[2021-06-25] MEDS ORDERED: PILL CUTTER 1 EACH XX PRN (16:25)
[2021-06-25] MEDS ORDERED: ONDANSETRON 4MG/2ML VIAL IV PRN (17:10)
[2021-06-25 17:35] LABS: BLOOD UREA NITROGEN 5 MG/DL (7-18); CALCIUM LEVEL 8.9 MG/DL (8.8-10.2); CARBON DIOXIDE LEVEL 28 MEQ/L (21-32); CHLORIDE LEVEL 95 MEQ/L (98-107); CREATININE FOR GFR 0.31 MG/DL (0.55-1.30); GLOMERULAR FILTRATION RATE > 60.0 (>45); GLUCOSE, FASTING 112 MG/DL (70-100); MAGNESIUM LEVEL 1.9 MG/DL (1.8-2.4); POTASSIUM SERUM 4.4 MEQ/L (3.5-5.1); SODIUM LEVEL 129 MEQ/L (136-145)
[2021-06-26] VITALS (50 sets, daily range): BP systolic 70–126; BP diastolic 35–60
[2021-06-26] MEDS ORDERED: NS 500 ML IV ONE (00:40)
[2021-06-26] MEDS: ATROPINE SULF 1MG/10ML SYRINGE (J0461) IV PRN ×3 (00:50→03:13)
--- NOTE | 2021-06-26 01:02 | IPNPDOC ---
Text Note Date of Service The patient was seen on 06/26/21. NOTE Bradycardia, hr 35; BP has been soft, but went as low as 75/44 when bolus ini tiated vs her 90-100 sbp range typically. Pt a/ox3, incredibly frail appearance. She denies dizziness, cp, or sob. She did report nausea earlier. Nonlabored breathing, 02 97% RA. STAT EKG showed bradycardia hr 38. Pt + murmur- she denies hx of bradycardia or pacemaker or significant cardiac hx. She does have a UTI, lactic to be obtained, but given the presence of bradycardia- gave bolus 500ml and atropine 0.5mg x1. HR improved to 59 and bp 126/60. Plan to monitor, echo ordered for am, pacer pads on unit if needed. Pt is a full code. WCTM. VS,Fishbone, I+O VS, Fishbone, I+O Laboratory Tests 06/25/21 06:20 06/25/21 16:53 Vital Signs Date Time Temp Pulse Resp B/P (MAP) Pulse Ox O2 Delivery O2 Flow Rate FiO2 06/26/21 00:00 98.8 51 18 94/50 (65) 97 Room Air I&O- Last 24 Hours up to 6 AM 06/26/21 06:00 Intake Total 775 ml Output Total 300 ml Balance 475 ml ASHLEIGH LANGE NP Jun 26, 2021 01:02
[2021-06-26] MEDS: VANCOMYCIN HCL 750 MG, VIAL MATE ADAPTER 1 EACH in NS 250 ML IV SCH (01:47)
--- NOTE | 2021-06-26 03:18 | REPVR ---
PROCEDURE INFORMATION: Exam: XR Chest Exam date and time: 06/26/2021 3:05 AM Age: 65 years old Clinical indication: Other: Sepsis TECHNIQUE: Imaging protocol: XR of the chest. Views: 1 view. COMPARISON: SC Chest, 1 view 06/21/2021 11:50 AM FINDINGS: Tubes, catheters and devices: Right MediPort catheter is unchanged. Lungs: Volume loss in the right lung and perihilar opacities are unchanged. Lungs are otherwise clear. Pleural spaces: No pleural effusion. No pneumothorax. Heart/Mediastinum: Unremarkable. No cardiomegaly. Bones/joints: Unremarkable. IMPRESSION: Stable chest. Electronically signed by: Jovany Gonzalez On 06/26/2021 03:17:44 AM
[2021-06-26] MEDS: PIPERACILLIN/TAZOBACTAM SOD 3.375 GM in D5W MINI-BAG PLUS 50 ML IV SCH ×4 (03:58→21:16)
[2021-06-26 04:23] LABS: HEMATOCRIT 24.6 % (36.0-47.0); HEMOGLOBIN 7.8 g/dl (12.0-15.5); MEAN CORPUSCULAR HEMOGLOBIN 28.1 pg (27.0-33.0); MEAN CORPUSCULAR HGB CONC 31.7 g/dl (32.0-36.5); MEAN CORPUSCULAR VOLUME 88.5 fl (80.0-96.0); PLATELET COUNT, AUTOMATED 477 10^3/uL (150-450); RED BLOOD COUNT 2.78 10^6/uL (4.00-5.40); WHITE BLOOD COUNT 16.8 10^3/uL (4.0-10.0)
[2021-06-26 04:59] LABS: BLOOD UREA NITROGEN 8 MG/DL (7-18); CARBON DIOXIDE LEVEL 29 MEQ/L (21-32); CHLORIDE LEVEL 98 MEQ/L (98-107); GLOMERULAR FILTRATION RATE > 60.0 (>45); GLUCOSE, FASTING 108 MG/DL (70-100); MAGNESIUM LEVEL 1.9 MG/DL (1.8-2.4); POTASSIUM SERUM 3.9 MEQ/L (3.5-5.1); SODIUM LEVEL 132 MEQ/L (136-145)
[2021-06-26] MEDS: SLF 3 ML SYR IV SCH ×3 (05:57→21:16)
[2021-06-26] MEDS: MIDODRINE 5 MG TAB PO SCH ×3 (07:33→15:54)
[2021-06-26 08:16] LABS: PERCENT SATURATION 32.1 % (13.2-45.0)
[2021-06-26 08:23] LABS: FOLATE 6.1 NG/ML (>5.4)
[2021-06-26] MEDS: POTASSIUM CHLORIDE 10 MEQ SR TABLET PO SCH (08:40)
[2021-06-26] MEDS: FLUDROCORTISONE ACETATE 0.1 MG TAB PO SCH (08:41)
[2021-06-26] MEDS: HYDROCORTISONE 10 MG TAB PO SCH ×3 (08:41→21:16)
[2021-06-26] MEDS: SODIUM CHLORIDE 0.9% INJ 10 ML SYR IV SCH (08:41)
[2021-06-26] MEDS: ENOXAPARIN 30MG/0.3ML SYRINGE (J1650 PER 10MG) SC SCH (08:41)
--- NOTE | 2021-06-26 11:13 | IPNPDOC ---
Text Note Date of Service The patient was seen on 06/26/21. NOTE SUBJECTIVE: Patient was seen and examined this morning at bedside. She states she is feeling well. She denies any lightheadedness or dizziness. No chest pain. She denies any symptoms overnight when her HR was low and states she was trying to sleep. OBJECTIVE: VITAL SIGNS: See below GENERAL: Alert, comfortable, in no acute distress. Cachectic appearing with temporal wasting. HEENT: Normocephalic, atraumatic, moist mucous membranes NECK: Supple, trachea midline, no lymphadenopathy CARDIOVASCULAR: Regular rate and rhythm, normal S1 and S2. No murmurs, rubs, or gallops appreciated RESPIRATORY: Clear to auscultation bilaterally with equal air entry bilaterally. No wheezing, rhonchi, or rales appreciated ABDOMEN: Soft, nontender, nondistended, bowel sounds present. PEG tube in place without surrounding erythema, warmth, or swelling. EXTREMITIES: No cyanosis or edema. Pulses 2+/4 in bilateral upper and lower extremities. NEUROLOGIC: Able to move all four extremities. 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 AM cortisol normal - minimally responsive to IV fluids - renin and aldosterone levels pending - continue with midodrine, fludrocortisone, hydrocortisone - goal MAP > 60 # Bradycardia - HR has been down to the 30's while sleeping, asymptomatic. - pt received atropine x3 last night for a total of 1.5mg - while awake, HR typically in the 50s - if symptomatic, may consider further atropine and need for pacemaker pl acement. However, at this point she has not been symptomatic (has worked with PT / OT without dizziness / light-headedness / SOB / Chest pain ) # Electrolyte abnormalities - likely related to fluid resuscitation with NS - daily KCL 40 meq # Weakness 2/2 physical deconditioning vs malnutrition vs UTI - treatment for UTI as above - PT consult to work on strengthening, possible continued rehab after discharge # PEG tube with possible infection - currently no pain around site - culture of PEG insertion site with staph aureus and coag negative staph, no sensitivities given given her hypotension will continue broad spectrum abx - zosyn day #6 and vancomycin day #5 - will keep PEG tube in for now, outpatient follow up with surgery for removal if needed # 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 I also called the patient's who understands this decision. Disposition: pending clinical improvement, possible continued rehab after discharge VS,Fishbone, I+O VS, Fishbone, I+O Laboratory Tests 06/25/21 16:53 06/26/21 04:00 Vital Signs Date Time Temp Pulse Resp B/P (MAP) Pulse Ox O2 Delivery O2 Flow Rate FiO2 06/26/21 10:45 98.7 49 20 70/35 98 Room Air I&O- Last 24 Hours up to 6 AM 06/26/21 06:00 Intake Total 1325 ml Output Total 300 ml Balance 1025 ml GME ATTESTATION GME ATTESTATION My faculty preceptor for this patient encounter was physically present during e encounter and was fully available. All aspects of the patient interview, examination, medical decision making process, and medical care plan development were reviewed and approved by the faculty preceptor. The faculty preceptor is aware and concurs with the plan as stated in the body of this note and will attest to such by his/her cosignature. ATTENDING NOTE I, Darlene Mahmood, have independently examined this patient and performed my own physical exam, as well as reviewed the documentation and edited where necessary. I have discussed in detail with the resident / student the findings and plan of treatment as documented by the resident / student and edited their note. I agree with their findings and treatment plan and have edited their documentation. I will continue to follow the patient during this hospital stay. DEEPAK ARAYA D.O. Jun 26, 2021 11:13 DARLENE MAHMOOD MD Jun 26, 2021 12:23
[2021-06-26 17:31] LABS: HEMATOCRIT 35.5 % (36.0-47.0); MEAN CORPUSCULAR HGB CONC 33.5 g/dl (32.0-36.5); MEAN CORPUSCULAR VOLUME 86.4 fl (80.0-96.0); PLATELET COUNT, AUTOMATED 539 10^3/uL (150-450); RED BLOOD COUNT 4.11 10^6/uL (4.00-5.40); WHITE BLOOD COUNT 22.1 10^3/uL (4.0-10.0)
[2021-06-26 17:38] LABS: HEMOGLOBIN 11.9 g/dl (12.0-15.5)
[2021-06-26] MEDS ORDERED: SIMETHICONE 80MG CHEW TAB PO PRN (20:35)
[2021-06-26] MEDS: ACETAMINOPHEN TAB 650MG DOSE (2X325MG) PO PRN (21:17)
[2021-06-27] VITALS: BP 108/54
[2021-06-27] MEDS: ATROPINE SULF 1MG/10ML SYRINGE (J0461) IV PRN ×2 (00:41→03:53)
[2021-06-27] MEDS: PIPERACILLIN/TAZOBACTAM SOD 3.375 GM in D5W MINI-BAG PLUS 50 ML IV SCH (03:54)
[2021-06-27 03:58] VITALS: BP 122/58
[2021-06-27 05:34] LABS: HEMATOCRIT 34.2 % (36.0-47.0); HEMOGLOBIN 11.3 g/dl (12.0-15.5); MEAN CORPUSCULAR HEMOGLOBIN 28.6 pg (27.0-33.0); MEAN CORPUSCULAR VOLUME 86.6 fl (80.0-96.0); PLATELET COUNT, AUTOMATED 478 10^3/uL (150-450); RED BLOOD COUNT 3.95 10^6/uL (4.00-5.40); WHITE BLOOD COUNT 18.7 10^3/uL (4.0-10.0)
[2021-06-27] MEDS: SLF 3 ML SYR IV SCH ×2 (05:43→13:20)
[2021-06-27 06:10] LABS: BLOOD UREA NITROGEN 14 MG/DL (7-18); CALCIUM LEVEL 9.6 MG/DL (8.8-10.2); CARBON DIOXIDE LEVEL 28 MEQ/L (21-32); CHLORIDE LEVEL 99 MEQ/L (98-107); CREATININE FOR GFR 0.59 MG/DL (0.55-1.30); GLOMERULAR FILTRATION RATE > 60.0 (>45); GLUCOSE, FASTING 90 MG/DL (70-100); MAGNESIUM LEVEL 1.8 MG/DL (1.8-2.4); SODIUM LEVEL 133 MEQ/L (136-145); VANCOMYCIN RANDOM 17.5 UG/ML
[2021-06-27 08:00] VITALS: BP 96/54
[2021-06-27] MEDS ORDERED: VANCOMYCIN HCL 750 MG, VIAL MATE ADAPTER 1 EACH in NS 250 ML IV SCH (08:00)
--- NOTE | 2021-06-27 09:09 | ECGEPIP ---
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
[2021-06-27] MEDS: HYDROCORTISONE 10 MG TAB PO SCH ×3 (09:11→22:25)
[2021-06-27] MEDS: FLUDROCORTISONE ACETATE 0.1 MG TAB PO SCH (09:11)
[2021-06-27] MEDS: DOXYCYCLINE HYCLATE 100MG TABLET PO SCH ×2 (09:11→22:25)
[2021-06-27] MEDS: POTASSIUM CHLORIDE 10 MEQ SR TABLET PO SCH (09:11)
[2021-06-27] MEDS: ENOXAPARIN 30MG/0.3ML SYRINGE (J1650 PER 10MG) SC SCH (09:12)
[2021-06-27] MEDS: SODIUM CHLORIDE 0.9% INJ 10 ML SYR IV SCH (09:12)
[2021-06-27] MEDS: MIDODRINE 5 MG TAB PO SCH ×3 (09:12→16:10)
[2021-06-27] MEDS: ACETAMINOPHEN TAB 650MG DOSE (2X325MG) PO PRN ×2 (11:34→22:25)
[2021-06-27 12:00] VITALS: BP 93/46
--- NOTE | 2021-06-27 12:13 | IPNPDOC ---
Text Note Date of Service The patient was seen on 06/27/21. NOTE SUBJECTIVE: Patient was seen and examined this morning at bedside. She states she does not want talk much today. She also states she does not have much of an appetite, but agrees to try a protein drink. She denies any pain. No fevers overnight. OBJECTIVE: VITAL SIGNS: See below GENERAL: Alert, comfortable, in no acute distress. Cachectic appearing with temporal wasting. HEENT: Normocephalic, atraumatic, moist mucous membranes NECK: Supple, trachea midline, no lymphadenopathy CARDIOVASCULAR: Regular rate and rhythm, normal S1 and S2. No murmurs, rubs, or gallops appreciated RESPIRATORY: Clear to auscultation bilaterally with equal air entry bilaterally. No wheezing, rhonchi, or rales appreciated ABDOMEN: Soft, nontender, nondistended, bowel sounds present. PEG tube in place without surrounding erythema, warmth, or swelling. EXTREMITIES: No cyanosis or edema. Pulses 2+/4 in bilateral upper and lower extremities. NEUROLOGIC: Able to move all four extremities. 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 AM cortisol normal - minimally responsive to IV fluids - renin and aldosterone levels pending - continue with midodrine, fludrocortisone, hydrocortisone - goal MAP > 60 # Bradycardia - HR has been down to the 30's while sleeping, asymptomatic. - pt received atropine x3 last night for a total of 1.5mg - while awake, HR typically in the 50s - if symptomatic, may consider further atropine and need for pacemaker placement. However, at this point she has not been symptomatic (has worked with PT / OT without dizziness / light-headedness / SOB / Chest pain ) #Normocytic anemia - iron studies show low iron level with anemia of chronic disease - b12, folate, reticulocyte count all normal - s/p 2 units PRBCs # PEG tube with possible infection - currently no pain around site - culture of PEG insertion site with staph aureus and coag negative staph, no sensitivities given given her hypotension will continue broad spectrum abx - s/p zosyn and vancomycin, continue abx with PO doxycycline day #7 - will keep PEG tube in for now, outpatient follow up with surgery for removal if needed # UTI - s/p IV abx with zosyn for 6 days, now on oral doxycycline - recently treated for UTI with ceftriaxone, now on zosyn for broader coverage as resistance may have developed - urine culture did not grow single organism, does not provide clinical significance # Electrolyte abnormalities, improved - likely related to fluid resuscitation with NS - daily KCL 40 meq # Weakness 2/2 physical deconditioning vs malnutrition vs UTI - treatment for UTI as above - PT consult to work on strengthening, possible continued rehab after discharge # Nasopharyngeal carcinoma with metastasis to liver and possibly lung, s/p chemotherapy and radiation - per oncology notes she was expected to start capecitabine but she hadn't started this yet - Pt was referred for treatment of liver metastasis but is unsure if she is going to follow through with this DVT prophylaxis: sc Lovenox CODE STATUS: DNR/DNI Disposition: pending clinical improvement, possible continued rehab after discharge VS,Fishbone, I+O VS, Fishbone, I+O Laboratory Tests 06/26/21 17:02 06/27/21 05:10 Vital Signs Date Time Temp Pulse Resp B/P (MAP) Pulse Ox O2 Delivery O2 Flow Rate FiO2 06/27/21 08:00 98.5 51 18 96/54 (68) 98 Room Air I&O- Last 24 Hours up to 6 AM 06/27/21 06:00 Intake Total 2865.0 ml Output Total 1100 ml Balance 1765.0 ml GME ATTESTATION GME ATTESTATION My faculty preceptor for this patient encounter was physically present during the encounter and was fully available. All aspects of the patient interview, examination, medical decision making process, and medical care plan development were reviewed and approved by the faculty preceptor. The faculty preceptor is aware and concurs with the plan as stated in the body of this note and will attest to such by his/her cosignature. ATTENDING NOTE I, Darlene Mahmood, have independently examined this patient and performed my own physical exam, as well as reviewed the documentation and edited where necessary. I have discussed in detail with the resident / student the findings and plan of treatment as documented by the resident / student and edited their note. I agree with their findings and treatment plan and have edited their documentation. I will continue to follow the patient during this hospital stay. DEEPAK ARAYA D.O. Jun 27, 2021 12:13 DARLENE MAHMOOD MD Jun 27, 2021 13:36
[2021-06-27 16:00] VITALS: BP 80/42
[2021-06-27 20:00] VITALS: BP 124/61
[2021-06-28] VITALS: BP 122/56
[2021-06-28 04:00] VITALS: BP 106/53
[2021-06-28 06:10] LABS: HEMATOCRIT 33.5 % (36.0-47.0); MEAN CORPUSCULAR HEMOGLOBIN 28.9 pg (27.0-33.0); MEAN CORPUSCULAR HGB CONC 32.8 g/dl (32.0-36.5); MEAN CORPUSCULAR VOLUME 88.2 fl (80.0-96.0); PLATELET COUNT, AUTOMATED 455 10^3/uL (150-450); WHITE BLOOD COUNT 20.5 10^3/uL (4.0-10.0)
[2021-06-28 06:40] LABS: BLOOD UREA NITROGEN 15 MG/DL (7-18); CALCIUM LEVEL 9.4 MG/DL (8.8-10.2); CARBON DIOXIDE LEVEL 29 MEQ/L (21-32); CHLORIDE LEVEL 99 MEQ/L (98-107); CREATININE FOR GFR 0.42 MG/DL (0.55-1.30); GLOMERULAR FILTRATION RATE > 60.0 (>45); GLUCOSE, FASTING 83 MG/DL (70-100); MAGNESIUM LEVEL 1.6 MG/DL (1.8-2.4); POTASSIUM SERUM 3.1 MEQ/L (3.5-5.1); SODIUM LEVEL 134 MEQ/L (136-145)
[2021-06-28 07:26] VITALS: BP 100/55
[2021-06-28] MEDS: POTASSIUM CHLORIDE 10 MEQ SR TABLET PO SCH ×2 (07:26→21:01)
[2021-06-28] MEDS: MIDODRINE 5 MG TAB PO SCH ×3 (07:26→16:07)
[2021-06-28] MEDS: MAG SULF 1GM/100ML (MAG RUN) 1 GM in IV 1 EA IV SCH ×2 (07:27→08:39)
[2021-06-28] MEDS: HYDROCORTISONE 10 MG TAB PO SCH ×3 (08:39→21:01)
[2021-06-28] MEDS: DOXYCYCLINE HYCLATE 100MG TABLET PO SCH ×2 (08:39→21:01)
[2021-06-28] MEDS: ENOXAPARIN 30MG/0.3ML SYRINGE (J1650 PER 10MG) SC SCH (08:39)
[2021-06-28] MEDS: FLUDROCORTISONE ACETATE 0.1 MG TAB PO SCH (08:39)
[2021-06-28] MEDS: SODIUM CHLORIDE 0.9% INJ 10 ML SYR IV SCH (08:40)
--- NOTE | 2021-06-28 09:13 | IPNPDOC ---
Text Note Date of Service The patient was seen on 06/28/21. NOTE Subjective: Patient is a 65-year-old female with a PMHx of Nasopharyngeal CA (w/ Metastasis to liver, possibly to lungs) who presented to the emergency room complaints of weakness. Patient was found to have a urinary tract infection and suspected infection of her PEG tube site. Patient was admitted to the hospital service for further evaluation and treatment. Patient's hospital course has been complicated with hypotension and symptomatic anemia. Patient was seen and examined at the bedside. Currently patient denies any chest pain, shortness breath, palpitations, nausea, vomiting, abdominal pain or diarrhea. Denies any urinary discomfort. Has been working with physical therapy. Will have recommended rehabilitation. Objective: Vitals (See below) General: Lying in bed, appears comfortable, AAOx3 HEENT: NC, AT CVS: +S1S2 Lungs: Fair air entry b/l, no evidence of wheezing, rales or rhonchi Abdomen: Soft, ND, NT, +PEG Extremities: - Edema, - Calf tenderness Imaging: CXR 06/21: No acute disease. [id number] catheter noted in place on the right. CT head 06/21: 1. There is mild diffuse cerebellar atrophy. 2. Gdmp-rh-[id number] diffuse cerebral atrophy. 3. The degree of ventricular dilatation is normal for age and/or degree of atrophy present. 4. Inflammatory changes left sphenoid sinus. 5. Possible chronic calcified right frontal meningioma. 6. No acute intracranial findings. CXR 06/26: Stable chest. Assessment and plan: Hypotension - Appears to be improving - No lactic acidosis - Cortisol noted - Renin / Aldosterone pending - s/p IV fluids - c/w midodrine, fludrocortisone, hydrocortisone Bradycardia - Patient remains asymptomatic - s/p Atropine overnight (06/27 AM) Normocytic anemia - likely 2/2 AOCD - H&H remains stable - s/p 2 units PRBCs - Will continue to follow trend PEG tube with possible infection - No abdominal pain noted - No tenderness - Abdomen wound / peg site culture 06/22: MSSA, Staph sp coag neg - c/w Doxycycline; s/p Vancomycin and Zosyn (Antibiotic day #8) s/p UTI - UA suspicious for infection - Urine culture 06/21: Negative Hypokalemia - Will supplement Hypomagnesemia - Will supplement Hyponatremia - Improving currently - s/p IV fluids Weakness 2/2 physical deconditioning, possibly 2/2 malnutrition, possibly 2/2 UTI - c/w PT and OT; likely will need rehab 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 Arvizu (Heme / Onc) outpatient; anticipated to start Capecitabine chemotherapy as an outpatient - Pt was referred for treatment of liver metastasis but is unsure if she is going to follow through with this DVT prophylaxis - c/w Lovenox Code status: - DNR/DNI Disposition: - Pending clinical improvement - Will likely need rehab VS,Fishbone, I+O VS, Fishbone, I+O Laboratory Tests 06/28/21 06:03 Vital Signs Date Time Temp Pulse Resp B/P (MAP) Pulse Ox O2 Delivery O2 Flow Rate FiO2 06/28/21 07:26 98.4 56 18 100/55 (70) 96 Room Air I&O- Last 24 Hours up to 6 AM 06/28/21 06:00 Intake Total 730 ml Output Total 775 ml Balance -45 ml KAMILLA MAHMOOD MD Jun 28, 2021 09:13
[2021-06-28 12:00] VITALS: BP 87/47
[2021-06-28 16:00] VITALS: BP 146/69
--- NOTE | 2021-06-28 17:07 | ECHO ---
ECHOCARDIOGRAM DATE OF PROCEDURE: 06/26/2021 Age: 65 Gender: Female Height: 170 cm Weight: 50 kg REFERRING PHYSICIAN: Addie Mckeon N.P. INDICATION: Cardiac dysrhythmia, unspecified. MEASUREMENTS: 2D Measurements: Aortic root 2.6 cm Inferior vena cava 1.5 cm (more than 50% respiratory variation) Left atrium 2.5 cm Left atrial volume index 17 Intraventricular septum 7.76 cm Posterior wall 0.75 cm Left ventricle diastole 4.2 cm Doppler Measurements: Very mild aortic regurgitation Aortic valve velocity 106 cm/sec LVOT velocity 107 cm/sec LVOT VTI 27.2 cm No mitral regurgitation Mitral E velocity 86.1 cm/sec Mitral A velocity 63.8 cm/sec Mitral deceleration time 198 msec Mild tricuspid regurgitation No pulmonic regurgitation Estimated right ventricle systolic pressure 23-28 mmHg Estimated right atrial pressure of 5-10 mmHg No pulmonic regurgitation MITRAL ANNULAR TISSUE DOPPLER: E prime septal 6.9 cm/sec E prime lateral 8.1 cm/sec DESCRIPTION: Rhythm was marked sinus bradycardia. Image quality was fair. This study was performed with the patient supine. This was a 2D, M-mode, color flow Doppler and pulse wave Doppler examination including mitral annular tissue Doppler. No pericardial effusion. CONCLUSIONS: 1. Marked sinus bradycardia. 2. Normal left ventricle internal dimensions and wall thickness. Normal left ventricular (LV) wall motion and wall thickening. Normal LV systolic function. Normal peak longitudinal strain pattern. Likely normal LV diastolic functional range. Normal left atrial volume index. 3. Mild aortic valve sclerosis of A3-cuspid aortic valve. Very mild aortic regurgitation. 4. Otherwise normal appearing echocardiogram Doppler findings.
[2021-06-28 20:00] VITALS: BP 142/65
[2021-06-28] MEDS: ACETAMINOPHEN TAB 650MG DOSE (2X325MG) PO PRN (21:03)
[2021-06-29] VITALS: BP 125/62
[2021-06-29 04:00] VITALS: BP 119/56
[2021-06-29 04:24] LABS: BASO % 0.1 % (0.0-1.0); HEMATOCRIT 33.4 % (36.0-47.0); HEMOGLOBIN 11.1 g/dl (12.0-15.5); LYMPH # 0.7 10^3/uL (1.5-5.0); LYMPH % 3.4 % (24.0-44.0); MEAN CORPUSCULAR HEMOGLOBIN 29.1 pg (27.0-33.0); MEAN CORPUSCULAR HGB CONC 33.2 g/dl (32.0-36.5); MEAN CORPUSCULAR VOLUME 87.4 fl (80.0-96.0); MONO # 1.4 10^3/uL (0.0-0.8); MONO % 6.4 % (2.0-8.0); NEUTROPHILS # 19.2 10^3/uL (1.5-8.5); NEUTROPHILS % 88.9 % (36.0-66.0); PLATELET COUNT, AUTOMATED 448 10^3/uL (150-450); RED BLOOD COUNT 3.82 10^6/uL (4.00-5.40); WHITE BLOOD COUNT 21.6 10^3/uL (4.0-10.0)
[2021-06-29 05:11] LABS: BLOOD UREA NITROGEN 14 MG/DL (7-18); CALCIUM LEVEL 9.7 MG/DL (8.8-10.2); CARBON DIOXIDE LEVEL 28 MEQ/L (21-32); CHLORIDE LEVEL 99 MEQ/L (98-107); CREATININE FOR GFR 0.32 MG/DL (0.55-1.30); GLOMERULAR FILTRATION RATE > 60.0 (>45); GLUCOSE, FASTING 80 MG/DL (70-100); MAGNESIUM LEVEL 1.7 MG/DL (1.8-2.4); POTASSIUM SERUM 3.9 MEQ/L (3.5-5.1); SODIUM LEVEL 132 MEQ/L (136-145)
[2021-06-29 08:26] VITALS: BP 89/66
[2021-06-29] MEDS: MAG SULF 1GM/100ML (MAG RUN) 1 GM in IV 1 EA IV SCH ×2 (08:59→09:03)
[2021-06-29] MEDS: FLUDROCORTISONE ACETATE 0.1 MG TAB PO SCH (08:59)
[2021-06-29] MEDS: MIDODRINE 5 MG TAB PO SCH ×3 (08:59→15:47)
[2021-06-29] MEDS: HYDROCORTISONE 10 MG TAB PO SCH ×3 (08:59→21:01)
[2021-06-29] MEDS: ENOXAPARIN 30MG/0.3ML SYRINGE (J1650 PER 10MG) SC SCH (09:00)
[2021-06-29] MEDS: DOXYCYCLINE HYCLATE 100MG TABLET PO SCH ×2 (09:00→21:01)
[2021-06-29] MEDS: SODIUM CHLORIDE 0.9% INJ 10 ML SYR IV SCH (09:00)
[2021-06-29] MEDS: POTASSIUM CHLORIDE 10 MEQ SR TABLET PO SCH ×2 (09:04→21:01)
[2021-06-29] MEDS ORDERED: ONDANSETRON 4 MG TAB PO PRN (10:05)
--- NOTE | 2021-06-29 10:19 | IPNPDOC ---
Text Note Date of Service The patient was seen on 06/29/21. NOTE SUBJECTIVE: Patient was seen and examined this morning at bedside. She states she is feeling well this morning. She denies any new complaints. She states her stomach has been bothering her and she would like something. OBJECTIVE: VITAL SIGNS: See below GENERAL: Alert, comfortable, in no acute distress. Cachectic appearing with temporal wasting. HEENT: Normocephalic, atraumatic, moist mucous membranes NECK: Supple, trachea midline, no lymphadenopathy CARDIOVASCULAR: Regular rate and rhythm, normal S1 and S2. No murmurs, rubs, or gallops appreciated RESPIRATORY: Clear to auscultation bilaterally with equal air entry bilaterally. No wheezing, rhonchi, or rales appreciated ABDOMEN: Soft, nontender, nondistended, bowel sounds present. PEG tube in place without surrounding erythema, warmth, or swelling. EXTREMITIES: No cyanosis or edema. Pulses 2+/4 in bilateral upper and lower extremities. NEUROLOGIC: Able to move all four extremities. 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 AM cortisol normal - minimally responsive to IV fluids - renin and aldosterone levels pending - continue with midodrine, fludrocortisone, hydrocortisone - goal MAP > 60 # Bradycardia - HR has been down to the 30's while sleeping, asymptomatic. while awake, HR typically in the 50s - if symptomatic, may consider atropine and need for pacemaker placement. However, at this point she has not been symptomatic (has worked with PT / OT without dizziness / light-headedness / SOB / Chest pain ) #Normocytic anemia - iron studies show low iron level with anemia of chronic disease - b12, folate, reticulocyte count all normal - s/p 2 units PRBCs, H/H has been stable since transfusion # PEG tube with possible infection - currently no pain around site - culture of PEG insertion site with staph aureus and coag negative staph, no sensitivities given given her hypotension will continue broad spectrum abx - s/p zosyn and vancomycin, continue abx with PO doxycycline day #9 - will keep PEG tube in for now, outpatient follow up with surgery for removal if needed # UTI - s/p IV abx with Zosyn for 6 days, now on oral doxycycline - recently treated for UTI with ceftriaxone, now on zosyn for broader coverage as resistance may have developed - urine culture did not grow single organism, does not provide clinical significance # Electrolyte abnormalities, improved - hyponatremia on admission has resolved - hypo kalemia and hypomagnesemia improved - likely related to fluid resuscitation with NS - daily KCL 40 meq # Weakness 2/2 physical deconditioning vs malnutrition vs UTI - treatment for UTI as above - PT consult to work on strengthening, possible continued rehab after discharge # Nasopharyngeal carcinoma with metastasis to liver and possibly lung, s/p chemotherapy and radiation - per oncology notes she was expected to start capecitabine but she hadn't started this yet - Pt was referred for treatment of liver metastasis but is unsure if she is going to follow through with this # Severe protein calorie malnutrition - dietary consult DVT prophylaxis: sc Lovenox CODE STATUS: DNR/DNI Disposition: pending clinical improvement, possible continued rehab after d ischarge VS,Fishbone, I+O VS, Fishbone, I+O Laboratory Tests 06/29/21 04:10 Vital Signs Date Time Temp Pulse Resp B/P (MAP) Pulse Ox O2 Delivery O2 Flow Rate FiO2 06/29/21 08:26 98.0 62 18 89/66 (74) 100 06/29/21 04:00 Room Air I&O- Last 24 Hours up to 6 AM 06/29/21 06:00 Intake Total 740 ml Output Total 400 ml Balance 340 ml GME ATTESTATION GME ATTESTATION My faculty preceptor for this patient encounter was physically present during the encounter and was fully available. All aspects of the patient interview, examination, medical decision making process, and medical care plan development were reviewed and approved by the faculty preceptor. The faculty preceptor is aware and concurs with the plan as stated in the body of this note and will attest to such by his/her cosignature. ATTENDING NOTE I, Darlene Mahmood, have independently examined this patient and performed my own physical exam, as well as reviewed the documentation and edited where necessary. I have discussed in detail with the resident / student the findings and plan of treatment as documented by the resident / student and edited their note. I agree with their findings and treatment plan and have edited their documentation. I will continue to follow the patient during this hospital stay. DEEPAK ARAYA D.O. Jun 29, 2021 10:19 DARLENE MAHMOOD MD Jun 29, 2021 14:18
[2021-06-29] MEDS: FAMOTIDINE 20 MG TAB PO SCH (11:01)
[2021-06-29 11:57] VITALS: BP 110/68
[2021-06-29] MEDS: ACETAMINOPHEN TAB 650MG DOSE (2X325MG) PO PRN ×2 (12:00→21:05)
[2021-06-29 12:56] LABS: FREE T4 0.79 NG/DL (0.76-1.46); THYROID STIMULATING HORMONE 3.37 uIU/ML (0.358-3.740); TOTAL T3 43.2 NG/DL (60.0-181.0)
--- NOTE | 2021-06-29 16:02 | REP ---
INDICATION: Fever. COMPARISON: Chest 06/26/2021. TECHNIQUE: Supine and erect views of the abdomen and pelvis, frontal view chest. FINDINGS: There is no evidence of free intraperitoneal air. A gastrostomy tube is noted. There is no evidence of small bowel obstruction. There are mild vascular calcifications in the pelvis. There are degenerative changes of the spine. A right central venous catheter is again noted. The heart and mediastinum are unchanged. There are chronic right perihilar parenchymal opacities which are stable. There is blunting of both costophrenic angles suggesting small effusions. There is mild patchy atelectasis or infiltrate left lung base. IMPRESSION: No free air or obstruction. Small bilateral pleural effusions are suspected, as well as mild left basilar atelectasis/infiltrate. <Electronically signed by Rick Brar > 06/29/21 [id number]
[2021-06-29 16:10] VITALS: BP 109/53
[2021-06-29 20:10] VITALS: BP 146/67
[2021-06-30 00:15] VITALS: BP 132/64
[2021-06-30 04:01] VITALS: BP 126/60
[2021-06-30 04:25] LABS: BASO % 0.1 % (0.0-1.0); EOS % 0.1 % (0.0-3.0); HEMATOCRIT 34.5 % (36.0-47.0); HEMOGLOBIN 11.5 g/dl (12.0-15.5); LYMPH # 1.1 10^3/uL (1.5-5.0); MEAN CORPUSCULAR HGB CONC 33.3 g/dl (32.0-36.5); MEAN CORPUSCULAR VOLUME 87.1 fl (80.0-96.0); MONO # 1.3 10^3/uL (0.0-0.8); MONO % 5.9 % (2.0-8.0); NEUTROPHILS # 19.6 10^3/uL (1.5-8.5); PLATELET COUNT, AUTOMATED 498 10^3/uL (150-450); RED BLOOD COUNT 3.96 10^6/uL (4.00-5.40); WHITE BLOOD COUNT 22.3 10^3/uL (4.0-10.0)
[2021-06-30 05:20] LABS: BLOOD UREA NITROGEN 14 MG/DL (7-18); CALCIUM LEVEL 10.5 MG/DL (8.8-10.2); CARBON DIOXIDE LEVEL 27 MEQ/L (21-32); CHLORIDE LEVEL 98 MEQ/L (98-107); CREATININE FOR GFR 0.34 MG/DL (0.55-1.30); GLOMERULAR FILTRATION RATE > 60.0 (>45); GLUCOSE, FASTING 82 MG/DL (70-100); MAGNESIUM LEVEL 1.8 MG/DL (1.8-2.4); POTASSIUM SERUM 4.7 MEQ/L (3.5-5.1); SODIUM LEVEL 131 MEQ/L (136-145)
[2021-06-30 07:52] VITALS: BP 110/56
[2021-06-30] MEDS: HYDROCORTISONE 10 MG TAB PO SCH (08:34)
[2021-06-30] MEDS: POTASSIUM CHLORIDE 10 MEQ SR TABLET PO SCH (08:34)
[2021-06-30] MEDS: FLUDROCORTISONE ACETATE 0.1 MG TAB PO SCH (08:34)
[2021-06-30] MEDS: MIDODRINE 5 MG TAB PO SCH ×2 (08:34→11:07)
[2021-06-30] MEDS: FAMOTIDINE 20 MG TAB PO SCH (08:34)
[2021-06-30] MEDS: DOXYCYCLINE HYCLATE 100MG TABLET PO SCH (08:34)
[2021-06-30] MEDS: SODIUM CHLORIDE 0.9% INJ 10 ML SYR IV SCH (08:34)
[2021-06-30] MEDS: ENOXAPARIN 30MG/0.3ML SYRINGE (J1650 PER 10MG) SC SCH (08:35)
[2021-06-30] MEDS ORDERED: PERCOCET 5MG/325MG TAB PO PRN (10:35)
--- NOTE | 2021-06-30 10:37 | REP ---
INDICATION: ? infection. COMPARISON: None. TECHNIQUE: CT chest performed without the use of intravenous contrast. Sagittal and coronal reconstruction images are performed. FINDINGS: Lungs: There is a band of fibro atelectasis in the right upper and middle lobes. There is mild fibro atelectasis in the left lingula and lower lobe. Mediastinum: No gross adenopathy. [place]: No gross adenopathy. Axilla: No gross adenopathy. Pleura: There is a moderate left effusion. There is a small right effusion. Heart: Not enlarged. Thoracic aorta: No aneurysm. There is a right central venous catheter with the tip in the superior vena cava. Visualized osseous structures: There are mild degenerative changes of the spine. IMPRESSION: Scattered fibro atelectatic changes in the lungs. Moderate left pleural effusion. Small right pleural effusion. <Electronically signed by Rick Brar > 06/30/21 [id number]
--- NOTE | 2021-06-30 11:06 | REP ---
INDICATION: ? infection COMPARISON: 05/09/2021. TECHNIQUE: CT Scan of the abdomen and pelvis was performed without intravenous contrast. Sagittal and coronal reconstruction images performed. FINDINGS: Liver: The previously noted mass in the inferior right lobe of the liver has increased in size, now measuring about 10 cm in diameter. It is not well characterized due to the lack of IV contrast. Gallbladder: Unremarkable. Spleen: Grossly unremarkable. Adrenals: Normal. Pancreas: Grossly unremarkable.. Kidneys: No hydronephrosis or nephrolithiasis. Ureters demonstrate no dilatation or calculus. Small and large bowel: Grossly unremarkable. Gastrostomy tube tip appears to lie within the antrum of the stomach. Free fluid: There is moderate free fluid in the pelvis, with mild free fluid in the right paracolic gutter. Abdominal aorta: No aneurysm. Adenopathy: None. Appendix: Not inflamed. Osseous structures: There are degenerative changes of the spine without compression deformity. There is diffuse superficial soft tissue edema of the abdominal wall. Small amount of subcutaneous air in the anterior abdominal wall soft tissues likely secondary to medication injections. Pelvis: No mass. No bladder calculus seen. IMPRESSION: Increased size of right lobe liver mass now measuring 10 cm in diameter. New moderate free fluid in the pelvis and mild free fluid in the right paracolic gutter. Gastrostomy tube tip appears to lie within the antrum of the stomach. <Electronically signed by Rick Brar > 06/30/21 [id number]
[2021-06-30 12:32] VITALS: BP 114/65
[2021-06-30] MEDS ORDERED: MIDO5TA PO (13:42)
[2021-06-30] MEDS ORDERED: DOXY100T PO (13:42)
[2021-06-30 14:32] LABS: INR 1.02; PROTHROMBIN TIME 13.8 SECONDS (12.7-14.5)
--- NOTE | 2021-06-30 16:53 | DS.PDOC ---
Discharge Summary General Date of Admission Jun 21, 2021 at 14:12 Date of Discharge 06/30/2021 Primary Care Physician: Ashely Myers Attending Physician: HINA MARR MD Discharge Summary PROCEDURES PERFORMED DURING STAY: None ADMITTING DIAGNOSES: UTI Questionable PEG tube infection SIRS criteria Hypotension Generalized weakness Nasopharyngeal carcinoma with metastatic disease to liver and possibly lung Hyponatremia Severe protein calorie malnutrition Normocytic anemia DISCHARGE DIAGNOSES: UTI Generalized weakness Questionable PEG tube infection Hypotension, asymptomatic, improved Bradycardia, asymptomatic Hyponatremia, resolved Hypokalemia and hypomagnesemia, resolved Severe protein calorie malnutrition Normocytic anemia, stable Nasopharyngeal carcinoma with metastatic disease to liver COMPLICATIONS/CHIEF COMPLAINT: Uti (Urinary Tract Infection), Weakness. HISTORY OF PRESENT ILLNESS: 65-year-old female past medical history of nasopharyngeal carcinoma with metastatic disease to the liver who presented due to generalized weakness and frequent falls at home. The patient's reported functional decline over the preceding 5 days. The patient reported having some difficulty walking and falling multiple times. The patient denied hitting her head. The patient appeared to have bruising on her arms. In the emergency department, the patient was evaluated and found to have a urinalysis suggestive of urinary tract infection. She was noted to recently been treated for urinary tract infection with IV ceftriaxone. HOSPITAL COURSE: The patient was admitted to the hospital and started on IV Zosyn for broader spectrum coverage and treatment of her UTI. The patient did develop hypotension and antibiotic coverage was broadened by adding vancomycin. It was thought the patient could have a infection around her PEG tube as she had some purulent appearing discharge from the tube. A culture was taken and grew multiple organisms including MSSA and coagulase-negative Staphylococcus. The patient was continued on broad-spectrum antibiotics for some time due to the development of hypotension. The patient was given IV fluids, but her hypotension was not fluid responsive and did not improve. The patient was initi ally started on midodrine without significant improvement of her hypotension. Due to continued mean arterial pressures below 60, the patient was started on steroids with fludrocortisone and then additionally hydrocortisone. It was only after this addition that the patient's blood pressure improved. However, the patient's a.m. cortisol level resulted as normal. Considering this, the steroids were discontinued. She will continue on the midodrine at discharge. The patient was noted to have an elevated white blood cell count which was attributed to the steroid use. However, she was also noted to have a persistently elevated CRP. CT scans of the chest, abdomen, and pelvis did not reveal any clear infectious etiology to explain this. CT scan did reveal a moderate pleural effusion on the left and the patient was scheduled for thoracentesis. The patient was switched to oral doxycycline to complete a 10-day course. The patient was evaluated by physical therapy and thought to benefit f [facility] acute rehab after discharge. Of note, when the patient initially was admitted to the hospital she decided to be full CODE STATUS. The patient had previously filled out a MOLST indicating DNR/DNI. During the first portion of the patient's hospitalization, she was kept as a full code. However upon rediscussion the patient indicated she would like to be a DNR/DNI. She states that she was nervous when being admitted to the hospital and did not want anything bad to happen. She reports fully understanding the implications of cardiopulmonary resuscitation and intubation. The patient's CODE STATUS was updated to DNR/DNI and remains this on hospital discharge. DISCHARGE MEDICATIONS: Please see below. ALLERGIES: Please see below. PHYSICAL EXAMINATION ON DISCHARGE: VITAL SIGNS: Please see below. GENERAL: Alert, comfortable, in no acute distress. Cachectic appearing with temporal wasting. HEENT: Normocephalic, atraumatic, moist mucous membranes NECK: Supple, trachea midline, no lymphadenopathy CARDIOVASCULAR: Regular rate and rhythm, normal S1 and S2. No murmurs, rubs, or gallops appreciated RESPIRATORY: Clear to auscultation bilaterally with equal air entry bilaterally. No wheezing, rhonchi, or rales appreciated ABDOMEN: Soft, nontender, nondistended, bowel sounds present. PEG tube in place without surrounding erythema, warmth, or swelling. EXTREMITIES: No cyanosis or edema. Pulses 2+/4 in bilateral upper and lower extremities. NEUROLOGIC: Able to move all four extremities. No focal deficits appreciated PSYCHIATRIC: Mood and affect appropriate LABORATORY DATA: Please see below. IMAGING: - CXR No acute disease. Uhrhyp-U-Zala catheter noted in place on the right. - Head CT 1. There is mild diffuse cerebellar atrophy. 2. Irfo-rr-cirdlygq diffuse cerebral atrophy. 3. The degree of ventricular dilatation is normal for age and/or degree of atrophy present. 4. Inflammatory changes left sphenoid sinus. 5. Possible chronic calcified right frontal meningioma. 6. No acute intracranial findings. - CXR Stable chest. - XR Abdomen No free air or obstruction. Small bilateral pleural effusions are suspected, as well as mild left basilar atelectasis/infiltrate. - CT abdomen/pelvis Increased size of right lobe liver mass now measuring 10 cm in diameter. New moderate free fluid in the pelvis and mild free fluid in the right paracolic gutter. Gastrostomy tube tip appears to lie within the antrum of the stomach. - CT Chest Scattered fibro atelectatic changes in the lungs. Moderate left pleural effusion. Small right pleural effusion. PROGNOSIS: Poor ACTIVITY: Patient will continue with rehab, activity per physical therapy. DIET: Regular diet with Ensure supplements DISCHARGE PLAN: Discharge to acute rehab unit DISPOSITION: 62 D/T Rehab Facility. DISCHARGE INSTRUCTIONS: Please complete the full course of antibiotics with oral doxycycline Please continue to take midodrine for your low blood pressure Follow-up with PCP in 7 to 10 days after acute rehab unit discharge Follow-up with oncology for further treatment of nasopharyngeal carcinoma with metastatic disease to liver ITEMS TO FOLLOWUP ON ON OUTPATIENT: Hypotension requiring midodrine Results of the diagnostic thoracentesis DISCHARGE CONDITION: Stable. TIME SPENT ON DISCHARGE: 35 minutes. Vital Signs/I&Os Vital Signs Date Time Temp Pulse Resp B/P (MAP) Pulse Ox O2 Delivery O2 Flow Rate FiO2 06/30/21 12:32 97.6 61 18 114/65 (81) 96 Room Air I&O- Last 24 Hours up to 6 AM 06/30/21 06:00 Intake Total 820 ml Output Total 200 ml Balance 620 ml Laboratory Data Labs 24H Laboratory Tests 2 06/29/21 21:19: Procalcitonin 1.65 06/30/21 00:09: Urine Color YELLOW, Urine Appearance HAZY, Urine pH 5.0, Urine Specific Udall 1.016, Urine Protein NEGATIVE, Urine Glucose (UA) NEGATIVE, Urine Ketones TRACEH, Urine Blood 1+H, Urine Nitrite NEGATIVE, Urine Bilirubin NEGATIVE, Urine Urobilinogen 0.2, Urine Leukocyte Esterase 2+H, Urine WBC (Auto) 31H, Urine RBC (Auto) 2, Urine Hyaline Casts (Auto) 34, Urine Bacteria (Auto) NEGATIVE, Urine Squamous Epithelial Cells 5, Urine Transitional Epithelial Cells 3, Urine Sperm (Auto) 06/30/21 04:15: Immature Granulocyte % (Auto) 0.9, Neutrophils (%) (Auto) 88.0H, Lymphocytes (%) (Auto) 5.0L, Monocytes (%) (Auto) 5.9, Eosinophils (%) (Auto) 0.1, Basophils (%) (Auto) 0.1, Neutrophils # (Auto) 19.6H, Lymphocytes # (Auto) 1.1L, Monocytes # (Auto) 1.3H, Eosinophils # (Auto) 0.0, Basophils # (Auto) 0.0, Nucleated Red Blood Cells % (auto) 0.0, Anion Gap 6L, Glomerular Filtration Rate > 60.0, Calcium Level 10.5H, Magnesium Level 1.8, C-Reactive Protein, Quantitative 16.00H 06/30/21 14:08: Prothrombin Time 13.8, Prothromb Time International Ratio 1.02 CBC/BMP Laboratory Tests 06/30/21 04:15 Microbiology Microbiology 06/30/21 Urine Culture, Received Pending 06/29/21 Blood Culture, Received Pending 06/29/21 Blood Culture, Received Pending 06/22/21 Gram Stain - Final, Complete 06/22/21 Wound Culture - Final, Complete Yeast Like Organism Staphylococcus Aureus Staphylococcus Sp Coag Neg 06/21/21 Blood Culture - Final, Complete NO GROWTH AFTER 5 DAYS 06/21/21 Urine Culture - Final, Complete 06/21/21 Blood Culture - Final, Complete NO GROWTH AFTER 5 DAYS Discharge Medications Scheduled Doxycycline Hyclate (Doxycycline Hyclate) 100 Mg Tablet, 100 MG PO BID Famotidine (Famotidine) 20 Mg Tablet, 20 MG PO DAILY, (Reported) Furosemide (Furosemide) 20 Mg Tablet, 20 MG PO DAILY, (Reported) Gabapentin (Gabapentin) 300 Mg Capsule, 300 MG PO QHS, (Reported) Midodrine HCl (Midodrine HCl) 5 Mg Tablet, 7.5 MG PO 08,12,16 Potassium Chloride (Potassium Chloride) 20 Meq Tab.er.prt, 20 MEQ PO DAILY, (Reported) Sennosides/Docusate Sodium (Stool Softener-Laxative Tablet) 1 Each Tablet, 2 TAB PO QHS, (Reported) Scheduled PRN Hydrocodone/Acetaminophen (Hydrocodone-Acetamin 10-325 mg) 1 Each Tablet, 1 TAB PO QID PRN for PAIN LEVEL 5-10, (Reported) Hydroxyzine HCl (Hydroxyzine HCl) 10 Mg Tablet, 10 MG PO DAILY PRN for ITCHING, (Reported) Ondansetron HCl (Ondansetron HCl) 4 Mg Tablet, 4 MG PO TID PRN for NAUSEA OR VOMITING, (Reported) Allergies Coded Allergies: No Known Allergies (Unverified , 11/04/20) GME ATTESTATION My faculty preceptor for this patient encounter was physically present during the encounter and was fully available. All aspects of the patient interview, examination, medical decision making process, and medical care plan development were reviewed and approved by the faculty preceptor. The faculty preceptor is aware and concurs with the plan as stated in the body of this note and will attest to such by his/her cosignature. ATTENDING NOTE I personally examined the patient and discussed the lab and imaging findings with the resident and I agree with the above findings, summary and plan as detailed by the resident physician. DEEPAK ARAYA D.O. Jun 30, 2021 16:53 HINA MARR MD Jul 01, 2021 07:44
== END 2021-06-30 15:10 | DRG 689 ==
LOC: M ED 10:56 → M ED INP 14:12 → ENRESERV 15:55 → M ICU 17:30 → M PCU 06-24 15:57
PROVIDERS: ADMIT Family Medicine; ATTEND Internal Medicine
DX: N39.0 Urinary tract infection, site not specified (principal); E43 Unspecified severe protein-calorie malnutrition; C78.7 Secondary malignant neoplasm of liver and intrahepatic bile duct; K94.22 Gastrostomy infection; E87.1 Hypo-osmolality and hyponatremia; C78.00 Secondary malignant neoplasm of unspecified lung; C11.9 Malignant neoplasm of nasopharynx, unspecified; I95.9 Hypotension, unspecified; R00.1 Bradycardia, unspecified; D63.8 Anemia in other chronic diseases classified elsewhere; E87.6 Hypokalemia; R53.1 Weakness; R29.6 Repeated falls; R26.2 Difficulty in walking, not elsewhere classified; J30.2 Other seasonal allergic rhinitis; M19.90 Unspecified osteoarthritis, unspecified site; Z87.891 Personal history of nicotine dependence; Z79.899 Other long term (current) drug therapy; Z66 Do not resuscitate; E83.42 Hypomagnesemia

== ENCOUNTER 2021-06-30 14:30 | Inpatient (IN) | payer MEDICARE, OTHER ==
[~2021-06-30] VITALS: Ht 170.2 cm; Wt 44.7 kg
[~2021-06-30 14:30] MED LIST changes: +DOXY100T PO; +MIDO5TA PO
[2021-06-30] MEDS ORDERED: DOXYCYCLINE HYCLATE 100MG TABLET PO ONE (14:55)
[2021-06-30] MEDS ORDERED: SIMETHICONE 80MG CHEW TAB PO PRN (14:55)
[2021-06-30] MEDS ORDERED: ONDANSETRON 4 MG ORAL DISINTEGRATING TAB PO PRN (14:55)
[2021-06-30] MEDS ORDERED: MIRALAX *UNIT DOSE* 17GM PACKET PO PRN (14:55)
--- NOTE | 2021-06-30 15:02 | HPEPDOC ---
[employer] Supervisor Note DATE OF ADMISSION:06-30-21 DATE OF SERVICE: 06-30-21 TIME OF ADMISSION: Please refer to physician's admission order. 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 She was started on IV Zosyn for UTI and there was concern for possible PEG site infection for which cultures were obtained. Her Urine cx did not grow anything, however her PEG site grew staph aureus and cog negative staph and she had persistent hypotension so she was kept on broad spectrum antibiotic coverage out of concern for sepsis. She had hypokalemia and hypomagnesemia and was started on midodrine to support her blood pressures once her work up for adrenal insufficiency was completed. She had persistent leukocytosis thought to be due to steroid use given for her hypotension with poor po intake and ongoing abdominal discomfort. For her sepsis work-up CT scans of the chest, abdomen, and pelvis did reveal a left sided moderate pleural effusion for which she was scheduled to have a diagnostic thoracentesis with IR. She had ongoing mobility and ADL impairments and was deemed medically appropriate for discharge to ARU on 06-30-21. REVIEW OF SYSTEMS: The following is a completed review of systems and has been reviewed. Review of systems otherwise unremarkable. PAIN: Patient self reports abdominal discomfort (chronic) EYES: No recent vision changes EARS, NOSE, & THROAT: No throat pain, or dysphagia, or rhinorrhea CARDIOVASCULAR: Denies chest pain or palpitations PULMONARY: Denies shortness of breath GASTROINTESTINAL: Denies constipation/diarrhea, +poor appetite GENITOURINARY: denies dysuria MUSCULOSKELETAL: generalized weakness NEUROLOGICAL: denies tremor or paresthesias HEMATOLOGICAL: denies easy bruising SKIN: +PEG site skin irritation PSYCHIATRIC: Unremarkable All other review of systems found to be negative. PAST MEDICAL HISTORY: as per HPI PAST SURGICAL HISTORY: port placement ALLERGIES: Please see below. MEDICATIONS: Please see below. FAMILY HISTORY:father with prostate cancer SOCIAL HISTORY: recently quit smoking, no etoh/illicit drugs DIET: regular PHYSICAL EXAMINATION: VITAL SIGNS: Please see below. GENERAL: Pleasant and cooperative. No acute distress. bitemporal wasting HEENT: PERRL. Extraocular movements intact. Clear conjunctiva CARDIOVASCULAR: Regular rate and rhythm. No murmurs, rubs, or gallops LUNGS: Clear to auscultation bilaterally. No wheezes. No rhonchi ABDOMEN: Soft, nontender, nondistended. Positive bowel sounds. Normal active bowel sounds NEUROLOGICAL: Alert and oriented times three. Cranial nerves II through XII grossly intact. Sensation grossly intact EXTREMITIES: 5-\5 strength bilateral upper extremities 5-\5 strength right lower extremity. 5-/5 strength in left lower extremity. SKIN: PEG site with mild erythema, no obvious exudate LABORATORY DATA: Please see below. 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 Rehab- PT/OT advance mobility and ADLs, strengthen/stretch/maintain ROM all 4 limbs 2. CArdiac- c/u midodrine for hypotension -medicine following to assist in overall management 3. Resp- patient to be schedule for diagnostic left sided thoracentesis for suspected lung metastases -monitor for infection, Incentive spirometer 4. Oncology- nasopharygneal cancer with liver mets, patient to follow up with oncologist for further management 5. GI- will add simethicone for abdominal discomfort and patient reporting she had relief from this, c/u pepcid for GI ppx -cancer related cachexia, will start Megace, patient interested in trying to increase her appetite and does not want supplemental nutrition via PEG 6. DVT ppx- lovenox 7. Pain- tylenol, oxycodone, and gabapentin 8. ID: s/p course of zosyn and vancomycin followed by po doxycycline for sepsis thought to be related to possible UTI vs PEG site infection, area appears a lit tle red and tender, will discuss option to add antifungal treatment given yeast on recent wound culture 9. Psych- depression, c/u zoloft 10. Heme- anemia s/p 2 units prbc on recent admission, will monitor an consider transfusion if Hgb <8 or symptomatic 10. Dispo TBD POST ADMISSION PHYSICIAN EVALUATION: Medical and functional status: Description of medical status, medical assessment: As above. Rehabilitation diagnosis and current and prior cold morbid medical conditions as above. Risk of complications and plans to mitigate them as above. Description of functional status current status is as above. Prior status as above. Status compared to preadmission: There are no clinically significant differences between the patient's current status and the information described on the preadmission screening document. Treatment plan anticipated: Treatment plan is as described above. Required disciplines including physical therapy, occupational therapy, others as noted above. Intensity of services: 3 hours a day, 6 days a week. Special considerations: There are no specific special or safety considerations that would likely preclude immediate implementation of an intensive rehabilitation program or subsequently influence the plan of care. ATTESTATION: Considering all the information above, it is my best judgment that this patient requires intensive rehabilitation therapy as described above and an inpatient hospital environment due to the complexity of nursing, medical, and rehabilitation needs required by the patient. Furthermore, this patient can reasonably be expected to participate in an benefit from an inpatient rehabilitation stay with an interdisciplinary team approach to the delivery of rehabilitation care under the direction and supervision of rehabilitation physician. PROGNOSIS: fair ESTIMATED LENGTH OF STAY:7-10 days. PROJECTED DISCHARGE DESTINATION: Home with family support and any durable medical equipment required to increase functional safety and mobility TIME SPENT COUNSELING AND COORDINATING INITIAL CARE: Greater than 70 minutes. Vital Signs Vital Signs Date Time Temp Pulse Resp B/P (MAP) Pulse Ox O2 Delivery O2 Flow Rate FiO2 06/30/21 15:38 97.8 54 20 99/58 (72) 97 Room Air Home Medications Scheduled Doxycycline Hyclate (Doxycycline Hyclate) 100 Mg Tablet, 100 MG PO BID Famotidine (Famotidine) 20 Mg Tablet, 20 MG PO DAILY, (Reported) Furosemide (Furosemide) 20 Mg Tablet, 20 MG PO DAILY, (Reported) Gabapentin (Gabapentin) 300 Mg Capsule, 300 MG PO QHS, (Reported) Midodrine HCl (Midodrine HCl) 5 Mg Tablet, 7.5 MG PO 08,12,16 Potassium Chloride (Potassium Chloride) 20 Meq Tab.er.prt, 20 MEQ PO DAILY, (Reported) Sennosides/Docusate Sodium (Stool Softener-Laxative Tablet) 1 Each Tablet, 2 TAB PO QHS, (Reported) Scheduled PRN Hydrocodone/Acetaminophen (Hydrocodone-Acetamin 10-325 mg) 1 Each Tablet, 1 TAB PO QID PRN for PAIN LEVEL 5-10, (Reported) Hydroxyzine HCl (Hydroxyzine HCl) 10 Mg Tablet, 10 MG PO DAILY PRN for ITCHING, (Reported) Ondansetron HCl (Ondansetron HCl) 4 Mg Tablet, 4 MG PO TID PRN for NAUSEA OR VOMITING, (Reported) Allergies Coded Allergies: No Known Allergies (Unverified , 11/04/20) A-FIB/CHADSVASC A-FIB History Current/History of A-Fib/PAF?: No Current PO Anticoag Therapy: No MISTY BRADSHAW MD Jun 30, 2021 15:02
[2021-06-30 15:38] VITALS: BP 99/58
[2021-06-30] MEDS ORDERED: PILL CUTTER 1 EACH XX PRN (15:55)
[2021-06-30] MEDS: REMEDY PHYTOPLEX Z-GUARD PASTE 113GM TUBE (FROM STOREROOM PRODUCT) TOP SCH ×2 (16:00→22:39)
[2021-06-30] MEDS: MIDODRINE 5 MG TAB PO SCH (16:52)
[2021-06-30] MEDS: MEGESTROL 400MG 10ML SUSP ORAL SYRINGE *DRAW UP EXACT DOSE PO SCH (18:16)
[2021-06-30] MEDS: oxyCODONE 5MG TAB PO PRN (18:26)
[2021-06-30 20:00] VITALS: BP 119/56
[2021-06-30] MEDS: GABAPENTIN 100 MG CAP PO SCH (22:39)
[2021-07-01 06:00] VITALS: BP 107/53
[2021-07-01 07:02] LABS: BASO % 0.1 % (0.0-1.0); HEMATOCRIT 32.1 % (36.0-47.0); HEMOGLOBIN 10.4 g/dl (12.0-15.5); LYMPH # 0.6 10^3/uL (1.5-5.0); LYMPH % 2.5 % (24.0-44.0); MEAN CORPUSCULAR HEMOGLOBIN 28.6 pg (27.0-33.0); MEAN CORPUSCULAR HGB CONC 32.4 g/dl (32.0-36.5); MEAN CORPUSCULAR VOLUME 88.2 fl (80.0-96.0); MONO # 1.3 10^3/uL (0.0-0.8); MONO % 5.9 % (2.0-8.0); NEUTROPHILS % 90.5 % (36.0-66.0); PLATELET COUNT, AUTOMATED 481 10^3/uL (150-450); RED BLOOD COUNT 3.64 10^6/uL (4.00-5.40); WHITE BLOOD COUNT 22.1 10^3/uL (4.0-10.0)
[2021-07-01 07:33] LABS: ALBUMIN 1.5 GM/DL (3.2-5.2); ALT/SGPT 19 U/L (12-78); BILIRUBIN,TOTAL 0.9 MG/DL (0.2-1.0); BLOOD UREA NITROGEN 12 MG/DL (7-18); CALCIUM LEVEL 11.2 MG/DL (8.8-10.2); CARBON DIOXIDE LEVEL 26 MEQ/L (21-32); CHLORIDE LEVEL 96 MEQ/L (98-107); GLOMERULAR FILTRATION RATE > 60.0 (>45); GLUCOSE, FASTING 72 MG/DL (70-100); POTASSIUM SERUM 3.1 MEQ/L (3.5-5.1); SODIUM LEVEL 131 MEQ/L (136-145); TOTAL PROTEIN 5.9 GM/DL (6.4-8.2)
[2021-07-01] MEDS: ENOXAPARIN 30MG/0.3ML SYRINGE (J1650 PER 10MG) SC SCH (08:22)
[2021-07-01] MEDS: oxyCODONE 5MG TAB PO PRN (08:22)
[2021-07-01] MEDS: MIDODRINE 5 MG TAB PO SCH ×3 (08:22→15:35)
[2021-07-01] MEDS: MEGESTROL 400MG 10ML SUSP ORAL SYRINGE *DRAW UP EXACT DOSE PO SCH (08:22)
[2021-07-01] MEDS: REMEDY PHYTOPLEX Z-GUARD PASTE 113GM TUBE (FROM STOREROOM PRODUCT) TOP SCH ×3 (08:23→20:20)
[2021-07-01] MEDS ORDERED: POTASSIUM CHLORIDE 10 MEQ SR TABLET PO ONE (08:30)
[2021-07-01] MEDS ORDERED: POTASSIUM CHLORIDE 10 MEQ SR TABLET PO SCH (09:00)
[2021-07-01] MEDS ORDERED: FAMOTIDINE 20 MG TAB PO SCH (09:00)
[2021-07-01 12:33] VITALS: BP 114/56
[2021-07-01] MEDS: POTASSIUM CHLORIDE 10 MEQ SR TABLET PO SCH (12:35)
[2021-07-01 13:36] VITALS: BP 98/67
[2021-07-01 14:00] VITALS: BP 127/57
[2021-07-01 15:33] VITALS: BP 96/49
[2021-07-01] MEDS: SIMETHICONE 80MG CHEW TAB PO SCH ×2 (16:38→20:19)
--- NOTE | 2021-07-01 17:11 | IPNPDOC ---
Text Note Date of Service The patient was seen on 07/01/21. NOTE Subjective: -No acute complaints, feels weak, but participating in PT/OT Objective: VITAL SIGNS: See below GENERAL: Alert, comfortable, in no acute distress. Chronically ill appearing, cachectic HEENT: Normocephalic, atraumatic, moist mucous membranes NECK: Supple, trachea midline, no lymphadenopathy CARDIOVASCULAR: Regular rate and rhythm, normal S1 and S2. No murmurs, rubs, or gallops appreciated RESPIRATORY: Diminished bases bilaterally in posterior lung rodriguez, otherwise moving air well at apices, no wheezing or rhonchi. ABDOMEN: Soft, nontender, nondistended, bowel sounds present. PEG tube in place without surrounding erythema, warmth, or swelling. EXTREMITIES: No cyanosis or edema. Pulses 2+/4 in bilateral upper and lower extremities. NEUROLOGIC: No focal deficits appreciated, globally weak PSYCHIATRIC: Mood and affect appropriate Labs: Reviewed ASSESSMENT/PLAN: 65 year old W with history of nasopharyngeal carcinoma with metastasis to the liver and possibly to the lungs presented with weakness/falls, who was discharged from inpatient medicine yesterday after admission for a presumed UTI and PEG site infection with +SIRS with significant physical deco nditioning now admitted to the ARU. #Normocytic anemia - iron studies show low iron level with anemia of chronic disease - b12, folate, reticulocyte count all normal - s/p 2 units PRBCs on inpatient medicine, H/H has been stable since transfusion # PEG tube with possible infection - currently no pain or drainage around site s/p 10d of abx initially with vanc/zosyn and completed course with doxycycline - will keep PEG tube in for now, outpatient follow up with surgery for removal if needed # Presumed UTI - s/p 10d of abx, UCx was ultimately negative # Electrolyte abnormalities, improved - hyponatremia on admission resolved with hydration - hypokalemia and hypomagnesemia resolved with repletion # Weakness 2/2 physical deconditioning and malnutrition vs recent infection - s/p antibiotic therapy - PT/OT per PM&R - Encourage PO, does not use PEG for nutrition. # Nasopharyngeal carcinoma with metastasis to liver and possibly lung, s/p chemotherapy and radiation - per oncology notes she was expected to start capecitabine soon - Pt was referred for treatment of liver metastasis at [facility] that is pending -On discussion with Dr. Nereida Arvizu, will focus on improving nutrition and functional status so that she can be strong enough for onc treatment # Severe protein calorie malnutrition - s/p dietary consult, encourage PO VS,Fishbone, I+O VS, Fishbone, I+O Laboratory Tests 07/01/21 06:43 Vital Signs Date Time Temp Pulse Resp B/P (MAP) Pulse Ox O2 Delivery O2 Flow Rate FiO2 07/01/21 14:00 98.9 62 16 127/57 (80) 98 Room Air I&O- Last 24 Hours up to 6 AM 07/01/21 06:00 Intake Total 230 ml Balance 230 ml HINA MARR MD Jul 01, 2021 14:34
[2021-07-01 20:00] VITALS: BP 109/54
[2021-07-01] MEDS: NYSTATIN 100,000 UNITS/GM TOPICAL PWD 15 GM TOP SCH ×2 (20:19→21:00)
[2021-07-01] MEDS: ACETAMINOPHEN TAB 650MG DOSE (2X325MG) PO PRN (20:19)
[2021-07-01] MEDS: GABAPENTIN 100 MG CAP PO SCH (20:19)
[2021-07-01] MEDS: SODIUM CHLORIDE 0.9% INJ 10 ML SYR IV PRN (20:20)
[2021-07-02 06:00] VITALS: BP 99/51
[2021-07-02 06:03] LABS: BLOOD UREA NITROGEN 9 MG/DL (7-18); CALCIUM LEVEL 11.2 MG/DL (8.8-10.2); CARBON DIOXIDE LEVEL 30 MEQ/L (21-32); CHLORIDE LEVEL 98 MEQ/L (98-107); GLOMERULAR FILTRATION RATE > 60.0 (>45); GLUCOSE, FASTING 77 MG/DL (70-100); POTASSIUM SERUM 3.5 MEQ/L (3.5-5.1); SODIUM LEVEL 133 MEQ/L (136-145)
[2021-07-02] MEDS: MIDODRINE 5 MG TAB PO SCH ×3 (08:11→16:27)
[2021-07-02] MEDS: SIMETHICONE 80MG CHEW TAB PO SCH ×3 (08:11→21:11)
[2021-07-02] MEDS: POTASSIUM CHLORIDE 10 MEQ SR TABLET PO SCH (08:11)
[2021-07-02] MEDS: FAMOTIDINE 20 MG TAB PO SCH (08:12)
[2021-07-02] MEDS: oxyCODONE 5MG TAB PO PRN ×2 (08:12→14:53)
[2021-07-02] MEDS: SODIUM CHLORIDE 0.9% INJ 10 ML SYR IV SCH (08:13)
[2021-07-02] MEDS: MEGESTROL 400MG 10ML SUSP ORAL SYRINGE *DRAW UP EXACT DOSE PO SCH (08:13)
[2021-07-02] MEDS: REMEDY PHYTOPLEX Z-GUARD PASTE 113GM TUBE (FROM STOREROOM PRODUCT) TOP SCH ×3 (09:00→21:00)
[2021-07-02] MEDS: NYSTATIN 100,000 UNITS/GM TOPICAL PWD 15 GM TOP SCH ×2 (09:00→21:00)
[2021-07-02] MEDS ORDERED: NS 1,000 ML IV SCH (09:35)
--- NOTE | 2021-07-02 09:36 | IPNPDOC ---
PM&R Progress Note DATE OF SERVICE: Jul 02, 2021 Data Integrity Specialist Progress Note Subjective: Patient seen stating her abdominal pain is betetr with the simethicone and that her appetite is starting to improve a little. REVIEW OF SYSTEMS: The following is a completed review of systems and has been reviewed. Review of systems otherwise unremarkable. PAIN: Patient self reports abdominal discomfort (chronic) EYES: No recent vision changes EARS, NOSE, & THROAT: No throat pain, or dysphagia, or rhinorrhea CARDIOVASCULAR: Denies chest pain or palpitations PULMONARY: Denies shortness of breath GASTROINTESTINAL: Denies constipation/diarrhea, +poor appetite GENITOURINARY: denies dysuria MUSCULOSKELETAL: generalized weakness NEUROLOGICAL: denies tremor or paresthesias HEMATOLOGICAL: denies easy bruising SKIN: +PEG site skin irritation PSYCHIATRIC: Unremarkable All other review of systems found to be negative. PHYSICAL EXAMINATION: VITAL SIGNS: Please see below. GENERAL: Pleasant and cooperative. No acute distress. bitemporal wasting HEENT: PERRL. Extraocular movements intact. Clear conjunctiva CARDIOVASCULAR: Regular rate and rhythm. No murmurs, rubs, or gallops LUNGS: Clear to auscultation bilaterally. No wheezes. No rhonchi ABDOMEN: Soft, nontender, nondistended. Positive bowel sounds. Normal active bowel sounds NEUROLOGICAL: Alert and oriented times three. Cranial nerves II through XII grossly intact. Sensation grossly intact EXTREMITIES: 5-\5 strength bilateral upper extremities 5-\5 strength right lower extremity. 5-/5 strength in left lower extremity. 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 Rehab- PT/OT advance mobility and ADLs, strengthen/stretch/maintain ROM all 4 limbs 2. CArdiac- c/u midodrine for hypotension -medicine following to assist in overall management 3. Resp- patient to be schedule for diagnostic left sided thoracentesis for suspected lung metastases today at 2pm -monitor for infection, Incentive spirometer 4. Oncology- nasopharygneal cancer with liver mets, patient to follow up with oncologist for further management 5. GI- cont simethicone for abdominal discomfort which patient states is getting better, cont pepcid for GI ppx -cancer related cachexia, cont Megace, patient reporting increased appetite -she does not want supplemental nutrition via PEG, will find out who placed it and try to coordinate removal after d/c 6. DVT ppx- lovenox -patient with +Jose's on left, will order dopplers to r/o DVT 7. Pain- tylenol, oxycodone, and gabapentin 8. ID: s/p course of zosyn and vancomycin followed by po doxycycline for sepsis thought to be related to possible UTI vs PEG site infection, area appears a lit tle red and tender, discussed option to add oral antifungal treatment given yeast on recent wound culture with hospitalist who had low concern, will add local nystatin to peg-site skin 9. Psych- depression, c/u zoloft 10. Heme- anemia s/p 2 units prbc on recent admission, will monitor an consider transfusion if Hgb <8 or symptomatic 11. Hypercalcemia- ionized Ca 5.8 will give gentle IVF 12. Dispo TBD Allergies Coded Allergies: No Known Allergies (Unverified , 11/04/20) Vital Signs Vital Signs Date Time Temp Pulse Resp B/P (MAP) Pulse Ox O2 Delivery O2 Flow Rate FiO2 07/02/21 08:42 15 07/02/21 06:00 98.1 66 99/51 (67) 95 Room Air Laboratory Data CBC/BMP Laboratory Tests 07/02/21 05:23 Labs 24H Laboratory Tests 2 07/02/21 05:23: Anion Gap 5L, Glomerular Filtration Rate > 60.0, Calcium Level 11.2H Current Medications Current Medications Current Medications Medications (Trade) Dose Ordered Sig/Chanelle Route PRN Reason Start Time Stop Time Status Last Admin Dose Admin Acetaminophen (Tylenol Tab) 650 mg Q4HP PRN PO MILD PAIN (PS 1-4) 06/30/21 14:55 07/01/21 20:19 Enoxaparin Sodium (Lovenox) 30 mg DAILY SC 07/01/21 09:00 Hold 07/01/21 08:22 Famotidine (Pepcid) 20 mg DAILY PO 07/01/21 09:00 07/01/21 15:43 DC 07/01/21 08:21 Famotidine (Pepcid) 40 mg DAILY PO 07/02/21 09:00 07/02/21 08:12 Gabapentin (Neurontin) 100 mg QHS PO 06/30/21 21:00 07/01/21 20:19 Heparin Sodium (Heparin (Flush)) 500 units ASDIRECTED PRN IV SEE LABEL COMMENTS 07/01/21 18:55 07/01/21 20:20 Heparin Sodium (Heparin (Flush)) 500 units DAILY IV 07/02/21 09:00 07/02/21 08:13 Megestrol Acetate (Megace Acetate Suspension) 400 mg DAILY PO 06/30/21 09:00 07/02/21 08:13 Midodrine (Proamatine) 7.5 mg 08,12,16 PO 06/30/21 16:00 07/02/21 08:11 Nystatin (Mycostatin Powder, Nystop) apply to peg site af... BID TOP 07/01/21 21:00 Ondansetron HCl (Zofran Odt) 4 mg Q6HP PRN PO NAUSEA OR VOMITING 06/30/21 14:55 Oxycodone HCl (Roxicodone, Oxyir) 5 mg Q4HP PRN PO MODERATE PAIN (PS 5-7) 06/30/21 14:55 07/02/21 08:12 Polyethylene Glycol (Miralax) 1 pkt DAILY PRN PO CONSTIPATION 06/30/21 14:55 Potassium Chloride (Micro-K Extencaps) 20 meq DAILY PO 07/01/21 09:00 07/01/21 08:09 DC Potassium Chloride (Micro-K Extencaps) 40 meq DAILY PO 07/01/21 09:00 07/02/21 08:11 Simethicone (Mylicon) 80 mg TID PO 07/01/21 16:00 07/02/21 08:11 Simethicone (Mylicon) 80 mg TIDP PRN PO GAS PAIN 06/30/21 14:55 07/01/21 15:47 DC Sodium Chloride (Saline Lock Flush) 10 ml ASDIRECTED PRN IV SEE LABEL COMMENTS 07/01/21 18:55 07/01/21 20:20 Sodium Chloride (Saline Lock Flush) 10 ml DAILY IV 07/02/21 09:00 07/02/21 08:13 MISTY BRADSHAW MD Jul 02, 2021 09:36
[2021-07-02] MEDS ORDERED: LIDOCAINE 1% MDV 20ML VIAL As Ordered ONE (12:56)
[2021-07-02 14:09] LABS: PH BODY FLUID 7.786 UNITS (NOT ESTABLISHED); SOURCE, BODY FLUID pH PLEURAL
[2021-07-02 14:13] LABS: APPEARANCE, BODY FLUID CLEAR (CLEAR); PLEURAL FL COLOR PALE YELLOW (COLORLESS); SOURCE, BODY FLUID PLEURAL
--- NOTE | 2021-07-02 14:29 | REP ---
INDICATION: POST THORA, 2 VIEW. COMPARISON: 06/29/2021. TECHNIQUE: Two views chest. FINDINGS: There is no pneumothorax status post left thoracentesis. There is chronic bibasilar scarring. There is small bilateral effusions are present. The heart is not enlarged. The mediastinal silhouette is unremarkable. There is a right central venous catheter with the tip in the superior vena cava. IMPRESSION: No pneumothorax status post left thoracentesis. <Electronically signed by Rick Brar > 07/02/21 [id number]
[2021-07-02 14:30] VITALS: BP 101/54
--- NOTE | 2021-07-02 14:31 | REP ---
INDICATION: r/o dvt COMPARISON: None. FINDINGS: The deep veins demonstrate normal compression, normal Doppler color flow and normal Doppler waveforms with respiration augmentation from the popliteal veins to the common femoral veins bilaterally. The patient denied evaluation of the proximal calf veins. IMPRESSION: There is no deep vein thrombus in the right or left lower extremities. <Electronically signed by Rick Santiago > 07/02/21 [id number]
[2021-07-02 15:00] VITALS: BP 103/56
[2021-07-02 15:39] LABS: AMYLASE, BODY FLUID 44 U/L (NOT ESTABLISHED); LDH, BODY FLUID 44 U/L (NOT ESTABLISHED); SOURCE, BODY FLUID AMYLASE PLEURAL; SOURCE, BODY FLUID GLUCOSE PLEURAL; SOURCE, BODY FLUID LDH PLEURAL; SOURCE, BODY FLUID TOT PROTEIN PLEURAL; TOTAL PROTEIN, BODY FLUID 2.5 G/DL (NOT ESTABLISHED)
--- NOTE | 2021-07-02 17:18 | REP ---
INDICATION: LEFT THORACENTESIS. COMPARISON: None. TECHNIQUE: The procedure was performed under the direct supervision of Dr. Brar. The risks and benefits of the procedure were explained to the patient and informed consent was obtained. The left pleural effusion was localized using ultrasound guidance. The skin was prepped and draped in a sterile fashion. 5 mL of 1% lidocaine was used as a local anesthetic. Using ultrasound guidance an 8 Malay multi side hole catheter was inserted using trocar technique. 340 mL of yellow fluid was withdrawn and sent to the lab for analysis. The patient tolerated the procedure well and there were no immediate complications. After the appropriate amount to monitor convalescence the patient was discharged from the department. FINDINGS: None IMPRESSION: Ultrasound-guided left thoracentesis yielding 340 mL of yellow fluid. <Electronically signed by Alejandro Rubalcava > 07/02/21 1500 <Electronically signed by Rick Brar > 07/02/21 [id number]
[2021-07-02 20:00] VITALS: BP 104/53
[2021-07-02] MEDS: GABAPENTIN 100 MG CAP PO SCH (21:11)
[2021-07-03] MEDS: oxyCODONE 5MG TAB PO PRN (05:17)
[2021-07-03 05:26] LABS: BASO % 0.1 % (0.0-1.0); HEMATOCRIT 28.6 % (36.0-47.0); HEMOGLOBIN 9.3 g/dl (12.0-15.5); LYMPH # 0.7 10^3/uL (1.5-5.0); LYMPH % 3.1 % (24.0-44.0); MEAN CORPUSCULAR HEMOGLOBIN 28.4 pg (27.0-33.0); MEAN CORPUSCULAR HGB CONC 32.5 g/dl (32.0-36.5); MEAN CORPUSCULAR VOLUME 87.5 fl (80.0-96.0); MONO # 1.6 10^3/uL (0.0-0.8); MONO % 7.3 % (2.0-8.0); NEUTROPHILS # 19.8 10^3/uL (1.5-8.5); NEUTROPHILS % 88.6 % (36.0-66.0); PLATELET COUNT, AUTOMATED 405 10^3/uL (150-450); RED BLOOD COUNT 3.27 10^6/uL (4.00-5.40)
[2021-07-03 05:48] LABS: BLOOD UREA NITROGEN 8 MG/DL (7-18); CALCIUM LEVEL 10.5 MG/DL (8.8-10.2); CARBON DIOXIDE LEVEL 29 MEQ/L (21-32); CHLORIDE LEVEL 98 MEQ/L (98-107); CREATININE FOR GFR 0.28 MG/DL (0.55-1.30); GLOMERULAR FILTRATION RATE > 60.0 (>45); GLUCOSE, FASTING 80 MG/DL (70-100); POTASSIUM SERUM 3.7 MEQ/L (3.5-5.1); SODIUM LEVEL 132 MEQ/L (136-145)
[2021-07-03 05:52] LABS: WHITE BLOOD COUNT 22.3 10^3/uL (4.0-10.0)
[2021-07-03 05:53] VITALS: BP 89/51
[2021-07-03 08:00] VITALS: BP 91/50
[2021-07-03] MEDS: FAMOTIDINE 20 MG TAB PO SCH (08:12)
[2021-07-03] MEDS: MEGESTROL 400MG 10ML SUSP ORAL SYRINGE *DRAW UP EXACT DOSE PO SCH (08:12)
[2021-07-03] MEDS: POTASSIUM CHLORIDE 10 MEQ SR TABLET PO SCH (08:12)
[2021-07-03] MEDS: SIMETHICONE 80MG CHEW TAB PO SCH ×3 (08:13→21:01)
[2021-07-03] MEDS: SODIUM CHLORIDE 0.9% INJ 10 ML SYR IV SCH (08:13)
[2021-07-03] MEDS: MIDODRINE 5 MG TAB PO SCH ×3 (08:13→16:39)
[2021-07-03] MEDS: NYSTATIN 100,000 UNITS/GM TOPICAL PWD 15 GM TOP SCH ×2 (08:13→21:01)
[2021-07-03] MEDS: REMEDY PHYTOPLEX Z-GUARD PASTE 113GM TUBE (FROM STOREROOM PRODUCT) TOP SCH ×4 (08:14→21:02)
[2021-07-03 09:30] VITALS: BP 78/42
[2021-07-03] MEDS: ENOXAPARIN 30MG/0.3ML SYRINGE (J1650 PER 10MG) SC SCH (10:14)
--- NOTE | 2021-07-03 11:14 | REP ---
INDICATION: r/o pneumothorax or worsening effusion. COMPARISON: 07/02/2021. TECHNIQUE: Single portable AP view of the chest was performed. FINDINGS: There is no pneumothorax or acute infiltrate. There is slight blunting of the left costophrenic angle suggesting mild left pleural fluid or thickening. Bibasilar fibrotic changes are stable. The heart and mediastinum are unchanged. A right central venous catheter is seen with tip in the superior vena cava. IMPRESSION: No acute changes. <Electronically signed by Rick Brar > 07/03/21 [id number]
[2021-07-03] MEDS: PYRIDOSTIGMINE 60 MG TAB PO SCH ×3 (11:28→21:01)
[2021-07-03 11:30] VITALS: BP 82/56
--- NOTE | 2021-07-03 14:03 | IPNPDOC ---
PM&R Progress Note DATE OF SERVICE: Jul 03, 2021 Early Childhood Worker Progress Note Subjective: Patient seen in room with her who is concerned his is giving up. She was able to participate in some therapy, but was noted to be sad and distan t. Discussion was held with patient and about option for hospice if she felt rehab was too much for her. Patient stated she wants to do hospice at home, but prefers hospice outside of the home. They agreed to discuss it with each other over the weekend. REVIEW OF SYSTEMS: The following is a completed review of systems and has been reviewed. Review of systems otherwise unremarkable. PAIN: Patient self reports abdominal discomfort (chronic) EYES: No recent vision changes EARS, NOSE, & THROAT: No throat pain, or dysphagia, or rhinorrhea CARDIOVASCULAR: Denies chest pain or palpitations PULMONARY: Denies shortness of breath GASTROINTESTINAL: Denies constipation/diarrhea, +poor appetite GENITOURINARY: denies dysuria MUSCULOSKELETAL: generalized weakness NEUROLOGICAL: denies tremor or paresthesias HEMATOLOGICAL: denies easy bruising SKIN: +PEG site skin irritation PSYCHIATRIC: Unremarkable All other review of systems found to be negative. PHYSICAL EXAMINATION: VITAL SIGNS: Please see below. GENERAL: Pleasant and cooperative. No acute distress. bitemporal wasting HEENT: PERRL. Extraocular movements intact. Clear conjunctiva CARDIOVASCULAR: Regular rate and rhythm. No murmurs, rubs, or gallops LUNGS: Clear to auscultation bilaterally. No wheezes. No rhonchi ABDOMEN: Soft, nontender, nondistended. Positive bowel sounds. Normal active bowel sounds NEUROLOGICAL: Alert and oriented times three. Cranial nerves II through XII grossly intact. Sensation grossly intact EXTREMITIES: 5-\5 strength bilateral upper extremities 5-\5 strength right lower extremity. 5-/5 strength in left lower extremity. 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 Rehab- PT/OT advance mobility and ADLs, strengthen/stretch/maintain ROM all 4 limbs, patient beginning to plateau in therapy 2. CArdiac- patient with ongoing low BPs, however today patient with lethargy and softer BPs in the morning with difficulty sitting up in therapy that improved a few hours later, will increase midodrine dosing to 10mg TID, add mestinon which can also help with orthostatic hypotension, and stop oxycodone (she received at 5am) and stop gabapentin to see if this helps improve her mobility -medicine following to assist in overall management 3. Resp- patient to be schedule for diagnostic left sided thoracentesis for suspected lung metastases today at 2pm -monitor for infection, Incentive spirometer 4. Oncology- nasopharyngeal cancer with liver mets, patient to follow up with oncologist for further management 5. GI- cont simethicone for abdominal discomfort which patient states is getting better, cont pepcid for GI ppx -cancer related cachexia, cont Megace, patient reporting increased appetite -she does not want supplemental nutrition via PEG, will find out who placed it and try to coordinate removal after d/c 6. DVT ppx- lovenox -patient with +Jose's on left- dopplers negative for DVT 7. Pain- tylenol, oxycodone (stopped due to lethargy) , and gabapentin (stopped due to lethargy) 8. ID: s/p course of zosyn and vancomycin followed by po doxycycline for sepsis thought to be related to possible UTI vs PEG site infection, area appears a little red and tender, discussed option to add oral antifungal treatment given yeast on recent wound culture with hospitalist who had low concern, cont local nystatin to peg-site skin -given today's soft BPs with lethargy, that did later improve, infectious work- up initiated- patient with persistent leukocytosis, but procalcitonin is low, no fever, UA negative, f/u blood cx, not suspicious for infectious cause of soft BPs and poor mentation this morning, more likely due to oxycodone 9. Psych- depression, c/u zoloft 10. Heme- anemia s/p 2 units prbc on recent admission, will monitor an consider transfusion if Hgb <8 or symptomatic 11. Hypercalcemia- ionized Ca 5.8 s/p gentle IVF 07-02-21 12. Dispo- will order hospice consult tuesday, patient may have change of heart over the weekend and participate more in therapy, appointment made with Dr. Arvizu 07-07-21, however was canceled because patient needs to be out of hospital before she can be seen, will attempt to get her back on schedule Tuesday Allergies Coded Allergies: No Known Allergies (Unverified , 11/04/20) Vital Signs Vital Signs Date Time Temp Pulse Resp B/P (MAP) Pulse Ox O2 Delivery O2 Flow Rate FiO2 07/03/21 11:30 82/56 (65) 07/03/21 08:00 78 07/03/21 06:00 17 07/03/21 05:53 98.8 95 Room Air Laboratory Data CBC/BMP Laboratory Tests 07/03/21 05:06 Labs 24H Laboratory Tests 2 07/03/21 05:06: Immature Granulocyte % (Auto) 0.9, Neutrophils (%) (Auto) 88.6H, Lymphocytes (%) (Auto) 3.1L, Monocytes (%) (Auto) 7.3, Eosinophils (%) (Auto) 0.0, Basophils (%) (Auto) 0.1, Neutrophils # (Auto) 19.8H, Lymphocytes # (Auto) 0.7L, Monocytes # (Auto) 1.6H, Eosinophils # (Auto) 0.0, Basophils # (Auto) 0.0, Nucleated Red Blood Cells % (auto) 0.0, Anion Gap 5L, Glomerular Filtration Rate > 60.0, Calcium Level 10.5H 07/03/21 10:11: Lactic Acid Level 1.1 07/03/21 10:34: Urine Color YELLOW, Urine Appearance CLEAR, Urine pH 8.0, Urine Specific [place] 1.010, Urine Protein NEGATIVE, Urine Glucose (UA) NEGATIVE, Urine Ketones NEGATIVE, Urine Blood NEGATIVE, Urine Nitrite NEGATIVE, Urine Bilirubin NEGATIVE, Urine Urobilinogen 0.2, Urine Leukocyte Esterase NEGATIVE, Urine WBC (Auto) 3, Urine RBC (Auto) 1, Urine Hyaline Casts (Auto) 3, Urine Bacteria (Auto) NEGATIVE, Urine Squamous Epithelial Cells 0, Urine Mucus (Auto) SMALL, Urine Sperm (Auto) Microbiology Microbiology 07/03/21 Blood Culture, Received Pending 07/03/21 Blood Culture, Received Pending 07/01/21 Gram Stain - Final, Resulted 07/01/21 Body Fluid Culture, Resulted Pending Current Medications Current Medications Current Medications Medications (Trade) Dose Ordered Sig/Chanelle Route PRN Reason Start Time Stop Time Status Last Admin Dose Admin Acetaminophen (Tylenol Tab) 650 mg Q4HP PRN PO MILD PAIN (PS 1-4) 8/3/21 14:55 07/01/21 20:19 Enoxaparin Sodium (Lovenox) 30 mg DAILY SC 07/01/21 09:00 07/03/21 10:14 Famotidine (Pepcid) 20 mg DAILY PO 07/01/21 09:00 07/01/21 15:43 DC 07/01/21 08:21 Famotidine (Pepcid) 40 mg DAILY PO 07/02/21 09:00 07/03/21 08:12 Gabapentin (Neurontin) 100 mg QHS PO 06/30/21 21:00 07/03/21 09:56 DC 07/02/21 21:11 Heparin Sodium (Heparin (Flush)) 500 units ASDIRECTED PRN IV SEE LABEL COMMENTS 07/01/21 18:55 07/01/21 20:20 Heparin Sodium (Heparin (Flush)) 500 units DAILY IV 07/02/21 09:00 07/02/21 08:13 Megestrol Acetate (Megace Acetate Suspension) 400 mg DAILY PO 06/30/21 09:00 07/03/21 08:12 Midodrine (Proamatine) 7.5 mg 08,12,16 PO 06/30/21 16:00 07/03/21 09:56 DC 07/03/21 08:13 Midodrine (Proamatine) 10 mg 08,12,16 PO 07/03/21 12:00 07/03/21 11:28 Nystatin (Mycostatin Powder, Nystop) apply to peg site af... BID TOP 07/01/21 21:00 Ondansetron HCl (Zofran Odt) 4 mg Q6HP PRN PO NAUSEA OR VOMITING 06/30/21 14:55 Oxycodone HCl (Roxicodone, Oxyir) 5 mg Q4HP PRN PO MODERATE PAIN (PS 5-7) 06/30/21 14:55 07/03/21 09:56 DC 07/03/21 05:17 Polyethylene Glycol (Miralax) 1 pkt DAILY PRN PO CONSTIPATION 06/30/21 14:55 Potassium Chloride (Micro-K Extencaps) 20 meq DAILY PO 07/01/21 09:00 07/01/21 08:09 DC Potassium Chloride (Micro-K Extencaps) 40 meq DAILY PO 07/01/21 09:00 07/03/21 08:12 Pyridostigmine [place] (Mestinon) 15 mg TID PO 07/03/21 09:00 07/03/21 11:28 Simethicone (Mylicon) 80 mg TID PO 07/01/21 16:00 07/03/21 08:13 Simethicone (Mylicon) 80 mg TIDP PRN PO GAS PAIN 06/30/21 14:55 07/01/21 15:47 DC Sodium Chloride 1,000 ml @ 60 mls/hr [id number] IV 07/02/21 09:35 07/03/21 02:14 DC 07/02/21 09:58 Sodium Chloride (Saline Lock Flush) 10 ml ASDIRECTED PRN IV SEE LABEL COMMENTS 07/01/21 18:55 07/01/21 20:20 Sodium Chloride (Saline Lock Flush) 10 ml DAILY IV 07/02/21 09:00 07/02/21 08:13 MISTY BRADSHAW MD Jul 03, 2021 14:03
[2021-07-03 14:40] VITALS: BP 90/62
[2021-07-03] MEDS: ACETAMINOPHEN TAB 650MG DOSE (2X325MG) PO PRN (14:41)
[2021-07-03] MEDS: LIDOCAINE 5% (LIDODERM) PATCH TD SCH (16:38)
[2021-07-03 20:00] VITALS: BP 120/59
[2021-07-03] MEDS: **NOTE PATIENT COMMENT** MISC XX SCH (21:02)
[2021-07-04 06:24] VITALS: BP 96/52
[2021-07-04] MEDS: MIDODRINE 5 MG TAB PO SCH ×3 (07:55→16:17)
[2021-07-04] MEDS: MEGESTROL 400MG 10ML SUSP ORAL SYRINGE *DRAW UP EXACT DOSE PO SCH (07:56)
[2021-07-04] MEDS: LIDOCAINE 5% (LIDODERM) PATCH TD SCH (07:56)
[2021-07-04] MEDS: ENOXAPARIN 30MG/0.3ML SYRINGE (J1650 PER 10MG) SC SCH (07:57)
[2021-07-04] MEDS: NYSTATIN 100,000 UNITS/GM TOPICAL PWD 15 GM TOP SCH ×2 (07:57→20:51)
[2021-07-04] MEDS: SODIUM CHLORIDE 0.9% INJ 10 ML SYR IV SCH (07:58)
[2021-07-04] MEDS: POTASSIUM CHLORIDE 10 MEQ SR TABLET PO SCH (07:58)
[2021-07-04] MEDS: SIMETHICONE 80MG CHEW TAB PO SCH ×3 (07:58→20:48)
[2021-07-04] MEDS: FAMOTIDINE 20 MG TAB PO SCH (07:58)
[2021-07-04] MEDS: REMEDY PHYTOPLEX Z-GUARD PASTE 113GM TUBE (FROM STOREROOM PRODUCT) TOP SCH ×3 (07:59→20:51)
[2021-07-04] MEDS: PYRIDOSTIGMINE 60 MG TAB PO SCH ×3 (08:03→20:48)
[2021-07-04] MEDS: ACETAMINOPHEN TAB 650MG DOSE (2X325MG) PO PRN (09:21)
[2021-07-04 14:00] VITALS: BP 108/59
[2021-07-04 20:00] VITALS: BP 125/60
[2021-07-04] MEDS: **NOTE PATIENT COMMENT** MISC XX SCH (21:11)
[2021-07-05 06:39] VITALS: BP 102/60
[2021-07-05] MEDS: MEGESTROL 400MG 10ML SUSP ORAL SYRINGE *DRAW UP EXACT DOSE PO SCH (07:50)
[2021-07-05] MEDS: PYRIDOSTIGMINE 60 MG TAB PO SCH ×4 (07:51→20:20)
[2021-07-05] MEDS: ACETAMINOPHEN TAB 650MG DOSE (2X325MG) PO PRN (07:51)
[2021-07-05] MEDS: FAMOTIDINE 20 MG TAB PO SCH (07:51)
[2021-07-05] MEDS: MIDODRINE 5 MG TAB PO SCH ×3 (07:51→16:40)
[2021-07-05] MEDS: POTASSIUM CHLORIDE 10 MEQ SR TABLET PO SCH (07:52)
[2021-07-05] MEDS: SODIUM CHLORIDE 0.9% INJ 10 ML SYR IV SCH (07:52)
[2021-07-05] MEDS: SIMETHICONE 80MG CHEW TAB PO SCH ×3 (07:52→20:15)
[2021-07-05] MEDS: NYSTATIN 100,000 UNITS/GM TOPICAL PWD 15 GM TOP SCH ×2 (07:53→20:15)
[2021-07-05] MEDS: ENOXAPARIN 30MG/0.3ML SYRINGE (J1650 PER 10MG) SC SCH (07:53)
[2021-07-05] MEDS: LIDOCAINE 5% (LIDODERM) PATCH TD SCH (07:54)
[2021-07-05] MEDS: REMEDY PHYTOPLEX Z-GUARD PASTE 113GM TUBE (FROM STOREROOM PRODUCT) TOP SCH ×3 (07:54→20:15)
[2021-07-05 14:00] VITALS: BP 140/64
[2021-07-05 20:00] VITALS: BP 134/68
[2021-07-05] MEDS: **NOTE PATIENT COMMENT** MISC XX SCH (20:17)
[2021-07-06 06:00] VITALS: BP 106/52
[2021-07-06 06:59] LABS: BASO % 0.1 % (0.0-1.0); EOS % 0.1 % (0.0-3.0); HEMATOCRIT 30.1 % (36.0-47.0); HEMOGLOBIN 9.9 g/dl (12.0-15.5); LYMPH # 0.6 10^3/uL (1.5-5.0); LYMPH % 2.3 % (24.0-44.0); MEAN CORPUSCULAR HEMOGLOBIN 28.8 pg (27.0-33.0); MEAN CORPUSCULAR HGB CONC 32.9 g/dl (32.0-36.5); MEAN CORPUSCULAR VOLUME 87.5 fl (80.0-96.0); MONO # 1.6 10^3/uL (0.0-0.8); MONO % 6.5 % (2.0-8.0); NEUTROPHILS # 21.4 10^3/uL (1.5-8.5); NEUTROPHILS % 89.9 % (36.0-66.0); PLATELET COUNT, AUTOMATED 441 10^3/uL (150-450); RED BLOOD COUNT 3.44 10^6/uL (4.00-5.40); WHITE BLOOD COUNT 23.9 10^3/uL (4.0-10.0)
[2021-07-06 07:25] LABS: BLOOD UREA NITROGEN 12 MG/DL (7-18); CARBON DIOXIDE LEVEL 26 MEQ/L (21-32); CHLORIDE LEVEL 95 MEQ/L (98-107); CREATININE FOR GFR 0.46 MG/DL (0.55-1.30); GLOMERULAR FILTRATION RATE > 60.0 (>45); GLUCOSE, FASTING 62 MG/DL (70-100); POTASSIUM SERUM 4.1 MEQ/L (3.5-5.1); SODIUM LEVEL 130 MEQ/L (136-145)
[2021-07-06] MEDS: LIDOCAINE 5% (LIDODERM) PATCH TD SCH (08:24)
[2021-07-06] MEDS: MEGESTROL 400MG 10ML SUSP ORAL SYRINGE *DRAW UP EXACT DOSE PO SCH (08:24)
[2021-07-06] MEDS: MIDODRINE 5 MG TAB PO SCH ×3 (08:25→15:52)
[2021-07-06] MEDS: PYRIDOSTIGMINE 60 MG TAB PO SCH ×3 (08:26→20:21)
[2021-07-06] MEDS: ACETAMINOPHEN TAB 650MG DOSE (2X325MG) PO PRN ×2 (08:27→18:45)
[2021-07-06] MEDS: POTASSIUM CHLORIDE 10 MEQ SR TABLET PO SCH (08:27)
[2021-07-06] MEDS: FAMOTIDINE 20 MG TAB PO SCH (08:27)
[2021-07-06] MEDS: SODIUM CHLORIDE 0.9% INJ 10 ML SYR IV SCH (08:28)
[2021-07-06] MEDS: ENOXAPARIN 30MG/0.3ML SYRINGE (J1650 PER 10MG) SC SCH (08:28)
[2021-07-06] MEDS: REMEDY PHYTOPLEX Z-GUARD PASTE 113GM TUBE (FROM STOREROOM PRODUCT) TOP SCH ×3 (08:28→20:22)
[2021-07-06] MEDS: NYSTATIN 100,000 UNITS/GM TOPICAL PWD 15 GM TOP SCH ×2 (08:29→20:22)
[2021-07-06] MEDS: SIMETHICONE 80MG CHEW TAB PO SCH ×3 (09:00→20:21)
--- NOTE | 2021-07-06 09:32 | IPNPDOC ---
PM&R Progress Note DATE OF SERVICE: Jul 06, 2021 Conductor/Engineer Progress Note Subjective: Patient states she wants to go home from rehab. She was told that Dr. Arvizu her oncologist would come by soon to discuss possible treatment plan. REVIEW OF SYSTEMS: The following is a completed review of systems and has been reviewed. Review of systems otherwise unremarkable. PAIN: Patient self reports abdominal discomfort (chronic) EYES: No recent vision changes EARS, NOSE, & THROAT: No throat pain, or dysphagia, or rhinorrhea CARDIOVASCULAR: Denies chest pain or palpitations PULMONARY: Denies shortness of breath GASTROINTESTINAL: Denies constipation/diarrhea, +poor appetite GENITOURINARY: denies dysuria MUSCULOSKELETAL: generalized weakness NEUROLOGICAL: denies tremor or paresthesias HEMATOLOGICAL: denies easy bruising SKIN: +PEG site skin irritation PSYCHIATRIC: Unremarkable All other review of systems found to be negative. PHYSICAL EXAMINATION: VITAL SIGNS: Please see below. GENERAL: Pleasant and cooperative. No acute distress. bitemporal wasting HEENT: PERRL. Extraocular movements intact. Clear conjunctiva CARDIOVASCULAR: Regular rate and rhythm. No murmurs, rubs, or gallops LUNGS: Clear to auscultation bilaterally. No wheezes. No rhonchi ABDOMEN: Soft, nontender, nondistended. Positive bowel sounds. Normal active bowel sounds NEUROLOGICAL: Alert and oriented times three. Cranial nerves II through XII grossly intact. Sensation grossly intact EXTREMITIES: 5-\5 strength bilateral upper extremities 5-\5 strength right lower extremity. 5-/5 strength in left lower extremity. 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 Rehab- PT/OT advance mobility and ADLs, strengthen/stretch/maintain ROM all 4 limbs, patient beginning to plateau in therapy 2. CArdiac-hypotension improving on midodrine 10mg TID and with addition of mestinon which can also help with orthostatic hypotension -medicine following to assist in overall management 3. Resp- s/p left sided thoracentesis for suspected lung metastases 07-02-21 -monitor for infection, Incentive spirometer 4. Oncology- nasopharyngeal cancer with liver mets, patient to follow up with oncologist for further management 5. GI- cont simethicone for abdominal discomfort which patient states is getting better, cont pepcid for GI ppx -cancer related cachexia, cont Megace, patient reporting increased appetite -she does not want supplemental nutrition via PEG, will find out who placed it and try to coordinate removal after d/c 6. DVT ppx- lovenox -patient with +Jose's on left- dopplers negative for DVT 7. Pain- tylenol, oxycodone (stopped due to lethargy) , and gabapentin (stopped due to lethargy) 8. ID: s/p course of zosyn and vancomycin followed by po doxycycline for sepsis thought to be related to possible UTI vs PEG site infection, discussed option to add oral antifungal treatment given yeast on recent wound culture with hospitalist who had low concern, cont local nystatin to peg-site skin area appears less red and less tender -repeat blood cx negative 9. Psych- depression, c/u zoloft 10. Heme- anemia s/p 2 units prbc on recent admission, will monitor an consider transfusion if Hgb <8 or symptomatic 11. Hypercalcemia- ionized Ca 5.8 s/p gentle IVF 07-02-21, patient still with mildly elevated Ca which is most likely due to malignancy, will give more gently hydration, patient does not appear fluid overloaded 12. Dispo- hospice consult placed, spoke with Dr. Arvizu's staff and she will hopefully see patient today or tomorrow and discuss possible treatment options and prognosis Allergies Coded Allergies: No Known Allergies (Unverified , 11/04/20) Vital Signs Vital Signs Date Time Temp Pulse Resp B/P (MAP) Pulse Ox O2 Delivery O2 Flow Rate FiO2 07/06/21 08:00 16 Room Air 07/06/21 06:00 98.1 96 106/52 (70) 98 Laboratory Data CBC/BMP Laboratory Tests 07/06/21 06:35 Labs 24H Laboratory Tests 2 07/06/21 06:35: Immature Granulocyte % (Auto) 1.1, Neutrophils (%) (Auto) 89.9H, Lymphocytes (%) (Auto) 2.3L, Monocytes (%) (Auto) 6.5, Eosinophils (%) (Auto) 0.1, Basophils (%) (Auto) 0.1, Neutrophils # (Auto) 21.4H, Lymphocytes # (Auto) 0.6L, Monocytes # (Auto) 1.6H, Eosinophils # (Auto) 0.0, Basophils # (Auto) 0.0, Nucleated Red Blood Cells % (auto) 0.0, Anion Gap 9, Glomerular Filtration Rate > 60.0, Calci um Level 11.0H Microbiology Microbiology 07/03/21 Blood Culture - Preliminary, Resulted No Growth after 48 hours. All Specime... 07/03/21 Blood Culture - Preliminary, Resulted No Growth after 48 hours. All Specime... 07/01/21 Gram Stain - Final, Complete 07/01/21 Body Fluid Culture - Final, Complete Current Medications Current Medications Current Medications Medications (Trade) Dose Ordered Sig/Chanelle Route PRN Reason Start Time Stop Time Status Last Admin Dose Admin Acetaminophen (Tylenol Tab) 650 mg Q4HP PRN PO MILD PAIN (PS 1-4) 06/30/21 14:55 07/06/21 08:27 Enoxaparin Sodium (Lovenox) 30 mg DAILY SC 07/01/21 09:00 07/06/21 08:28 Famotidine (Pepcid) 20 mg DAILY PO 07/01/21 09:00 07/01/21 15:43 DC 07/01/21 08:21 Famotidine (Pepcid) 40 mg DAILY PO 07/02/21 09:00 07/06/21 08:27 Gabapentin (Neurontin) 100 mg QHS PO 06/30/21 21:00 07/03/21 09:56 DC 07/02/21 21:11 Heparin Sodium (Heparin (Flush)) 500 units ASDIRECTED PRN IV SEE LABEL COMMENTS 07/01/21 18:55 07/01/21 20:20 Heparin Sodium (Heparin (Flush)) 500 units DAILY IV 07/02/21 09:00 07/06/21 08:28 Lidocaine (Lidoderm Patch) 2 patch DAILY TD 07/03/21 09:00 07/06/21 08:24 Megestrol Acetate (Megace Acetate Suspension) 400 mg DAILY PO 06/30/21 09:00 07/06/21 08:24 Midodrine (Proamatine) 7.5 mg 08,12,16 PO 06/30/21 16:00 07/03/21 09:56 DC 07/03/21 08:13 Midodrine (Proamatine) 10 mg 08,12,16 PO 07/03/21 12:00 07/06/21 08:25 Non-Formulary Medication ( See Comment Field Below ) REMOVE LIDODERM PATCH DAILY@21 XX 07/03/21 21:00 07/05/21 20:17 Nystatin (Mycostatin Powder, Nystop) apply to peg site af... BID TOP 07/01/21 21:00 07/06/21 08:29 Ondansetron HCl (Zofran Odt) 4 mg Q6HP PRN PO NAUSEA OR VOMITING 06/30/21 14:55 Oxycodone HCl (Roxicodone, Oxyir) 5 mg Q4HP PRN PO MODERATE PAIN (PS 5-7) 06/30/21 14:55 07/03/21 09:56 DC 07/03/21 05:17 Polyethylene Glycol (Miralax) 1 pkt DAILY PRN PO CONSTIPATION 06/30/21 14:55 Potassium Chloride (Micro-K Extencaps) 20 meq DAILY PO 07/01/21 09:00 07/01/21 08:09 DC Potassium Chloride (Micro-K Extencaps) 40 meq DAILY PO 07/01/21 09:00 07/06/21 08:27 Pyridostigmine [place] (Mestinon) 15 mg TID PO 07/03/21 09:00 07/06/21 08:26 Simethicone (Mylicon) 80 mg TID PO 07/01/21 16:00 07/05/21 20:15 Simethicone (Mylicon) 80 mg TIDP PRN PO GAS PAIN 06/30/21 14:55 07/01/21 15:47 DC Sodium Chloride 1,000 ml @ 60 mls/hr [id number] IV 07/02/21 09:35 07/03/21 02:14 DC 07/02/21 09:58 Sodium Chloride (Saline Lock Flush) 10 ml ASDIRECTED PRN IV SEE LABEL COMMENTS 07/01/21 18:55 07/01/21 20:20 Sodium Chloride (Saline Lock Flush) 10 ml DAILY IV 07/02/21 09:00 07/06/21 08:28 MISTY BRADSHAW MD Jul 06, 2021 09:32
[2021-07-06] MEDS: NS 1,000 ML IV SCH (12:35)
[2021-07-06 14:00] VITALS: BP 132/64
--- NOTE | 2021-07-06 19:31 | CR.PDOC ---
General Date of Consultation: Jul 06, 2021 Referring Provider: MISTY BRADSHAW MD Attending Physician: MISTY BRADSHAW MD Consultation REASON FOR CONSULTATION: Prognosis for nasopharyngeal carcinoma. HISTORY OF PRESENT ILLNESS: Ms. 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 She had a positive response to chemotherapy. She started radiation therapy to nasopharynx 03/23/2021 and completed this 05/04/2021. Subsequently imaging studies showed disease progression in liver metastases. This was specifically seen on a a CT abdomen pelvis on 05/09/2021. She was referred to [place] and was being considered for liver directed therapy for liver metastases. We also planned for her to start capecitabine chemotherapy in 04/2021 but she subsequently had deterioration in functional status. She was admitted to [facility] 06/21/2021 for generalized weakness. On that admission she was treated for a urinary infection. Subsequently transferred to rehab for intensive physical therapy. However this past few days she has been noted to further decline in functional status. Medical oncology consulted for discussion on prognosis. The patient was seen in rehab unit today. She was bedbound, had difficulty answering simple questions. The nurse taking care of her stated that she needs assistance with getting up and needs total assistance in self-care. She has also been complaining of generalized body soreness. The patient also has poor oral intake. ALLERGIES: Please see below. HOME MEDICATIONS: Please see below. PAST MEDICAL HISTORY Nasopharyngeal carcinoma Arthritis. Allergies. FAMILY HISTORY Her father had prostate cancer. SOCIAL HISTORY Smoking since her teens. Stopped smoking in 2019. Denies drinking alcohol. . Has one grown son. PHYSICAL EXAMINATION: PERFORMANCE STATUS: ECOG of at least 3 VITAL SIGNS: Please see below. GENERAL APPEARANCE: Cachectic, had difficulty answering simple questions. Comfortably lying in bed. Not in distress. HEENT: Pinkish conjunctive anicteric. Moist oral mucosa. RESPIRATORY: Lungs are clear. No rales rhonchi no wheeze. CARDIOVASCULAR: S1-S2 regular. ABDOMEN: Soft, nontender, no guarding. Folds of skin signifying weight loss. EXTREMITIES: No calf swelling, no calf tenderness no pedal edema. NEUROLOGICAL: Slightly drowsy, not oriented to time place and person. PSYCHIATRIC: Cannot be assessed fully because patient was slightly drowsy LABORATORY DATA: Please see below. 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 CT chest abdomen pelvis 06/30/2021 showed moderate left pleural effusion and increase in size of right lower lobe mass compared to CT scan from 05/09/2021. I discussed with Ms. Xavier that with the above and primarily with poor functional status, prognosis is basically very poor. I also discussed this with Ms. Xavier's over the phone. I recommended a referral to hospice service. Ms. Xavier's agreed with this. Thank you for referring Ms. Xavier for a discussion on prognosis. Vital Signs/I&O Vital Signs Date Time Temp Pulse Resp B/P (MAP) Pulse Ox O2 Delivery O2 Flow Rate FiO2 07/06/21 14:00 98.2 62 19 132/64 (86) 98 Room Air I&O- Last 24 Hours up to 6 AM 07/06/21 06:00 Intake Total 190 ml Balance 190 ml Laboratory Data Labs 24H Laboratory Tests 2 07/06/21 06:35: Immature Granulocyte % (Auto) 1.1, Neutrophils (%) (Auto) 89.9H, Lymphocytes (%) (Auto) 2.3L, Monocytes (%) (Auto) 6.5, Eosinophils (%) (Auto) 0.1, Basophils (%) (Auto) 0.1, Neutrophils # (Auto) 21.4H, Lymphocytes # (Auto) 0.6L, Monocytes # (Auto) 1.6H, Eosinophils # (Auto) 0.0, Basophils # (Auto) 0.0, Nucleated Red Blood Cells % (auto) 0.0, Anion Gap 9, Glomerular Filtration Rate > 60.0, Calcium Level 11.0H CBC/BMP Laboratory Tests 07/06/21 06:35 Microbiology Microbiology 07/03/21 Blood Culture - Preliminary, Resulted No Growth after 72 hours. All specime... 07/03/21 Blood Culture - Preliminary, Resulted No Growth after 72 hours. All specime... 07/01/21 Gram Stain - Final, Complete 07/01/21 Body Fluid Culture - Final, Complete Allergies Coded Allergies: No Known Allergies (Unverified , 11/04/20) Home Medications Scheduled Doxycycline Hyclate (Doxycycline Hyclate) 100 Mg Tablet, 100 MG PO BID for 1 Days, #1 Famotidine (Famotidine) 20 Mg Tablet, 20 MG PO DAILY, (Reported) Furosemide (Furosemide) 20 Mg Tablet, 20 MG PO DAILY, (Reported) Gabapentin (Gabapentin) 300 Mg Capsule, 300 MG PO QHS, (Reported) Midodrine HCl (Midodrine HCl) 5 Mg Tablet, 7.5 MG PO 08,12,16 for 10 Days, #30 Potassium Chloride (Potassium Chloride) 20 Meq Tab.er.prt, 20 MEQ PO DAILY, (Reported) Sennosides/Docusate Sodium (Stool Softener-Laxative Tablet) 1 Each Tablet, 2 TAB PO QHS, (Reported) Scheduled PRN Hydrocodone/Acetaminophen (Hydrocodone-Acetamin 10-325 mg) 1 Each Tablet, 1 TAB PO QID PRN for PAIN LEVEL 5-10, (Reported) Hydroxyzine HCl (Hydroxyzine HCl) 10 Mg Tablet, 10 MG PO DAILY PRN for ITCHING, (Reported) Ondansetron HCl (Ondansetron HCl) 4 Mg Tablet, 4 MG PO TID PRN for NAUSEA OR VOMITING, (Reported) WILTON BRIDGES MD FACP Jul 06, 2021 19:31
[2021-07-06 20:00] VITALS: BP 114/56
[2021-07-06] MEDS: **NOTE PATIENT COMMENT** MISC XX SCH (20:22)
[2021-07-07] MEDS: NS 1,000 ML IV SCH (05:14)
[2021-07-07 06:00] VITALS: BP 118/56
[2021-07-07] MEDS: FAMOTIDINE 20 MG TAB PO SCH (08:53)
[2021-07-07] MEDS: ACETAMINOPHEN TAB 650MG DOSE (2X325MG) PO PRN (08:53)
[2021-07-07] MEDS: PYRIDOSTIGMINE 60 MG TAB PO SCH ×3 (08:54→20:45)
[2021-07-07] MEDS: MIDODRINE 5 MG TAB PO SCH ×3 (08:54→15:33)
[2021-07-07] MEDS: MEGESTROL 400MG 10ML SUSP ORAL SYRINGE *DRAW UP EXACT DOSE PO SCH (08:58)
[2021-07-07] MEDS: REMEDY PHYTOPLEX Z-GUARD PASTE 113GM TUBE (FROM STOREROOM PRODUCT) TOP SCH ×3 (09:00→20:46)
[2021-07-07] MEDS: SODIUM CHLORIDE 0.9% INJ 10 ML SYR IV SCH (09:00)
[2021-07-07] MEDS: LIDOCAINE 5% (LIDODERM) PATCH TD SCH (09:00)
[2021-07-07] MEDS: NYSTATIN 100,000 UNITS/GM TOPICAL PWD 15 GM TOP SCH ×2 (09:00→20:46)
[2021-07-07] MEDS: ENOXAPARIN 30MG/0.3ML SYRINGE (J1650 PER 10MG) SC SCH (09:00)
[2021-07-07] MEDS: SIMETHICONE 80MG CHEW TAB PO SCH ×3 (09:00→20:48)
[2021-07-07] MEDS: POTASSIUM CHLORIDE 10 MEQ SR TABLET PO SCH (09:00)
--- NOTE | 2021-07-07 12:06 | IPNPDOC ---
PM&R Progress Note DATE OF SERVICE: Jul 07, 2021 Ethylene Plant Helper Progress Note Subjective: Patient seen in her room and again states she would like to go home. When hospice was brought up she again said she wanted to go home. When asked if she could continue with therapy she declined. REVIEW OF SYSTEMS: The following is a completed review of systems and has been reviewed. Review of systems otherwise unremarkable. PAIN: Patient self reports abdominal discomfort (chronic) EYES: No recent vision changes EARS, NOSE, & THROAT: No throat pain, or dysphagia, or rhinorrhea CARDIOVASCULAR: Denies chest pain or palpitations PULMONARY: Denies shortness of breath GASTROINTESTINAL: Denies constipation/diarrhea, +poor appetite GENITOURINARY: denies dysuria MUSCULOSKELETAL: generalized weakness NEUROLOGICAL: denies tremor or paresthesias HEMATOLOGICAL: denies easy bruising SKIN: +PEG site skin irritation PSYCHIATRIC: Unremarkable All other review of systems found to be negative. PHYSICAL EXAMINATION: VITAL SIGNS: Please see below. GENERAL: Pleasant and cooperative. No acute distress. bitemporal wasting HEENT: PERRL. Extraocular movements intact. Clear conjunctiva CARDIOVASCULAR: Regular rate and rhythm. No murmurs, rubs, or gallops LUNGS: Clear to auscultation bilaterally. No wheezes. No rhonchi ABDOMEN: Soft, nontender, nondistended. Positive bowel sounds. Normal active bowel sounds NEUROLOGICAL: Alert and oriented times three. Cranial nerves II through XII grossly intact. Sensation grossly intact EXTREMITIES: 5-\5 strength bilateral upper extremities 5-\5 strength right lower extremity. 5-/5 strength in left lower extremity. 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 Rehab- PT/OT advance mobility and ADLs, strengthen/stretch/maintain ROM all 4 limbs, patient beginning to plateau in therapy 2. CArdiac-hypotension improving on midodrine 10mg TID and with addition of mestinon which can also help with orthostatic hypotension -medicine following to assist in overall management 3. Resp- s/p left sided thoracentesis for suspected lung metastases 07-02-21 -monitor for infection, Incentive spirometer 4. Oncology- nasopharyngeal cancer with liver mets, patient to follow up with oncologist for further management 5. GI- cont simethicone for abdominal discomfort which patient states is getting better, cont pepcid for GI ppx -cancer related cachexia, cont Megace, patient reporting increased appetite -she does not want supplemental nutrition via PEG, will find out who placed it and try to coordinate removal after d/c 6. DVT ppx- lovenox -patient with +Jose's on left- dopplers negative for DVT 7. Pain- tylenol, oxycodone (stopped due to lethargy) , and gabapentin (stopped due to lethargy), given goals of care have changed, will start IV morhpine 2mg q6h prn 8. ID: s/p course of zosyn and vancomycin followed by po doxycycline for sepsis thought to be related to possible UTI vs PEG site infection, discussed option to add oral antifungal treatment given yeast on recent wound culture with hospitalist who had low concern, cont local nystatin to peg-site skin area appears less red and less tender -repeat blood cx negative 9. Psych- depression, c/u zoloft 10. Heme- anemia s/p 2 units prbc on recent admission, will monitor an consider transfusion if Hgb <8 or symptomatic 11. Hypercalcemia- ionized Ca 5.8 s/p gentle IVF 07-02-21, patient still with mildly elevated Ca which is most likely due to malignancy, will give more gentle hydration, patient does not appear fluid overloaded 12. Dispo- Patient and have agreed to go home with hospice services as patient is terminally ill and no further treatment options are available,Dr Arvizu spoke with patient and 07-06-21 and her input is greatly appr eciated, patient had initially been able to participate in therapy, however given her poor prognosis she has not demonstrated a decline in desire to participate, she will no longer receive 3 hours of intensive rehab on this unit, but will remain here for the next 24-48hr while hospice services are set up in the home. IV morphine has been ordered, patient appears comfortable. Allergies Coded Allergies: No Known Allergies (Unverified , 11/04/20) Vital Signs Vital Signs Date Time Temp Pulse Resp B/P (MAP) Pulse Ox O2 Delivery O2 Flow Rate FiO2 07/07/21 06:00 99.6 78 20 118/56 (76) 96 Room Air Microbiology Microbiology 07/03/21 Blood Culture - Preliminary, Resulted No Growth after 72 hours. All specime... 07/03/21 Blood Culture - Preliminary, Resulted No Growth after 72 hours. All specime... 07/01/21 Gram Stain - Final, Complete 07/01/21 Body Fluid Culture - Final, Complete Current Medications Current Medications Current Medications Medications (Trade) Dose Ordered Sig/Chanelle Route PRN Reason Start Time Stop Time Status Last Admin Dose Admin Acetaminophen (Tylenol Tab) 650 mg Q4HP PRN PO MILD PAIN (PS 1-4) 06/30/21 14:55 07/07/21 08:53 Enoxaparin Sodium (Lovenox) 30 mg DAILY SC 07/01/21 09:00 07/06/21 08:28 Famotidine (Pepcid) 20 mg DAILY PO 07/01/21 09:00 07/01/21 15:43 DC 07/01/21 08:21 Famotidine (Pepcid) 40 mg DAILY PO 07/02/21 09:00 07/07/21 08:53 Gabapentin (Neurontin) 100 mg QHS PO 06/30/21 21:00 07/03/21 09:56 DC 07/02/21 21:11 Heparin Sodium (Heparin (Flush)) 500 units ASDIRECTED PRN IV SEE LABEL COMMENTS 07/01/21 18:55 07/01/21 20:20 Heparin Sodium (Heparin (Flush)) 500 units DAILY IV 07/02/21 09:00 07/06/21 08:28 Lidocaine (Lidoderm Patch) 2 patch DAILY TD 07/03/21 09:00 07/06/21 08:24 Megestrol Acetate (Megace Acetate Suspension) 400 mg DAILY PO 06/30/21 09:00 07/06/21 08:24 Midodrine (Proamatine) 7.5 mg 08,12,16 PO 06/30/21 16:00 07/03/21 09:56 DC 07/03/21 08:13 Midodrine (Proamatine) 10 mg 08,12,16 PO 07/03/21 12:00 07/07/21 08:54 Morphine Sulfate (Morphine Sulfate Inj) 2 mg Q6H PRN IV MODERATE PAIN (PS 5-7) 07/07/21 10:20 Non-Formulary Medication ( See Comment Field Below ) REMOVE LIDODERM PATCH DAILY@21 XX 07/03/21 21:00 07/05/21 20:17 Nystatin (Mycostatin Powder, Nystop) apply to peg site af... BID TOP 07/01/21 21:00 07/06/21 20:22 Ondansetron HCl (Zofran Odt) 4 mg Q6HP PRN PO NAUSEA OR VOMITING 06/30/21 14:55 07/06/21 18:43 Oxycodone HCl (Roxicodone, Oxyir) 5 mg Q4HP PRN PO MODERATE PAIN (PS 5-7) 06/30/21 14:55 07/03/21 09:56 DC 07/03/21 05:17 Polyethylene Glycol (Miralax) 1 pkt DAILY PRN PO CONSTIPATION 06/30/21 14:55 Potassium Chloride (Micro-K Extencaps) 20 meq DAILY PO 07/01/21 09:00 07/01/21 08:09 DC Potassium Chloride (Micro-K Extencaps) 40 meq DAILY PO 07/01/21 09:00 07/07/21 09:00 Pyridostigmine [place] (Mestinon) 15 mg TID PO 07/03/21 09:00 07/07/21 08:54 Simethicone (Mylicon) 80 mg TID PO 07/01/21 16:00 07/07/21 09:00 Simethicone (Mylicon) 80 mg TIDP PRN PO GAS PAIN 06/30/21 14:55 07/01/21 15:47 DC Sodium Chloride 1,000 ml @ 60 mls/hr [id number] IV 07/02/21 09:35 07/03/21 02:14 DC 07/02/21 09:58 Sodium Chloride 1,000 ml @ 60 mls/hr [id number] IV 07/06/21 09:30 07/07/21 18:49 07/07/21 05:14 Sodium Chloride (Saline Lock Flush) 10 ml ASDIRECTED PRN IV SEE LABEL COMMENTS 07/01/21 18:55 07/01/21 20:20 Sodium Chloride (Saline Lock Flush) 10 ml DAILY IV 07/02/21 09:00 07/06/21 08:28 MISTY BRADSHAW MD Jul 07, 2021 12:06
[2021-07-07 14:00] VITALS: BP 138/55
[2021-07-07] MEDS: MORPHINE 4 MG/ML 1ML VIAL/SYRINGE (J2270) IV PRN (15:34)
[2021-07-07 16:00] VITALS: BP 118/56
[2021-07-07 20:00] VITALS: BP 122/68
[2021-07-07] MEDS: **NOTE PATIENT COMMENT** MISC XX SCH (20:46)
[2021-07-07] MEDS: SODIUM CHLORIDE 0.9% INJ 10 ML SYR IV PRN (21:37)
[2021-07-08] MEDS: MORPHINE 4 MG/ML 1ML VIAL/SYRINGE (J2270) IV PRN ×2 (04:06→08:27)
[2021-07-08] MEDS: SODIUM CHLORIDE 0.9% INJ 10 ML SYR IV PRN (05:52)
[2021-07-08 06:00] VITALS: BP 106/60
[2021-07-08 06:22] LABS: BASO % 0.1 % (0.0-1.0); EOS % 0.1 % (0.0-3.0); HEMATOCRIT 26.3 % (36.0-47.0); HEMOGLOBIN 8.6 g/dl (12.0-15.5); LYMPH # 1.1 10^3/uL (1.5-5.0); MEAN CORPUSCULAR HEMOGLOBIN 28.6 pg (27.0-33.0); MEAN CORPUSCULAR HGB CONC 32.7 g/dl (32.0-36.5); MEAN CORPUSCULAR VOLUME 87.4 fl (80.0-96.0); MONO # 1.6 10^3/uL (0.0-0.8); MONO % 6.9 % (2.0-8.0); NEUTROPHILS # 19.7 10^3/uL (1.5-8.5); NEUTROPHILS % 87.2 % (36.0-66.0); PLATELET COUNT, AUTOMATED 470 10^3/uL (150-450); RED BLOOD COUNT 3.01 10^6/uL (4.00-5.40)
[2021-07-08 06:44] LABS: BLOOD UREA NITROGEN 10 MG/DL (7-18); CALCIUM LEVEL 10.7 MG/DL (8.8-10.2); CARBON DIOXIDE LEVEL 25 MEQ/L (21-32); CHLORIDE LEVEL 96 MEQ/L (98-107); CREATININE FOR GFR 0.34 MG/DL (0.55-1.30); GLOMERULAR FILTRATION RATE > 60.0 (>45); GLUCOSE, FASTING 71 MG/DL (70-100); POTASSIUM SERUM 3.8 MEQ/L (3.5-5.1); SODIUM LEVEL 128 MEQ/L (136-145)
[2021-07-08 06:50] LABS: WHITE BLOOD COUNT 22.6 10^3/uL (4.0-10.0)
[2021-07-08] MEDS: FAMOTIDINE 20 MG TAB PO SCH (08:18)
[2021-07-08] MEDS: MIDODRINE 5 MG TAB PO SCH ×3 (08:18→16:30)
[2021-07-08] MEDS: PYRIDOSTIGMINE 60 MG TAB PO SCH ×3 (08:19→20:28)
[2021-07-08] MEDS: SIMETHICONE 80MG CHEW TAB PO SCH ×3 (08:19→20:32)
[2021-07-08] MEDS: POTASSIUM CHLORIDE 10 MEQ SR TABLET PO SCH (08:19)
[2021-07-08] MEDS: LIDOCAINE 5% (LIDODERM) PATCH TD SCH (08:19)
[2021-07-08] MEDS: ENOXAPARIN 30MG/0.3ML SYRINGE (J1650 PER 10MG) SC SCH (08:20)
[2021-07-08] MEDS: MEGESTROL 400MG 10ML SUSP ORAL SYRINGE *DRAW UP EXACT DOSE PO SCH (08:20)
[2021-07-08] MEDS: NYSTATIN 100,000 UNITS/GM TOPICAL PWD 15 GM TOP SCH ×2 (08:20→20:33)
[2021-07-08] MEDS: SODIUM CHLORIDE 0.9% INJ 10 ML SYR IV SCH (08:21)
[2021-07-08] MEDS: REMEDY PHYTOPLEX Z-GUARD PASTE 113GM TUBE (FROM STOREROOM PRODUCT) TOP SCH ×3 (08:28→20:33)
[2021-07-08 12:03] VITALS: BP 82/54
[2021-07-08] MEDS ORDERED: MORPHINE 4 MG/ML 1ML VIAL/SYRINGE (J2270) IV PRN (13:20)
--- NOTE | 2021-07-08 13:59 | IPNPDOC ---
PM&R Progress Note DATE OF SERVICE: Jul 08, 2021 Telephone Betting Clerk Progress Note Subjective: Patient seen in her room appearing comfortable and conversant. She said her abdominal pain comes and goes and that she thinks the morphine is helping. She is hoping to go home soon. REVIEW OF SYSTEMS: The following is a completed review of systems and has been reviewed. Review of systems otherwise unremarkable. PAIN: Patient self reports abdominal discomfort (chronic) EYES: No recent vision changes EARS, NOSE, & THROAT: No throat pain, or dysphagia, or rhinorrhea CARDIOVASCULAR: Denies chest pain or palpitations PULMONARY: Denies shortness of breath GASTROINTESTINAL: Denies constipation/diarrhea, +poor appetite GENITOURINARY: denies dysuria MUSCULOSKELETAL: generalized weakness NEUROLOGICAL: denies tremor or paresthesias HEMATOLOGICAL: denies easy bruising SKIN: +PEG site skin irritation PSYCHIATRIC: Unremarkable All other review of systems found to be negative. PHYSICAL EXAMINATION: VITAL SIGNS: Please see below. GENERAL: Pleasant and cooperative. No acute distress. bitemporal wasting HEENT: PERRL. Extraocular movements intact. Clear conjunctiva CARDIOVASCULAR: Regular rate and rhythm. No murmurs, rubs, or gallops LUNGS: Clear to auscultation bilaterally. No wheezes. No rhonchi ABDOMEN: Soft, nontender, nondistended. Positive bowel sounds. Normal active bowel sounds NEUROLOGICAL: Alert and oriented times three. Cranial nerves II through XII grossly intact. Sensation grossly intact EXTREMITIES: 5-\5 strength bilateral upper extremities 5-\5 strength right lower extremity. 5-/5 strength in left lower extremity. 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 Rehab- PT/OT advance mobility and ADLs, strengthen/stretch/maintain ROM all 4 limbs, patient beginning to plateau in therapy 2. CArdiac-hypotension improving on midodrine 10mg TID and with addition of mestinon which can also help with orthostatic hypotension -medicine following to assist in overall management 3. Resp- s/p left sided thoracentesis for suspected lung metastases 07-02-21 -monitor for infection, Incentive spirometer 4. Oncology- nasopharyngeal cancer with liver mets, patient to follow up with oncologist for further management 5. GI- cont simethicone for abdominal discomfort which patient states is getting better, cont pepcid for GI ppx -cancer related cachexia, cont Megace, patient reporting increased appetite -she does not want supplemental nutrition via PEG, will find out who placed it and try to coordinate removal after d/c 6. DVT ppx- lovenox -patient with +Jose's on left- dopplers negative for DVT 7. Pain- tylenol, oxycodone (stopped due to lethargy) , and gabapentin (stopped due to lethargy), given goals of care have changed, will start IV morhpine 2mg q6h prn 8. ID: s/p course of zosyn and vancomycin followed by po doxycycline for sepsis thought to be related to possible UTI vs PEG site infection, discussed option to add oral antifungal treatment given yeast on recent wound culture with hospitalist who had low concern, cont local nystatin to peg-site skin area appears less red and less tender -repeat blood cx negative 9. Psych- depression, c/u zoloft 10. Heme- anemia s/p 2 units prbc on recent admission, will monitor an consider transfusion if Hgb <8 or symptomatic 11. Hypercalcemia- ionized Ca 5.8 s/p gentle IVF 07-02-21, patient still with mildly elevated Ca which is most likely due to malignancy, s/p gentle hydration, patient does not appear fluid overloaded 12. Hyponatremia- given patient is going home with hospice and appears comfortable, will not treat at this time 13. Dispo- home with hospice will remain here for the next 24h while hospice services are set up in the home. IV morphine has been ordered, patient appears comfortable. Allergies Coded Allergies: No Known Allergies (Unverified , 11/04/20) Vital Signs Vital Signs Date Time Temp Pulse Resp B/P (MAP) Pulse Ox O2 Delivery O2 Flow Rate FiO2 07/08/21 12:03 70 82/54 (63) 07/08/21 08:40 17 07/08/21 06:00 99.1 98 Room Air Laboratory Data CBC/BMP Laboratory Tests 07/08/21 05:40 Labs 24H Laboratory Tests 2 07/08/21 05:40: Immature Granulocyte % (Auto) 0.7, Neutrophils (%) (Auto) 87.2H, Lymphocytes (%) (Auto) 5.0L, Monocytes (%) (Auto) 6.9, Eosinophils (%) (Auto) 0.1, Basophils (%) (Auto) 0.1, Neutrophils # (Auto) 19.7H, Lymphocytes # (Auto) 1.1L, Monocytes # (Auto) 1.6H, Eosinophils # (Auto) 0.0, Basophils # (Auto) 0.0, Nucleated Red Blood Cells % (auto) 0.0, Anion Gap 7L, Glomerular Filtration Rate > 60.0, Calcium Level 10.7H Microbiology Microbiology 07/03/21 Blood Culture - Final, Complete NO GROWTH AFTER 5 DAYS 07/03/21 Blood Culture - Final, Complete NO GROWTH AFTER 5 DAYS 07/01/21 Gram Stain - Final, Complete 07/01/21 Body Fluid Culture - Final, Complete Current Medications Current Medications Current Medications Medications (Trade) Dose Ordered Sig/Chanelle Route PRN Reason Start Time Stop Time Status Last Admin Dose Admin Acetaminophen (Tylenol Tab) 650 mg Q4HP PRN PO MILD PAIN (PS 1-4) 06/30/21 14:55 07/07/21 08:53 Enoxaparin Sodium (Lovenox) 30 mg DAILY SC 07/01/21 09:00 07/08/21 08:20 Famotidine (Pepcid) 20 mg DAILY PO 07/01/21 09:00 07/01/21 15:43 DC 07/01/21 08:21 Famotidine (Pepcid) 40 mg DAILY PO 07/02/21 09:00 07/08/21 08:18 Gabapentin (Neurontin) 100 mg QHS PO 06/30/21 21:00 07/03/21 09:56 DC 07/02/21 21:11 Heparin Sodium (Heparin (Flush)) 500 units ASDIRECTED PRN IV SEE LABEL COMMENTS 07/01/21 18:55 07/08/21 05:52 Heparin Sodium (Heparin (Flush)) 500 units DAILY IV 07/02/21 09:00 07/08/21 08:21 Lidocaine (Lidoderm Patch) 2 patch DAILY TD 07/03/21 09:00 07/08/21 08:19 Megestrol Acetate (Megace Acetate Suspension) 400 mg DAILY PO 06/30/21 09:00 07/08/21 08:20 Midodrine (Proamatine) 7.5 mg 08,12,16 PO 06/30/21 16:00 07/03/21 09:56 DC 07/03/21 08:13 Midodrine (Proamatine) 10 mg 08,12,16 PO 07/03/21 12:00 07/08/21 12:03 Morphine Sulfate (Morphine Sulfate Inj) 2 mg Q4H PRN IV MODERATE PAIN (PS 5-7) 07/08/21 13:20 Morphine Sulfate (Morphine Sulfate Inj) 2 mg Q6H PRN IV MODERATE PAIN (PS 5-7) 07/07/21 10:20 07/08/21 13:21 DC 07/08/21 08:27 Non-Formulary Medication ( See Comment Field Below ) REMOVE LIDODERM PATCH DAILY@21 XX 07/03/21 21:00 07/07/21 20:46 Nystatin (Mycostatin Powder, Nystop) apply to peg site af... BID TOP 07/01/21 21:00 07/08/21 08:20 Ondansetron HCl (Zofran Odt) 4 mg Q6HP PRN PO NAUSEA OR VOMITING 06/30/21 14:55 07/06/21 18:43 Oxycodone HCl (Roxicodone, Oxyir) 5 mg Q4HP PRN PO MODERATE PAIN (PS 5-7) 06/30/21 14:55 07/03/21 09:56 DC 07/03/21 05:17 Polyethylene Glycol (Miralax) 1 pkt DAILY PRN PO CONSTIPATION 06/30/21 14:55 Potassium Chloride (Micro-K Extencaps) 20 meq DAILY PO 07/01/21 09:00 07/01/21 08:09 DC Potassium Chloride (Micro-K Extencaps) 40 meq DAILY PO 07/01/21 09:00 07/08/21 08:19 Pyridostigmine [place] (Mestinon) 15 mg TID PO 07/03/21 09:00 07/08/21 08:19 Simethicone (Mylicon) 80 mg TID PO 07/01/21 16:00 07/08/21 08:19 Simethicone (Mylicon) 80 mg TIDP PRN PO GAS PAIN 06/30/21 14:55 07/01/21 15:47 DC Sodium Chloride 1,000 ml @ 60 mls/hr [id number] IV 07/02/21 09:35 07/03/21 02:14 DC 07/02/21 09:58 Sodium Chloride 1,000 ml @ 60 mls/hr [id number] IV 07/06/21 09:30 07/07/21 18:49 DC 07/07/21 05:14 Sodium Chloride (Saline Lock Flush) 10 ml ASDIRECTED PRN IV SEE LABEL COMMENTS 07/01/21 18:55 07/08/21 05:52 Sodium Chloride (Saline Lock Flush) 10 ml DAILY IV 07/02/21 09:00 07/08/21 08:21 MISTY BRADSHAW MD Jul 08, 2021 13:59
[2021-07-08 14:00] VITALS: BP 80/52
[2021-07-08] MEDS: MORPHINE 10MG/0.5ML ORAL CONCENTRATE SOLUTION U/D SL PRN ×2 (16:31→23:12)
[2021-07-08 18:25] VITALS: BP 118/58
[2021-07-08 20:00] VITALS: BP 126/58
[2021-07-08] MEDS: **NOTE PATIENT COMMENT** MISC XX SCH (20:45)
[2021-07-09 06:00] VITALS: BP 110/62
[2021-07-09] MEDS: MORPHINE 10MG/0.5ML ORAL CONCENTRATE SOLUTION U/D SL PRN ×2 (07:49→12:21)
[2021-07-09] MEDS: FAMOTIDINE 20 MG TAB PO SCH (07:50)
[2021-07-09] MEDS: SIMETHICONE 80MG CHEW TAB PO SCH (07:50)
[2021-07-09] MEDS: PYRIDOSTIGMINE 60 MG TAB PO SCH (07:50)
[2021-07-09] MEDS: MIDODRINE 5 MG TAB PO SCH ×2 (07:50→12:21)
[2021-07-09] MEDS: POTASSIUM CHLORIDE 10 MEQ SR TABLET PO SCH (07:51)
[2021-07-09] MEDS: ENOXAPARIN 30MG/0.3ML SYRINGE (J1650 PER 10MG) SC SCH (07:51)
[2021-07-09] MEDS: MEGESTROL 400MG 10ML SUSP ORAL SYRINGE *DRAW UP EXACT DOSE PO SCH (07:51)
[2021-07-09] MEDS: SODIUM CHLORIDE 0.9% INJ 10 ML SYR IV SCH (07:52)
[2021-07-09] MEDS: NYSTATIN 100,000 UNITS/GM TOPICAL PWD 15 GM TOP SCH (07:53)
[2021-07-09] MEDS: LIDOCAINE 5% (LIDODERM) PATCH TD SCH (07:53)
[2021-07-09] MEDS: REMEDY PHYTOPLEX Z-GUARD PASTE 113GM TUBE (FROM STOREROOM PRODUCT) TOP SCH (07:53)
[2021-07-09] MEDS ORDERED: KLOR10TA76 PO (08:59)
[2021-07-09] MEDS ORDERED: MI-A80CH PO (08:59)
[2021-07-09] MEDS ORDERED: MIDO5TA PO (08:59)
[2021-07-09] MEDS ORDERED: MORP1SOL SL (08:59)
[2021-07-09] MEDS ORDERED: MEGE40SU5 PO (08:59)
[2021-07-09] MEDS ORDERED: FAMO20TA PO (08:59)
[2021-07-09] MEDS ORDERED: ATIV1TAB10 PO (11:38)
[2021-07-09] MEDS ORDERED: MORP1SOL5 PO (11:38)
[2021-07-09] MEDS ORDERED: HYOS125TA PO (11:38)
--- NOTE | 2021-07-15 10:23 | PMRDS ---
NAME: CHON GREEN [facility] WT ID#: [id number] JOB: [id number] EKTA: 07/09/2021 ACCT: [id number] DOCTOR: MISTY BRADSHAW MD PMR DISCHARGE SUMMARY DATE OF ADMISSION: 06/30/2021 DATE OF DISCHARGE: 07/09/2021 CHIEF COMPLAINT/DISCHARGE DIAGNOSIS: Metastatic nasopharyngeal carcinoma with failure to thrive. HISTORY OF PRESENT ILLNESS: A 65-year-old female with a past medical history of nasopharyngeal carcinoma with liver metastases with possible mets to lungs, who presents to [facility] ED on 06/21/2021 with worsening weakness and recurrent falls. She was started on I.V. Zosyn for UTI. There was a concern for possible PEG site infection, for which cultures were obtained. Her urine culture did not grow anything, however, her PEG site grew Staph Aureus, coag negative Staph and she had persistent hypotension, for which she was kept on broad spectrum antibiotic coverage out of concern for sepsis. She had hypokalemia and hypomagnesemia and was started on Midodrine to support her blood pressures once her workup for adrenal insufficiency was completed. She had persistent leukocytosis thought to be due to steroid use given for her hypotension with poor p.o. intake and ongoing abdominal discomfort. For her sepsis workup, CT scans of the chest, abdomen and pelvis did reveal a left-sided moderate pleural effusion for which she was scheduled for a diagnostic thoracentesis with IR. She had ongoing mobility and ADL impairments and was deemed medically appropriate for discharge to ARU on 06/30/2021. PAST MEDICAL HISTORY: As per HPI. HOSPITAL COURSE: Patient was admitted and enrolled in a comprehensive PT/OT program. She received 24 hour nursing supervision and weekly team meetings were held to discuss her progress. Patient reported persistent abdominal discomfort, which was relieved somewhat with simethicone and Oxycodone. Patient was noted to be cachectic with failure to thrive and was started on Megace with modest improvements in her overall appetite. Patient declined on multiple occasions the opportunity to receive supplemental nutrition via her PEG. Patient was noted to have worsening lethargy and decline in her participation in therapy. Oxycodone was initially stopped. In addition her Gabapentin was stopped. She was given gentle I.V. fluid for her hypercalcemia, likely due to malignancy. She was also started on Mestinon in addition to her Midodrine for blood pressure support. Patient, however, ultimately decided that she no longer wanted to participate in therapy despite having the capability of doing it. Conversations were had with both patient and her on multiple occasions for possible Hospice. Dr. Arvizu, her oncologist, did come by and discuss prognosis with patient and agreed that Hospice was the best option. Patient remained DNI/DNR during her hospital course and was discharged to Hospice on 07/09/2021 with her . DISCHARGE MEDICATIONS: As per instructions. FUNCTIONAL HISTORY: On discharge, the patient was min assist to contact guard assist for functional transfers, ambulation and ADLs. Thank you for this referral.
== END 2021-07-09 13:05 | disposition hospice, home (50) | DRG 948 ==
LOC: M PM&R 15:34
PROVIDERS: ADMIT Physical Medicine & Rehabilitation; ATTEND Physical Medicine & Rehabilitation
PROC: 0W9B3ZZ Drainage of Left Pleural Cavity, Percutaneous Approach (ICD-10-PCS; principal; 2021-07-02 15:30)
DX: R53.1 Weakness (principal); C78.7 Secondary malignant neoplasm of liver and intrahepatic bile duct; R64 Cachexia; R29.6 Repeated falls; Z74.09 Other reduced mobility; Z74.1 Need for assistance with personal care; I95.9 Hypotension, unspecified; C11.9 Malignant neoplasm of nasopharynx, unspecified; R10.9 Unspecified abdominal pain; F32.9 Major depressive disorder, single episode, unspecified; D64.9 Anemia, unspecified; Z79.899 Other long term (current) drug therapy; Z66 Do not resuscitate; R62.7 Adult failure to thrive; E83.52 Hypercalcemia; Z92.21 Personal history of antineoplastic chemotherapy; Z87.891 Personal history of nicotine dependence